=== PATIENT | male | born 1955 | race Caucasian/White ===

== ENCOUNTER 2016-08-17 19:21 | Inpatient (IN) | payer MEDICAID ==
[~2016-08-17] VITALS: Ht 180.3 cm; Wt 103.4 kg
[~2016-08-17 19:21] MED LIST: ALLO100T21 PO; ASPI81CT89 PO; ATOR20TA40 PO; DOCU-264 PO; FURO-570 PO; HYDR-4446 PO; IPRA14.7 INH; LAC PO; LANTUS SUBQ; LEVO250T3 PO; LISI10TA11 PO; LORA-476 PO; NITR0.4T2 SL; WARF6TAB PO
[2016-08-17 20:10] VITALS: BP 130/76
--- NOTE | 2016-08-17 20:40 | NUR ---
Patient to bed 03.
--- NOTE | 2016-08-17 20:41 | NUR ---
pt released from [facility], c/o being tired, weak, sob hx of afib, pacemaker, diabetic., gall bladder removed. blood sugar in triage 146.
--- NOTE | 2016-08-17 20:45 | NUR ---
Patient went to CT via [facility].
[2016-08-17] MEDS ORDERED: NACL 0.9% 1,000 ML IV ONE (21:20)
--- NOTE | 2016-08-17 21:25 | NUR ---
RT at bedside for ABG.
--- NOTE | 2016-08-17 21:25 | NUR ---
XRAY at bedside.
[2016-08-17 21:39] LABS: BLOOD GAS BASE EXCESS -1.9 mmol/L (-2.0-2.0); BLOOD GAS HCO3 20.8 mmol/L; BLOOD GAS O2 SAT% 93.1 % (92.0-98.5); BLOOD GAS PCO2 30.3 mmHg (20-50); BLOOD GAS PH 7.454 (7.35-7.45); BLOOD GAS PO2 64.7 mmHg
[2016-08-17 21:49] LABS: BASOPHILS # (AUTO) 0.1 K/uL (0.00-0.22); BASOPHILS % (AUTO) 0.8 % (0.0-2.0); EOSINOPHILS # (AUTO) 0.2 K/uL (0-0.4); EOSINOPHILS % (AUTO) 1.7 % (0.0-4.0); HEMATOCRIT 44.4 % (36-52); HEMOGLOBIN 14.5 g/dL (12.0-18.0); LYMPHOCYTES # (AUTO) 1.1 K/uL (2.0-11.5); LYMPHOCYTES % (AUTO) 10.9 % (20.5-51.1); MEAN CORPUSCULAR HEMOGLOBIN 29 pg (27-31); MEAN CORPUSCULAR HGB CONC 33 g/dL (33-37); MEAN CORPUSCULAR VOLUME 90 fL (80-94); MONOCYTES # (AUTO) 0.9 K/uL (0.8-1.0); NEUTROPHILS # (AUTO) 7.8 K/uL (1.8-7.7); NEUTROPHILS % (AUTO) 77.6 % (42.2-75.2); PLATELET COUNT (AUTO) 191 K/uL (140-450); RED BLOOD CELL COUNT(AUTO) 4.94 MIL/uL (4.20-6.10); RED CELL DISTRIBUTION WIDTH 16.4 % (11.6-13.7); WHITE BLOOD COUNT (AUTO) 10.1 K/uL (4.8-10.8)
[2016-08-17] MEDS ORDERED: MECLIZINE 25 MG TAB PO ONE (21:50)
[2016-08-17] MEDS ORDERED: KETOROLAC 30 MG/ML VIAL IVP ONE (21:50)
[2016-08-17 22:04] LABS: ANION GAP 15.3 (8-16); CALCIUM 8.5 mg/dL (8.5-10.1); CARBON DIOXIDE 25.6 mmol/L (21-32); CREATININE 1.5 mg/dL (0.6-1.3); POTASSIUM 4.9 mmol/L (3.5-5.1)
[2016-08-17 22:06] LABS: INR 1.4 (0.8-1.2); PARTIAL THROMBOPLASTIN TIME 40.5 secs (22-35.6); PROTHROMBIN TIME 13.8 secs (10.8-13.4)
[2016-08-17 22:11] LABS: ALBUMIN 2.8 g/dL (3.4-5.0); TOTAL BILIRUBIN 1.1 mg/dL (0.0-1.0); TOTAL PROTEIN, SERUM 7.4 g/dL (6.4-8.2)
[2016-08-17 22:12] LABS: LACTIC ACID 1.4 mmol/L (0.4-2.0)
[2016-08-17] MEDS ORDERED: ASPIRIN 81 MG TAB.CHEW PO ONE (22:30)
--- NOTE | 2016-08-17 22:35 | NUR ---
DR PICKERING MADE AWARE OF TROPONIN LEVEL AND ANTWON ROMAN MADE AWARE OF LEVEL OF TROPONIN 0.136.
--- NOTE | 2016-08-17 23:00 | NUR ---
Patient will be admitted to care of DR SIGALA. Admited to TELE 122B. Will go to [id number]. Belongings list completed. Report to MANOJ.
--- NOTE | 2016-08-17 23:05 | NUR ---
ADMITTED 61 YEAR OLD PT FROM ER. PT AAOX4. PT STABLE. PT'S VS ARE STABLE. PT HAS A PACE MAKER. PT HAS IV TO LEFT AC 20 G; ASYMPTOMATIC, PATENT AND INTACT INFUSING FLUIDS WELL. PT'S SKIN IS INTACT. PT HAS SOME DISCOLORATION TO BILATERAL LOWER EXTREMITIES. EXPLAINED PLAN OF CARE TO PT. ORIENTED PT TO ROOM AND SURROUNDINGS AND USE OF CALL LIGHT. SAFETY/FALL RISKS MEASURES IN PLACE. CALL LIGHT WITHIN REACH. WILL CONTINUE TO MONITOR PT.
[2016-08-17 23:14] LABS: APPEARANCE,URINE CLOUDY (CLEAR); BILIRUBIN,URINE NEGATIVE (NEGATIVE); BLOOD, URINE 2+ (NEGATIVE); COLOR,URINE YELLOW (YELLOW); LEUKOCYTE ESTERASE ,URINE TRACE (NEGATIVE); NITRITE, URINE NEGATIVE (NEGATIVE); PH,URINE 5.5 (5.0-9.0); PROTEIN,URINE 2+ (NEGATIVE); UGLUCOSE NEGATIVE (NEGATIVE); UROBILINOGEN,URINE 0.2 EU/dL (0.2 - 1)
[2016-08-17 23:55] LABS: BACTERIA,URINE 3+ /HPF (None Seen); MUCUS,URINE 4+ /LPF (None Seen); SQUAMOUS EPITHELIAL CELL,UR 0-3 /LPF (0-3 (FEW)); WBC,URINE 40-60 /HPF (0-5)
[2016-08-17 23:56] LABS: HYALINE CASTS, URINE 0-3 /LPF (None Seen); WHITE BLOOD CELL CASTS,URINE 0-3 /LPF (None Seen)
[2016-08-18] VITALS: BP 135/78
--- NOTE | 2016-08-18 00:10 | NUR ---
DR. NUNN STATED THAT SHE WILL PUT IN ORDERS FOR PT RIGHT NOW. WILL FOLLOW UP AND WILL CONTINUE TO MONITOR PT.
--- NOTE | 2016-08-18 00:30 | NUR ---
PT VERY DISRESPECTFUL TO STAFF; HE IS STATING HE IS HUNGRY. WILL CALL MD TO GET DIET ORDER.
[2016-08-18] MEDS ORDERED: NACL 0.9% 1,000 ML IV SCH ×2 (00:38→11:20)
[2016-08-18] MEDS ORDERED: ACETAMINOPHEN 325 MG TAB PO PRN (00:40)
[2016-08-18] MEDS ORDERED: MORPHINE SULFATE 2 MG/ML SYR IVP PRN (00:40)
[2016-08-18] MEDS ORDERED: ONDANSETRON 4 MG/2 ML VIAL IVP PRN (00:40)
[2016-08-18] MEDS ORDERED: hePARIN / DEXT 5% PREMIX 250 ML IV PRN (00:50)
[2016-08-18] MEDS ORDERED: HEPARIN PER PHARMACY MC PRN (00:50)
--- NOTE | 2016-08-18 01:00 | NUR ---
PT HAS BEEN RUDE AND DISRESPECTFUL TO STAFF, SECURITY AT BEDSIDE. CALL LIGHT WITHIN REACH.
--- NOTE | 2016-08-18 01:20 | NUR ---
PT EATING A SANDWICH, PT WANTS TO BE LEFT ALONE. WILL CONTINUE TO MONITOR PT.
--- NOTE | 2016-08-18 02:54 | NUR ---
HEPARIN BOLUS GIVEN AND HEPARIN DRIP STARTED PER PROTOCOL. PT STABLE, WILL CONTINUE TO MONITOR.
[2016-08-18] MEDS: hePARIN / DEXT 5% PREMIX 250 ML IV SCH (03:00)
--- NOTE | 2016-08-18 03:20 | NUR ---
PT NEEDS A SECOND IV LINE FOR FLUIDS; HOWEVER PT REFUSES. PT VERY UNCOOPERATIVE.
[2016-08-18 04:00] VITALS: BP 128/72
--- NOTE | 2016-08-18 05:44 | NUR ---
PT COMPLAINING OF SHORTNESS OF BREATH. PT REFUSES TO HAVE VS CHECKED. PT ALSO OFF TELE MONITOR BUT REFUSES TO BE RECONNECTED TO THE MONITOR. PT HAS BEEN VERY RUDE TO STAFF. CHARGE NURSE AND FERTILIZER MIXER WITNESSED.
--- NOTE | 2016-08-18 06:31 | NUR ---
PT COMPLAINING OF SHORTNESS OF BREATH. PT O2 SATURATION 95% ON ROOM AIR. PT REQUESTED TO HAVE 02 ON. PT PUT ON 02 2L NC.
--- NOTE | 2016-08-18 07:05 | NUR ---
ENDORSED PLAN OF CARE TO ABEL CHA. PT IN STABLE CONDITION.
--- NOTE | 2016-08-18 07:05 | NUR ---
RECEIVED PT REPORT AT BEDSIDE. PT IS LETHARGIC A/O X 4 WITH LABORED BREATHING. PT ON 2L O2 NASAL CANULA. PT IS ON HEPARIN DRIP AT 1000 UNITS/HR. IV SITE IS ON LEFT AC INTACT AND ASYMPTOMATIC. PT SKIN IS INTACT. PT ON TELE MONITOR. BED LOWERED AND CALL LIGHT WITHIN REACH. WILL CONTINUE TO MONITOR.
[2016-08-18] MEDS ORDERED: FUROSEMIDE 40 MG/4 ML VIAL IVP SCH ×2 (07:19→10:40)
[2016-08-18 07:30] LABS: CREATINE KINASE MB 3.1 ng/mL (0-3.6)
--- NOTE | 2016-08-18 07:40 | NUR ---
PATIENT SEEN BY DR RM AND DR RABAGO AT BEDSIDE DURING ROUNDS. PATIENT C/O OF SOB WHILE ON 4L O2. O2 SATURATION FLUCTUATING FROM [address] MARK ORDER BREATHING TX
--- NOTE | 2016-08-18 07:47 | NUR ---
PATIENT SEEN BY RT. O2 SAT 100% HR AT 70. PATIENT ON 3L O2 VIA NC. PATIENT STILL C/O OF SOB. PATIENT TO GET BREATHING TX
--- NOTE | 2016-08-18 07:51 | NUR ---
PATIENT HAS BEEN SCREENED AND CATEGORIZED MODERATE NUTRITION RISK. PATIENT WILL BE SEEN WITHIN 3-5 DAYS OF ADMISSION. 08/20/16-08/22/[address]
[2016-08-18] MEDS: ALBUTEROL SULFATE/IPRATROPIU 3 ML SOL IH PRN (07:55)
[2016-08-18 08:00] VITALS: BP 136/86
[2016-08-18] MEDS ORDERED: ASPIRIN 81 MG TAB.CHEW PO SCH (09:00)
[2016-08-18 09:30] LABS: INR 1.4 (0.8-1.2); PROTHROMBIN TIME 13.1 secs (10.8-13.4)
[2016-08-18 09:32] LABS: PARTIAL THROMBOPLASTIN TIME 57.1 secs (22-35.6)
[2016-08-18] MEDS ORDERED: DEXTROSE 50% 50 ML SYR IVP PRN (10:15)
--- NOTE | 2016-08-18 10:37 | NUR ---
ASSISTED PT TO THE BATHROOM. PT HAD BM. O2 SAT 96% ON 3L O2. NO S/S OF DISTRESS NOTED.
[2016-08-18] MEDS ORDERED: LISINOPRIL 10 MG TAB PO SCH (10:43)
[2016-08-18] MEDS ORDERED: DOCUSATE SODIUM 100 MG GELCAP PO PRN ×2 (10:45→11:27)
[2016-08-18] MEDS ORDERED: ALLOPURINOL 100 MG TAB PO SCH (10:50)
[2016-08-18] MEDS ORDERED: INSULIN DETEMIR 100 UNITS/ML 10 ML VIAL SUBQ SCH (10:59)
[2016-08-18] MEDS ORDERED: CARVEDILOL 3.125 MG TAB PO SCH (11:06)
[2016-08-18] MEDS ORDERED: LACTOBACILLUS RHAMNOSUS GG 1 EACH CAP PO SCH (11:12)
[2016-08-18] MEDS ORDERED: ALBUTEROL SULFATE/IPRATROPIU 3 ML SOL IH PRN (11:20)
[2016-08-18] MEDS: BLOOD GLUCOSE MONITORING 1 DEV DEV FS SCH ×3 (11:36→20:28)
[2016-08-18] MEDS ORDERED: ECOTRIN 81 MG TABEC PO SCH (11:49)
[2016-08-18 12:09] LABS: BLOOD GAS BASE EXCESS -2.8 mmol/L (-2.0-2.0); BLOOD GAS HCO3 20.8 mmol/L; BLOOD GAS PCO2 32.8 mmHg (20-50); BLOOD GAS PO2 81.8 mmHg
[2016-08-18] MEDS: INSULIN LISPRO SLIDING SCALE 100 UNITS/ML VIAL SUBQ PRN ×3 (12:19→20:57)
[2016-08-18 12:36] VITALS: BP 128/71
--- NOTE | 2016-08-18 12:45 | NUR ---
ATTEMPTED TO INSERT IV LINE FOR ABX TREATMENT BUT PATIENT REFUSED. PATIENT STATES HE WANTS TO BE LEFT ALONE. WILL ATTEMPT AGAIN LATER
--- NOTE | 2016-08-18 13:40 | NUR ---
PT NOTES PT eval order received, chart reviewed, noted (+) troponin. Will await cardiology consult and clearance to cont with PT eval, or at least 24 hr post peak troponin. Nursing aware. PVE (1)
[2016-08-18 14:36] LABS: CREATINE KINASE MB 3.8 ng/mL (0-3.6)
[2016-08-18 15:22] LABS: AMPHETAMINE, URINE NEG. ng/ml (NEG <=1000); BARBITURATE, URINE NEG. ng/ml (NEG <=200); BENZODIAZEPINE, URINE NEG. ng/mL (NEG <=200); CANNABINOID, URINE NEG. ng/mL (NEG <=50); COCAINE, URINE NEG. ng/mL (NEG <=300); OPIATE, URINE NEG. ng/mL (NEG <=2000); PHENCYCLIDINE SCREEN,URINE NEG. ng/mL (NEG <=25)
--- NOTE | 2016-08-18 15:33 | NUR ---
FAXED INITIAL REVIEW TO [facility] [phone] PHONE TINA [phone]
[2016-08-18 16:00] VITALS: BP 126/74
--- NOTE | 2016-08-18 17:35 | NUR ---
PATIENT SEEN BY DR TERESA
[2016-08-18] MEDS: CARVEDILOL 3.125 MG TAB PO SCH (17:52)
--- NOTE | 2016-08-18 19:24 | NUR ---
PT REPORT GIVEN AT BEDSIDE. PT RESTING PT ENDORSED IN STABLE CONDITION.
--- NOTE | 2016-08-18 19:24 | NUR ---
RECEIVED REPORT FROM DAY RN FOR CONTINUITY OF CARE. PATIENT IS A&OX4, DISCUSSED PLAN OF CARE, VERBALIZED UNDERSTANDING. SHIFT ASSESSMENT DONE, VS TAKEN, STABLE. NO S/S OF RESPIRATORY DISTRESS NOTED ON 2L O2 VIA NC. PATIENT DENIES PAIN AT THIS TIME. IV TO LT AC 20 GAUGE PATENT AND INFUSING HEPARIN DRIP, NO SIGNS OF BLEEDING. IV TO RT WRIST PATENT AND FLUSHED. SKIN INTACT. SAFETY/ FALL PRECAUTIONS ENFORCED. CALL LIGHT WITHIN REACH. WILL CONTINUE TO MONITOR.
[2016-08-18 20:00] VITALS: BP 121/73
[2016-08-18] MEDS: FUROSEMIDE 40 MG/4 ML VIAL IVP SCH (20:51)
[2016-08-18] MEDS: ATORVASTATIN 20 MG TAB PO SCH (20:51)
[2016-08-18] MEDS: HYDROcodone/APAP 5/325 MG 1 TAB TAB PO PRN (20:51)
--- NOTE | 2016-08-18 20:51 | NUR ---
DUE MEDICATIONS ADMINISTERED, TOLERATED WELL. PT C/O HEADACHE MEDICATED WITH NORCO. SPOKE TO PHARMACY REGARDING DUPLICATE ORDER FOR CHOLESTEROL MEDICATION, WILL FOLLOW UP WITH MD.
[2016-08-18] MEDS ORDERED: SIMVASTATIN 20 MG TAB PO SCH (21:00)
--- NOTE | 2016-08-18 21:17 | NUR ---
SPOKE WITH DR. NUNN REGARDING PATIENT REQUEST FOR ATIVAN AND DUPLICATE ORDER FOR CHOLESTEROL MEDICATION. WILL FOLLOW OUT ORDERS GIVEN.
[2016-08-18] MEDS: LORazepam 1 MG TAB PO PRN ×2 (22:13→23:44)
--- NOTE | 2016-08-18 23:44 | NUR ---
VS TAKEN, STABLE. ATIVAN ADMINISTERED PER MD ORDER. PT AMBULATED TO RESTROOM. WILL CONTINUE TO MONITOR.
[2016-08-19 01:05] VITALS: BP 112/70
--- NOTE | 2016-08-19 02:02 | NUR ---
PT IS AWAKE WATCHING TV, PROVIDED HIM WITH SNACK PER REQUEST. CALL LIGHT WITHIN REACH. WILL CONTINUE TO MONITOR.
[2016-08-19 04:00] VITALS: BP 124/77
--- NOTE | 2016-08-19 04:00 | NUR ---
VS TAKEN, STABLE. PT UP TO USE RESTROOM.
--- NOTE | 2016-08-19 04:50 | NUR ---
PT IS REFUSING HEPARIN DRIP STATES, "I DON'T NEED IT, I DON'T WANT TO BE CONNECTED, REMOVE IT AT MY ORDER. " EDUCATED PT ON DIAGNOSIS AND WHY HE IS GETTING HEPARIN DRIP. CONTINUED TO GET AGITATED AND YELL.
--- NOTE | 2016-08-19 04:57 | NUR ---
SPOKE WITH DR. NUNN INFORMED HER OF PT REFUSING HEPARIN DRIP.
[2016-08-19] MEDS: hePARIN / DEXT 5% PREMIX 250 ML IV SCH (05:48)
[2016-08-19] MEDS: BLOOD GLUCOSE MONITORING 1 DEV DEV FS SCH ×4 (06:18→21:15)
--- NOTE | 2016-08-19 06:19 | NUR ---
BLOOD SUGAR TAKEN, 135 NO COVERAGE NEEDED. PATIENT STILL REFUSING HEPARIN DRIP. CALL LIGHT WITHIN REACH.
[2016-08-19 06:49] LABS: HEMATOCRIT 40.6 % (36-52); HEMOGLOBIN 13.5 g/dL (12.0-18.0); MEAN CORPUSCULAR VOLUME 90 fL (80-94); RED BLOOD CELL COUNT(AUTO) 4.53 MIL/uL (4.20-6.10); WHITE BLOOD COUNT (AUTO) 6.9 K/uL (4.8-10.8)
[2016-08-19 06:50] LABS: BASOPHILS # (AUTO) 0.1 K/uL (0.00-0.22); BASOPHILS % (AUTO) 0.9 % (0.0-2.0); EOSINOPHILS # (AUTO) 0.4 K/uL (0-0.4); EOSINOPHILS % (AUTO) 5.7 % (0.0-4.0); LYMPHOCYTES # (AUTO) 1.6 K/uL (2.0-11.5); MEAN CORPUSCULAR HEMOGLOBIN 30 pg (27-31); MEAN CORPUSCULAR HGB CONC 33 g/dL (33-37); MONOCYTES # (AUTO) 0.9 K/uL (0.8-1.0); MONOCYTES % (AUTO) 13.2 % (1.7-9.3); NEUTROPHILS # (AUTO) 3.8 K/uL (1.8-7.7); NEUTROPHILS % (AUTO) 56.2 % (42.2-75.2); PLATELET COUNT (AUTO) 162 K/uL (140-450); RED CELL DISTRIBUTION WIDTH 16.6 % (11.6-13.7)
--- NOTE | 2016-08-19 07:09 | NUR ---
ASSUMED CONTINUITY OF CARE. NO SIGNS AND SYMPTOMS OF ACUTE DISTRESS NOTED. INITIAL ASSESSMENT DONE. NON-COMPLIANT AT TIMES. KEEP COMFORTABLE ON BED. EXPLAINED DIAGNOSIS, PLAN OF CARE, PAIN MANAGEMENT TEACHING, USE OF CALL LIGHT/BED/TV/BATHROOM. VERBALIZED UNDERSTANDING. FALL PRECAUTION APPLIED. CALL LIGHT WITHIN REACH.
[2016-08-19 07:13] LABS: ANION GAP 8.9 (8-16); CALCIUM 7.9 mg/dL (8.5-10.1); CARBON DIOXIDE 29.4 mmol/L (21-32); CREATININE 1.4 mg/dL (0.6-1.3); POTASSIUM 4.3 mmol/L (3.5-5.1)
--- NOTE | 2016-08-19 07:21 | NUR ---
ENDORSED PATIENT TO ROSA SPANN FOR CONTINUITY OF CARE. PATIENT IS IN STABLE CONDITION.
[2016-08-19 07:30] LABS: MAGNESIUM 2.1 mg/dL (1.8-2.4); PHOSPHORUS 5.2 mg/dL (2.5-4.9)
--- NOTE | 2016-08-19 07:53 | NUR ---
Patient's Plan of Care was discussed and reviewed with AIRCRAFT MAINTENANCE INSTRUCTOR: ROSA
[2016-08-19 08:00] VITALS: BP 111/74
[2016-08-19 08:34] LABS: INR 1.3 (0.8-1.2); PROTHROMBIN TIME 12.6 secs (10.8-13.4)
[2016-08-19] MEDS: CARVEDILOL 3.125 MG TAB PO SCH ×2 (08:38→17:13)
[2016-08-19] MEDS: ALLOPURINOL 100 MG TAB PO SCH (08:40)
[2016-08-19] MEDS: LISINOPRIL 10 MG TAB PO SCH (08:41)
[2016-08-19] MEDS: LACTOBACILLUS RHAMNOSUS GG 1 EACH CAP PO SCH (08:41)
[2016-08-19] MEDS: ECOTRIN 81 MG TABEC PO SCH (08:41)
--- NOTE | 2016-08-19 08:52 | NUR ---
WENT TO RADIOLOGY VIA WHEELCHAIR. IN STABLE CONDITION.
[2016-08-19] MEDS ORDERED: ASPIRIN 81 MG TAB.CHEW PO SCH (09:00)
[2016-08-19] MEDS: FUROSEMIDE 40 MG/4 ML VIAL IVP SCH ×2 (09:15→21:01)
[2016-08-19] MEDS: INSULIN DETEMIR 100 UNITS/ML 10 ML VIAL SUBQ SCH (09:18)
--- NOTE | 2016-08-19 09:30 | NUR ---
PT CAME FOR PATIENT PT. TREATMENT. TOLERATED WELL. NO C/O PAIN. NO SOB, NOTED.
[2016-08-19 12:00] VITALS: BP 126/68
--- NOTE | 2016-08-19 13:30 | NUR ---
CM NOTE CONCURRENT REVIEW FAXED TO [facility] / FAX# [phone]
--- NOTE | 2016-08-19 14:20 | NUR ---
WENT TO BATHROOM WITHOUT ASSISTANCE. TOLERATED WELL. NO SOB, NOTED. KEEP FREE FROM INJURY.
[2016-08-19] MEDS: ALBUTEROL SULFATE/IPRATROPIU 3 ML SOL IH PRN (15:08)
[2016-08-19 16:00] VITALS: BP 116/62
[2016-08-19] MEDS ORDERED: WARFARIN 5 MG, WARFARIN 1 MG PO SCH ×2 (17:00)
[2016-08-19] MEDS: INSULIN LISPRO SLIDING SCALE 100 UNITS/ML VIAL SUBQ PRN (17:03)
--- NOTE | 2016-08-19 19:07 | NUR ---
REPORT GIVEN TO CHESTER RODGERS. IN STABLE CONDITION.
--- NOTE | 2016-08-19 19:10 | NUR ---
RECEIVED REPORT FROM JYOTHI ATHLETICS DIRECTOR FOR CONTINUITY OF CARE. PATIENT IS A&OX4, DISCUSSED PLAN OF CARE WITH PT, VERBALIZED UNDERSTANDING. SHIFT ASSESSMENT DONE, VS TAKEN, STABLE. NO S/S OF RESPIRATORY DISTRESS NOTED ON ROOM AIR BUT PATIENT REQUESTS TO BE PLACED ON 2L O2 VIA NC, O2 SAT 94%. PATIENT DENIES PAIN AT THIS TIME. IV TO LT AC 20 GAUGE PATENT AND FLUSHED. IV TO RT WRIST 24 GAUGE PATENT AND FLUSHED. SKIN INTACT WITH MILD DISCOLORATION TO BLE. SAFETY/ FALL PRECAUTIONS ENFORCED. CALL LIGHT PLACED WITHIN REACH. WILL CONTINUE TO MONITOR.
[2016-08-19 20:00] VITALS: BP 117/71
[2016-08-19] MEDS: ATORVASTATIN 20 MG TAB PO SCH (21:01)
--- NOTE | 2016-08-19 21:05 | NUR ---
DUE MEDICATIONS ADMINISTERED, TOLERATED WELL. CALL LIGHT WITHIN REACH.
[2016-08-20] VITALS: BP 135/83
[2016-08-20] MEDS: LORazepam 1 MG TAB PO PRN ×2 (00:22→22:36)
--- NOTE | 2016-08-20 00:22 | NUR ---
VITAL SIGNS TAKEN, STABLE. PATIENT AGITATED, ADMINISTERED ATIVAN PER MD ORDER. WILL CONTINUE TO MONITOR.
--- NOTE | 2016-08-20 02:03 | NUR ---
ENDORSED PATIENT TO KELLY ROMAN FOR CONTINUITY OF CARE, PATIENT IS IN STABLE CONDITION.
--- NOTE | 2016-08-20 02:05 | NUR ---
RECEIVED REPORT FROM CHESTER ROMAN, PATIENT IN STABLE CONDITION, RESTING IN BED ON ROOM AIR, NO SOB OR SIGN OF DISTRESS AT THIS TIME, SKIN INTACT, CALL LIGHT WITHIN REACH. WILL CONTINUE TO MONITOR.
[2016-08-20 04:00] VITALS: BP 125/67
--- NOTE | 2016-08-20 04:29 | NUR ---
VITAL SIGNS STABLE, PATIENT AWAKE, RESTING IN BED CALL LIGHT WITHIN REACH. WILL CONTINUE TO MONITOR.
[2016-08-20 05:59] LABS: BASOPHILS # (AUTO) 0.1 K/uL (0.00-0.22); BASOPHILS % (AUTO) 1.2 % (0.0-2.0); EOSINOPHILS # (AUTO) 0.3 K/uL (0-0.4); EOSINOPHILS % (AUTO) 4.8 % (0.0-4.0); HEMATOCRIT 42.4 % (36-52); HEMOGLOBIN 13.6 g/dL (12.0-18.0); LYMPHOCYTES # (AUTO) 1.6 K/uL (2.0-11.5); LYMPHOCYTES % (AUTO) 23.1 % (20.5-51.1); MEAN CORPUSCULAR HEMOGLOBIN 29 pg (27-31); MEAN CORPUSCULAR HGB CONC 32 g/dL (33-37); MEAN CORPUSCULAR VOLUME 90 fL (80-94); MONOCYTES # (AUTO) 0.6 K/uL (0.8-1.0); MONOCYTES % (AUTO) 8.9 % (1.7-9.3); NEUTROPHILS # (AUTO) 4.5 K/uL (1.8-7.7); PLATELET COUNT (AUTO) 212 K/uL (140-450); RED BLOOD CELL COUNT(AUTO) 4.74 MIL/uL (4.20-6.10); RED CELL DISTRIBUTION WIDTH 16.4 % (11.6-13.7); WHITE BLOOD COUNT (AUTO) 7.1 K/uL (4.8-10.8)
--- NOTE | 2016-08-20 06:13 | NUR ---
BS CHECK 143, NO COVERAGE NEEDED, PATIENT SLEEPING, NO SOB OR SIGN OF DISTRESS AT THIS TIME, CALL LIGHT WITHIN REACH, WILL CONTINUE TO MONITOR.
[2016-08-20] MEDS: BLOOD GLUCOSE MONITORING 1 DEV DEV FS SCH ×4 (06:25→20:55)
[2016-08-20 06:26] LABS: ANION GAP 9.3 (8-16); CREATININE 1.4 mg/dL (0.6-1.3); POTASSIUM 4.3 mmol/L (3.5-5.1)
[2016-08-20 06:35] LABS: PHOSPHORUS 4.2 mg/dL (2.5-4.9)
[2016-08-20 06:38] LABS: INR 1.3 (0.8-1.2); PROTHROMBIN TIME 12.4 secs (10.8-13.4)
--- NOTE | 2016-08-20 07:18 | NUR ---
ENDORSED PATIENT FOR CONTINUITY OF CARE TO DAY RN AT BEDSIDE, PATIENT IN STABLE CONDITION
--- NOTE | 2016-08-20 07:19 | NUR ---
RECEIVED REPORT FROM ABEL MENDOZA. PT IS SLEEPING BUT EASILY AWAKEN, AAO X4, DISCOLORATION ON BLE NOTED OTHERWISE, SKIN INTACT, IV ON RIGHT WRIST FLUSHED PATENT AND INTACT ON SL. INITIAL ASSESSMENT DONE, NO S/S OF RESPIRATORY DISTRESS OR DISCOMFORT NOTED, DISCUSSED PLAN OF CARE. PT VERBALIZED UNDERSTANDING. SAFETY/FALL PRECAUTION ENFORCED, CALL LIGHT WITHIN REACH, WILL CONTINUE TO MONITOR.
[2016-08-20 07:56] VITALS: BP 137/81
[2016-08-20] MEDS ORDERED: CALCIUM ACETATE 667 MG TAB PO SCH (08:00)
[2016-08-20] MEDS: LACTOBACILLUS RHAMNOSUS GG 1 EACH CAP PO SCH (08:31)
[2016-08-20] MEDS: FUROSEMIDE 40 MG/4 ML VIAL IVP SCH ×2 (08:32→20:43)
[2016-08-20] MEDS: CARVEDILOL 3.125 MG TAB PO SCH ×2 (08:32→16:39)
[2016-08-20] MEDS: ECOTRIN 81 MG TABEC PO SCH (08:32)
[2016-08-20] MEDS: LISINOPRIL 10 MG TAB PO SCH (08:32)
[2016-08-20] MEDS: ALLOPURINOL 100 MG TAB PO SCH (08:32)
[2016-08-20] MEDS: INSULIN DETEMIR 100 UNITS/ML 10 ML VIAL SUBQ SCH (08:35)
--- NOTE | 2016-08-20 08:40 | NUR ---
DUE MEDS GIVEN, PT TOLERATED WELL, CALL LIGHT WITHIN REACH, WILL CONTINUE TO MONITOR.
--- NOTE | 2016-08-20 09:40 | NUR ---
ASSISTED PT TO THE SHOWER, PT TOLERATED WELL, PT IS NOW BACK FROM SHOWER, ALL NEEDS MET, CALL LIGHT WITHIN REACH, WILL CONTINUE TO MONITOR.
--- NOTE | 2016-08-20 09:54 | NUR ---
AWAKE AND ALERT PATIENT PRESENTING WITH INCREASED SOB RR 28 HR 72 SATURATION 85% ON ROOM AIR PLACED ON SUPPLEMENTAL OXYGEN AT 2 LPM VIA NC IN HFW POSITION NON DESTRUCTIVE EVALUATION MANAGER TO GIVE HHN PRN THERAPY ORDERED
[2016-08-20] MEDS: ALBUTEROL SULFATE/IPRATROPIU 3 ML SOL IH PRN ×2 (09:59→20:28)
--- NOTE | 2016-08-20 11:27 | NUR ---
CM NOTE CONCURRENT REVIEW FAXED TO [facility] / FAX# [phone], C: [phone], OPT 2
--- NOTE | 2016-08-20 11:40 | NUR ---
BLOOD SUGAR CHECKED, 170, WILL ADMINISTER INSULIN COVERAGE, ALL NEEDS MET AT THIS TIME, CALL LIGHT WITHIN REACH, WILL CONTINUE TO MONITOR.
[2016-08-20 12:00] VITALS: BP 120/75
[2016-08-20] MEDS: INSULIN LISPRO SLIDING SCALE 100 UNITS/ML VIAL SUBQ PRN ×3 (12:02→21:03)
--- NOTE | 2016-08-20 13:01 | NUR ---
LUNCH SERVED, PT HAS GOOD APPETITE, ALL NEEDS MET AT THIS TIME, NO S/S OF RESPIRATORY DISTRESS OR DISCOMFORT NOTED, CALL LIGHT WITHIN REACH, WILL CONTINUE TO MONITOR.
--- NOTE | 2016-08-20 15:30 | NUR ---
PT IS RESTING ON BED WATCHING TV, ALL NEEDS MET AT THIS TIME, CALL LIGHT WITHIN REACH, WILL CONTINUE TO MONITOR.
[2016-08-20 16:00] VITALS: BP 115/84
[2016-08-20] MEDS ORDERED: WARFARIN 5 MG, WARFARIN 1 MG PO SCH ×2 (17:00)
--- NOTE | 2016-08-20 17:42 | NUR ---
DINNER SERVED, PT HAS GOOD APPETITE, ALL NEEDS MET AT THIS TIME, CALL LIGHT WITHIN REACH, WILL CONTINUE TO MONITOR.
--- NOTE | 2016-08-20 19:00 | NUR ---
ENDORSED PT TO ABEL MENDOZA FOR CONTINUITY OF CARE. PT IS STABLE AT THIS TIME.
--- NOTE | 2016-08-20 19:30 | NUR ---
RECEIVED REPORT FROM DAY RN AT BEDSIDE, PATIENT IS RESTING IN BED, AAOX4, NO SOB OR SIGN OF DISTRESS, PATIENT IS ON ROOM AIR. ABDOMEN IS ROUND AND DISTENDED, NON TENDER, SKIN IS INTACT WITH DISCOLORATION TO BILATERAL LOWER EXTREMITIES. PATIENT DENIES PAIN AT THIS TIME. IV TO RIGHT WRIST 24G PATENT AND INTACT. DISCUSSED PLAN OF CARE WITH PATIENT, PATIENT VERBALIZED UNDERSTANDING. CALL LIGHT WITHIN REACH. WILL CONTINUE TO MONITOR.
[2016-08-20 20:00] VITALS: BP 132/71
[2016-08-20] MEDS: ATORVASTATIN 20 MG TAB PO SCH (20:42)
--- NOTE | 2016-08-20 20:55 | NUR ---
PM MEDS ADMINISTERED, PATIENT TOLERATED WELL, CALL LIGHT WITHIN REACH. WILL CONTINUE TO MONITOR.
[2016-08-20] MEDS: HYDROcodone/APAP 5/325 MG 1 TAB TAB PO PRN (23:40)
[2016-08-21] VITALS: BP 124/73
--- NOTE | 2016-08-21 00:30 | NUR ---
PATIENT C/O PAIN IN LEFT GREAT TOE, PATIENT ASKED FOR NORCO, PAIN IS 6/10. ADMINISTERED PER MD ORDER, VITAL SIGNS STABLE, NO SOB OR SIGN OF DISTRESS, CALL LIGHT WITHIN REACH. WILL CONTINUE TO MONITOR.
--- NOTE | 2016-08-21 02:30 | NUR ---
PATIENT SLEEPING, NO SOB OR SIGN OF DISTRESS AT THIS TIME, CALL LIGHT WITHIN REACH. WILL CONTINUE TO MONITOR
[2016-08-21 04:00] VITALS: BP 112/73
--- NOTE | 2016-08-21 04:29 | NUR ---
VITAL SIGNS STABLE, PATIENT SLEEPING, EASILY AWAKEN , NO SOB OR SIGN OF DISTRESS, CALL LIGHT WITHIN REACH. WILL CONTINUE TO MONITOR.
[2016-08-21] MEDS: BLOOD GLUCOSE MONITORING 1 DEV DEV FS SCH (06:19)
[2016-08-21 06:20] LABS: BASOPHILS # (AUTO) 0.1 K/uL (0.00-0.22); BASOPHILS % (AUTO) 1.8 % (0.0-2.0); EOSINOPHILS # (AUTO) 0.4 K/uL (0-0.4); EOSINOPHILS % (AUTO) 5.2 % (0.0-4.0); HEMATOCRIT 42.7 % (36-52); HEMOGLOBIN 14.1 g/dL (12.0-18.0); LYMPHOCYTES # (AUTO) 1.7 K/uL (2.0-11.5); LYMPHOCYTES % (AUTO) 24.5 % (20.5-51.1); MEAN CORPUSCULAR HEMOGLOBIN 29 pg (27-31); MEAN CORPUSCULAR HGB CONC 33 g/dL (33-37); MEAN CORPUSCULAR VOLUME 88 fL (80-94); MONOCYTES # (AUTO) 0.8 K/uL (0.8-1.0); MONOCYTES % (AUTO) 11.3 % (1.7-9.3); NEUTROPHILS # (AUTO) 4.1 K/uL (1.8-7.7); NEUTROPHILS % (AUTO) 57.2 % (42.2-75.2); PLATELET COUNT (AUTO) 212 K/uL (140-450); RED BLOOD CELL COUNT(AUTO) 4.85 MIL/uL (4.20-6.10); RED CELL DISTRIBUTION WIDTH 16.1 % (11.6-13.7); WHITE BLOOD COUNT (AUTO) 7.1 K/uL (4.8-10.8)
--- NOTE | 2016-08-21 06:23 | NUR ---
PATIENT AWAKE RESTING IN BED, NO SOB OR SIGN OF DISTRESS, CALL LIGHT WITHIN REACH. WILL CONTINUE TO MONITOR. BS CHECK 112 NO COVERAGE NEEDED.
[2016-08-21 06:42] LABS: ANION GAP 7.2 (8-16); CALCIUM 8.1 mg/dL (8.5-10.1); CARBON DIOXIDE 33.9 mmol/L (21-32); CREATININE 1.2 mg/dL (0.6-1.3); POTASSIUM 4.1 mmol/L (3.5-5.1)
[2016-08-21] MEDS: HYDROcodone/APAP 5/325 MG 1 TAB TAB PO PRN (07:01)
[2016-08-21 07:07] LABS: INR 1.4 (0.8-1.2); PROTHROMBIN TIME 13.2 secs (10.8-13.4)
--- NOTE | 2016-08-21 07:30 | NUR ---
ENDORSED REPORT TO DAY RN AT BEDSIDE, PATIENT IN STABLE CONDITION
--- NOTE | 2016-08-21 07:30 | NUR ---
RECEIVED PT IN BED, ALERT, ORIENTEDX4. BREATHING EVEN AND UNLABORED. NO SOB NOTED. DENIES ANY PAIN OR DISCOMFORT AT THIS TIME. POSITIVE BOWEL SOUNDS ON ALL FOUR QUADRANTS NOTED. NO COMPLAINTS OF VOIDING AND BM ELIMINATION DISCOMFORT. PT AMBULATORY, UNSTEADY. SAFETY PRECAUTION IN PLACE. CALL LIGHT WITHIN REACH.
[2016-08-21 07:41] LABS: PHOSPHORUS 4.4 mg/dL (2.5-4.9)
[2016-08-21 08:00] VITALS: BP 134/73
--- NOTE | 2016-08-21 08:30 | NUR ---
PT CONSUMED 100% OF BREAKFAST, FOOD TOLERATED WELL.
[2016-08-21] MEDS: LACTOBACILLUS RHAMNOSUS GG 1 EACH CAP PO SCH (08:44)
[2016-08-21] MEDS: ECOTRIN 81 MG TABEC PO SCH (08:44)
[2016-08-21] MEDS: FUROSEMIDE 40 MG/4 ML VIAL IVP SCH (08:45)
[2016-08-21] MEDS: LISINOPRIL 10 MG TAB PO SCH (08:49)
[2016-08-21] MEDS: ALLOPURINOL 100 MG TAB PO SCH (08:49)
[2016-08-21] MEDS: CARVEDILOL 3.125 MG TAB PO SCH (08:49)
--- NOTE | 2016-08-21 09:00 | NUR ---
PT ABLE TO AMBULATE TO THE BATHROOM INDEPENDENTLY, WITH STEADY SLOW GAIT. ACTIVITY TOLERATED WELL.
[2016-08-21] MEDS: INSULIN DETEMIR 100 UNITS/ML 10 ML VIAL SUBQ SCH (09:04)
--- NOTE | 2016-08-21 10:00 | NUR ---
PT HAS BEEN REMOVING TELEMETRY BOX, STATED THAT HE WILL BE DISCHARGED TODAY ACCORDING TO THE DOCTORS WHEN THEY MADE THEIR ROUNDS THIS MORNING. SPOKE WITH DR. RABAGO (RESIDENT)-STATED HE WON'T BE ABLE TO DISCHARGE PT RIGHT NOW AND THAT HE WILL MAKE SURE HE WILL CONTACT PT'S PCP FOR FOLLOW UP APPOINTMENT. PT IS NOT AGREEABLE TO THAT AND STATED HE WILL LEAVE SOON POSSIBLE. PT WAS YELLING AND WAS RUDE TO THE DR AND STAFF. RUSTY HEAD OF SECURITY MADE AWARE AND CAME TO PT'S BEDSIDE. PT STATED HE DOES NOT WANT TO SIGN AMA. DR. RABAGO EXPLAINED THE RISKS AND BENEFITS OF LEAVING AGAINST MEDICAL ADVICE, PT VERBALIZED UNDERSTANDING BUT STILL DO NOT WANT TO SIGN AMA, PT STATED, "DO NOT TELL ME WHAT TO DO, I KNOW MY RIGHTS". PT ASKED FOR MINIMUM OF 2 BUS PASSES SINCE HE SAID HE HAS NO MONEY FOR A RIDE. PRINCIPAL LAW CLERK NURSE AND RN DISTRIBUTION SYSTEMS SUPERINTENDENT NOTIFIED.
--- NOTE | 2016-08-21 11:00 | NUR ---
IV REMOVED, CANNULA TIP INTACT. PT REFUSED HIS HOSPITAL ARM BAND TO BE REMOVED. 2 BUS PASSES PROVIDED PER PT'S REQUEST. ALL BELONGINGS CHECKED, AND WAS GIVEN TO PT. PT ASKED TO BE WHEELED OUT TO THE FRONT OF THE HOSPITAL AND STATED HE WILL CALL A CAB IN ORDER FOR HIM TO GO HOME, STATED THE 2 BUS PASSES ARE NOT ENOUGH TO GET HIM TO HIS FRIEND'S HOUSE WHERE HE WILL BE STAYING. PT REFUSED TO SIGN AMA FORM AND HOMELESS PACKET, RISKS EXPLAINED TO PT, VERBALIZED UNDERSTANDING. PT ELOPED IN STABLE CONDITION. NO SOB NOTED. NO C/O PAIN AT THIS TIME. RN TELE NURSE, RN GEODETIC SURVEYOR TECHNOLOGIST AND HEAD OF SECURITY MADE AWARE.
--- NOTE | 2016-08-21 11:18 | NUR ---
FAXED CONCURRENT REVIEW TO [facility] [phone] [facility] [phone] FAXED CONCURRENT REVIEW TO [facility] [phone] PHONE TINA [phone]
[2016-08-21] MEDS ORDERED: WARFARIN 5 MG TAB PO SCH (12:12)
[2016-08-21] MEDS ORDERED: WARFARIN 5 MG, WARFARIN 1 MG PO SCH ×2 (17:00)
[2016-08-21] MEDS ORDERED: WARFARIN 5 MG, WARFARIN 2 MG PO SCH ×2 (17:00)
== END 2016-08-21 11:00 | disposition left against medical advice (07) | DRG 194 ==
LOC: MED 19:21 → MTU 22:45
PROVIDERS: ADMIT Family Medicine; ATTEND Family Medicine
DX: I11.0 Hypertensive heart disease with heart failure (principal); N17.0 Acute kidney failure with tubular necrosis; E43 Unspecified severe protein-calorie malnutrition; E11.51 Type 2 diabetes mellitus with diabetic peripheral angiopathy without gangrene; I27.2 Other secondary pulmonary hypertension; E83.39 Other disorders of phosphorus metabolism; E11.65 Type 2 diabetes mellitus with hyperglycemia; I48.91 Unspecified atrial fibrillation; I50.43 Acute on chronic combined systolic (congestive) and diastolic (congestive) heart failure; J45.909 Unspecified asthma, uncomplicated; K21.9 Gastro-esophageal reflux disease without esophagitis; N39.0 Urinary tract infection, site not specified; I25.10 Atherosclerotic heart disease of native coronary artery without angina pectoris; M10.9 Gout, unspecified; E66.9 Obesity, unspecified; E78.5 Hyperlipidemia, unspecified; E83.51 Hypocalcemia; J44.9 Chronic obstructive pulmonary disease, unspecified; Z95.0 Presence of cardiac pacemaker; Z79.01 Long term (current) use of anticoagulants; Z79.899 Other long term (current) drug therapy; Z79.4 Long term (current) use of insulin; Z79.82 Long term (current) use of aspirin; Z68.31 Body mass index [BMI] 31.0-31.9, adult; Z71.3 Dietary counseling and surveillance; Z88.8 Allergy status to other drugs, medicaments and biological substances; Z59.0 Homelessness; Z91.19 Patient's noncompliance with other medical treatment and regimen; Z87.891 Personal history of nicotine dependence; Z82.5 Family history of asthma and other chronic lower respiratory diseases; Z83.3 Family history of diabetes mellitus; Z82.49 Family history of ischemic heart disease and other diseases of the circulatory system; Z82.3 Family history of stroke; Z84.1 Family history of disorders of kidney and ureter
CPT/HCPCS: 36415; 36600; 70450; 71010; 71020; 80048; 80053; 80305; 81001; 82550; 82553; 82803; 82948; 83036; 83605; 83735; 83880; 84100; 84484; 85025; 85610; 85730; 87040; 87081; 87086; 93005; 93970; 94640; 96361; 96374; 97140; 99285; J0696; J1644; J1815; J1885; J1940; J7030; J7060; J7620; J8597; Q0092

== ENCOUNTER 2016-08-24 00:42 | Observation (INO) | payer MEDICAID ==
[~2016-08-24] VITALS: Ht 180.3 cm; Wt 99.8 kg
[2016-08-24 00:51] VITALS: BP 126/91
[2016-08-24 01:09] LABS: BASOPHILS # (AUTO) 0.2 K/uL (0.00-0.22); BASOPHILS % (AUTO) 2.8 % (0.0-2.0); EOSINOPHILS # (AUTO) 0.4 K/uL (0-0.4); EOSINOPHILS % (AUTO) 4.7 % (0.0-4.0); HEMATOCRIT 46.5 % (36-52); HEMOGLOBIN 14.5 g/dL (12.0-18.0); LYMPHOCYTES # (AUTO) 1.8 K/uL (2.0-11.5); MEAN CORPUSCULAR HEMOGLOBIN 28 pg (27-31); MEAN CORPUSCULAR HGB CONC 31 g/dL (33-37); MEAN CORPUSCULAR VOLUME 90 fL (80-94); MONOCYTES # (AUTO) 0.9 K/uL (0.8-1.0); MONOCYTES % (AUTO) 10.3 % (1.7-9.3); NEUTROPHILS # (AUTO) 5.1 K/uL (1.8-7.7); NEUTROPHILS % (AUTO) 60.2 % (42.2-75.2); PLATELET COUNT (AUTO) 317 K/uL (140-450); RED BLOOD CELL COUNT(AUTO) 5.15 MIL/uL (4.20-6.10); RED CELL DISTRIBUTION WIDTH 16.4 % (11.6-13.7); WHITE BLOOD COUNT (AUTO) 8.4 K/uL (4.8-10.8)
--- NOTE | 2016-08-24 01:13 | NUR ---
Gunjan quintero in [facility] - 08/24/16 at 0114 by MEDREESE CAME IN BY MOTORIZED WHEELCHAIR TO ER BED 3
--- NOTE | 2016-08-24 01:23 | NUR ---
CAME IN BY MOTORIZED WHEELCHAIR TO ER BED 3 FROM XRAY
[2016-08-24 01:26] LABS: ALBUMIN 3.1 g/dL (3.4-5.0); ANION GAP 8.7 (8-16); CALCIUM 8.4 mg/dL (8.5-10.1); CARBON DIOXIDE 33.9 mmol/L (21-32); CREATININE 2.6 mg/dL (0.6-1.3); POTASSIUM 4.6 mmol/L (3.5-5.1); TOTAL PROTEIN, SERUM 7.3 g/dL (6.4-8.2)
[2016-08-24 01:28] LABS: INR 1.6 (0.8-1.2); PARTIAL THROMBOPLASTIN TIME 35.7 secs (22-35.6); PROTHROMBIN TIME 15.5 secs (10.8-13.4)
--- NOTE | 2016-08-24 01:30 | NUR ---
61 Y/O HERE W/C/O CHEST TIGHTNESS HEADACHES AND PALPITATIONS X 1 DAY.DENIES ANY SOB, OR CHEST PAIN AT THE MOMENT. PT ON MONITOR NO S/S OF DISTRESS NOTED AT THE MOMENT. ER MD MADE AWARE. HX: DM, COPD, AFIB, PACEMAKER
--- NOTE | 2016-08-24 03:15 | NUR ---
PT RESTING IN BED ON RAILROAD BAGGAGE PORTER, NO S/S OF DISTRESS NOTED AT THIS MOMENT WILL CONT TO MONITOR.
--- NOTE | 2016-08-24 04:08 | NUR ---
PT AWAKE, RESTING IN BED, ON MONITOR, VSS. NO S/S OF DISTRESS NOTED AT THE MOMENT.
[2016-08-24] MEDS ORDERED: ONDANSETRON 4 MG/2 ML VIAL IVP PRN (04:25)
[2016-08-24] MEDS ORDERED: HYDROcodone/APAP 5/325 MG 1 TAB TAB PO PRN (04:25)
[2016-08-24] MEDS ORDERED: ACETAMINOPHEN 325 MG TAB PO PRN (04:25)
[2016-08-24] MEDS ORDERED: LORazepam 1 MG TAB PO PRN (04:30)
[2016-08-24] MEDS ORDERED: DEXTROSE 50% 50 ML SYR IVP PRN (04:30)
[2016-08-24] MEDS ORDERED: INSULIN LISPRO SLIDING SCALE 100 UNITS/ML VIAL SUBQ PRN (04:30)
[2016-08-24] MEDS ORDERED: NITROGLYCERIN 0.4 MG TAB SL PRN ×2 (04:30→07:37)
[2016-08-24 04:57] LABS: FREE T4 (FREE THYROXINE) 1.1 ng/dL (0.76-1.46); MAGNESIUM 2.3 mg/dL (1.8-2.4); PHOSPHORUS 4.2 mg/dL (2.5-4.9)
[2016-08-24 04:58] LABS: THYROID STIMULATING HORMONE 2.26 uIU/mL (0.34-3.76)
[2016-08-24] MEDS: NACL 0.9% 1,000 ML IV SCH ×2 (05:20→12:22)
--- NOTE | 2016-08-24 05:42 | NUR ---
Patient will be admitted to care of DR CARREON. Admited to TELEMETRY. Will go to [id number]. Belongings list completed. Report to ABEL DIAZ.
--- NOTE | 2016-08-24 06:04 | NUR ---
PT TRASFERRED TO TELEMETRY ROOM 122 A BY RN AND EMT. NO S/S OF DISTRESS NOTED DURING TRASFER.
[2016-08-24] MEDS ORDERED: INSULIN DETEMIR 100 UNITS/ML 10 ML VIAL SUBQ SCH ×2 (06:30→07:36)
--- NOTE | 2016-08-24 07:00 | NUR ---
PT IS SLEEPING, NO S/S OF ACUTE CARDIAC/RESPIRATORY DISTRESS OR DISCOMFORT. SAFETY MEASURES IN PLACE, CALL LIGHT WITHIN REACH. WILL INITIATE PLAN OF CARE AND CONTINUE TO MONITOR.
[2016-08-24] MEDS: BLOOD GLUCOSE MONITORING 1 DEV DEV FS SCH ×3 (07:30→16:21)
[2016-08-24 08:00] VITALS: BP 134/68
[2016-08-24] MEDS ORDERED: DOCUSATE SODIUM 100 MG GELCAP PO SCH (09:00)
[2016-08-24] MEDS ORDERED: LISINOPRIL 10 MG TAB PO SCH (09:00)
[2016-08-24] MEDS ORDERED: ATORVASTATIN 20 MG TAB PO SCH (09:00)
[2016-08-24] MEDS ORDERED: ALLOPURINOL 100 MG TAB PO SCH (09:00)
[2016-08-24] MEDS ORDERED: FUROSEMIDE 40 MG TAB PO SCH (09:00)
[2016-08-24] MEDS ORDERED: ASPIRIN 81 MG TAB.CHEW PO SCH (09:00)
--- NOTE | 2016-08-24 10:30 | NUR ---
PT TOLERATED AM MEDS WELL. NO S/S OF ACUTE DISTRESS OR DISCOMFORT. CALL LIGHT WITHIN REACH, WILL CONTINUE TO MONITOR.
[2016-08-24 12:00] VITALS: BP 145/62
--- NOTE | 2016-08-24 13:39 | NUR ---
PT IS RESTING IN BED, AMBULATED TO THE RESTROOM, ATTEMPTING TO SHOWER IN A BIT. NO S/S OF ACUTE DISTRESS OR DISCOMFORT. CALL LIGHT WITHIN REACH, WILL CONTINUE TO MONITOR.
--- NOTE | 2016-08-24 15:53 | NUR ---
PT IS AWAKE, RESTING IN BED. NO S/S OF ACUTE DISTRESS OR DISCOMFORT. CALL LIGHT WITHIN REACH, WILL CONTINUE TO MONITOR.
--- NOTE | 2016-08-24 15:58 | NUR ---
PER REQUEST OF HOME FROM [facility], FAXED FACE SHEET, ER NOTES AND ADMIT ORDER TO HER AT [phone] PHONE HOME [phone]
[2016-08-24 16:00] VITALS: BP 127/72
[2016-08-24 16:23] LABS: ANION GAP 9.1 (8-16); CARBON DIOXIDE 32.3 mmol/L (21-32); CREATININE 2.1 mg/dL (0.6-1.3); POTASSIUM 4.4 mmol/L (3.5-5.1)
[2016-08-24] MEDS ORDERED: WARFARIN 2 MG TAB PO SCH (17:00)
--- NOTE | 2016-08-24 17:10 | NUR ---
DISCHARGE INSTRUCTIONS PROVIDED, PT VERBALIZED UNDERSTANDING. DISCHARGE PAPERWORK SIGNED, PROVIDED A COPY. ARM BANDS REMOVED, IV REMOVED AND INTACT. NO S/S OF ACUTE DISTRESS OR DISCOMFORT. PT IN STABLE CONDITION. PT WHEELCHAIRED TO FRONT LOBBY TO BE PICKED UP BY FRIEND.
[2016-08-25 11:46] LABS: T4 (THYROXINE) 6.9 ug/dL (4.5-12.0)
[2016-08-25 12:56] LABS: HEMOGLOBIN A1C 8.8 % (4.8-5.6)
== END 2016-08-24 17:10 | disposition home or self-care (01) ==
LOC: MED 00:42 → MTU 02:36 → UNDOADMIN 02:36
PROVIDERS: ADMIT Family Medicine; ATTEND Family Medicine
DX: I48.91 Unspecified atrial fibrillation (principal); I25.10 Atherosclerotic heart disease of native coronary artery without angina pectoris; M10.9 Gout, unspecified; E66.9 Obesity, unspecified; E46 Unspecified protein-calorie malnutrition; J45.909 Unspecified asthma, uncomplicated; E11.9 Type 2 diabetes mellitus without complications; I11.9 Hypertensive heart disease without heart failure; N28.9 Disorder of kidney and ureter, unspecified; Z85.038 Personal history of other malignant neoplasm of large intestine
CPT/HCPCS: 36415; 71010; 80048; 80053; 82948; 83036; 83735; 83880; 84100; 84436; 84439; 84443; 84479; 84484; 85025; 85610; 85730; 93005; 96360; 96361; 96372; 99285; G0378; J1815; J7030; Q0092

== ENCOUNTER 2016-10-20 16:20 | Inpatient (IN) | payer MEDICAID ==
[~2016-10-20] VITALS: Ht 180.3 cm; Wt 94.8 kg
[2016-10-20 16:57] VITALS: BP 131/77
--- NOTE | 2016-10-20 17:12 | NUR ---
Patient taken to bed 03 via wheelchair per tech.
--- NOTE | 2016-10-20 17:17 | NUR ---
Dr. Merino evaluating patient at bedside.
--- NOTE | 2016-10-20 17:20 | NUR ---
placed leads on pt, spos2 and b/p---MD at bedside. pt a/o x4 large mug with pepsi which he started drinking after he noticed he self injected with humalog 25unit instead of lantus. will order meal for pt. and recheck sugar.
--- NOTE | 2016-10-20 17:29 | NUR ---
took humalog at 1700hrs Addendum: 10/20/16 at 1731 by MICKEY took humalog about 1630hrs
--- NOTE | 2016-10-20 17:49 | NUR ---
meal ordered and i went to cafeteria to assure order was received. staff is aware. pt eating marcos crakers with water--a/o x4 holding conversation with me
--- NOTE | 2016-10-20 17:50 | NUR ---
I spoke with manav Reyes with [facility] [phone] [place] suggested to monitor pt for 5hrs from time of self medication and provide for a well balanced meal. If symtomatic allow for sweets. notified
--- NOTE | 2016-10-20 17:54 | NUR ---
pt having meal now
[2016-10-20] MEDS ORDERED: DEXTROSE 50% 50 ML SYR IVP ONE (19:14)
[2016-10-20] MEDS ORDERED: DEXTROSE 50% 50 ML SYR IVP STA (19:16)
--- NOTE | 2016-10-20 19:19 | NUR ---
pt admitted feeling quizie, but remained having a conversation with me---
--- NOTE | 2016-10-20 21:28 | NUR ---
SPOKE TO ADA AT [facility], TO WATCH PT FOR 6 HOURS POST GIVING D50. ER MD DR ZUÑIGA MADE AWARE
[2016-10-20 22:05] LABS: BASOPHILS # (AUTO) 0.2 K/uL (0.00-0.22); EOSINOPHILS # (AUTO) 0.2 K/uL (0-0.4); EOSINOPHILS % (AUTO) 3.4 % (0.0-4.0); HEMATOCRIT 46.7 % (36-52); HEMOGLOBIN 14.8 g/dL (12.0-18.0); LYMPHOCYTES # (AUTO) 1.4 K/uL (2.0-11.5); MEAN CORPUSCULAR HEMOGLOBIN 29 pg (27-31); MEAN CORPUSCULAR HGB CONC 32 g/dL (33-37); MEAN CORPUSCULAR VOLUME 91 fL (80-94); MONOCYTES # (AUTO) 0.4 K/uL (0.8-1.0); MONOCYTES % (AUTO) 5.7 % (1.7-9.3); NEUTROPHILS # (AUTO) 4.5 K/uL (1.8-7.7); PLATELET COUNT (AUTO) 197 K/uL (140-450); RED BLOOD CELL COUNT(AUTO) 5.13 MIL/uL (4.20-6.10); RED CELL DISTRIBUTION WIDTH 16.8 % (11.6-13.7); WHITE BLOOD COUNT (AUTO) 6.7 K/uL (4.8-10.8)
[2016-10-20 22:18] LABS: ALBUMIN 2.8 g/dL (3.4-5.0); ANION GAP 11.2 (8-16); CALCIUM 8.7 mg/dL (8.5-10.1); CARBON DIOXIDE 30.1 mmol/L (21-32); CREATININE 1.5 mg/dL (0.6-1.3); POTASSIUM 4.3 mmol/L (3.5-5.1); TOTAL BILIRUBIN 1.6 mg/dL (0.0-1.0); TOTAL PROTEIN, SERUM 6.8 g/dL (6.4-8.2)
[2016-10-20] MEDS ORDERED: DEXT 5% /NACL 0.9% 1,000 ML IV SCH (22:54)
[2016-10-20] MEDS ORDERED: MORPHINE SULFATE 2 MG/ML SYR IVP PRN (22:55)
[2016-10-20] MEDS ORDERED: ONDANSETRON 4 MG/2 ML VIAL IVP PRN (22:55)
[2016-10-20] MEDS ORDERED: HYDROcodone/APAP 5/325 MG 1 TAB TAB PO PRN (22:55)
[2016-10-20] MEDS ORDERED: ACETAMINOPHEN 325 MG TAB PO PRN (22:55)
--- NOTE | 2016-10-20 23:05 | NUR ---
Patient will be admitted to care of DR SIGALA. Admited to TELE 115. Will go to room 115. Belongings list completed. Report to JC ROMAN.
--- NOTE | 2016-10-20 23:30 | NUR ---
RECEIVED FROM ER PER STEPHEN AWAKE AND ALERT. NO SOB. DENIES ANY PAIN. VERBALIZES WELL. PT. DX. OF HYPOGLYCEMIA AND OVERDOSE OF REGULAR INSULIN INSTEAD OF NPH. PT. CALL LIGHT EXPLAINED. ROM X 4. RAPID RESPONSE EXPLAINED. CARE PLANS FOR THE NIGHT EXPLAINED TO HIM. PT. AT THIS TIME TALKING OUT LOUDLY AND VERY HAPPY TO BE HERE. REQUESTED FOR A SNACK. PROVIDED WITH SNACKS REQUESTED.
[2016-10-21 00:19] VITALS: BP 110/80
--- NOTE | 2016-10-21 02:20 | NUR ---
PT. SLEEPING AT THIS TIME. NO SOB. CALL LIGHT WITH IN REACH. TELEMETRY MONITORING.
--- NOTE | 2016-10-21 03:13 | NUR ---
PT. REFUSED TO HAVE IVF. DISCONTINUED BY CHARGE NURSE . PROS AND CONS WITH NO IVF EXPLAINED. "NO" PT. ALERT AND ORIENTED. ROM X 4.
--- NOTE | 2016-10-21 03:44 | NUR ---
PT. AWAKE AT THIS TIME AND WANTING TO HAVE LASIX. P.O. INFORMED HIM THAT THERE IS NO LASIX ORDERED FOR HIM AND THAT WE WILL FOLLOW UP IN A.M. ABOUT IT. PT. STOOD UP AND WENT TO RESTROOM TO URINATE. INDEPENDENT. ENCOURGED TO GO BACK TO SLEEP. TELEMETRY MONITORING.
[2016-10-21 03:59] LABS: FREE T4 (FREE THYROXINE) 0.88 ng/dL (0.76-1.46); THYROID STIMULATING HORMONE 2.64 uIU/mL (0.34-3.76)
[2016-10-21 04:10] LABS: CHOL/HDL RATIO 2.2 (1-4.5)
--- NOTE | 2016-10-21 04:23 | NUR ---
PT. AWAKE AND WANTS LASIX TABLETS. STATED THAT HE HAS NOT TAKEN HIS MEDICATION YESTERDAY IN THE AFTERNOON. PAGED MD SIGALA BUSINESS OPERATIONS DIRECTOR. WAITING CALL BACK.
[2016-10-21] MEDS ORDERED: FUROSEMIDE 40 MG TAB PO SCH (04:40)
--- NOTE | 2016-10-21 04:48 | NUR ---
MD SIGALA WITH ORDER TO GIVE LASIX 40 MG. P.O X 1 NOW. MEDICATED REQUESTED BY PT. REMINDED PT. THAT HE SHOULD GO WATCH HOW MUCH HE DRINKS FLUID. NOTED PT. ALREADY DRANK SO MUCH WATER FROM HIS OWN 1000 ML WATER JUG.
[2016-10-21] MEDS ORDERED: FUROSEMIDE 40 MG TAB ONE (04:49)
[2016-10-21 04:57] VITALS: BP 114/79
[2016-10-21] MEDS: BLOOD GLUCOSE MONITORING 1 DEV DEV FS SCH ×4 (06:31→21:07)
--- NOTE | 2016-10-21 06:32 | NUR ---
LASIX 40 MG P.O. GIVEN REQUESTED. PT. AWAKE AT THIS TIME AND WATCHING TV. TELEMETRY MONITORING. NO SOB. VERBALIZES WELL.
--- NOTE | 2016-10-21 07:39 | NUR ---
ENDORSED TO THE NEXT RN F OR CONTINUITY OF CARE. PT. SLEEPING. WAKES UP EASILY WHEN CALLED BY NAME. LATEST BLOOD SUGAR 147 MG/DL. TELEMETRY MONITORING.
[2016-10-21] MEDS ORDERED: NITROGLYCERIN 0.4 MG TAB SL PRN (07:40)
--- NOTE | 2016-10-21 07:40 | NUR ---
REPORT RECEIVED FROM CONDENSER TESTER, PT SLEEPING QUIETLY IN NAD, RESP EVEN UNLABORED ON ROOM AIR, AROUSED EASILY BY VOICE, PLAN OF CARE REVIEWED, PT DENIES PAIN OR DISCOMFORT, REFUSES IV FLUID INFUSING, CALL RUIZ WITHIN REACH, BED LOCKED IN LOW POSITION, SIDE RAILS UP. WILL CONTINUE TO MONITOR.
[2016-10-21] MEDS ORDERED: LORazepam 2 MG/ML VIAL IVP PRN (07:45)
[2016-10-21 08:00] VITALS: BP 125/90
[2016-10-21] MEDS: FOLIC ACID 1 MG TAB PO SCH (08:51)
[2016-10-21] MEDS: ALLOPURINOL 100 MG TAB PO SCH (08:51)
[2016-10-21] MEDS: THIAMINE 200 MG/2 ML VIAL IM SCH (08:51)
[2016-10-21] MEDS: LISINOPRIL 10 MG TAB PO SCH (08:52)
[2016-10-21] MEDS: METOPROLOL 25 MG TAB PO SCH ×2 (08:52→21:07)
[2016-10-21] MEDS: ATORVASTATIN 20 MG TAB PO SCH (08:52)
[2016-10-21] MEDS: ASPIRIN 81 MG TAB.CHEW PO SCH (08:52)
--- NOTE | 2016-10-21 08:59 | NUR ---
CM NOTE INITIAL REVIEW SENT TO [facility] FAX# [phone] MICHELINE PH# [phone]
[2016-10-21] MEDS: LORazepam 1 MG TAB PO SCH ×3 (09:03→21:07)
[2016-10-21 09:10] LABS: ANION GAP 11.2 (8-16); CALCIUM 8.7 mg/dL (8.5-10.1); CARBON DIOXIDE 30.1 mmol/L (21-32); CREATININE 1.5 mg/dL (0.6-1.3); POTASSIUM 4.3 mmol/L (3.5-5.1)
[2016-10-21 09:15] LABS: INR 1.3 (0.8-1.2); PARTIAL THROMBOPLASTIN TIME 34.1 secs (22-35.6); PROTHROMBIN TIME 12.2 secs (10.8-13.4)
[2016-10-21 09:16] LABS: AMYLASE 33 U/L (25-115); LIPASE 79 U/L (73-393)
[2016-10-21 09:17] LABS: MAGNESIUM 2.1 mg/dL (1.8-2.4); PHOSPHORUS 4.3 mg/dL (2.5-4.9)
--- NOTE | 2016-10-21 10:22 | NUR ---
PATIENT HAS BEEN SCREENED AND CATEGORIZED MODERATE NUTRITION RISK. PATIENT WILL BE SEEN WITHIN 3-5 DAYS OF ADMISSION. 10/25/16-10/25/[address]
--- NOTE | 2016-10-21 11:20 | NUR ---
PT REQUESTS TO GO HOME, STATES "I WANT TO LEAVE NOW", PT EXPLAINED NEED FOR CARDIAC MONITORING AND OBSERVATION PER MD RECOMMENDATION, PT GIVEN OPTION TO GO AMA BUT PT DECIDED TO STAY FOR MONITORING, EXTRA BLANKETS PROVIDED FOR COMFORT, CALL RUIZ WITHIN REACH, SIDE RAILS UP X2, BED LOCKED IN LOW POSITION, WILL CONTINUE TO MONITOR.
[2016-10-21 12:00] VITALS: BP 133/91
[2016-10-21] MEDS: INSULIN LISPRO SLIDING SCALE 100 UNITS/ML VIAL SUBQ PRN (12:13)
[2016-10-21] MEDS ORDERED: FUROSEMIDE 40 MG/4 ML VIAL IVP SCH (13:20)
[2016-10-21] MEDS: PANTOPRAZOLE 40 MG INJ VIAL IVP SCH (13:54)
--- NOTE | 2016-10-21 15:05 | NUR ---
OK FOR PT TO SHOWER PER DR MCKEON, PT UP OUT OF BED WITHOUT PROBLEM, SHOWERED, NEIL WELL, BED LINEN CHANGED, PT PLACED BACK ON MONITOR, CALL RUIZ WITHIN REACH, PT DENIES SOB OR DIFF BREATHING, SIDE RAILS UP, BED LOCKED IN LOW POSITION, WILL CONTINUE TO MONITOR.
[2016-10-21 16:00] VITALS: BP 130/70
[2016-10-21] MEDS: FUROSEMIDE 40 MG/4 ML VIAL IVP SCH (16:51)
[2016-10-21] MEDS ORDERED: WARFARIN 2 MG TAB PO SCH (17:00)
--- NOTE | 2016-10-21 17:00 | NUR ---
LASIX GIVEN PER ORDER, PT RESTING COMFORTABLY IN NAD, CALL RUIZ WITHIN REACH, SIDE RAILS UP X2, PT REMAINS ON MARKETING CLERK, WILL CONTINUE TO MONITOR.
--- NOTE | 2016-10-21 19:25 | NUR ---
RECEIVED FROM AM RN IN BED WATCHING TV. AWAKE AND ALERT. NO COMPLAINTS AT THIS TIME. NO SOB. TELEMETRY MONITORING. CALL LIGHT WITH IN REACH. ISOLATION PRECAUTIONS OBSERVED RT HX. OF MRSA NARES.
[2016-10-21 19:49] VITALS: BP 128/86
--- NOTE | 2016-10-21 21:16 | NUR ---
PT. REQUESTED FOR PAIN RELIEVER FOR MUSCLE PAINS. MEDICATED ORDERED. NO SOB. MORE CALMER AFTER MEDICATIONS. PT. REMINDED TO JUST CALL FOR HELP IF HE NEEDS ANYTHING AND NOT SHOUT. "OK" PT. TENDENCY TO GET UPSET EASILY. AFEBRILE. BLOOD SUGAR AT THIS TIME IS 147. NO S/S OF HYPOGLYCEMIA OR HYPERGLYCEMIA NOTED. REMINDED NPO MIDNIGHT RT WITH ULTRA SOUND ABDOMEN TOMORROW IN A.M. "OK"
--- NOTE | 2016-10-21 23:42 | NUR ---
SLEEPING AT THIS TIME. NO RESTLESSNESS. NO SOB. CALL LIGHT WITH IN REACH. VERBALIZES WELL.
[2016-10-22] VITALS: BP 112/62
[2016-10-22 04:30] VITALS: BP 116/80
--- NOTE | 2016-10-22 04:32 | NUR ---
PT. AWAKE AT THIS TIME. PT. BEEN WALKING UP AND SLEEPING . RESTLESS DURING THE NIGHT. WANTS TO EAT BUT REMINDED THAT HE IS NPO MIDNIGHT RT WITH ABDOMINAL ULTRASOUND IN A.M. PROVIDED WITH A LITTLE OF ICE CHIPS AT THIS TIME RT PT. STARTED GETTING UPSET AND SHOUTING. CALMED DOWN WHEN PROVIDED WITH 1/2 A CUP OF ICE CHIPS. TELEMETRY MONITORING.
[2016-10-22] MEDS: LORazepam 1 MG TAB PO SCH ×2 (05:00→13:44)
--- NOTE | 2016-10-22 05:22 | NUR ---
PT. NOT MEDICATED RT STILL LOOKS WEAK POST MORPHINE IVP GIVEN LAST NIGHT.
[2016-10-22] MEDS: BLOOD GLUCOSE MONITORING 1 DEV DEV FS SCH ×2 (05:54→12:02)
--- NOTE | 2016-10-22 07:04 | NUR ---
PT. MEDICATED WITH ATIVAN IVP ORDERED RT PT. HAD AN EPISODE OF ANXIETY AND SHOUTING IN LOUD VOICE WANTING TO EAT. PT. ABLE TO VERBALIZE NEEDS WELL. KNOWS WHAT HE IS TALKING ABOUT. A/O X 4. ROM X 4 WITH WEAKNESS RT AFFLICTION. CALL LIGHT WITH IN REACH AND BEEN USING IT.
[2016-10-22 07:36] LABS: CALCIUM 8.7 mg/dL (8.5-10.1); CARBON DIOXIDE 26.9 mmol/L (21-32); CREATININE 1.5 mg/dL (0.6-1.3); POTASSIUM 4.9 mmol/L (3.5-5.1)
--- NOTE | 2016-10-22 07:38 | NUR ---
ENDORSED TO THE NEXT RN FOR CONTINUITY OF CARE. PT. OPENED HIS EYES TO ACKNOWLEDGE OUR PRESENCE. WENT BACK TO SLEEP. NPO SINCE MIDNIGHT AND PT. A/O X 4. TELEMETRY MONITORING. PACER.
--- NOTE | 2016-10-22 07:40 | NUR ---
REPORT RECEIVED FROM ADJUNCT INSTRUCTOR CHEMISTRY, PT RESTING QUIETLY OPENS EYES TO LIGHT TOUCH AND GOES BACK SLEEP IMMEDIATELY, RESP EVEN UNLABORED ON ROOM AIR, PT NPO SINCE [place] AWAITING US, NO IMMEDIATE NEEDS IDENTIFIED AT THIS TIME, CALL RUIZ WITHIN REACH, SIDE RAILS UP, BED LOCKED IN LOW POSITION, WILL CONTINUE TO MONITOR.
[2016-10-22 07:46] LABS: BASOPHILS # (AUTO) 0.1 K/uL (0.00-0.22); BASOPHILS % (AUTO) 1.5 % (0.0-2.0); EOSINOPHILS # (AUTO) 0.3 K/uL (0-0.4); EOSINOPHILS % (AUTO) 3.5 % (0.0-4.0); HEMOGLOBIN 15.3 g/dL (12.0-18.0); LYMPHOCYTES % (AUTO) 24.2 % (20.5-51.1); MEAN CORPUSCULAR HEMOGLOBIN 30 pg (27-31); MEAN CORPUSCULAR HGB CONC 33 g/dL (33-37); MEAN CORPUSCULAR VOLUME 92 fL (80-94); MONOCYTES # (AUTO) 0.7 K/uL (0.8-1.0); MONOCYTES % (AUTO) 8.7 % (1.7-9.3); NEUTROPHILS % (AUTO) 62.1 % (42.2-75.2); PLATELET COUNT (AUTO) 189 K/uL (140-450); RED BLOOD CELL COUNT(AUTO) 5.14 MIL/uL (4.20-6.10); RED CELL DISTRIBUTION WIDTH 16.5 % (11.6-13.7); WHITE BLOOD COUNT (AUTO) 8.1 K/uL (4.8-10.8)
[2016-10-22 07:48] LABS: INR 1.2 (0.8-1.2); PROTHROMBIN TIME 10.9 secs (10.8-13.4)
--- NOTE | 2016-10-22 07:52 | NUR ---
US COMPLETED AT BEDSIDE
[2016-10-22 08:00] VITALS: BP_SYST 118; BP_SYST 125; BP_DIAS 76; BP_DIAS 92
[2016-10-22 08:08] LABS: MAGNESIUM 2.2 mg/dL (1.8-2.4); PHOSPHORUS 4.3 mg/dL (2.5-4.9)
[2016-10-22] MEDS: PANTOPRAZOLE 40 MG INJ VIAL IVP SCH (09:51)
[2016-10-22] MEDS: ALLOPURINOL 100 MG TAB PO SCH (09:52)
[2016-10-22] MEDS: ASPIRIN 81 MG TAB.CHEW PO SCH (09:52)
[2016-10-22] MEDS: LISINOPRIL 10 MG TAB PO SCH (09:52)
[2016-10-22] MEDS: FUROSEMIDE 40 MG/4 ML VIAL IVP SCH (09:52)
[2016-10-22] MEDS: THIAMINE 200 MG/2 ML VIAL IM SCH (09:52)
[2016-10-22] MEDS: ATORVASTATIN 20 MG TAB PO SCH (09:53)
[2016-10-22] MEDS: FOLIC ACID 1 MG TAB PO SCH (09:53)
[2016-10-22] MEDS: METOPROLOL 25 MG TAB PO SCH (09:53)
--- NOTE | 2016-10-22 11:57 | NUR ---
CM NOTE CONCURRENT REVIEW SENT TO [facility] FAX# [phone] KORI PH# [phone]
[2016-10-22 12:00] VITALS: BP 125/92
--- NOTE | 2016-10-22 12:09 | NUR ---
PT REPEATED TO PUSHES CALL RUIZ AND C/O LOWE BACK PAIN REQUESTS PAIN MEDS, PT LOUDLY YELLS FOR NURSES WHEN AROUSED BUT PT DROWSY, FALLS ASLEEP WHILE TALKING, BED LINEN CHANGED, GOWN CHANGED, POSITIONED FOR COMFORT, VSS DOCUMENTED, CALL RUIZ WITHIN REACH, SIDE RAILS UP, BED LOCKED IN LOW POSITION, WILL CONTINUE TO MONITOR.
[2016-10-22] MEDS: INSULIN LISPRO SLIDING SCALE 100 UNITS/ML VIAL SUBQ PRN (12:25)
--- NOTE | 2016-10-22 13:05 | NUR ---
PT SLEEPING, AROUSES TO VOICE BUT FALL BACK ASLEEP IMMEDIATELY, ABLE TO HARDLY KEEP EYES OPEN DURING CONVERSATION, SCHEDULED ATIVAN HELD.
[2016-10-22 14:15] LABS: HEMOGLOBIN A1C 7.8 % (4.8-5.6); T4 (THYROXINE) 3.4 ug/dL (4.5 - 12.0)
--- NOTE | 2016-10-22 14:21 | NUR ---
LAYTON NOTE RECEIVED CALL FROM LAYTON THAPA OF [facility] REQUESTING FOR REVIEWS. SENT INITIAL AND CONCURRENT REVIEWS TO [facility] FAX# [phone] PH# [phone] [address] EXT [id number]
[2016-10-22] MEDS ORDERED: CYCL5TAB31 PO (14:33)
[2016-10-22 15:01] VITALS: BP 120/90
--- NOTE | 2016-10-22 15:30 | NUR ---
DISCHARGE INSTRUCTION GIVEN AND EXPLAINED TO PT, PT VERBALIZED FULL UNDERSTANDING, PT TO F/U WITH HIS PCP IN 3-5DAYS, PT UP OUT OF BED WITHOUT ASSIST, SPEAKING CLEARLY NOW, ALL PERSONAL BELONGINGS GATHERED, IV DC'D CATH TIP INTACT, BLEEDING CONTROLLED, TAXI VOUCHER BEING ARRANGED BY NURSING ELECTRONIC EQUIPMENT MAINT TECH.
--- NOTE | 2016-10-22 16:40 | NUR ---
[facility] HERE, VOUCHER PROVIDED TO SENIOR ORACLE DATABASE DEVELOPER , PT ESCORTED OUT IN WHEELCHAIR BY RN AND SECURITY.
== END 2016-10-22 16:40 | disposition home or self-care (01) | DRG 812 ==
LOC: MED 16:20 → MTU 22:57
PROVIDERS: ADMIT Family Medicine; ATTEND Family Medicine
DX: T38.3X1A Poisoning by insulin and oral hypoglycemic [antidiabetic] drugs, accidental (unintentional), initial encounter (principal); N17.0 Acute kidney failure with tubular necrosis; I21.4 Non-ST elevation (NSTEMI) myocardial infarction; E43 Unspecified severe protein-calorie malnutrition; G92 Toxic encephalopathy; I42.0 Dilated cardiomyopathy; J44.9 Chronic obstructive pulmonary disease, unspecified; K21.9 Gastro-esophageal reflux disease without esophagitis; E11.65 Type 2 diabetes mellitus with hyperglycemia; E80.6 Other disorders of bilirubin metabolism; E11.51 Type 2 diabetes mellitus with diabetic peripheral angiopathy without gangrene; I70.209 Unspecified atherosclerosis of native arteries of extremities, unspecified extremity; K76.0 Fatty (change of) liver, not elsewhere classified; M10.9 Gout, unspecified; I50.9 Heart failure, unspecified; I13.0 Hypertensive heart and chronic kidney disease with heart failure and stage 1 through stage 4 chronic kidney disease, or unspecified chronic kidney disease; E11.22 Type 2 diabetes mellitus with diabetic chronic kidney disease; E11.649 Type 2 diabetes mellitus with hypoglycemia without coma; N18.9 Chronic kidney disease, unspecified; R74.0 Nonspecific elevation of levels of transaminase and lactic acid dehydrogenase [LDH]; G89.29 Other chronic pain; I25.10 Atherosclerotic heart disease of native coronary artery without angina pectoris; M54.9 Dorsalgia, unspecified; Z95.0 Presence of cardiac pacemaker; Z90.49 Acquired absence of other specified parts of digestive tract; Z88.8 Allergy status to other drugs, medicaments and biological substances; Y92.89 Other specified places as the place of occurrence of the external cause; Z79.4 Long term (current) use of insulin; Z79.899 Other long term (current) drug therapy; Z68.29 Body mass index [BMI] 29.0-29.9, adult; Z71.3 Dietary counseling and surveillance; Z86.718 Personal history of other venous thrombosis and embolism; Z82.3 Family history of stroke; Z84.1 Family history of disorders of kidney and ureter; Z82.49 Family history of ischemic heart disease and other diseases of the circulatory system; Z82.5 Family history of asthma and other chronic lower respiratory diseases; Z83.3 Family history of diabetes mellitus
CPT/HCPCS: 36415; 71010; 76705; 80048; 80053; 82150; 82948; 83036; 83690; 83735; 83880; 84100; 84436; 84439; 84443; 84479; 84484; 85025; 85610; 85730; 87081; 93005; 96374; 99285; C9113; G0482; J1815; J1940; J2060; J2270; J3411; J7042; Q0092

== ENCOUNTER 2016-11-02 05:50 | Emergency (ER) | payer MEDICAID ==
[~2016-11-02] VITALS: Ht 180.3 cm; Wt 95.3 kg
[~2016-11-02 05:50] MED LIST changes: +ADVAIR; +ADVAIR DISKUS 21 DSK IH; +ADVAIR DISKUS1 DS1 IH; +ALDACTONE25 MG PO; -ALLO100T21 PO; +ALLOPURINOL100 M1 PO; +AMARYL2 MG PO; -ASPI81CT89 PO; +ASPIRIN ADULT L81 M1 PO; +ASPIRIN81 M1 PO; +ATIVAN1 MG PO; -ATOR20TA40 PO; +ATORVASTATIN CA20 MG PO; +COLACE100 MG PO; +COMBIVENT; +COMBIVENT MDI14.7 GM INH; +COMBIVENT1 ARO IH; +COREG12.5 MG PO; +COREG6.25 MG PO; +COUMADIN5 MG PO; +COUMADIN6 MG PO; +CYCLOBENZAPRINE5 M1 PO; -DOCU-264 PO; -FURO-570 PO; -HYDR-4446 PO; -IPRA14.7 INH; -LAC PO; +LACTINEX1 TAB.CHEW PO; +LANTUS INS100 UNITS/ SUBQ; -LANTUS SUBQ; +LASIX40 MG PO; +LEVAQUIN250 MG PO; -LEVO250T3 PO; -LISI10TA11 PO; -LORA-476 PO; -NITR0.4T2 SL; +NITROSTAT0.4 M1 SL; +NORCO 5/325 MG1 TAB PO; +SPIRONOLACTONE25 M1 PO; +VOLTAREN75 M1 PO; -WARF6TAB PO; +ZESTRIL10 MG PO; +ZYLOPRIM100 MG PO; +[UNRECOGNIZED DRUG - OTHER] PO
[2016-11-02 06:01] VITALS: BP 139/76
--- NOTE | 2016-11-02 06:06 | NUR ---
PT TAKEN TO BED 7
--- NOTE | 2016-11-02 06:17 | NUR ---
PATIENT PRESENTS TO ED WITH C/O LOWER BACK PAIN AND BILAT HAND PAIN . PT DENIES N/V/D; AAOX4 WITH EVEN AND STEADY GAIT; LUNGS CLEAR BL; HR EVEN AND REGULAR; PT DENIES ANY FEVER, CP, SOB, OR COUGH AT THIS TIME; PATIENT STATES PAIN OF 9/10 AT THIS TIME; VSS; PATIENT POSITIONED FOR COMFORT; HOB ELEVATED; BEDRAILS UP X2; BED DOWN. ER MD MADE AWARE OF PT STATUS.
--- NOTE | 2016-11-02 06:18 | NUR ---
Dr. Mcmanus evaluating patient at bedside.
[2016-11-02] MEDS ORDERED: oxyCODONE/APAP 5/325 MG 1 TAB TAB PO ONE (06:25)
[2016-11-02 07:16] VITALS: BP 139/76
--- NOTE | 2016-11-02 07:16 | NUR ---
Patient discharged with v/s stable. Written and verbal after care instructions given and explained. Patient alert, oriented and verbalized understanding of instructions. Ambulatory with steady gait. All questions addressed prior to discharge. ID band removed. Patient advised to follow up with PMD. Rx of NORCO AND IBUPROFEN given. Patient educated on indication of medication including possible reaction and side effects. Opportunity to ask questions provided and answered.
[2016-12-17] MEDS ORDERED: CARVEDILOL3.125 MG PO (14:30)
== END 2016-11-02 07:16 | disposition home or self-care (01) ==
LOC: MED 05:50
DX: M54.5 Low back pain (principal); M62.838 Other muscle spasm; F15.10 Other stimulant abuse, uncomplicated; Z88.8 Allergy status to other drugs, medicaments and biological substances; J44.9 Chronic obstructive pulmonary disease, unspecified; E11.9 Type 2 diabetes mellitus without complications; K21.9 Gastro-esophageal reflux disease without esophagitis; I10 Essential (primary) hypertension; Z95.0 Presence of cardiac pacemaker; Z90.49 Acquired absence of other specified parts of digestive tract

== ENCOUNTER 2016-12-03 23:10 | Inpatient (IN) | payer MEDICAID ==
[~2016-12-03] VITALS: Ht 180.3 cm; Wt 93.9 kg
[~2016-12-03 23:10] MED LIST changes: -ADVAIR; -ADVAIR DISKUS 21 DSK IH; -ADVAIR DISKUS1 DS1 IH; -ALDACTONE25 MG PO; +ALLO100T21 PO; -ALLOPURINOL100 M1 PO; -AMARYL2 MG PO; +ASPI81CT89 PO; -ASPIRIN ADULT L81 M1 PO; -ASPIRIN81 M1 PO; -ATIVAN1 MG PO; +ATOR20TA40 PO; -ATORVASTATIN CA20 MG PO; -COLACE100 MG PO; -COMBIVENT; -COMBIVENT MDI14.7 GM INH; -COMBIVENT1 ARO IH; -COREG12.5 MG PO; -COREG6.25 MG PO; -COUMADIN5 MG PO; -COUMADIN6 MG PO; +CYCL5TAB31 PO; -CYCLOBENZAPRINE5 M1 PO; +DOCU-264 PO; +FURO-570 PO; +HYDR-4446 PO; +IPRA14.7 INH; -LACTINEX1 TAB.CHEW PO; -LANTUS INS100 UNITS/ SUBQ; +LANTUS SUBQ; -LASIX40 MG PO; -LEVAQUIN250 MG PO; +LISI10TA11 PO; +LORA-476 PO; +NITR0.4T2 SL; -NITROSTAT0.4 M1 SL; -NORCO 5/325 MG1 TAB PO; -SPIRONOLACTONE25 M1 PO; -VOLTAREN75 M1 PO; +WARF6TAB PO; -ZESTRIL10 MG PO; -ZYLOPRIM100 MG PO; -[UNRECOGNIZED DRUG - OTHER] PO
[2016-12-03 23:14] VITALS: BP 149/90
[2016-12-04 00:38] LABS: BASOPHILS # (AUTO) 0.2 K/uL (0.00-0.22); EOSINOPHILS # (AUTO) 0.3 K/uL (0-0.4); EOSINOPHILS % (AUTO) 3.2 % (0.0-4.0); HEMATOCRIT 45.6 % (36-52); HEMOGLOBIN 14.7 g/dL (12.0-18.0); LYMPHOCYTES # (AUTO) 0.9 K/uL (2.0-11.5); LYMPHOCYTES % (AUTO) 11.4 % (20.5-51.1); MEAN CORPUSCULAR HEMOGLOBIN 29 pg (27-31); MEAN CORPUSCULAR HGB CONC 32 g/dL (33-37); MEAN CORPUSCULAR VOLUME 90 fL (80-94); MONOCYTES # (AUTO) 0.7 K/uL (0.8-1.0); MONOCYTES % (AUTO) 8.2 % (1.7-9.3); NEUTROPHILS # (AUTO) 5.8 K/uL (1.8-7.7); NEUTROPHILS % (AUTO) 74.2 % (42.2-75.2); PLATELET COUNT (AUTO) 186 K/uL (140-450); RED BLOOD CELL COUNT(AUTO) 5.05 MIL/uL (4.20-6.10); RED CELL DISTRIBUTION WIDTH 17.2 % (11.6-13.7); WHITE BLOOD COUNT (AUTO) 7.9 K/uL (4.8-10.8)
[2016-12-04 00:56] LABS: ALBUMIN 3.2 g/dL (3.4-5.0); ANION GAP 12.9 (8-16); CALCIUM 8.4 mg/dL (8.5-10.1); CARBON DIOXIDE 28.1 mmol/L (21-32); CREATININE 2.1 mg/dL (0.7-1.3); TOTAL BILIRUBIN 1.9 mg/dL (0.0-1.0); TOTAL PROTEIN, SERUM 7.2 g/dL (6.4-8.2)
[2016-12-04 01:09] LABS: INR 1.2 (0.8-1.2); PARTIAL THROMBOPLASTIN TIME 32.3 secs (22-35.6); PROTHROMBIN TIME 12.2 secs (10.8-13.4)
--- NOTE | 2016-12-04 01:45 | NUR ---
Gunjan quintero in [facility] - 12/04/16 at 0150 by MEDDM TO ER BED 4
--- NOTE | 2016-12-04 01:47 | NUR ---
BIB WHEELCHAIR TO ER BED 3
[2016-12-04 02:00] LABS: LACTIC ACID 1.5 mmol/L (0.4-2.0)
--- NOTE | 2016-12-04 02:00 | NUR ---
PER DR. MORAN CAN DO IN AND OUT PT UNABLE TO GIVE URINE , PT CONFUSED,
--- NOTE | 2016-12-04 02:05 | NUR ---
IN AND OUT DONE NO BLEEDING NOTED
--- NOTE | 2016-12-04 02:11 | NUR ---
RELAYED TO DR. MORAN RESULT OF URINE DIPSTICK
--- NOTE | 2016-12-04 02:22 | NUR ---
INFORMED DR. MORAN PT HAS CHEST PAIN
--- NOTE | 2016-12-04 02:22 | NUR ---
RECEIVED PT CONFUSED, UNABLE TO ANSWER QUESTION, PT KEEP YELLING, MOANING, PUT PT ON O2 AT 2L/MIN,
[2016-12-04] MEDS ORDERED: MORPHINE SULFATE 4 MG/ML SYR IVP ONE (02:25)
[2016-12-04 02:30] LABS: APPEARANCE,URINE CLOUDY (CLEAR); BLOOD, URINE TRACE (NEGATIVE); COLOR,URINE YELLOW (YELLOW); PH,URINE 5.5 (5.0-9.0); PROTEIN,URINE 4+ (NEGATIVE); UGLUCOSE NEGATIVE (NEGATIVE)
[2016-12-04 02:31] LABS: BACTERIA,URINE None Seen /HPF (None Seen); BILIRUBIN,URINE NEGATIVE (NEGATIVE); LEUKOCYTE ESTERASE ,URINE NEGATIVE (NEGATIVE); MUCUS,URINE 4+ /LPF (None Seen); NITRITE, URINE NEGATIVE (NEGATIVE); RBC,URINE 0-5 (RARE) /HPF (0-5); SQUAMOUS EPITHELIAL CELL,UR 0-3 (FEW) /LPF (0-3 (FEW)); UROBILINOGEN,URINE 0.2 EU/dL (0.2 - 1); WBC,URINE 0-5 (RARE) /HPF (0-5)
[2016-12-04 02:32] LABS: HYALINE CASTS, URINE 0-3 /LPF (None Seen); URINE AMORPHOUS URATE 4+ /HPF (None Seen)
--- NOTE | 2016-12-04 02:43 | NUR ---
DR. MORAN AT BEDSIDE, PT STILL NOT ANSWERING QUESTION
[2016-12-04] MEDS ORDERED: HYDROcodone/APAP 7.5/325 MG 1 TAB PO PRN (03:05)
[2016-12-04] MEDS ORDERED: DOCUSATE SODIUM 100 MG GELCAP PO PRN (03:05)
[2016-12-04] MEDS ORDERED: ACETAMINOPHEN 325 MG TAB PO PRN (03:05)
[2016-12-04] MEDS ORDERED: LORazepam 0.5 MG TAB PO PRN (03:05)
[2016-12-04] MEDS ORDERED: MORPHINE SULFATE 2 MG/ML SYR IVP PRN (03:05)
[2016-12-04] MEDS ORDERED: NACL 0.9% 1,000 ML IV SCH (03:05)
[2016-12-04] MEDS ORDERED: ONDANSETRON 4 MG/2 ML VIAL IM/IVP PRN (03:05)
--- NOTE | 2016-12-04 03:33 | NUR ---
PT SLEEPING VITAL SIGN STABLE,NOTED DISCOLORATION ON BOTH LOWER EXTREMITIES,NOTED ALSO DRY SCRATCHES ON BOTH LOWER EXTREMITIES,PACEMAKER ON LEFT CHEST, WITH PINKISH/PURPLISH BRUISE AND DRY ABRASION ON LEFT UNDER EYE, UNABLE TO SAY WHAT HAPPEN,
[2016-12-04] MEDS ORDERED: DEXTROSE 50% 50 ML SYR IVP PRN (03:35)
[2016-12-04] MEDS ORDERED: NITROGLYCERIN 0.4 MG TAB SL PRN ×2 (03:35→12:22)
[2016-12-04] MEDS ORDERED: LORazepam 1 MG TAB PO PRN (03:35)
[2016-12-04 03:51] LABS: CHOL/HDL RATIO 2.7 (1-4.5); FREE T4 (FREE THYROXINE) 1.08 ng/dL (0.76-1.46); MAGNESIUM 2.2 mg/dL (1.8-2.4); PHOSPHORUS 4.5 mg/dL (2.5-4.9); THYROID STIMULATING HORMONE 5.14 uIU/mL (0.34-3.74)
--- NOTE | 2016-12-04 04:02 | NUR ---
TRANSFER TO FLOOR AT THIS TIME, PT SLEEPING, VITAL SIGN STABLE, NO SOB, ASSISTED BY EMT/RN
--- NOTE | 2016-12-04 04:30 | NUR ---
ADMITTED A 61 Y/O MALE FROM ER WITH DX: CHEST PAIN AND GENERALIZED WEAKNESS. PT OBSERVED VERY LETHARGIC. RESPONDS TO NAME AND TACTILE STIMULI. PT OPENS HIS EYES AND RESPONDS "YES" WHEN NAME IS CALLED BUT WILL IMMEDIATELY CLOSED HIS EYES. ON O2 AT 2LPM VIA NC. NO S/S OF RESPIRATORY DISTRESS AT THIS TIME. SL TO WRIST WRIST INTACT AND PATENT. GAUGE 20, NO S/S OF INFILTRATION. SKIN ASSESSMENT COMPLETED. LEFT FACIAL ABRASION AND TO LT LOWER EXT. NO EDEMA NOTED, NO PRESSURE ULCER NOTED AT THIS TIME. ALL NEEDS ANTICIPATED. KEPT CLEAN AND DRY. KEPT COMFORTABLE. BELONGINGS CHECKED. KEPT AT THE BEDSIDE. CALL LIGHT KEPT WITHIN EASY REACH. WILL CONTINUE TO MONITOR. Admitted from , with chief complaint of CHEST PAIN AND GENERALIZED WEAKNESS , 61 y/o ,Male, Appropriate, oriented to call light, bed, phone,television, bathroom, smoking policy, visiting hours, procedures, ID bracelet on. Belongings list checked.
--- NOTE | 2016-12-04 04:30 | NUR ---
DR. VANN SAW THE PATIENT WITH NEW ORDER TO DO CT OF THE HEAD DUE TO SOMNOLENCE.
--- NOTE | 2016-12-04 04:36 | NUR ---
Patient will be admitted to care of TAMI. Admited to TELE. Will go to room 108B Belongings list completed. Report to ABDON BY FEI
[2016-12-04] MEDS ORDERED: ALBUTEROL SULFATE/IPRATROPIU 3 ML SOL IH PRN (05:10)
[2016-12-04 05:35] LABS: BLOOD GAS PH 7.349 (7.35-7.45)
[2016-12-04 05:36] LABS: BLOOD GAS BASE EXCESS -0.8 mmol/L (-2.0-2.0); BLOOD GAS HCO3 25.3 mmol/L; BLOOD GAS O2 SAT% 98.2 % (92.0-98.5); BLOOD GAS PCO2 46.9 mmHg (20-50); BLOOD GAS PO2 126.2 mmHg
[2016-12-04 06:09] LABS: AMPHETAMINE, URINE POS. ng/ml (NEG <=1000); BARBITURATE, URINE NEG. ng/ml (NEG <=200); BENZODIAZEPINE, URINE NEG. ng/mL (NEG <=200); CANNABINOID, URINE NEG. ng/mL (NEG <=50); COCAINE, URINE NEG. ng/mL (NEG <=300); OPIATE, URINE NEG. ng/mL (NEG <=2000); PHENCYCLIDINE SCREEN,URINE NEG. ng/mL (NEG <=25)
[2016-12-04] MEDS: BLOOD GLUCOSE MONITORING 1 DEV DEV FS SCH ×4 (06:15→20:46)
[2016-12-04] MEDS: INSULIN DETEMIR 100 UNITS/ML 10 ML VIAL SUBQ SCH (06:30)
--- NOTE | 2016-12-04 06:30 | NUR ---
UNABLE TO GIVE LEVEMIR DOSE, PT STILL OFF THE UNIT. WILL ENDORSE TO NEXT SHIFT.
--- NOTE | 2016-12-04 06:30 | NUR ---
PT OFF UNIT TO RADIOLOGY FOR CT OF THE HEAD AND ABDOMEN.
--- NOTE | 2016-12-04 07:00 | NUR ---
PT BACK FROM RADIOLOGY, IN STABLE CONDITION.
--- NOTE | 2016-12-04 07:25 | NUR ---
PT STILL SLEEPING AT THIS TIME. NO S/S OF RESPIRATORY DISTRESS AT THIS TIME. ENDORSED TO NEXT SHIFT FOR CONTINUITY OF CARE. PT IN STABLE CONDITION.
--- NOTE | 2016-12-04 07:26 | NUR ---
RECEIVED REPORT FROM THE RADIOGRAPHER TECHNOLOGIST NURSE AT BEDSIDE FOR CONTINUITY OF CARE. PT IS SLEEPING. DIFFICULT TO AROUSE. HE IS FALLING ASLEEP DURING CONVERSATION. TOO SLEEPY TO EAT BREAKFAST. INTRODUCED MYSELF AND UPDATED THE BOARD. PT HAS IV ON R HAND 20G SL, WRAPPED IN CLING. PT HAS AN ABRASION BELOW HIS L EYE. PT IS WEARING NC O2 2L. R/T IS HERE FOR BREATHING TX. WILL CONTINUE TO MONITOR PT.
[2016-12-04] MEDS: ALBUTEROL SULFATE/IPRATROPIU 3 ML SOL IH SCH ×3 (07:36→19:14)
[2016-12-04 08:00] VITALS: BP 131/82
[2016-12-04 08:00] LABS: BASOPHILS # (AUTO) 0.2 K/uL (0.00-0.22); BASOPHILS % (AUTO) 2.2 % (0.0-2.0); EOSINOPHILS # (AUTO) 0.4 K/uL (0-0.4); EOSINOPHILS % (AUTO) 5.1 % (0.0-4.0); HEMOGLOBIN 15.2 g/dL (12.0-18.0); LYMPHOCYTES # (AUTO) 1.3 K/uL (2.0-11.5); LYMPHOCYTES % (AUTO) 18.3 % (20.5-51.1); MEAN CORPUSCULAR HEMOGLOBIN 29 pg (27-31); MEAN CORPUSCULAR HGB CONC 32 g/dL (33-37); MEAN CORPUSCULAR VOLUME 91 fL (80-94); MONOCYTES # (AUTO) 0.4 K/uL (0.8-1.0); NEUTROPHILS % (AUTO) 69.4 % (42.2-75.2); PLATELET COUNT (AUTO) 189 K/uL (140-450); RED BLOOD CELL COUNT(AUTO) 5.28 MIL/uL (4.20-6.10); WHITE BLOOD COUNT (AUTO) 7.3 K/uL (4.8-10.8)
--- NOTE | 2016-12-04 08:45 | NUR ---
SPOKE TO DR. GUTHRIE, RESIDENT RE PT'S LETHARGIC BEHAVIOR AND ALSO THE CRITICAL LAB VALUE. TROPONIN 0.145. PT IS ON DOWN TREND. NO CHANGES IN ORDERS. NO NEW ORDERS
--- NOTE | 2016-12-04 08:47 | NUR ---
RADIOLOGY IS FOR VENOUS DOPPER IN BLE. PT SLEEPING THROUGH IT. WILL WAKE PT UP AND ADMINISTER MORNING MEDS.
[2016-12-04] MEDS: FUROSEMIDE 40 MG TAB PO SCH ×2 (08:49→20:42)
[2016-12-04] MEDS: ASPIRIN 81 MG TAB.CHEW PO SCH (08:49)
[2016-12-04] MEDS: ALLOPURINOL 100 MG TAB PO SCH (08:49)
[2016-12-04] MEDS: ATORVASTATIN 20 MG TAB PO SCH (08:49)
[2016-12-04] MEDS: LISINOPRIL 10 MG TAB PO SCH (08:49)
--- NOTE | 2016-12-04 08:52 | NUR ---
ADMINISTERED MORNING MEDS. PT TOLERATED THEM WELL. KEPT FALLING ASLEEP EVEN IN THE MIDDLE OF HIS SENTENCES.
[2016-12-04] MEDS ORDERED: LACTULOSE 20 GM/30 ML UDC PO SCH (08:55)
[2016-12-04] MEDS ORDERED: CYCLOBENZAPRINE 10 MG TAB PO PRN (09:00)
[2016-12-04] MEDS ORDERED: ASPIRIN 325 MG TABEC PO SCH (09:00)
[2016-12-04] MEDS ORDERED: WARFARIN 2 MG TAB PO SCH (09:00)
--- NOTE | 2016-12-04 09:06 | NUR ---
PATIENT HAS BEEN SCREENED AND CATEGORIZED HIGH NUTRITION RISK. PATIENT WILL BE SEEN WITHIN 1-2 DAYS OF ADMISSION. 12/05/16-12/06/[address] Addendum: 12/04/16 at [address] PATIENT HAS BEEN SCREENED AND CATEGORIZED HIGH NUTRITION RISK. PATIENT WILL BE SEEN WITHIN 1-2 DAYS OF ADMISSION. 12/04/16-12/05/[address]
--- NOTE | 2016-12-04 10:49 | NUR ---
PT SLEEPING SOUNDLY. NO SIGNS OF DISTRESS. WILL CONTINUE TO MONITOR PT.
[2016-12-04 12:00] VITALS: BP 101/60
--- NOTE | 2016-12-04 12:53 | NUR ---
FAXED INITIAL REVIEW TO [facility] [phone] PHONE KORI [phone] FAXED INITIAL REVIEW TO [facility] [phone] PHONE [phone]
--- NOTE | 2016-12-04 13:49 | NUR ---
PT SLEEPING SOUNDLY. NO SIGNS OF DISTRESS. WILL CONTINUE TO MONITOR PT.
--- NOTE | 2016-12-04 14:31 | NUR ---
PT FINALLY WOKE UP. INSISTED HE GO TO THE BATHROOM. ASSISTED PT TO THE RESTROOM. STEADY GAIT. PT AMBULATED BACK TO THE BED. SAT AT THE EDGE OF BED AND ATE SOME OF HIS LUNCH. HE IS WIDE AWAKE. VERY TALKATIVE. WILL CONTINUE TO MONITOR PT.
--- NOTE | 2016-12-04 14:38 | NUR ---
12/04/16 RD INITIAL ASSESSMENT COMPLETED PLEASE REFER TO NUTRITION ASSESSMENT UNDER CARE ACTIVITY FOR ESTIMATED NUTRITIONAL NEEDS. 1. CONTINUE CARDIAC, 60GM CONSISTENT CARBOHYDRATE DIET 2. RD TO FOLLOW-UP 2-3 DAYS; HIGH RISK LELO MCNALLY RD
[2016-12-04] MEDS ORDERED: ONDANSETRON 4 MG/2 ML VIAL IVP PRN (14:40)
--- NOTE | 2016-12-04 14:47 | NUR ---
PT FEELING NAUSEATED. VOMITED HIS LUNCH. SPOKE TO DR. RODAS AND REQUESTED ZOFRAN. ADMINISTERED ZOFRAN. PT TOLERATED WELL. Addendum: 12/04/16 at 1525 by Lilia Stroud RN PT ALSO C/O L RIB AREA. ACCORDING TO THE PT, PT HAD A FALL IN THE BATHROOM LAST NIGHT. UNABLE TO TAKE A DEEP BREATHE. WILL TALK TO ABOUT CXRY. Addendum: 12/04/16 at 1838 by Lilia Stroud RN PT UNCERTAIN WHERE AND WHEN. ENDORSED TO JUAN CARLOS, DIRECTOR. SHE WILL F/U.
--- NOTE | 2016-12-04 15:40 | NUR ---
SPOKE TO DR. RODAS REGARDING MY CONCERN RE PT'S L SIDED RIB PAIN. MD STATED HE WILL PUT IN SOME TYLENOL FOR PAIN. IF IT PERSISTS, HE WILL ORDER A XRAY-RIB SERIES.
[2016-12-04] MEDS ORDERED: ACETAMINOPHEN 650 MG/20.3 ML UDC PO PRN (15:50)
[2016-12-04 16:00] VITALS: BP 111/65
[2016-12-04] MEDS: INSULIN LISPRO SLIDING SCALE 100 UNITS/ML VIAL SUBQ PRN ×2 (16:40→20:45)
[2016-12-04] MEDS ORDERED: WARFARIN 1 MG, WARFARIN 5 MG PO SCH ×2 (17:00)
--- NOTE | 2016-12-04 17:22 | NUR ---
PT SLEEPING ONCE AGAIN. NO SIGNS OF DISTRESS. WILL CONTINUE TO MONITOR PT.
--- NOTE | 2016-12-04 19:28 | NUR ---
ENDORSED PT TO THE COLLEGE TEACHER NURSE AT BEDSIDE FOR CONTINUITY OF CARE. PT IS GETTING BREATHING TX. IN STABLE CONDITION.
--- NOTE | 2016-12-04 19:29 | NUR ---
RECEIVED REPORT, ASSUMED CARE. PT AAOX3. RESPIRATION EVEN AND UNLABORED, NO SOB, NO S/S OF RESPIRATORY DISTRESS AT THIS TIME. SL TO RT WRIST, GAUGE 20, INTACT AND PATENT. DISCUSSED PLAN OF CARE. PT VERBALIZED UNDERSTANDING BUT REQUIRES REINFORCEMENT. ALL NEEDS ANTICIPATED. CALL LIGHT WITHIN REACH. FALL PRECAUTION IN PLACE.
--- NOTE | 2016-12-04 19:45 | NUR ---
SPOKE WITH JUAN CARLOS(DIRECTOR), STATES THAT SHE INVESTIGATED PATIENT'S CLAIM ABOUT FALLING LAST NIGHT. PER JUAN CARLOS, PT DIDN'T FALL IN THE ER NOR IN THE UNIT.
[2016-12-04 20:00] VITALS: BP 125/81
--- NOTE | 2016-12-04 23:00 | NUR ---
PT AWAKE,LOOKS ANXIOUS, HYPERVERBAL, CONFUSED. KEEPS TALKING ABOUT BEING A HOMELESS, JUMPS FROM ONE TOPIC TO ANOTHER. PT STATES HE TAKES ATIVAN 1MG TO MAKE HIM SLEEP. WILL INFORM MD TO ORDER ATIVAN PER PATIENT'S REQUEST.
--- NOTE | 2016-12-04 23:20 | NUR ---
DR. DODD HAVE SEEN AND SPOKE WITH THE PATIENT WITH ORDER ATIVAN 1MG IVP Q8H PRN. NOTED AND CARRIED OUT.
[2016-12-05] VITALS: BP 126/79
--- NOTE | 2016-12-05 | NUR ---
ATIVAN 1MG IVP WAS ABOUT TO ADMINISTER, PT REFUSES AND STATES, "HOLD IT FOR NOW." PT CLOSES HIS EYES AND FALLS BACK TO SLEEP. VS 126/79 103 20 97.1 97% ROOM AIR. PT DENIES PAIN AT THIS TIME. WILL CONTINUE TO MONITOR.
[2016-12-05] MEDS: LORazepam 2 MG/ML VIAL IM/IVP PRN (00:22)
--- NOTE | 2016-12-05 00:22 | NUR ---
PT CALLED THIS NURSE ASSESSOR DEMANDING TO HAVE HIS ATIVAN AT THIS TIME. ADMINISTERED ATIVAN 1MG IVP ORDERED. WILL CONTINUE TO MONITOR.
--- NOTE | 2016-12-05 01:09 | NUR ---
ROUNDS MADE, PT SLEEPING SOUNDLY AT THIS TIME WITH UNLABORED BREATHING. NO S/S OF RESPIRATORY DISTRESS. WILL CONTINUE TO MONITOR.
[2016-12-05 04:00] VITALS: BP 127/74
[2016-12-05] MEDS: BLOOD GLUCOSE MONITORING 1 DEV DEV FS SCH ×4 (06:23→20:28)
[2016-12-05] MEDS: INSULIN DETEMIR 100 UNITS/ML 10 ML VIAL SUBQ SCH (06:30)
[2016-12-05] MEDS: ALBUTEROL SULFATE/IPRATROPIU 3 ML SOL IH SCH ×2 (07:03→12:57)
--- NOTE | 2016-12-05 07:15 | NUR ---
RECEIVED REPORT FROM THE BUSINESS EXCELLENCE LEADER NURSE AT BEDSIDE FOR CONTINUITY OF CARE. PT IS SLEEPING SOUNDLY. NO NC IN PLACE. IV ON R HAND 20G SL. NO SIGNS OF DISCOMFORT. UPDATED THE BOARD. NOTED THE L UNDER THE EYE ABRASION. WILL CONTINUE TO MONITOR PT.
--- NOTE | 2016-12-05 07:19 | NUR ---
PT SLEEPING BUT AROUSABLE. RESPIRATION EVEN AND UNLABORED, NO S/S OF RESPIRATORY DISTRESS. BS 113 WITH NO INSULIN COVERAGE PER SLIDING SCALE. PT REUSED LEVEMIR DOSE DESPITE EXPLANATIONS OF RISKS/BENEFITS. ENDORSED TO NEXT SHIFT FOR CONTINUITY OF CARE. PT IN STABLE CONDITION.
[2016-12-05 07:27] LABS: INR 1.1 (0.8-1.2); PROTHROMBIN TIME 11.5 secs (10.8-13.4)
--- NOTE | 2016-12-05 07:59 | NUR ---
WOKE UP PT. INTRODUCED OURSELVES. V/S WITHIN NORMAL RANGE. PT FELL SLEEP DURING V/S. BREAKFAST TRAY AT BEDSIDE TABLE. UNTOUCHED. WILL CONTINUE TO MONITOR PT.
[2016-12-05 08:00] VITALS: BP 131/74
[2016-12-05] MEDS: ASPIRIN 81 MG TAB.CHEW PO SCH (09:13)
[2016-12-05] MEDS: LISINOPRIL 10 MG TAB PO SCH (09:13)
[2016-12-05] MEDS: ALLOPURINOL 100 MG TAB PO SCH (09:14)
[2016-12-05] MEDS: ATORVASTATIN 20 MG TAB PO SCH (09:14)
[2016-12-05] MEDS: TAMSULOSIN 0.4 MG CAP PO SCH (09:14)
[2016-12-05] MEDS: FUROSEMIDE 40 MG TAB PO SCH ×2 (09:14→20:34)
--- NOTE | 2016-12-05 09:15 | NUR ---
ADMINISTERED MORNING MEDS. PT IS WITH ADMIN. TOLERATED WELL. NO COMPLAINTS OF PAIN. ATE 100% OF BREAKFAST. NO COMPLAINTS OF NAUSEA. WILL CONTINUE TO MONITOR PT.
[2016-12-05 09:49] LABS: T4 (THYROXINE) 4.9 ug/dL (4.5 - 12.0)
--- NOTE | 2016-12-05 10:43 | NUR ---
PT SLEEPING SOUNDLY. NO SIGNS OF DISTRESS. WILL CONTINUE TO MONITOR PT.
[2016-12-05 12:00] VITALS: BP 138/84
[2016-12-05] MEDS: INSULIN LISPRO SLIDING SCALE 100 UNITS/ML VIAL SUBQ PRN ×3 (12:18→20:40)
--- NOTE | 2016-12-05 12:30 | NUR ---
NEEDED ASSISTANCE WITH GETTING TRAY IN PLACE FOR LUNCH AND SITTING UP. EATING LUNCH. WANTS A DIET SODA. CALLED [facility] TO BRING SOME UP. WILL CONTINUE TO MONITOR PT.
[2016-12-05] MEDS ORDERED: LACTULOSE 20 GM/30 ML UDC PO SCH (13:15)
--- NOTE | 2016-12-05 15:45 | NUR ---
PT WOULD LIKE A SHAVE. GAVE HIM AN ELECTRIC RAZOR. WANTED A SHOWER BUT EDUCATED PT THAT HE IS A FALL RISK AND IS VERY UNSTEADY ON HIS FEET. BEDBATH IS AVAILABLE BUT NO SHOWER OF NOW. PT AGREED. ASKED DR. LEACH FOR A RIB SERIES. PT STILL COMPLAINING OF SHARP RIB PAIN. MD WILL PUT IN ORDERS.
[2016-12-05 16:00] VITALS: BP 118/70
--- NOTE | 2016-12-05 16:35 | NUR ---
LAB CALLED PT IS GRAM POSITIVE COCCI IN CLUSTERS IN BLOOD. NOTIFIED DR CARLTON.
[2016-12-05] MEDS ORDERED: WARFARIN 2.5 MG TAB PO SCH (17:00)
--- NOTE | 2016-12-05 17:10 | NUR ---
ADMINISTERED WARFARIN. PT TOLERATED WELL. EXECUTIVE ASSOCIATE AT BEDSIDE. NO SIGNS OF DISTRESS. WILL CONTINUE TO MONITOR PT.
--- NOTE | 2016-12-05 17:56 | NUR ---
RADIOLOGY CAME TO GET PT FOR XRAY. PT TOLD HIM TO COME BACK LATER. HE WANTED TO EAT HIS DINNER. TECH WILL BE BACK LATER, ABOUT AN HOUR.
--- NOTE | 2016-12-05 18:26 | NUR ---
RADIOLOGY IS BACK TO TAKE PT TO XRAY FOR RIB SERIES. WILL TAKE HIM IN WHEELCHAIR.
--- NOTE | 2016-12-05 18:44 | NUR ---
PT RETURNED TO THE FLOOR. PT TOLERATED WELL PER TECH.
--- NOTE | 2016-12-05 19:24 | NUR ---
ALERT PT, C/O RIB PAIN, WILL NOTIFY RN. NO DISTRESS/SOB/WHEEZING NOTED AT THIS TIME. NO INDICATION FOR HHN PRN TX.
--- NOTE | 2016-12-05 19:30 | NUR ---
ENDORSED PT TO THE BEAVER TRAPPER AT BEDSIDE FOR CONTINUITY OF CARE. PT IS IN STABLE CONDITION.
--- NOTE | 2016-12-05 19:35 | NUR ---
RECEIVED REPORTS FROM DAY RN. PATIENT RESTING IN BED AND WATCHING TV. PATIENT AWAKE ALERT, ORIENTED X3. NO S/S OF ACUTE DISTRESS NOTED. IV PATENT AND INTACT, FLUSHED WITH NORMAL SALINE. CALL LIGHT WITHIN REACH, SAFETY MEASURE ENSURED, WILL CONTINUE TO MONITOR.
--- NOTE | 2016-12-05 20:44 | NUR ---
PM MEDICATION GIVEN, PATIENT TOLERATED WELL. CALL LIGHT WITHIN REACH, SAFETY MEASURE ENSURED, WILL CONTINUE TO MONITOR.
--- NOTE | 2016-12-05 22:40 | NUR ---
MADE DR. RAMOS AWARE THAT PATIENT RIB X-RAY INDICATED 10TH AND 11TH RIB FRACTURES. NO ORDER RECEIVED AT THIS TIME.
[2016-12-06] VITALS: BP 117/74
[2016-12-06] MEDS: LORazepam 2 MG/ML VIAL IM/IVP PRN (01:34)
--- NOTE | 2016-12-06 01:36 | NUR ---
AROUND 0015, PATIENT WALKED OUT HIS ROOM AND COMPLAINED ABOUT THE BEEPING SOUNDS FROM THE CREDIT COLLECTOR AT THE NURSE STATION. ASSISTED PATIENT BACK TO HIS ROOM, PATIENT STARTED TO RAISE HIS VOICE AND BECAME VERY AGITATED. HE STARTED TO THROW PILLOW ON THE FLOOR, AND YELLING,"SHUT THE FUCK OFF THE MONITOR, IT IS ANNOYING." SECURITY AND NURSE MAINTENANCE MECHANIC TECHNICIAN CALLED TO THE UNIT. HEARD PATIENT WAS YELLING AND COMPLAINING ABOUT THE BEEPING SOUNDS TO THEM IN THE CHARTING ROOM. AROUND 0130, NURSE MAINTENANCE MECHANIC TECHNICIAN CAME TO ME ASK ME FOR THE PRN ATIVAN. PATIENT RECEIVED ATIVAN FROM NURSE MAINTENANCE MECHANIC TECHNICIAN, AND WAS TRANSFERRED TO THE ROOM 114.
--- NOTE | 2016-12-06 02:01 | NUR ---
PATIENT ASLEEP IN BED, NO S/S OF ACUTE DISTRESS NOTED, RESPIRATION EVEN AND UNLABORED, WILL CONTINUE TO MONITOR.
--- NOTE | 2016-12-06 04:19 | NUR ---
PATIENT IS SLEEPING IN BED, NO S/S OF ACUTE DISTRESS NOTED, RESPIRATION EVEN AND UNLABORED, CALL LIGHT WITHIN REACH, WILL CONTINUE TO MONITOR.
[2016-12-06 05:53] LABS: BASOPHILS # (AUTO) 0.2 K/uL (0.00-0.22); EOSINOPHILS # (AUTO) 0.3 K/uL (0-0.4); EOSINOPHILS % (AUTO) 4.3 % (0.0-4.0); HEMATOCRIT 42.5 % (36-52); LYMPHOCYTES # (AUTO) 1.5 K/uL (2.0-11.5); LYMPHOCYTES % (AUTO) 23.5 % (20.5-51.1); MEAN CORPUSCULAR HEMOGLOBIN 30 pg (27-31); MEAN CORPUSCULAR HGB CONC 33 g/dL (33-37); MEAN CORPUSCULAR VOLUME 91 fL (80-94); MONOCYTES # (AUTO) 0.6 K/uL (0.8-1.0); MONOCYTES % (AUTO) 9.2 % (1.7-9.3); NEUTROPHILS # (AUTO) 3.7 K/uL (1.8-7.7); PLATELET COUNT (AUTO) 186 K/uL (140-450); RED CELL DISTRIBUTION WIDTH 17.1 % (11.6-13.7); WHITE BLOOD COUNT (AUTO) 6.3 K/uL (4.8-10.8)
[2016-12-06 06:11] LABS: INR 1.3 (0.8-1.2); PROTHROMBIN TIME 13.6 secs (10.8-13.4)
[2016-12-06 06:32] LABS: ANION GAP 12.2 (8-16); CALCIUM 8.2 mg/dL (8.5-10.1); CARBON DIOXIDE 29.8 mmol/L (21-32); CREATININE 1.8 mg/dL (0.7-1.3)
[2016-12-06] MEDS: BLOOD GLUCOSE MONITORING 1 DEV DEV FS SCH ×2 (06:35→11:53)
--- NOTE | 2016-12-06 06:37 | NUR ---
BLOOD SUGAR 120. PATIENT RESTING IN BED, NO S/S OF ACUTE DISTRESS NOTED. SAFETY MEASURE ENSURED, WILL CONTINUE TO MONITOR
[2016-12-06] MEDS: INSULIN DETEMIR 100 UNITS/ML 10 ML VIAL SUBQ SCH (06:49)
--- NOTE | 2016-12-06 07:15 | NUR ---
ENDORSED PLAN OF CARE TO DAY RN, PATIENT IS IN STABLE CONDITION.
--- NOTE | 2016-12-06 07:15 | NUR ---
ASSUMED CONTINUITY OF CARE. NO SIGNS AND SYMPTOMS OF ACUTE DISTRESS NOTED. INITIAL ASSESSMENT DONE. NON-COMPLIANT. KEEP COMFORTABLE ON BED. FALL PRECAUTION APPLIED. CALL LIGHT WITHIN REACH.
--- NOTE | 2016-12-06 07:16 | NUR ---
Patient's Plan of Care was discussed and reviewed with DIETARY SERVICES MANAGER: ROSA MORGAN. RECEIVED PT IN BED AWAKE. ALERT ORIENTEDX3 WITH PERIODS OF CONFUSION. NO SOB NOTED. DENIES ANY PAIN OR DISCOMFORT AT THIS TIME.PT BEDREST WITH BRP. POSITIVE BOWEL SOUNDS NOTED ON FOUR QUADRANTS. SAFETY PRECAUTION IN PLACE CALL LIGHT WITHIN REACH.
--- NOTE | 2016-12-06 07:53 | NUR ---
SATURATION 91% ON ROOM AIR PLACED ON SUPPLEMENTAL OXYGEN AT 2 LPM VIA NC
[2016-12-06 08:00] VITALS: BP 111/70
[2016-12-06] MEDS: ASPIRIN 81 MG TAB.CHEW PO SCH (09:01)
[2016-12-06] MEDS: TAMSULOSIN 0.4 MG CAP PO SCH (09:01)
[2016-12-06] MEDS: LISINOPRIL 10 MG TAB PO SCH (09:02)
[2016-12-06] MEDS: ALLOPURINOL 100 MG TAB PO SCH (09:02)
[2016-12-06] MEDS: ATORVASTATIN 20 MG TAB PO SCH (09:02)
[2016-12-06] MEDS: FUROSEMIDE 40 MG TAB PO SCH (09:02)
[2016-12-06] MEDS: INSULIN LISPRO SLIDING SCALE 100 UNITS/ML VIAL SUBQ PRN (11:55)
[2016-12-06 12:00] VITALS: BP 126/81
--- NOTE | 2016-12-06 13:40 | NUR ---
EXPLAINED PT. ABOUT MD D/C ORDER, D/C DISPOSITION, D/C INSTRUCTIONS AND TEACHING, MD FOLLOW-UP, DIAGNOSIS, PAIN MANAGEMENT TEACHING. PT. NON-COMPLIANT. NOT INTERESTED TO ANY EXPLANATION AND VERBALLY ABUSIVE. PT. REQUESTED TO TALK TO METAL WORK DUCT INSTALLER. METAL WORK DUCT INSTALLER AND FOAM TANK LAMINATOR -HUNTER CAME AND SPOKE TO PT. REGARDING MD D/C ORDER, D/C DISPOSITION, DISEASE MANAGEMENT, MD FOLLOW UP, PAIN MANAGEMENT. PT. STILL VERBALLY ABUSIVE. REFUSED HOMELESS JAIL PLACEMENT AND ASKED TO HAVE TAXI VOUCHER. INFORMED CHARGE NURSE.
--- NOTE | 2016-12-06 14:05 | NUR ---
DR. LEACH AND HEAD ROSE GROWER CAME AND SPOKE TO PT. AGAIN AND EXPLAINED ABOUT MD D/C ORDER, D/C DISPOSITION, DISEASE MANAGEMENT, FPC PLACEMENT. AGAIN, PT. IN AGGRESSIVE TONE OF VOICE DID NOT WANT TO HEAR ANY EXPLANATION. REFUSED ANY FPC PLACEMENT AND INSISTED TO HAVE A TAXI VOUCHER TO GO BACK TO HIS PLACE SOMEWHERE IN [facility]. INFORMED CHARGE NURSE.
--- NOTE | 2016-12-06 15:40 | NUR ---
D/C VIA WHEELCHAIR WITH ASSISTANCE FROM CREW DISPATCHER AND SUPERVISOR PARTIAL DENTURE DEPARTMENT DUE TO PT. VERBALLY ABUSIVE BEHAVIOR. AWAKE, ALERT, AND ORIENTED X4. SPEECH CLEAR. NO C/O PAIN. NO SOB, NOTED. IN STABLE CONDITION. INFORMED CHARGE NURSE. ITZEL RODGERS.
--- NOTE | 2016-12-06 15:42 | NUR ---
DISCHARGED FROM FACILITY
[2016-12-06] MEDS ORDERED: WARFARIN 2.5 MG TAB PO SCH (17:00)
[2016-12-07 09:05] LABS: HEMOGLOBIN A1C 8.1 % (4.8-5.6)
== END 2016-12-06 15:40 | disposition home or self-care (01) | DRG 812 ==
LOC: MED 23:10 → MTU 12-04 03:18
PROVIDERS: ADMIT Student in an Organized Health Care Education/Training Program; ATTEND Student in an Organized Health Care Education/Training Program
DX: T43.621A Poisoning by amphetamines, accidental (unintentional), initial encounter (principal); N17.0 Acute kidney failure with tubular necrosis; G92 Toxic encephalopathy; I50.43 Acute on chronic combined systolic (congestive) and diastolic (congestive) heart failure; E44.0 Moderate protein-calorie malnutrition; I42.0 Dilated cardiomyopathy; D68.59 Other primary thrombophilia; S22.42XA Multiple fractures of ribs, left side, initial encounter for closed fracture; E11.65 Type 2 diabetes mellitus with hyperglycemia; I27.2 Other secondary pulmonary hypertension; K21.9 Gastro-esophageal reflux disease without esophagitis; Z60.2 Problems related to living alone; I08.1 Rheumatic disorders of both mitral and tricuspid valves; F15.10 Other stimulant abuse, uncomplicated; K76.0 Fatty (change of) liver, not elsewhere classified; E80.6 Other disorders of bilirubin metabolism; N20.0 Calculus of kidney; E02 Subclinical iodine-deficiency hypothyroidism; X58.XXXA Exposure to other specified factors, initial encounter; Z53.29 Procedure and treatment not carried out because of patient's decision for other reasons; I25.10 Atherosclerotic heart disease of native coronary artery without angina pectoris; F33.1 Major depressive disorder, recurrent, moderate; J44.9 Chronic obstructive pulmonary disease, unspecified; Z88.8 Allergy status to other drugs, medicaments and biological substances; Z79.899 Other long term (current) drug therapy; Z79.82 Long term (current) use of aspirin; Z79.4 Long term (current) use of insulin; Z95.0 Presence of cardiac pacemaker; Z90.49 Acquired absence of other specified parts of digestive tract; Z79.01 Long term (current) use of anticoagulants; Y92.89 Other specified places as the place of occurrence of the external cause; Z91.14 Patient's other noncompliance with medication regimen; Z59.0 Homelessness; Y93.89 Activity, other specified; Y99.8 Other external cause status; Z72.89 Other problems related to lifestyle; Z68.28 Body mass index [BMI] 28.0-28.9, adult
CPT/HCPCS: 36415; 36600; 70450; 71010; 71100; 76705; 76770; 80048; 80053; 80162; 80305; 81001; 82140; 82150; 82550; 82553; 82803; 82948; 83036; 83605; 83690; 83735; 83874; 83880; 84100; 84436; 84439; 84443; 84479; 84484; 85025; 85610; 85730; 87040; 87081; 87086; 93005; 93925; 93970; 94640; 96374; 99285; C1758; G0482; J1815; J2060; J2270; J2405; J7620; Q0092

== ENCOUNTER 2016-12-13 21:06 | Inpatient (IN) | payer MEDICAID ==
[~2016-12-13] VITALS: Ht 180.3 cm; Wt 93.9 kg
[2016-12-13 21:12] VITALS: BP 154/90
--- NOTE | 2016-12-13 21:55 | NUR ---
BIB WHEELCHAIR TO ER BED 7
--- NOTE | 2016-12-13 22:12 | NUR ---
61Y/M PT. PRESENT TO ED WITH C/O SOB X 1DAY. PT. STATES HAVING DIFFICULTY BREATHING START TODAY, ALSO STATES LT. CHEST HURT. HX. CHF, HTN. AAO X4, AMBULATORY WITH W/C ASSISTED. RESPIRATIONS ROOM AIR, EVEN AND UNLABORED. SKIN WARM AND DRY. C/O LT. CHETS PAIN 03/02. VSS, ER MDMADE AWARE OF PT. STATUS.
--- NOTE | 2016-12-13 22:24 | NUR ---
Patient being evaluated by physician at bedside.
[2016-12-13] MEDS ORDERED: ALBUTEROL 0.083% 2.5 MG/3 ML NEBU INH ONE (22:45)
[2016-12-13 23:11] LABS: BASOPHILS # (AUTO) 0.3 K/uL (0.00-0.22); BASOPHILS % (AUTO) 4.3 % (0.0-2.0); EOSINOPHILS # (AUTO) 0.2 K/uL (0-0.4); EOSINOPHILS % (AUTO) 3.2 % (0.0-4.0); HEMOGLOBIN 14.6 g/dL (12.0-18.0); LYMPHOCYTES # (AUTO) 1.2 K/uL (2.0-11.5); LYMPHOCYTES % (AUTO) 16.1 % (20.5-51.1); MEAN CORPUSCULAR HEMOGLOBIN 29 pg (27-31); MEAN CORPUSCULAR HGB CONC 32 g/dL (33-37); MEAN CORPUSCULAR VOLUME 91 fL (80-94); MONOCYTES # (AUTO) 0.9 K/uL (0.8-1.0); MONOCYTES % (AUTO) 12.5 % (1.7-9.3); NEUTROPHILS # (AUTO) 4.8 K/uL (1.8-7.7); NEUTROPHILS % (AUTO) 63.9 % (42.2-75.2); PLATELET COUNT (AUTO) 226 K/uL (140-450); RED BLOOD CELL COUNT(AUTO) 5.08 MIL/uL (4.20-6.10); RED CELL DISTRIBUTION WIDTH 17.1 % (11.6-13.7); WHITE BLOOD COUNT (AUTO) 7.4 K/uL (4.8-10.8)
[2016-12-13 23:26] LABS: ALBUMIN 2.9 g/dL (3.4-5.0); ANION GAP 9.3 (8-16); CALCIUM 8.2 mg/dL (8.5-10.1); CARBON DIOXIDE 27.6 mmol/L (21-32); CREATININE 2.4 mg/dL (0.7-1.3); POTASSIUM 3.9 mmol/L (3.5-5.1); TOTAL PROTEIN, SERUM 6.5 g/dL (6.4-8.2)
[2016-12-13 23:30] LABS: INR 1.6 (0.8-1.2); PARTIAL THROMBOPLASTIN TIME 33.7 secs (22-35.6); PROTHROMBIN TIME 15.7 secs (10.8-13.4)
[2016-12-14] MEDS ORDERED: ACETAMINOPHEN 325 MG TAB PO PRN (00:15)
[2016-12-14] MEDS ORDERED: DOCUSATE SODIUM 100 MG GELCAP PO PRN (00:15)
[2016-12-14] MEDS ORDERED: MORPHINE SULFATE 2 MG/ML SYR IVP PRN (00:15)
[2016-12-14] MEDS ORDERED: ONDANSETRON 4 MG/2 ML VIAL IVP PRN (00:15)
[2016-12-14] MEDS ORDERED: HYDROcodone/APAP 5/325 MG 1 TAB TAB PO PRN (00:30)
[2016-12-14] MEDS ORDERED: LORazepam 1 MG TAB PO PRN (00:30)
[2016-12-14] MEDS ORDERED: NITROGLYCERIN 0.4 MG TAB SL PRN ×2 (00:30→07:29)
[2016-12-14] MEDS ORDERED: ASPIRIN 81 MG TAB.CHEW PO SCH (00:30)
[2016-12-14] MEDS ORDERED: HEPARIN PER PHARMACY MC PRN (00:35)
[2016-12-14] MEDS ORDERED: hePARIN / DEXT 5% PREMIX 250 ML IV SCH (00:35)
--- NOTE | 2016-12-14 01:05 | NUR ---
Patient will be admitted to care of . Admited to TELEMERY. Will go to room 117. Belongings list completed. Report to ABEL YUEN.
[2016-12-14 01:30] VITALS: BP 145/88
--- NOTE | 2016-12-14 01:30 | NUR ---
ADMITTED A 61 Y/O MALE FROM ED VIA GURMERE, ACCOMPANIED BY 2 STAFF. PT AAOX3, MUMBLES TO SELF. IRRITABLE, LABILE MOOD AND QUICK TO ANGER. UNCOOPERATIVE WITH SOME PART OF ADMISSION PROCESS. PT ADMITTED DUE TO SOB. NO EPISODE AT THIS TIME. SKIN INTACT, NO PRESSURE ULCER.O2 SAT 97% ROOM AIR. DENIES PAIN AT THIS TIME, NO S/S RESPIRATORY DISTRESS. ORIENTED PT TO REALITY APPROPRIATE, CALL LIGHT, BED, PHONE, TV, VISITING HOURS. ID BRACELET ON. BELONGINGS CHECKED. PT REQUESTS TO KEEP VALUABLES IN POSSESSION. ALL NEEDS ANTICIPATED. FALL PRECAUTION IN PLACE DUE TO GENERALIZED WEAKNESS. WILL CONTINUE TO MONITOR.
[2016-12-14 01:31] LABS: CHOL/HDL RATIO 2.4 (1-4.5); FREE T4 (FREE THYROXINE) 1.06 ng/dL (0.76-1.46); MAGNESIUM 2.5 mg/dL (1.8-2.4); PHOSPHORUS 4.8 mg/dL (2.5-4.9); THYROID STIMULATING HORMONE 3.8 uIU/mL (0.34-3.74)
--- NOTE | 2016-12-14 02:20 | NUR ---
SPOKE WITH DR. HURTADO (THERMOSTAT MAKER) REGARDING THE ADMITTING ORDERS. SHE STATES, "I'LL PUT THE ORDERS IN." WILL CARRY OUT ORDERS.
--- NOTE | 2016-12-14 02:44 | NUR ---
RECEIVED A CALL FROM JORGE LUIS (RADIOLOGY DEPT), STATES SHE CAN'T DO THE CT ANGIOGRAM DUE TO ELEVATED BUN AND CREA. SHE REQUESTS TO GET A HOLD OF DR. RABAGO, WHO ORDERED THE TEST TO DC THE CT SHE WAS UNSUCCESSFUL TRYING TO REACH HIM. WILL CALL
[2016-12-14] MEDS ORDERED: LISINOPRIL 10 MG TAB PO SCH (03:00)
--- NOTE | 2016-12-14 03:00 | NUR ---
SPOKE WITH DR. HURTADO REGARDING RADIOLOGIST'S REQUEST TO CANCEL CT ANGIOGRAM DUE TO PT'S ELEVATED BUN & CREA. STATES SHE'LL DC THE ORDER.
[2016-12-14] MEDS: FUROSEMIDE 40 MG/4 ML VIAL IVP SCH ×3 (03:30→17:35)
[2016-12-14 04:00] VITALS: BP 145/90
--- NOTE | 2016-12-14 04:00 | NUR ---
PT REFUSED ZESTRIL AND ASPIRIN DESPITE EXPLANATIONS OF RISKS/BENEFITS. PT AWAKE BUT REFUSES TO OPEN HIS EYES, INTERMITTENTLY MUMBLES TO SELF. HEPARIN DRIP INFUSING WELL AT 17ML/HR PER PROTOCOL. NO ADVERSE REACTION NOTED AT THIS TIME. WILL CONTINUE TO MONITOR. FALL PRECAUTION IN PLACE.
--- NOTE | 2016-12-14 04:30 | NUR ---
PT HAS EPISODES OF GETTING OUT OF BED UNASSISTED AND NOT CALLING FOR HELP FROM STAFF. CONTINUE TO EDUCATE PT ON FALL PREVENTION. HOWEVER, PT IN UNCOOPERATIVE AND ARGUES WITH STAFF. PT ALSO KNOWS HOW TO TURN THE BED ALARM OFF DESPITE EXPLANATIONS OF IT'S USE. WILL CONTINUE TO CLOSELY MONITOR.
[2016-12-14] MEDS ORDERED: DEXTROSE 50% 50 ML SYR IVP PRN (05:00)
--- NOTE | 2016-12-14 05:47 | NUR ---
ROUNDS MADE, PT SLEEPING AT THIS TIME WITH NO S/S OF RESPIRATORY DISTRESS. WILL CONTINUE TO MONITOR.
[2016-12-14] MEDS ORDERED: INSULIN GLARGINE SUBQ SCH (06:30)
[2016-12-14] MEDS ORDERED: INSULIN DETEMIR 100 UNITS/ML 10 ML VIAL SUBQ SCH (06:30)
--- NOTE | 2016-12-14 06:30 | NUR ---
PT'S BS 48MG/DL, ASYMPTOMATIC. PT VERBALLY RESPONSIVE BUT DROWSY. PT DENIES PAIN OR DIZZINESS AT THIS TIME. D50% ADMINISTERED ORDERED. WILL CONTINUE TO MONITOR AND WILL RECHECK BS.
[2016-12-14] MEDS: BLOOD GLUCOSE MONITORING 1 DEV DEV FS SCH ×4 (06:45→20:30)
[2016-12-14] MEDS ORDERED: PANTOPRAZOLE 40 MG TABEC PO SCH ×2 (07:28→09:00)
--- NOTE | 2016-12-14 07:29 | NUR ---
PT'S BS AT 98 MG/DL, PT REMAINS ASYMPTOMATIC. PT IN STABLE CONDITION. ENDORSED TO NEXT SHIFT FOR CONTINUITY OF CARE.
--- NOTE | 2016-12-14 07:30 | NUR ---
RECEIVED PT IN BED. ASLEEP. AROUSABLE TO VOICE/TOUCH. NO SOB NOTED. DENIES ANY PAIN OR DISCOMFORT AT THIS TIME. PT ALERT ORIENTED X3. SAFETY PRECAUTION IN PLACE. CALL LIGHT WITHIN REACH. DENIES ANY DISCOMFORT WITH BOWEL OR BLADDER ELIMINATION AT THIS TIME.
[2016-12-14 08:00] VITALS: BP 147/99
[2016-12-14] MEDS ORDERED: CYCLOBENZAPRINE 10 MG TAB PO PRN (09:00)
--- NOTE | 2016-12-14 09:00 | NUR ---
CALLED PHARMACIST MISAEL VERIFIED THAT LASIX IVP CAN BE GIVEN IN THE Y PORT OF THE HEPARIN DRIP. ACCORDING TO PHARMACIST. LASIX IS COMPATIBLE WITH HEPARIN SO ITS OK. LASIX GIVEN ORDERED.
[2016-12-14 09:09] LABS: ANION GAP 14.8 (8-16); CALCIUM 8.3 mg/dL (8.5-10.1); CARBON DIOXIDE 24.8 mmol/L (21-32); CREATININE 2.3 mg/dL (0.7-1.3); POTASSIUM 3.6 mmol/L (3.5-5.1)
[2016-12-14] MEDS: ATORVASTATIN 20 MG TAB PO SCH (09:13)
[2016-12-14] MEDS: ALLOPURINOL 100 MG TAB PO SCH (09:14)
[2016-12-14] MEDS: ASPIRIN 81 MG TAB.CHEW PO SCH (09:14)
[2016-12-14] MEDS: LISINOPRIL 10 MG TAB PO SCH (09:14)
--- NOTE | 2016-12-14 09:19 | NUR ---
PATIENT HAS BEEN SCREENED AND CATEGORIZED HIGH NUTRITION RISK. PATIENT WILL BE SEEN WITHIN 1-2 DAYS OF ADMISSION. 12/14/16-12/15/[address]
--- NOTE | 2016-12-14 09:53 | NUR ---
RECEIVED PT IN BED. ASLEEP. AROUSABLE TO VOICE/TOUCH. NO SOB NOTED. DENIES ANY PAIN OR DISCOMFORT AT THIS TIME. PT ALERT ORIENTED X3. SAFETY PRECAUTION IN PLACE. CALL LIGHT WITHIN REACH. DENIES ANY DISCOMFORT WITH BOWEL OR BLADDER ELIMINATION AT THIS TIME. Addendum: 12/14/16 at 0956 by Maryse Almeida RN DISREGARD ABOVE DOCUMENTATION WRONG TIME.
[2016-12-14 10:18] LABS: INR 1.5 (0.8-1.2); PROTHROMBIN TIME 15.1 secs (10.8-13.4)
--- NOTE | 2016-12-14 10:35 | NUR ---
CM NOTE INITIAL REVIEW FAXED TO [facility] [phone] PH [phone] AND TO [facility] [phone] PH KORI [phone]
[2016-12-14] MEDS ORDERED: KETOROLAC 15 MG/ML VIAL IVP SCH (10:42)
[2016-12-14 11:05] LABS: PARTIAL THROMBOPLASTIN TIME > 150.0 secs (22-35.6)
--- NOTE | 2016-12-14 11:12 | NUR ---
[facility] CALLED REGARDING PTT GREATER THAN 150. PER PROTOCOL HEPARIN DRIP HELD FOR 1 HR. AND WILL FOLLOW PHRAMACY PROTOCOL.
[2016-12-14 12:00] VITALS: BP 142/93
--- NOTE | 2016-12-14 12:00 | NUR ---
PT JUST AGREED TO TAKE PREVIOUSLY ORDERED TORADOL FOR GEN PAIN.
--- NOTE | 2016-12-14 12:00 | NUR ---
PT ON HEPARIN 10ML/HR 1000 UNITS/HR. VERIFIED ORDER WITH PHARMACIST. AND ACCORDING TO HER DOSE IS GOOD FOR 6 HRS. AND SHOULD REPEAT PTT AFTER 6 HRS.
[2016-12-14] MEDS: INSULIN LISPRO SLIDING SCALE 100 UNITS/ML VIAL SUBQ PRN ×2 (12:05→17:36)
--- NOTE | 2016-12-14 12:08 | NUR ---
12/14/16 RD INITIAL ASSESSMENT COMPLETED PLEASE REFER TO NUTRITION ASSESSMENT UNDER CARE ACTIVITY FOR ESTIMATED NUTRITIONAL NEEDS. 1. CONTINUE CARDIAC DIET 2. RD TO FOLLOW-UP 2-3 DAYS; HIGH RISK LELO MCNALLY RD
[2016-12-14] MEDS: hePARIN / DEXT 5% PREMIX 250 ML IV SCH (12:09)
--- NOTE | 2016-12-14 14:15 | NUR ---
DAVID FROM [facility] CALLED THAT SHE WILL COME AND FILENET DEVELOPER PT FOR THE VQ SCAN.
--- NOTE | 2016-12-14 14:28 | NUR ---
CALLED PHARMACY MADE AWARE THAT PT WILL GO TO RADIOLOGY DEPT FOR VQ SCAN AND THE IV LINE OF HEPARIN IS TOO SHORT, SPOKE WITH LALA, SHE SAID ITS OK TO HOLD IT FOR 15 TO 30 MINS UNTIL THE PT COME BACK FROM PROCEDURE. DAVDI FROM [facility] CAME FIBER DESIGN ENGINEER PT. PT ON STABLE CONDITION.
--- NOTE | 2016-12-14 15:20 | NUR ---
PT BACK FROM RADIOLOGY DEPT, PER DAVID, FOR VQ SCAN. HOOKED BACK TO HEPARIN DRIP IVF. NO SOB NOTED. DENIES ANY PAIN OR DISCOMFORT AT THIS TIME.
[2016-12-14 16:00] VITALS: BP 136/83
[2016-12-14 16:45] LABS: INR 1.3 (0.8-1.2); PROTHROMBIN TIME 13.5 secs (10.8-13.4)
--- NOTE | 2016-12-14 16:55 | NUR ---
BLOOD SUGAR CHECKED AT 1600 IS 59. PT ALERT AWAKE. ABLE TO MAKE NEEDS KNOWN PT WAS DRINKING ORANGE JUICE. WHEN RECHECKED BLOOD SUGAR NOW READING WAS 261. WILL MEDICATE ORDERED PER SLIDING SCALE.
[2016-12-14] MEDS ORDERED: WARFARIN 2 MG TAB PO SCH (17:00)
[2016-12-14 17:13] LABS: PARTIAL THROMBOPLASTIN TIME 65.4 secs (22-35.6)
--- NOTE | 2016-12-14 17:28 | NUR ---
PHARMACY MADE AWARE OF LATEST PTT RESULT OF 65.4 WITH NO CHANGE WITH CURRENT HEPARIN DRIP ORDER. AND INR 1.32 AND CAN GIVE DUE COUMADIN 6MG PO.
[2016-12-14] MEDS: ALBUTEROL SULFATE/IPRATROPIU 3 ML SOL IH PRN (18:56)
[2016-12-14] MEDS: BUDESONIDE 0.25 MG/2 ML NEBU INH SCH (18:56)
--- NOTE | 2016-12-14 19:32 | NUR ---
PT KEPT CLEAN DRY AND COMFORTABLE. NEEDS ATTENDED. ENDORSED TO NEXT SHIFT ON STABLE CONDITION FOR CONTINUITY OF CARE.
--- NOTE | 2016-12-14 19:33 | NUR ---
RECEIVED REPORT FROM AM NURSE. PT IS AOX3, NO S/S OF DISTRESS. NO COMPLAINTS OF PAIN AT THIS TIME. WITH A HEPARIN DRIP RUNNING AT THE LEFT FA, PATENT AND INTACT. DISCUSSED PLAN OF CARE WITH PATIENT, CALL LIGHT WITHIN REACH. WILL CONTINUE TO MONITOR. SAFETY CHECKS IN PLACE.
[2016-12-14 20:00] VITALS: BP 130/77
--- NOTE | 2016-12-14 21:30 | NUR ---
PT WANTED TO REMOVE HEPARIN IV LINE. EDUCATED PT ON THE BENEFITS OF HAVING HEPARIN, STILL REFUSED. NOTIFIED CHARGE NURSE, BUT STILL WANTED TO REFUSED. CALLED MD FOR CALL BACK.
--- NOTE | 2016-12-14 21:40 | NUR ---
TALKED TO DR. FARRELL IN REGARDS TO PT REFUSING THE HEPARIN. SAID WILL TALK TO PATIENT ABOUT IT.
--- NOTE | 2016-12-14 22:56 | NUR ---
DR. FARRELL TALKED TO PT, SAID THAT THE PATIENT IS GOING TO CONTINUE WITH THE HEPARIN.
--- NOTE | 2016-12-14 23:45 | NUR ---
RECEIVED A CRITICAL LAB OF THE APTT OF 96.2. HELD HEPARIN DRIP. NOTIFIED DR. FARRELL OF RESULT.
[2016-12-15] VITALS (7 sets, daily range): BP systolic 113–127; BP diastolic 64–81
[2016-12-15] MEDS: HYDROcodone/APAP 5/325 MG 1 TAB TAB PO PRN ×2 (00:28→06:11)
[2016-12-15] MEDS: hePARIN / DEXT 5% PREMIX 250 ML IV SCH (00:59)
--- NOTE | 2016-12-15 00:59 | NUR ---
STARTED HEPARIN AT THIS TIME, NO S/S OF BLEEDING NOTED. WILL CONTINUE TO MONITOR. NO S/S OF DISTRESS. NO COMPLAINTS OF PAIN AT THIS TIME.
--- NOTE | 2016-12-15 04:00 | NUR ---
VS TAKEN, STABLE. WILL CONTINUE TO MONITOR. NO S/S OF DISTRESS. WILL CONTINUE TO MONITOR FOR ANY CHANGES.
[2016-12-15] MEDS: PANTOPRAZOLE 40 MG TABEC PO SCH (06:11)
[2016-12-15] MEDS: INSULIN LISPRO SLIDING SCALE 100 UNITS/ML VIAL SUBQ PRN ×3 (06:16→21:00)
[2016-12-15] MEDS: BLOOD GLUCOSE MONITORING 1 DEV DEV FS SCH ×4 (06:41→20:55)
[2016-12-15] MEDS: BUDESONIDE 0.25 MG/2 ML NEBU INH SCH ×2 (07:11→19:30)
[2016-12-15 07:15] LABS: BASOPHILS # (AUTO) 0.2 K/uL (0.00-0.22); BASOPHILS % (AUTO) 3.2 % (0.0-2.0); EOSINOPHILS # (AUTO) 0.4 K/uL (0-0.4); EOSINOPHILS % (AUTO) 6.7 % (0.0-4.0); HEMATOCRIT 42.9 % (36-52); LYMPHOCYTES # (AUTO) 1.1 K/uL (2.0-11.5); LYMPHOCYTES % (AUTO) 18.9 % (20.5-51.1); MEAN CORPUSCULAR HEMOGLOBIN 29 pg (27-31); MEAN CORPUSCULAR HGB CONC 33 g/dL (33-37); MEAN CORPUSCULAR VOLUME 90 fL (80-94); MONOCYTES # (AUTO) 0.6 K/uL (0.8-1.0); MONOCYTES % (AUTO) 9.9 % (1.7-9.3); NEUTROPHILS # (AUTO) 3.5 K/uL (1.8-7.7); NEUTROPHILS % (AUTO) 61.3 % (42.2-75.2); PLATELET COUNT (AUTO) 192 K/uL (140-450); RED CELL DISTRIBUTION WIDTH 17.3 % (11.6-13.7); WHITE BLOOD COUNT (AUTO) 5.8 K/uL (4.8-10.8)
[2016-12-15] MEDS: ALBUTEROL SULFATE/IPRATROPIU 3 ML SOL IH PRN ×2 (07:21→19:30)
--- NOTE | 2016-12-15 07:23 | NUR ---
ENDORSED TO AM NURSE FOR CONTINUITY OF CARE, IN STABLE CONDITION.
--- NOTE | 2016-12-15 07:25 | NUR ---
RECEIVED PATIENT REPORT AT BEDSIDE FROM NIGHT NURSE. PATIENT IS AAOX3 AND SHOWS NO S/S OF DISTRESS ON ROOM AIR. IV NOTED ON THE L FA WITH HEPARIN MEDICATION @ 7.5 ML/HR INFUSING WELL. SKIN IS INTACT. TELE MONITOR IN USE. PATIENT WAS EDUCATED ON USING THE CALL LIGHT FOR ASSISTANCE, RAPID RESPONSE, AND POC FOR TODAY. PATIENT VERBALIZED UNDERSTANDING. THE BED IS LOWERED WITH CALL LIGHT WITHIN REACH. WILL CONTINUE TO MONITOR.
--- NOTE | 2016-12-15 07:55 | NUR ---
PATIENT IS BEING SEEN BY DR LY AND RESIDENTS. PATIENT VERBALIZED UNDERSTANDING FOR PLAN OF CARE FOR THE DAY.
[2016-12-15 08:03] LABS: INR 1.3 (0.8-1.2); PROTHROMBIN TIME 12.7 secs (10.8-13.4)
--- NOTE | 2016-12-15 08:05 | NUR ---
RECEIVED CALL FROM LAB OF PTT 53.7. NOTIFIED DR. WHATLEY. WILL AWAIT ORDERS
[2016-12-15 08:07] LABS: PARTIAL THROMBOPLASTIN TIME 53.7 secs (22-35.6)
[2016-12-15 08:08] LABS: ALBUMIN 2.4 g/dL (3.4-5.0); ANION GAP 8.2 (8-16); CALCIUM 7.9 mg/dL (8.5-10.1); CARBON DIOXIDE 31.4 mmol/L (21-32); CREATININE 2.1 mg/dL (0.7-1.3); PHOSPHORUS 4.6 mg/dL (2.5-4.9); POTASSIUM 3.6 mmol/L (3.5-5.1); TOTAL BILIRUBIN 1.5 mg/dL (0.0-1.0); TOTAL PROTEIN, SERUM 5.7 g/dL (6.4-8.2)
--- NOTE | 2016-12-15 09:00 | NUR ---
PATIENT IS AAOX3 AND SHOWS NO S/S OF DISTRESS ON ROOM AIR. PATIENT LEFT UNIT TO XR IN STABLE CONDITION.
--- NOTE | 2016-12-15 09:37 | NUR ---
PATIENT IS BACK ON UNIT. PATIENT SHOWS NO S/S OF DISTRESS ON ROOM AIR. WILL CONTINUE TO MONITOR.
[2016-12-15] MEDS: FUROSEMIDE 40 MG/4 ML VIAL IVP SCH ×2 (10:02→16:24)
[2016-12-15] MEDS: ASPIRIN 81 MG TAB.CHEW PO SCH (10:02)
--- NOTE | 2016-12-15 10:02 | NUR ---
ADMINISTERED SCHEDULED MEDICATIONS. PATIENT TOLERATED ACTIVITY WELL. PATIENT EDUCATED ON USING THE URINAL FOR URINE SPECIMEN. PATIENT VERBALIZED UNDERSTANDING.
[2016-12-15] MEDS: LISINOPRIL 10 MG TAB PO SCH (10:03)
[2016-12-15] MEDS: ALLOPURINOL 100 MG TAB PO SCH (10:03)
[2016-12-15] MEDS: ATORVASTATIN 20 MG TAB PO SCH (10:03)
[2016-12-15] MEDS: THIAMINE 100 MG TAB PO SCH (10:03)
[2016-12-15] MEDS: FOLIC ACID 1 MG TAB PO SCH (10:03)
[2016-12-15] MEDS: CARVEDILOL 3.125 MG TAB PO SCH ×2 (10:04→20:56)
[2016-12-15] MEDS: MULTIVITAMIN 1 TAB PO SCH (10:05)
--- NOTE | 2016-12-15 10:15 | NUR ---
DR GRIJALVA PRESENT AT BEDSIDE WITH PATIENT.
--- NOTE | 2016-12-15 10:30 | NUR ---
PATIENT HAD STANDBY ASSISTANCE TO THE RR. PATIENT AMB WITH UNSTEADY GAIT. PATIENT DENIES DIZZINESS AND SOB. PATIENT INSTRUCTED TO VOID IN SPECIMEN CUP.
[2016-12-15] MEDS: INSULIN DETEMIR 100 UNITS/ML 10 ML VIAL SUBQ SCH (10:33)
--- NOTE | 2016-12-15 10:45 | NUR ---
PATIENT SEE AT THE SINK AND WAS ASKED IF HE WAS ABLE TO VOID IN THE SPECIMEN CUP. PATIENT STATES HE WAS NOT. SPECIMEN CUP IS FILLED WITH CLEAR "WATER LIKE" LIQUID. DISCARDED THE SPECIMEN CUP. INSTRUCTED PATIENT TO USE URINAL INSTEAD FOR NEXT SPECIMEN.
--- NOTE | 2016-12-15 11:55 | NUR ---
PATIENT ASKED TO SEE DR GRIJALVA. WAS NOTIFIED.
--- NOTE | 2016-12-15 12:48 | NUR ---
PATIENT IS SITTING UP AOX3 AND SHOWS NO S/S OF DISTRESS AND DENIES PAIN AND SOB. PATIENT ATE ALL OF FOOD FOR LUNCH. WILL CONTINUE TO MONITOR.
--- NOTE | 2016-12-15 13:29 | NUR ---
CM NOTE CONCURRENT REVIEW FAXED TO [facility] [phone] PH [phone] [phone] AND TO [facility] [phone] KORI [phone]
--- NOTE | 2016-12-15 14:48 | NUR ---
PATIENT IS SLEEPING AND SHOWS NO S/S OF DISTRESS ON ROOM AIR. THE BED IS LOWERED WITH CALL LIGHT WITHIN REACH.
--- NOTE | 2016-12-15 16:25 | NUR ---
ADMINISTERED SCHEDULED MEDICATIONS. PATIENT TOLERATED ACTIVITY WELL. ABD BINDER WAS APPLIED. PATIENT SHOWS NO S/S OF DISTRESS ON ROOM AIR. BED IS LOWERED WITH CALL LIGHT WITHIN REACH.
[2016-12-15] MEDS ORDERED: WARFARIN 2 MG TAB PO SCH (17:00)
--- NOTE | 2016-12-15 17:20 | NUR ---
PATIENT USED URINAL AND SPECIMEN WAS COLLECTED AND SENT TO LAB. PATIENT IS NOW IN BED AND SHOWS NO S/S OF DISTRESS ON ROOM AIR.
[2016-12-15 19:13] LABS: APPEARANCE,URINE CLEAR (CLEAR); BILIRUBIN,URINE NEGATIVE (NEGATIVE); BLOOD, URINE NEGATIVE (NEGATIVE); COLOR,URINE YELLOW (YELLOW); LEUKOCYTE ESTERASE ,URINE NEGATIVE (NEGATIVE); NITRITE, URINE NEGATIVE (NEGATIVE); PROTEIN,URINE NEGATIVE (NEGATIVE); UGLUCOSE NEGATIVE (NEGATIVE); UROBILINOGEN,URINE 0.2 EU/dL (0.2 - 1)
[2016-12-15 19:19] LABS: AMPHETAMINE, URINE NEG. ng/ml (NEG <=1000); BARBITURATE, URINE NEG. ng/ml (NEG <=200); BENZODIAZEPINE, URINE NEG. ng/mL (NEG <=200); CANNABINOID, URINE NEG. ng/mL (NEG <=50); COCAINE, URINE NEG. ng/mL (NEG <=300); OPIATE, URINE NEG. ng/mL (NEG <=2000); PHENCYCLIDINE SCREEN,URINE NEG. ng/mL (NEG <=25)
--- NOTE | 2016-12-15 19:23 | NUR ---
GAVE PATIENT REPORT TO NIGHT NURSE AT BEDSIDE. PATIENT IS AAOX3 AND SHOWS NO S/S OF DISTRESS ON ROOM AIR. PATIENT DENIES PAIN. PATIENT AMB TO RR WITH STEADY GAIT. PATIENT ENDORSED IN STABLE CONDITION.
--- NOTE | 2016-12-15 19:30 | NUR ---
RECEIVED PT IN STABLE CONDITION FROM AM NURSE. AWAKE,ALERT AND ORIENTED X3-4. ON TELE MONITOR-PACED. WITH NO ACUTE DISTRESS NOTED. WITH MILD WEAKNESS. AMBULATES TO BATHROOM. NO C/O ANY PAIN AT THIS TIME. HL ON THE LT FA#[phone]. CLEAR AND PATENT. PLAN OF CARE DISCUSSED AND NEED REINFORCEMENT AT TIMES. CALL LIGHT PLACED WITHIN EASY REACH. BED ON LOW POSITION. WILL CONTINUE TO MONITOR.
--- NOTE | 2016-12-15 21:00 | NUR ---
BLOOD SUGAR WAS CHECKED RESULT 157. INSULIN COVERAGE GIVEN. HAD SOME HS SNACK. WILL CONTINUE TO MONITOR.
--- NOTE | 2016-12-15 23:00 | NUR ---
PT KEPT ON ASKING FOR FOOD. EDUCATE PT ABOUT DIABETIC DIET . WILL CONTINUE TO MONITOR.
[2016-12-16] MEDS: HYDROcodone/APAP 5/325 MG 1 TAB TAB PO PRN ×2 (00:51→08:55)
--- NOTE | 2016-12-16 01:55 | NUR ---
SLEEPING AT THIS TIME. NO S/S OF ANY DISTRESS NOTED.
--- NOTE | 2016-12-16 04:30 | NUR ---
SLEEPING WELL. NO S/S OF DISTRESS NOTED. WILL CONTINUE TO MONITOR.
[2016-12-16 05:08] VITALS: BP 130/85
[2016-12-16] MEDS: BLOOD GLUCOSE MONITORING 1 DEV DEV FS SCH ×4 (05:57→20:18)
[2016-12-16] MEDS: INSULIN LISPRO SLIDING SCALE 100 UNITS/ML VIAL SUBQ PRN (05:58)
--- NOTE | 2016-12-16 05:58 | NUR ---
PT WANTS TO EAT PUDDING. SO BLOOD SUGAR WAS CHECKED AT THIS TIME RESULT 174. INSULIN COVERAGE HUMALOG 2 UNITS GIVEN SUBQ .
[2016-12-16] MEDS: PANTOPRAZOLE 40 MG TABEC PO SCH (06:00)
[2016-12-16 06:35] LABS: BASOPHILS # (AUTO) 0.1 K/uL (0.00-0.22); BASOPHILS % (AUTO) 2.9 % (0.0-2.0); EOSINOPHILS # (AUTO) 0.3 K/uL (0-0.4); EOSINOPHILS % (AUTO) 6.2 % (0.0-4.0); HEMATOCRIT 45.6 % (36-52); HEMOGLOBIN 14.7 g/dL (12.0-18.0); LYMPHOCYTES # (AUTO) 0.8 K/uL (2.0-11.5); LYMPHOCYTES % (AUTO) 16.1 % (20.5-51.1); MEAN CORPUSCULAR HEMOGLOBIN 29 pg (27-31); MEAN CORPUSCULAR HGB CONC 32 g/dL (33-37); MEAN CORPUSCULAR VOLUME 91 fL (80-94); MONOCYTES # (AUTO) 0.3 K/uL (0.8-1.0); MONOCYTES % (AUTO) 6.2 % (1.7-9.3); NEUTROPHILS # (AUTO) 3.6 K/uL (1.8-7.7); NEUTROPHILS % (AUTO) 68.6 % (42.2-75.2); PLATELET COUNT (AUTO) 219 K/uL (140-450); RED BLOOD CELL COUNT(AUTO) 5.03 MIL/uL (4.20-6.10); RED CELL DISTRIBUTION WIDTH 17.5 % (11.6-13.7); WHITE BLOOD COUNT (AUTO) 5.1 K/uL (4.8-10.8)
[2016-12-16 07:18] LABS: INR 1.3 (0.8-1.2); PARTIAL THROMBOPLASTIN TIME 33.8 secs (22-35.6); PROTHROMBIN TIME 13.5 secs (10.8-13.4)
--- NOTE | 2016-12-16 07:25 | NUR ---
ENDORSED PT IN STABLE CONDITION TO AM NURSE FOR CONTINUITY OF CARE.
--- NOTE | 2016-12-16 07:27 | NUR ---
RECEIVED PATIENT REPORT AT BEDSIDE FROM NIGHT NURSE. PATIENT IS AAOX3 AND SHOWS NO S/S OF DISTRESS ON ROOM AIR. IV NOTED ON THE L FA SL. SKIN IS INTACT. TELE MONITOR IN USE. PATIENT C/O 10/10 SCIATICA AND RIB PAIN. PATIENT WAS EDUCATED ON USING THE CALL LIGHT FOR ASSISTANCE, RAPID RESPONSE, AND POC FOR TODAY. PATIENT WAS SEEN BY DR LY AND TOLD HE MAY BE DC TODAY HOWEVER PATIENT DISAGREES. PATIENT VERBALIZED UNDERSTANDING BUT NEEDS REINFORCEMENT. THE BED IS LOWERED WITH CALL LIGHT WITHIN REACH. WILL CONTINUE TO MONITOR.
[2016-12-16 07:57] VITALS: BP 134/82
--- NOTE | 2016-12-16 08:10 | NUR ---
PATIENT REQUESTED TO SEE DR GRIJALVA FOR POSSIBLE TRANSFER TO REHAB FACILITY OR SNF. DR SAENZIED.
--- NOTE | 2016-12-16 08:15 | NUR ---
PATIENT REFUSED [facility] THERAPY AT THIS TIME WILL ACCEPT AT A LATER TIME OF 30 MINS PATIENT NO SOB NOTED REQUEST SEMAJ/ABEL CALLED AND AWARE
[2016-12-16] MEDS: MULTIVITAMIN 1 TAB PO SCH (08:55)
[2016-12-16] MEDS: THIAMINE 100 MG TAB PO SCH (08:55)
[2016-12-16] MEDS: FOLIC ACID 1 MG TAB PO SCH (08:55)
--- NOTE | 2016-12-16 08:55 | NUR ---
ADMINISTERED SCHEDULED PO MEDICATIONS. PATIENT TOLERATED ACTIVITY WELL. ATTEMPTED TO FLUSH IV ON THE L FA HOWEVER FELT PRESSURE AND NEEDED TO BE DISCONTINUED. NEW IV WAS PLACED ON THE R FA 22 G SL. PATIENT TOLERATED ACTIVITY WELL. PATIENT BED IS LOWERED WITH CALL LIGHT WITHIN REACH.
[2016-12-16] MEDS: FUROSEMIDE 40 MG/4 ML VIAL IVP SCH ×2 (08:56→17:16)
[2016-12-16] MEDS: LISINOPRIL 10 MG TAB PO SCH (08:56)
[2016-12-16] MEDS: ASPIRIN 81 MG TAB.CHEW PO SCH (08:56)
[2016-12-16] MEDS: ALLOPURINOL 100 MG TAB PO SCH (08:56)
[2016-12-16] MEDS: ATORVASTATIN 20 MG TAB PO SCH (08:56)
[2016-12-16] MEDS: CARVEDILOL 3.125 MG TAB PO SCH ×2 (08:57→20:19)
[2016-12-16] MEDS: BUDESONIDE 0.25 MG/2 ML NEBU INH SCH ×2 (08:58→19:27)
[2016-12-16] MEDS: ALBUTEROL SULFATE/IPRATROPIU 3 ML SOL IH PRN ×2 (08:58→19:27)
[2016-12-16] MEDS: INSULIN DETEMIR 100 UNITS/ML 10 ML VIAL SUBQ SCH (09:00)
--- NOTE | 2016-12-16 09:00 | NUR ---
IV ON THE L FA WAS DISCONTINUED WITH CANNULA STILL INTACT.
--- NOTE | 2016-12-16 10:15 | NUR ---
PATIENT IS SLEEPING AND SHOWS NO S/S OF DISTRESS ON ROOM AIR. WILL CONTINUE TO MONITOR.
--- NOTE | 2016-12-16 10:29 | NUR ---
CM NOTE CONCURRENT REVIEW FAXED TO [facility] [phone] PH [phone] AND TO [facility] [phone] KORI [phone]
[2016-12-16 12:00] VITALS: BP 129/72
--- NOTE | 2016-12-16 12:30 | NUR ---
PATIENT SHOWS NO S/S OF DISTRESS ON ROOM AIR. PATIENT IS SITTING UP EATING LUNCH.
--- NOTE | 2016-12-16 14:19 | NUR ---
PATIENT IN BED SLEEPING. SHOWS NO S/S OF DISTRESS ON ROOM AIR.
--- NOTE | 2016-12-16 14:55 | NUR ---
SS NOTE: SENT SHORT TERM SNF PLACEMENT [facility] - [facility] - [facility] - [facility] - [facility] - [facility] - [facility]
--- NOTE | 2016-12-16 14:57 | NUR ---
CM NOTE SPOKE W/ LAYTON SHEIKH FOR [facility]; MADE AWARE OF ORDERS TO DISCHARGE TO SNF FOR PHYSICAL THERAPY; PT EVAL NOTES FAXED TO [facility] (FAX# [phone]).
[2016-12-16 16:00] VITALS: BP 123/79
--- NOTE | 2016-12-16 16:20 | NUR ---
PATIENT BLOOD SUGAR WAS 150. NO COVERAGE NEEDED. PATIENT SHOWS NO S/S OF DISTRESS ON ROOM AIR. THE BED IS LOWERED WITH CALL LIGHT WITHIN REACH. WILL CONTINUE TO MONITOR.
--- NOTE | 2016-12-16 16:33 | NUR ---
SS NOTE: [facility] [phone], NO ANSWER, HER VOICEMAIL STATED TO CALL MICHELINE AT ([phone] OR [phone]), BOTH NUMBERS CALLED, NO ANSWER
[2016-12-16] MEDS ORDERED: WARFARIN 5 MG TAB PO SCH (17:00)
--- NOTE | 2016-12-16 17:34 | NUR ---
ADMINISTERED SCHEDULED MEDICATIONS WELL NORCO 5/325 MG PO FOR 6/10 RIB PAIN. WILL ASSESS IN ONE HOUR
--- NOTE | 2016-12-16 18:00 | NUR ---
PATIENT IS TAKING A SHOWER. PATIENT SHOWS NO S/S OF DISTRESS ON ROOM AIR. PATIENT TOLERATING ACTIVITY WELL
--- NOTE | 2016-12-16 18:34 | NUR ---
AFTER GIVING NORCO 5/325 MG PO ONE HOUR AGO PATIENT DENIES PAIN
--- NOTE | 2016-12-16 19:15 | NUR ---
PATIENT IS IN BED AND DENIES PAIN AND SOB. PATIENT IS AAOX3 AND SHOWS NO S/S OF DISTRESS ON ROOM AIR. PATIENT REPORT WAS GIVEN AT BEDSIDE. PATIENT ENDORSED IN STABLE CONDITION.
--- NOTE | 2016-12-16 19:30 | NUR ---
RECEIVED REPORT FROM AM NURSE. PT RESTING IN BED, HIGH FOWLERS, AOX4, ABLE TO VERBALIZE NEEDS. PT C/O RIB PAIN. PT STATED HE WAS ALREADY MEDICATED, PAIN TOLERABLE AT THIS TIME. WILL CONTINUE TO MONITOR AND REASSESS. PT C/O SOB, PT JUST RECEIVED BREATHING TX, SPO2 96% AT ROOM AIR, RR 20. PT REFUSED O2 NC DESPITE EDUCATION. PT DENIES CP OR S/S OF ACUTE DISTRESS. IV ACCESS ASYMPTOMATIC, PATENT AND INTACT. SALINE LOCKED. DISCUSSED AND REVIEWED PLAN OF CARE WITH PT. PT VERBALIZED UNDERSTANDING. SAFETY MEASURES ENSURED. CALL LIGHT WITHIN REACH. WILL CONTINUE TO MONITOR.
[2016-12-16 20:00] VITALS: BP 126/82
--- NOTE | 2016-12-16 20:24 | NUR ---
ASKED PT WHETHER HE IS ALLERGIC TO CARVEDILOL, PT STATED NO. PT STATED "IT'S OK, THEY JUST STARTED ME ON HALF A PILL. I TAKE IT, DON'T WORRY ABOUT IT, I KNOW MY MEDICATIONS." BLOOD SUGAR 128, NO INSULIN COVERAGE NEEDED. ADMINISTERED DUE MEDICATION WITH EDUCATION. PT VERBALIZED UNDERSTANDING, TOLERATED WELL. SAFETY MEASURES ENSURED. CALL LIGHT WITHIN REACH. WILL CONTINUE TO MONITOR.
[2016-12-17] VITALS: BP 127/79
[2016-12-17] MEDS: HYDROcodone/APAP 5/325 MG 1 TAB TAB PO PRN (00:11)
--- NOTE | 2016-12-17 00:53 | NUR ---
PT C/O PAIN. SEE PAIN ASSESSMENT. ADMINISTERED NORCO PRN WITH EDUCATION. PT C/O ANXIETY, ADMINISTERED ATIVAN PRN WITH EDUCATION. PT VERBALIZED UNDERSTANDING, TOLERATED MEDS WELL. ALL NEEDS MET. SAFETY MEASURES ENSURED. CALL LIGHT WITHIN REACH. WILL CONTINUE TO MONITOR.
--- NOTE | 2016-12-17 04:00 | NUR ---
PT SLEEPING. CONDITION STABLE. ALL NEEDS MET. SAFETY MEASURES ENSURED. CALL LIGHT WITHIN REACH. WILL CONTINUE TO MONITOR.
[2016-12-17 06:09] LABS: BASOPHILS # (AUTO) 0.1 K/uL (0.00-0.22); BASOPHILS % (AUTO) 1.1 % (0.0-2.0); EOSINOPHILS # (AUTO) 0.4 K/uL (0-0.4); EOSINOPHILS % (AUTO) 3.8 % (0.0-4.0); HEMATOCRIT 43.3 % (36-52); LYMPHOCYTES # (AUTO) 0.7 K/uL (2.0-11.5); LYMPHOCYTES % (AUTO) 7.7 % (20.5-51.1); MEAN CORPUSCULAR HEMOGLOBIN 29 pg (27-31); MEAN CORPUSCULAR HGB CONC 32 g/dL (33-37); MEAN CORPUSCULAR VOLUME 91 fL (80-94); MONOCYTES # (AUTO) 0.7 K/uL (0.8-1.0); MONOCYTES % (AUTO) 7.1 % (1.7-9.3); NEUTROPHILS # (AUTO) 7.7 K/uL (1.8-7.7); NEUTROPHILS % (AUTO) 80.3 % (42.2-75.2); PLATELET COUNT (AUTO) 198 K/uL (140-450); RED BLOOD CELL COUNT(AUTO) 4.77 MIL/uL (4.20-6.10); RED CELL DISTRIBUTION WIDTH 17.3 % (11.6-13.7)
[2016-12-17 06:33] LABS: ANION GAP 8.8 (8-16); CALCIUM 8.1 mg/dL (8.5-10.1); CARBON DIOXIDE 33.8 mmol/L (21-32); CREATININE 1.7 mg/dL (0.7-1.3); POTASSIUM 4.6 mmol/L (3.5-5.1)
[2016-12-17 06:39] LABS: PHOSPHORUS 4.1 mg/dL (2.5-4.9)
[2016-12-17 06:45] LABS: WHITE BLOOD COUNT (AUTO) 9.6 K/uL (4.8-10.8)
[2016-12-17] MEDS: PANTOPRAZOLE 40 MG TABEC PO SCH (06:54)
[2016-12-17] MEDS: BLOOD GLUCOSE MONITORING 1 DEV DEV FS SCH ×3 (06:55→16:30)
--- NOTE | 2016-12-17 06:55 | NUR ---
PT SLEEPING BUT AROUSABLE. ADMINISTERED DUE MEDICATION WITH EDUCATION. PT VERBALIZED UNDERSTANDING, TOLERATED WELL. BLOOD SUGAR 133, NO INSULIN COVERAGE NEEDED. ALL NEEDS MET. SAFETY MEASURES ENSURED. CALL LIGHT WITHIN REACH.
--- NOTE | 2016-12-17 07:20 | NUR ---
RECEIVED PT FROM RACHEL ROMAN AT BEDSIDE. PT IS A&OX3. PT APPEARS TO BE IRRITATED AT THIS TIME. EXPLAINED TO PT PLAN OF CARE. PT HAS IV ON L F/A 18G SL AT THIS TIME. VS WNL. CALL LIGHT WITHIN REACH. WILL CONTINUE TO MONITOR.
[2016-12-17 08:00] VITALS: BP 128/85
--- NOTE | 2016-12-17 08:36 | NUR ---
CM NOTE CONCURRENT REVIEW FAXED TO [facility] [phone] [phone] AND TO [facility] [phone] LISSY SHEIKH [phone]. SPOKE TO LAYTON SHEIKH OF [facility] [phone] WHO SAID THAT THEIR RABBIT DRESSER STILL HAS TO REVIEW THE ORDER FOR SNF FOR PT.
[2016-12-17] MEDS: BUDESONIDE 0.25 MG/2 ML NEBU INH SCH (08:42)
[2016-12-17] MEDS: ALBUTEROL SULFATE/IPRATROPIU 3 ML SOL IH PRN (08:42)
--- NOTE | 2016-12-17 09:02 | NUR ---
SS NOTE: PER JASWINDER FROM [facility], THEY ARE UNABLE TO ACCEPT PT PER PRINCE FROM [facility], THEY ARE UNABLE TO ACCEPT PT PER SHAHZAD FROM [facility], HE WILL HAVE THEIR DIRECTOR OF NURSES REVIEW PT'S INFORMATION PER [facility], SHE WILL HAVE THEIR DIRECTOR OF NURSES REVIEW PT'S INFORMATION PER JASWINDER FROM [facility], SHE WILL VERIFY IF THEY CAN ACCEPT PT WITH HER ENGINEER TECHNICIAN Addendum: 12/17/16 at 1030 by Anabella Sharma SS I RECEIVED A CALL FROM JASWINDER AT [facility], THEY ARE UNABLE TO ACCEPT PT
[2016-12-17 09:05] LABS: INR 1.7 (0.8-1.2); PROTHROMBIN TIME 16.7 secs (10.8-13.4)
--- NOTE | 2016-12-17 09:30 | NUR ---
PT IS RESTING IN BED. NO COMPLAINTS AT THIS TIME. NO DISTRESS NOTED. CALL LIGHT WITHIN REACH. WILL CONTINUE TO MONITOR.
[2016-12-17] MEDS: INSULIN DETEMIR 100 UNITS/ML 10 ML VIAL SUBQ SCH (09:49)
[2016-12-17] MEDS: ALLOPURINOL 100 MG TAB PO SCH (09:54)
[2016-12-17] MEDS: FUROSEMIDE 40 MG/4 ML VIAL IVP SCH ×2 (09:54→17:00)
[2016-12-17] MEDS: MULTIVITAMIN 1 TAB PO SCH (09:54)
[2016-12-17] MEDS: CARVEDILOL 3.125 MG TAB PO SCH (09:54)
[2016-12-17] MEDS: FOLIC ACID 1 MG TAB PO SCH (09:54)
[2016-12-17] MEDS: LISINOPRIL 10 MG TAB PO SCH (09:54)
[2016-12-17] MEDS: ATORVASTATIN 20 MG TAB PO SCH (09:54)
[2016-12-17] MEDS: THIAMINE 100 MG TAB PO SCH (09:55)
[2016-12-17] MEDS: ASPIRIN 81 MG TAB.CHEW PO SCH (09:55)
--- NOTE | 2016-12-17 11:30 | NUR ---
PT IS RESTING IN BED. NO DISTRESS NOTED. CALL LIGHT WITHIN REACH. WILL CONTINUE TO MONITOR.
--- NOTE | 2016-12-17 11:53 | NUR ---
LAYTON WILL SPOKE WITH LAYTON SHEIKH OF [facility] PH [phone] AND SHE SAID THEIR [employer] TILE MAKER HAS DENIED APPROVAL OF AUTHORIZATION FOR SNF FOR PHYSICAL THERAPY BECAUSE PATIENT DOESN'T MEET [facility]ITERIA AND THAT PATIENT IS ALREADY BEING FOLLOWED UP BY THEIR [facility]IGH INTENSITY CASE MANAGEMENT. SULAIMAN TRAVIS.
--- NOTE | 2016-12-17 12:35 | NUR ---
12/17/16 RD FOLLOW-UP ASSESSMENT COMPLETED PLEASE REFER TO NUTRITION ASSESSMENT UNDER CARE ACTIVITY FOR ESTIMATED NUTRITIONAL NEEDS. 1. CONTINUE 60G CONSISTENT CARBOHYDRATE DIET LELO MCNALLY, RIAN
--- NOTE | 2016-12-17 13:35 | NUR ---
PT REQUESTED PAIN MED. MEDICATED WITH PAIN MED. TOLERATED WELL. CALL LIGHT WITHIN REACH. WILL CONTINUE TO MONITOR.
[2016-12-17] MEDS ORDERED: CARV3.122 PO (14:30)
--- NOTE | 2016-12-17 14:48 | NUR ---
PHYSICAL THERAPY CO-SIGN The Physical Therapy Progress Notes documented by Web Art Director have been reviewed. Reviewed/Co-Signed by: Dang Downing PT Documentation Done by:ADA CHOI PIPE BUFFER POC REVIEWED W/ PIPE BUFFER; PROGRESS NEIL. Addendum: 12/17/16 at 1449 by Dang Downing PT Amended: Links added.
[2016-12-17 14:58] VITALS: BP 128/85
--- NOTE | 2016-12-17 15:00 | NUR ---
PT IS RESTING IN BED. NO DISTRESS NOTED. CALL LIGHT WITHIN REACH. WILL CONTINUE TO MONITOR.
[2016-12-17] MEDS ORDERED: WARFARIN 5 MG, WARFARIN 2.5 MG PO SCH ×2 (17:00)
--- NOTE | 2016-12-17 17:15 | NUR ---
PT SIGNED PAPERWORK AND VERBALIZED UNDERSTANDING. IV REMOVED. CANNULA INTACT. ALL ID BANDS REMOVED.
--- NOTE | 2016-12-17 17:25 | NUR ---
WHEELED PT OUT OF UNIT, ACCOMPANIED BY DIE HARDENER AND SECURITY, TO TAXI. PT TOOK ALL BELONGINGS WITH HIM. PT IN STABLE CONDITION.
== END 2016-12-17 17:25 | disposition home or self-care (01) | DRG 812 ==
LOC: MED 21:06 → MTU 12-14 00:27 → OBSVTOIN 12-14 09:12
PROVIDERS: ADMIT Student in an Organized Health Care Education/Training Program; ATTEND Student in an Organized Health Care Education/Training Program
DX: T43.621A Poisoning by amphetamines, accidental (unintentional), initial encounter (principal); N17.0 Acute kidney failure with tubular necrosis; I50.43 Acute on chronic combined systolic (congestive) and diastolic (congestive) heart failure; G92 Toxic encephalopathy; E43 Unspecified severe protein-calorie malnutrition; N18.6 End stage renal disease; S27.329A Contusion of lung, unspecified, initial encounter; D68.59 Other primary thrombophilia; I42.0 Dilated cardiomyopathy; E11.22 Type 2 diabetes mellitus with diabetic chronic kidney disease; E11.65 Type 2 diabetes mellitus with hyperglycemia; S22.32XA Fracture of one rib, left side, initial encounter for closed fracture; J44.1 Chronic obstructive pulmonary disease with (acute) exacerbation; K21.9 Gastro-esophageal reflux disease without esophagitis; E02 Subclinical iodine-deficiency hypothyroidism; Z53.29 Procedure and treatment not carried out because of patient's decision for other reasons; I27.2 Other secondary pulmonary hypertension; K70.30 Alcoholic cirrhosis of liver without ascites; W18.39XA Other fall on same level, initial encounter; Z60.2 Problems related to living alone; F15.10 Other stimulant abuse, uncomplicated; F10.10 Alcohol abuse, uncomplicated; M10.9 Gout, unspecified; I48.91 Unspecified atrial fibrillation; I13.2 Hypertensive heart and chronic kidney disease with heart failure and with stage 5 chronic kidney disease, or end stage renal disease; Y90.9 Presence of alcohol in blood, level not specified; Z59.0 Homelessness; Z86.718 Personal history of other venous thrombosis and embolism; Z79.01 Long term (current) use of anticoagulants; Z88.8 Allergy status to other drugs, medicaments and biological substances; Z95.0 Presence of cardiac pacemaker; Z79.899 Other long term (current) drug therapy; Z79.82 Long term (current) use of aspirin; Z79.4 Long term (current) use of insulin; Z82.5 Family history of asthma and other chronic lower respiratory diseases; Z80.0 Family history of malignant neoplasm of digestive organs; Z82.3 Family history of stroke; Z84.1 Family history of disorders of kidney and ureter; Z83.3 Family history of diabetes mellitus; Z82.49 Family history of ischemic heart disease and other diseases of the circulatory system; Y93.89 Activity, other specified; Y92.091 Bathroom in other non-institutional residence as the place of occurrence of the external cause; Y99.8 Other external cause status; Z71.41 Alcohol abuse counseling and surveillance of alcoholic; Z71.51 Drug abuse counseling and surveillance of drug abuser; Z68.28 Body mass index [BMI] 28.0-28.9, adult
CPT/HCPCS: 99285; G0378; 36415; 71010; 71111; 78582; 80048; 80053; 80305; 81003; 82140; 82150; 82948; 83036; 83605; 83690; 83735; 83880; 84100; 84439; 84443; 84484; 85025; 85379; 85610; 85730; 87081; 93005; 94640; 97110; 97116; 97530; A9540; J1644; J1815; J1885; J1940; J2270; J7613; J7620; J7626; Q0092

== ENCOUNTER 2017-01-17 01:18 | Emergency (ER) | payer MEDICAID ==
[~2017-01-17] VITALS: Ht 180.3 cm; Wt 94.3 kg
[~2017-01-17 01:18] MED LIST changes: +CARV3.122 PO
[2017-01-17 01:26] VITALS: BP 131/68
--- NOTE | 2017-01-17 03:17 | NUR ---
PT TAKEN TO BED 6
--- NOTE | 2017-01-17 03:44 | NUR ---
Dr. Schmitt evaluating patient at bedside.
[2017-01-17 04:30] VITALS: BP 131/68
--- NOTE | 2017-01-17 04:30 | NUR ---
Patient discharged with v/s stable. Written and verbal after care instructions given and explained. Patient verbalized understanding. Ambulatory with steady gait. All questions addressed prior to discharge. Advised to follow up with PMD.PATIENT REFUSED TO SIGN D/C PAPERS N
== END 2017-01-17 04:30 | disposition home or self-care (01) ==
LOC: MED 01:18
DX: G47.00 Insomnia, unspecified (principal); Z88.6 Allergy status to analgesic agent; J45.909 Unspecified asthma, uncomplicated; J44.9 Chronic obstructive pulmonary disease, unspecified; E11.9 Type 2 diabetes mellitus without complications; K21.9 Gastro-esophageal reflux disease without esophagitis
CPT/HCPCS: 99283

== ENCOUNTER 2017-03-07 11:51 | Inpatient (IN) | payer MEDICAID ==
[~2017-03-07] VITALS: Ht 180.3 cm; Wt 100.7 kg
[~2017-03-07 11:51] MED LIST changes: +ACET-8386 PO; +CYCL5TAB PO; -CYCL5TAB31 PO; -DOCU-264 PO; +DOCU-300 PO; -HYDR-4446 PO
[2017-03-07 11:59] VITALS: BP 141/71
--- NOTE | 2017-03-07 12:05 | NUR ---
Patient transferred to bed 9 via wheelchair by tech. RN evaluating patient at bedside.
--- NOTE | 2017-03-07 12:19 | NUR ---
PT PRESENTS TO ER W/C/O RIGHT LEG PAIN X1 WEEK. HX OF DM, A-FIB,HTN,PACEMAKER.PT STATES HE FEELS DIZZY TOO;DENIES N/V/D; SKIN IS PINK/WARM/DRY; AAOX4 WITH EVEN AND STEADY GAIT; LUNGS CLEAR BL; HR EVEN AND REGULAR; PT DENIES ANY FEVER, CP, SOB, OR COUGH AT THIS TIME; PATIENT STATES PAIN OF 9/10 AT THIS TIME;PATIENT POSITIONED FOR COMFORT; HOB ELEVATED; BEDRAILS UP X2; BED DOWN.ALL MONITORS IN PLACED; ER MD MADE AWARE OF PT STATUS.
--- NOTE | 2017-03-07 12:34 | NUR ---
Dr. Marroquin evaluating patient at bedside.
[2017-03-07] MEDS ORDERED: NACL 0.9% 1,000 ML IV SCH (12:41)
[2017-03-07] MEDS ORDERED: cefTRIAXone 1,000 MG in DEXT 5% MINI-BAG PLUS 50 ML IV ONE (12:45)
[2017-03-07] MEDS ORDERED: cefTRIAXone 1,000 MG VIAL ONE (13:02)
[2017-03-07 13:09] LABS: HEMATOCRIT 41.7 % (36-52); HEMOGLOBIN 13.3 g/dL (12.0-18.0); MEAN CORPUSCULAR HEMOGLOBIN 28 pg (27-31); MEAN CORPUSCULAR HGB CONC 32 g/dL (33-37); MEAN CORPUSCULAR VOLUME 87 fL (80-94); PLATELET COUNT (AUTO) 142 K/uL (140-450); RED BLOOD CELL COUNT(AUTO) 4.82 MIL/uL (4.20-6.10); RED CELL DISTRIBUTION WIDTH 18.7 % (11.6-13.7); WHITE BLOOD COUNT (AUTO) 7.6 K/uL (4.8-10.8)
[2017-03-07 13:25] LABS: PROTHROMBIN TIME 11.6 secs (10.8-13.4)
[2017-03-07 13:29] LABS: ALBUMIN 2.6 g/dL (3.4-5.0); ANION GAP 8.9 (8-16); BASOPHILS % (MANUAL) 0 % (0-2); CARBON DIOXIDE 27.2 mmol/L (21-32); CREATININE 1.6 mg/dL (0.7-1.3); EOSINOPHILS % (MANUAL) 0 % (0-4); LYMPHOCYTES % (MANUAL) 9 % (20-46); MONOCYTES % (MANUAL) 3 % (5-12); POTASSIUM 4.1 mmol/L (3.5-5.1); TOTAL BILIRUBIN 1.4 mg/dL (0.0-1.0)
[2017-03-07] MEDS ORDERED: ONDANSETRON 4 MG/2 ML VIAL IM/IVP PRN (14:00)
[2017-03-07] MEDS ORDERED: ACETAMINOPHEN 325 MG TAB PO PRN (14:00)
[2017-03-07] MEDS ORDERED: HYDROcodone/APAP 7.5/325 MG 1 TAB PO PRN (14:00)
[2017-03-07] MEDS ORDERED: DOCUSATE SODIUM 100 MG GELCAP PO PRN (14:00)
[2017-03-07 14:02] LABS: APPEARANCE,URINE CLEAR (CLEAR); BILIRUBIN,URINE 1+ (NEGATIVE); BLOOD, URINE NEGATIVE (NEGATIVE); LEUKOCYTE ESTERASE ,URINE NEGATIVE (NEGATIVE); NITRITE, URINE NEGATIVE (NEGATIVE); UGLUCOSE TRACE (NEGATIVE)
[2017-03-07 14:15] LABS: COLOR,URINE ORANGE (YELLOW)
[2017-03-07] MEDS ORDERED: DEXTROSE 50% 50 ML SYR IVP PRN (14:15)
--- NOTE | 2017-03-07 14:21 | NUR ---
US tech at bedside for exam.
[2017-03-07 14:28] LABS: BARBITURATE, URINE NEG. ng/ml (NEG <=200); BENZODIAZEPINE, URINE NEG. ng/mL (NEG <=200); CANNABINOID, URINE NEG. ng/mL (NEG <=50); COCAINE, URINE NEG. ng/mL (NEG <=300); OPIATE, URINE NEG. ng/mL (NEG <=2000); PHENCYCLIDINE SCREEN,URINE NEG. ng/mL (NEG <=25)
[2017-03-07 14:35] LABS: CHOL/HDL RATIO 2.2 (1-4.5); FREE T4 (FREE THYROXINE) 0.92 ng/dL (0.76-1.46); PHOSPHORUS 3.1 mg/dL (2.5-4.9); THYROID STIMULATING HORMONE 3.56 uIU/mL (0.34-3.74)
[2017-03-07 14:59] LABS: RBC,URINE 0-5 (RARE) /HPF (0-5)
--- NOTE | 2017-03-07 15:01 | NUR ---
Patient will be admitted to care of DR FARRIS. Admited to TELE. Will go to [id number]. Belongings list completed. Report to ALEJANDRO ROMAN.
[2017-03-07] MEDS: NACL 0.9% 1,000 ML IV SCH (15:30)
--- NOTE | 2017-03-07 15:30 | NUR ---
RECEIVED PT FROM ER. PT AMB WITH 1 PERSON ASSIST. PT IS AWAKE. ALERT AND ORIENTED X4. PT SHOWED NO S/S OF ACUTE DISTRESS. MRSA CULTURE COLLECTED. OPEN WOUND NOTED ON THE LEFT MID FINGER, OPEN TO AIR, NO DRAINAGE NOTED. RIGHT LOWER LEG CELLULITIS NOTED, THE WOUND IS DRAINING CLEAR LIQUID, SKIN ON THE RIGHT LEG IS TIGHT AND ERYTHEMATOUS. PT VITALS WERE STABLE. T 97.7, BP 136/78, O2 SAT 97%, HR 70.
[2017-03-07] MEDS ORDERED: ALBUTEROL SULFATE INH PRN (15:45)
[2017-03-07] MEDS ORDERED: IPRATROPIUM INH PRN (15:45)
[2017-03-07 15:57] VITALS: BP 136/78
[2017-03-07] MEDS ORDERED: WARFARIN 5 MG, WARFARIN 1 MG PO SCH ×2 (17:00)
--- NOTE | 2017-03-07 17:00 | NUR ---
NOTIFIED DR. ROBERTO ABOUT PT'S TROPONIN LEVEL. NO CHANGE IN ORDER.
[2017-03-07] MEDS: BLOOD GLUCOSE MONITORING 1 DEV DEV FS SCH ×2 (17:04→20:38)
[2017-03-07] MEDS: INSULIN LISPRO SLIDING SCALE 100 UNITS/ML VIAL SUBQ PRN (17:19)
--- NOTE | 2017-03-07 19:29 | NUR ---
ENDORSED PT TO THEATRICAL DRESSER. PT REPORT GIVEN AT BEDSIDE. PT IS IN STABLE CONDITION. PT SHOWS NO S/S ACUTE DISTRESS.
--- NOTE | 2017-03-07 19:30 | NUR ---
RECEIVED REPORT FROM AM NURSE. PT IS SLEEPING, EASY TO AROUSE. NO SIGNS OF ACUTE DISTRESS NOTED. ON ROOM AIR. IV ACCESS PATENT AND ASYMPTOMATIC. RIGHT LEG CELLULITIS, OPEN TO AIR. SKIN TEAR ON LEFT MIDDLE FINGER, WITH BANDAGE IN PLACE, DRY AND INTACT. BED ON LOW POSITION, BILATERAL HALF SIDE RAILS UP, CALL LIGHT WITHIN REACH, WILL CONTINUE TO MONITOR.
[2017-03-07 20:00] VITALS: BP 118/77
[2017-03-07] MEDS: CLINDAMYCIN 600 MG in DEXTROSE 5% 50 ML IV SCH (20:29)
[2017-03-07] MEDS: CARVEDILOL 3.125 MG TAB PO SCH (20:30)
[2017-03-07] MEDS: FUROSEMIDE 40 MG TAB PO SCH (20:30)
[2017-03-07] MEDS ORDERED: LORazepam 1 MG TAB PO ONE (23:50)
[2017-03-08] VITALS: BP 125/79
[2017-03-08] MEDS: MORPHINE SULFATE 2 MG/ML SYR IVP PRN (01:14)
--- NOTE | 2017-03-08 01:20 | NUR ---
ASSISTED PT TO THE BATHROOM. PT BACK IN BED, TOLERATED WELL. BED ON LOW POSITION, BILATERAL HALF SIDE RAILS UP, CALL LIGHT WITHIN REACH, WILL CONTINUE TO MONITOR, WILL CONTINUE TO MONITOR.
--- NOTE | 2017-03-08 02:52 | NUR ---
PT SLEEPING, EASY TO AROUSE. NO SIGNS OF ACUTE DISTRESS. BED ON LOW POSITION, BILATERAL HALF SIDE RAILS UP, CALL LIGHT WITHIN REACH, WILL CONTINUE TO MONITOR.
[2017-03-08 04:00] VITALS: BP 109/72
[2017-03-08] MEDS: CLINDAMYCIN 600 MG in DEXTROSE 5% 50 ML IV SCH ×3 (05:20→20:29)
--- NOTE | 2017-03-08 05:22 | NUR ---
PT IS SLEEPING, EASY TO AROUSE. NO SIGNS OF ACUTE DISTRESS. BED IN LOW POSITION, BILATERAL HALF SIDE RAILS UP, CALL LIGHT WITHIN REACH, WILL CONTINUE TO MONITOR.
[2017-03-08 06:34] LABS: ANION GAP 9.2 (8-16); CARBON DIOXIDE 27.2 mmol/L (21-32); CREATININE 1.3 mg/dL (0.7-1.3); POTASSIUM 4.4 mmol/L (3.5-5.1)
[2017-03-08 06:36] LABS: HEMATOCRIT 42.4 % (36-52); HEMOGLOBIN 13.9 g/dL (12.0-18.0); MEAN CORPUSCULAR HEMOGLOBIN 29 pg (27-31); MEAN CORPUSCULAR HGB CONC 33 g/dL (33-37); MEAN CORPUSCULAR VOLUME 87 fL (80-94); PLATELET COUNT (AUTO) 134 K/uL (140-450); RED BLOOD CELL COUNT(AUTO) 4.87 MIL/uL (4.20-6.10); WHITE BLOOD COUNT (AUTO) 6.1 K/uL (4.8-10.8)
[2017-03-08] MEDS: BLOOD GLUCOSE MONITORING 1 DEV DEV FS SCH ×4 (06:48→20:36)
[2017-03-08] MEDS: INSULIN LISPRO SLIDING SCALE 100 UNITS/ML VIAL SUBQ PRN ×2 (06:50→13:04)
[2017-03-08 06:54] LABS: PROTHROMBIN TIME 12.2 secs (10.8-13.4)
--- NOTE | 2017-03-08 07:30 | NUR ---
ENDORSED PT TO AM NURSE. PT IN STABLE CONDITION.
--- NOTE | 2017-03-08 07:31 | NUR ---
RECEIVED REPORT FROM THE SORTER LUMBER STRAIGHTENER NURSE AT BEDSIDE FOR CONTINUITY OF CARE. PT IS AWAKE AND ALERT AND ORIENTED. INTRODUCED OURSELVES AND UPDATED THE BOARD. PT IS EATING BREAKFAST. C/O NOT LIKE CREAM OF WHEAT. WANTED OATMEAL. ORDERED OATMEAL FOR PT. WANTED THIS BREAKFAST TO BE HEATED UP. TOO COLD. NOTED BAND AIDS ON LEFT MIDDLE AND RING FINGER. SKIN TEAR PER SORTER LUMBER STRAIGHTENER NURSE. R LE CELLULITIS. REDNESS, WARM TO TOUCH, AND SWOLLEN. IV ON L FA 20G NS AT 10ML. PT HAS NOT SIGNED THE MEDICAL RELEASE FOR [facility] RECORDS. WILL GET RELEASE AND REQUEST MOST RECENT RECORDS. WILL CONTINUE TO MONITOR PT.
[2017-03-08 07:42] LABS: LYMPHOCYTES % (MANUAL) 12 % (20-46); MONOCYTES % (MANUAL) 3 % (5-12)
[2017-03-08 08:00] VITALS: BP 134/79
[2017-03-08] MEDS ORDERED: WARFARIN 2 MG TAB PO SCH (09:00)
[2017-03-08] MEDS: ALLOPURINOL 100 MG TAB PO SCH (09:49)
[2017-03-08] MEDS: LISINOPRIL 10 MG TAB PO SCH (09:49)
[2017-03-08] MEDS: CARVEDILOL 3.125 MG TAB PO SCH ×2 (09:49→20:30)
[2017-03-08] MEDS: FUROSEMIDE 40 MG TAB PO SCH ×2 (09:49→20:30)
--- NOTE | 2017-03-08 09:51 | NUR ---
PATIENT HAS BEEN SCREENED AND CATEGORIZED HIGH NUTRITION RISK. PATIENT WILL BE SEEN WITHIN 1-2 DAYS OF ADMISSION. 03/08/17-03/09/[address]
--- NOTE | 2017-03-08 09:53 | NUR ---
ADMINISTERED MORNING MEDS. PT TOLERATED WELL. WILL WILL BE NPO FOR PROCEDURE ON LEG.
[2017-03-08 12:00] VITALS: BP 127/78
--- NOTE | 2017-03-08 12:00 | NUR ---
PT RESTING. NO SIGNS OF DISTRESS. WILL CONTINUE TO MONITOR PT.
--- NOTE | 2017-03-08 13:55 | NUR ---
03/08/17 RD INITIAL ASSESSMENT COMPLETED 1. CONSUME/TOLERATE > 75% OF MEALS WITHIN 2-3 DAYS 2. MAINTAIN GOOD GLYECEMIC CONTROL < 180 MG/DL, WITHIN 2-3 DAYS DISCHARGE PLAN: CONSISTENT CARBOHYDRATE DIET REFLECTS PAST MEDICAL HISTORY AND IS APPROPIATE FOR DISCHARGE. LELO MCNLALY, RIAN
[2017-03-08] MEDS: NACL 0.9% 1,000 ML IV SCH (14:00)
--- NOTE | 2017-03-08 14:23 | NUR ---
PT IV PUMP BEEPING. RESTARTED. INFUSING FINE NOW. PT HAS NO COMPLAINTS. WILL CONTINUE TO MONITOR PT.
--- NOTE | 2017-03-08 14:46 | NUR ---
CM NOTE INITIAL REVIEW FAXED TO [facility] / FAX# [phone], ATTN: KORI #[phone]
[2017-03-08 16:00] VITALS: BP 126/70
--- NOTE | 2017-03-08 16:30 | NUR ---
PT SIGNED THE MR RELEASE. FAXED IT OVER TO [facility]. CONFIRMATION AND ORIGINAL REQUEST FILED IN CHART. AWAITING ON FAX.
--- NOTE | 2017-03-08 17:09 | NUR ---
PT RESTING IN ROOM. CLAIMS HE IS HUNGRY. HE IS ON A CCHO 60G DIET AND IS DIABETIC. EDUCATED PT ABOUT HEALTHY EATING AND PORTION CONTROL. DINNER WILL BE COMING SOON. BROUGHT HIM SOME CRACKERS AND JUICE TO TIE HIM OVER.
[2017-03-08] MEDS: WARFARIN 1 MG, WARFARIN 5 MG PO SCH ×2 (17:25)
--- NOTE | 2017-03-08 19:10 | NUR ---
ENDORSED PT TO THE NIGHTSHIFT RN AT BEDSIDE FOR CONTINUITY OF CARE. PT IS AWAKE AND ALERT. IN STABLE CONDITION.
--- NOTE | 2017-03-08 19:12 | NUR ---
RECEIVED REPORT FROM AM NURSE. PT IS AAOX4, NO SIGNS OF ACUTE DISTRESS NOTED. ON ROOM AIR. IV ACCESS PATENT AND ASYMPTOMATIC. RIGHT LEG WRAPPED WITH DOMINICK BANDAGE. SKIN TEAR ON LEFT MIDDLE FINGER, WITH BANDAGE IN PLACE, DRY AND INTACT. BED ON LOW POSITION, BILATERAL HALF SIDE RAILS UP, CALL LIGHT WITHIN REACH, WILL CONTINUE TO MONITOR
[2017-03-08 20:00] VITALS: BP 119/72
--- NOTE | 2017-03-08 21:00 | NUR ---
PT IS COMPLAINING OF PAIN, STATES IT IS DUE TO THE DOMINICK BANDAGE WRAP ON RIGHT LEG BEING TOO TIGHT. REFUSED PAIN MEDICATION AND ASKED TO SPEAK TO THE DOCTOR.
--- NOTE | 2017-03-08 21:05 | NUR ---
DR LEBRON NOTIFIED ABOUT PT REQUEST TO TALK TO HIM ABOUT THE DOMINICK BANDAGE WRAP ON HIS LEG BEING TOO TIGHT, PT WOULD LIKE TO EITHER HAVE IT LOOSEN OT TAKEN OFF. DR LEBRON STATED HE WILL PERSONALLY GO TALK TO THE PT.
--- NOTE | 2017-03-08 23:25 | NUR ---
PT IS SITTING UP IN BED, WATCHING TV. NO SIGNS OF ACUTE DISTRESS, BED ON LOW POSITION, BILATERAL HALF SIDE RAILS UP, CALL LIGHT WITHIN REACH, WILL CONTINUE TO MONITOR.
[2017-03-09] VITALS: BP 122/80
[2017-03-09] MEDS: MORPHINE SULFATE 2 MG/ML SYR IVP PRN ×2 (01:11→22:04)
[2017-03-09] MEDS ORDERED: LORazepam 1 MG TAB PO SCH (02:00)
[2017-03-09 04:00] VITALS: BP 113/66
[2017-03-09] MEDS: CLINDAMYCIN 600 MG in DEXTROSE 5% 50 ML IV SCH ×3 (05:05→21:19)
[2017-03-09 06:09] LABS: PROTHROMBIN TIME 17.8 secs (10.8-13.4)
[2017-03-09 06:15] LABS: ANION GAP 8.5 (8-16); CARBON DIOXIDE 27.3 mmol/L (21-32); CREATININE 1.3 mg/dL (0.7-1.3); POTASSIUM 4.8 mmol/L (3.5-5.1)
[2017-03-09 06:38] LABS: BASOPHILS # (AUTO) 0.2 K/uL (0.00-0.22); BASOPHILS % (AUTO) 3.3 % (0.0-2.0); EOSINOPHILS # (AUTO) 0.2 K/uL (0-0.4); EOSINOPHILS % (AUTO) 2.7 % (0.0-4.0); HEMATOCRIT 41.4 % (36-52); HEMOGLOBIN 13.5 g/dL (12.0-18.0); LYMPHOCYTES # (AUTO) 0.9 K/uL (2.0-11.5); LYMPHOCYTES % (AUTO) 14.6 % (20.5-51.1); MEAN CORPUSCULAR HEMOGLOBIN 28 pg (27-31); MEAN CORPUSCULAR HGB CONC 33 g/dL (33-37); MEAN CORPUSCULAR VOLUME 86 fL (80-94); MONOCYTES # (AUTO) 0.5 K/uL (0.8-1.0); MONOCYTES % (AUTO) 8.2 % (1.7-9.3); NEUTROPHILS % (AUTO) 71.2 % (42.2-75.2); PLATELET COUNT (AUTO) 138 K/uL (140-450); RED BLOOD CELL COUNT(AUTO) 4.79 MIL/uL (4.20-6.10); RED CELL DISTRIBUTION WIDTH 18.6 % (11.6-13.7); WHITE BLOOD COUNT (AUTO) 5.8 K/uL (4.8-10.8)
[2017-03-09 06:40] LABS: T4 (THYROXINE) 4.6 ug/dL (4.5-12.0)
[2017-03-09] MEDS: BLOOD GLUCOSE MONITORING 1 DEV DEV FS SCH ×4 (06:58→21:26)
--- NOTE | 2017-03-09 07:15 | NUR ---
RECEIVED PT REPORT FROM STREET L[employer] REPAIRER HELPER. PT IS ASLEEP. NO S/S OF ACUTE DISTRESS NOTED. DRESSING NOTED ON THE RIGHT LEG. DRESSING IS INTACT AND DRY. IV NOTED ON THE LEFT FA. CALL LIGHT IS WITHIN REACH. BED IN LOW POSITION. HOB ELEVATED.
--- NOTE | 2017-03-09 07:20 | NUR ---
ENDORSED PT TO AM NURSE. PT IS IN STABLE CONDITION.
[2017-03-09] MEDS: LISINOPRIL 10 MG TAB PO SCH (08:46)
[2017-03-09] MEDS: CARVEDILOL 3.125 MG TAB PO SCH ×2 (08:47→21:18)
[2017-03-09] MEDS: FUROSEMIDE 40 MG TAB PO SCH ×2 (08:47→21:18)
[2017-03-09] MEDS: ALLOPURINOL 100 MG TAB PO SCH (08:48)
--- NOTE | 2017-03-09 09:00 | NUR ---
PT TOOK OFF HIS RIGHT LEG WOUND DRESSING HIMSELF. PT STATED IT'S TOO TIGHT. DR. HARDY NOTIFIED.
--- NOTE | 2017-03-09 09:51 | NUR ---
WOUND CARE EVALUATE VISIT AND EXPLAIN TO PT. PER DOCTOR'S ORDER, PT REFUSES IT. ATTEMPT AGAIN EXPLAIN IMPORTANT OF WOUND CARE, PT REFUSES AGAIN.
[2017-03-09 10:22] VITALS: BP 120/74
--- NOTE | 2017-03-09 11:30 | NUR ---
PT TOOK A SHOWER PER DR. HARDY'S ORDER. NO S/S OF ACUTE DISTRESS NOTED.
[2017-03-09] MEDS ORDERED: ASCORBIC ACID 500 MG TAB PO SCH (12:00)
[2017-03-09] MEDS: INSULIN LISPRO SLIDING SCALE 100 UNITS/ML VIAL SUBQ PRN ×2 (12:18→16:58)
--- NOTE | 2017-03-09 12:40 | NUR ---
FAXED CONCURRENT REVIEW TO [facility] [phone] PHONE KORI [phone]
--- NOTE | 2017-03-09 12:40 | NUR ---
WOUND DRESSING APPLIED TO THE RIGHT LEG BY DR. BURGER.
[2017-03-09] MEDS: HYDROcodone/APAP 5/325 MG 1 TAB TAB PO PRN (13:57)
[2017-03-09] MEDS: NACL 0.9% 1,000 ML IV SCH (14:00)
[2017-03-09 16:20] VITALS: BP 123/72
[2017-03-09] MEDS: WARFARIN 1 MG, WARFARIN 5 MG PO SCH ×2 (16:52)
--- NOTE | 2017-03-09 19:31 | NUR ---
REPORT GIVEN TO THE NIGHT NURSE AT PT BEDSIDE FOR CONTINUITY OF CARE. PT IS IN STABLE CONDITION. NO S/S OF ACUTE DISTRESS.
--- NOTE | 2017-03-09 19:32 | NUR ---
RECEIVED REPORT FROM DAY NURSE, PT IN STABLE CONDITION. NO S/S OF DISTRESS NOTED. PT AAOX4, PT IS ON RA IV TO L FA 20G PATENT AND INTACT. RESPIRATIONS ARE EVEN AND UNLABORED, BOWEL SOUNDS PRESENT. PT HAS DRESSING TO R FOOT DRY AND INTACT. INITIAL ASSESSMENT COMPLETED, PLAN OF CARE DISCUSSED WITH PT, PT VERBALIZED UNDERSTANDING. ALL SAFETY PRECAUTIONS MET, CALL LIGHT WITHIN REACH, WILL CONTINUE TO MONITOR.
[2017-03-09] MEDS ORDERED: CLINDAMYCIN 600 MG/4 ML VIAL ONE (21:16)
--- NOTE | 2017-03-09 22:30 | NUR ---
DR. LEBRON IN TO SEE PT BECAUSE PT WANTS DRESSING READJUSTED. PT STATED, "IT FEELS TOO TIGHT." DR. LEBRON READJUSTED DRESSING
--- NOTE | 2017-03-10 | NUR ---
PTS VS STABLE, NO S/S OF DISTRESS NOTED. WILL CONTINUE TO MONITOR
[2017-03-10 00:23] VITALS: BP 125/75
[2017-03-10] MEDS: MORPHINE SULFATE 2 MG/ML SYR IVP PRN (01:06)
[2017-03-10] MEDS: CLINDAMYCIN 600 MG in DEXTROSE 5% 50 ML IV SCH ×2 (05:41→12:19)
[2017-03-10 06:03] LABS: HEMOGLOBIN 13.5 g/dL (12.0-18.0); MEAN CORPUSCULAR HEMOGLOBIN 28 pg (27-31); MEAN CORPUSCULAR HGB CONC 32 g/dL (33-37); MEAN CORPUSCULAR VOLUME 87 fL (80-94); PLATELET COUNT (AUTO) 154 K/uL (140-450); RED BLOOD CELL COUNT(AUTO) 4.85 MIL/uL (4.20-6.10); RED CELL DISTRIBUTION WIDTH 19.1 % (11.6-13.7)
[2017-03-10 06:10] LABS: PROTHROMBIN TIME 21.9 secs (10.8-13.4)
[2017-03-10 06:18] LABS: ANION GAP 8.9 (8-16); CARBON DIOXIDE 30.7 mmol/L (21-32); CREATININE 1.2 mg/dL (0.7-1.3); POTASSIUM 4.6 mmol/L (3.5-5.1)
[2017-03-10] MEDS: BLOOD GLUCOSE MONITORING 1 DEV DEV FS SCH ×4 (06:35→20:30)
[2017-03-10 06:36] LABS: EOSINOPHILS % (MANUAL) 4 % (0-4); LYMPHOCYTES % (MANUAL) 22 % (20-46); MONOCYTES % (MANUAL) 9 % (5-12)
--- NOTE | 2017-03-10 07:15 | NUR ---
RECEIVED PT REPORT AT BEDSIDE FROM SPIRAL TUBE WINDER HELPER. PT IS ASLEEP. NO S/S OF ACUTE DISTRESS NOTED. DRESSING NOTED ON THE RIGHT LEG. DRESSING IS INTACT AND DRY. IV NOTED ON THE LEFT FA. CALL LIGHT IS WITHIN REACH. BED IN LOW POSITION. HOB ELEVATED.
--- NOTE | 2017-03-10 07:20 | NUR ---
GAVE REPORT TO DAY NURSE AT BEDSIDE FOR CONTINUITY PT IN STABLE CONDITION, NO S/S OF DISTRESS NOTED.
[2017-03-10 09:07] VITALS: BP 130/78
[2017-03-10] MEDS: FUROSEMIDE 40 MG TAB PO SCH ×2 (09:21→20:31)
[2017-03-10] MEDS: ALLOPURINOL 100 MG TAB PO SCH (09:21)
[2017-03-10] MEDS: CARVEDILOL 3.125 MG TAB PO SCH ×2 (09:22→20:31)
[2017-03-10] MEDS: ASCORBIC ACID 500 MG TAB PO SCH (09:22)
[2017-03-10] MEDS: LISINOPRIL 10 MG TAB PO SCH (09:22)
[2017-03-10] MEDS: FLUOCINONIDE 0.05% CRM 60 GM TUBE TP SCH (09:48)
--- NOTE | 2017-03-10 09:55 | NUR ---
APPLIED LIDEX TO RIGHT LOWER EXTREMITY. DRESSING ON THE RIGHT LEG WAS CHANGED BY DR. BURGER.
--- NOTE | 2017-03-10 11:05 | NUR ---
PT REQUESTED TO TALK TO MARKETING EFFECTIVENESS MANAGER. DERRICK BARGE OPERATOR NOTIFIED.
[2017-03-10] MEDS: INSULIN LISPRO SLIDING SCALE 100 UNITS/ML VIAL SUBQ PRN (12:19)
[2017-03-10] MEDS: NACL 0.9% 1,000 ML IV SCH (14:00)
--- NOTE | 2017-03-10 14:36 | NUR ---
FAXED CONCURRENT REVIEW TO [facility] [phone] PHONE KORI [phone] I SPOKE WITH KORI AT [facility]. TOLD HER PATIENT MIGHT NEED SNF. SHE FAXED ME LIST OF CONTRACTED SNF'S.
--- NOTE | 2017-03-10 15:24 | NUR ---
FAXED INQUIRY TO [facility] [phone] PHONE [phone]
[2017-03-10 16:00] VITALS: BP 124/71
--- NOTE | 2017-03-10 16:50 | NUR ---
PT IS UP AND WALKING W/ WALKER, RONALD CASSIDY IS ASSISTING. WILL CONTINUE TO MONITOR.
[2017-03-10] MEDS: WARFARIN 1 MG, WARFARIN 5 MG PO SCH ×2 (17:30)
[2017-03-10] MEDS: AMPICILLIN/SULBACTAM 3 GM in NACL 0.9% 100 ML IV SCH ×2 (17:30→23:53)
--- NOTE | 2017-03-10 19:17 | NUR ---
ENDORSED PT TO PREFITTER, PT REPORT GIVEN AT BEDSIDE. PT IS IN STABLE CONDITION. NO S/S OF ACUTE DISTRESS NOTED.
--- NOTE | 2017-03-10 19:18 | NUR ---
RECD. RESTING IN BED, AWAKE, A/OX4. RESPIRATION EVEN AND UNLABORED. IV OF NS AT TKO INFUSING, RIGHT FOREARM G20. RIGHT LEG COVERED WITH DOMINICK WRAPPED BANDAGE, TOES WITH (+) MOVEMENTS, WARMTH TO TOUCH, CAPILLARY REFILL LESS 3 SECONDS. PLAN OF CARE FOR THE SHIFT DISCUSSED. VERBALIZED UNDERSTANDING. DENIES PAIN 0/10.
--- NOTE | 2017-03-10 19:45 | NUR ---
REQUESTED TO GO IN THE HALLWAY IN A WHEELCHAIR, SEWING INSPECTOR WHEELED PATIENT REQUESTED. BACK TO BED AFTER 10 MINUTES.
--- NOTE | 2017-03-10 20:00 | NUR ---
Patient's Plan of Care was discussed and reviewed with APPLICATION OPERATIONS ENGINEER: SADIQ VERAS
--- NOTE | 2017-03-10 20:31 | NUR ---
SITTING ON BED, CONVERSING WITH SOMEBODY IN THE PHONE. DUE PO MEDICATIONS GIVEN.
[2017-03-10] MEDS ORDERED: LORazepam 1 MG TAB PO SCH (21:10)
[2017-03-10] MEDS: HYDROcodone/APAP 5/325 MG 1 TAB TAB PO PRN (23:59)
[2017-03-11] VITALS: BP 126/81
--- NOTE | 2017-03-11 01:30 | NUR ---
SLEEPING COMFORTABLY IN BED.
[2017-03-11] MEDS: AMPICILLIN/SULBACTAM 3 GM in NACL 0.9% 100 ML IV SCH ×4 (05:49→23:47)
--- NOTE | 2017-03-11 06:00 | NUR ---
AWAKE, SITTING ON BED. NO COMPLAINT OF PAIN 0/10.
[2017-03-11 06:50] LABS: HEMATOCRIT 42.8 % (36-52); HEMOGLOBIN 13.7 g/dL (12.0-18.0); MEAN CORPUSCULAR HEMOGLOBIN 28 pg (27-31); MEAN CORPUSCULAR HGB CONC 32 g/dL (33-37); MEAN CORPUSCULAR VOLUME 87 fL (80-94); PLATELET COUNT (AUTO) 174 K/uL (140-450); RED BLOOD CELL COUNT(AUTO) 4.96 MIL/uL (4.20-6.10); RED CELL DISTRIBUTION WIDTH 18.6 % (11.6-13.7); WHITE BLOOD COUNT (AUTO) 6.7 K/uL (4.8-10.8)
[2017-03-11 07:08] LABS: ANION GAP 7.4 (8-16); CARBON DIOXIDE 34.6 mmol/L (21-32); CREATININE 1.3 mg/dL (0.7-1.3)
[2017-03-11 07:13] LABS: PROTHROMBIN TIME 24.6 secs (10.8-13.4)
[2017-03-11 07:16] LABS: LYMPHOCYTES % (MANUAL) 14 % (20-46); MONOCYTES % (MANUAL) 10 % (5-12)
[2017-03-11] MEDS: BLOOD GLUCOSE MONITORING 1 DEV DEV FS SCH ×4 (07:36→20:42)
--- NOTE | 2017-03-11 07:37 | NUR ---
CONDITION REMAIN STABLE. ENDORSED TO ABEL VARGAS FOR CONTINUITY OF CARE. Addendum: 03/11/17 at 0739 by Estefany Ye LVN CORRECTION: TIME OF ENDORSEMENT TO ABEL VARGAS [id number] NOT [id number].
--- NOTE | 2017-03-11 07:38 | NUR ---
RECEIVED REPORT FROM THE MUSIC LIBRARY ASSISTANT NURSE AT BEDSIDE FOR CONTINUITY OF CARE. PT AWAKE AN ORIENTED. INTRODUCED MYSELF AND UPDATED THE BOARD. PT HAS R LEG WRAPPED IN DOMINICK BANDAGE. DR TALBERT'S TEAM ON BOARD. NOTED THE IV ON L FA 20G NS AT 10ML/HR. DENIES PAIN. NO COMPLAINTS AT THIS TIME. WILL BE BACK WITH MORNING MEDS.
[2017-03-11 08:00] VITALS: BP 124/79
[2017-03-11] MEDS ORDERED: AMPI1PDS19 IJ (08:28)
--- NOTE | 2017-03-11 08:30 | NUR ---
R/T HERE FOR BREATHING TX.
[2017-03-11] MEDS ORDERED: DOCU-299 PO (08:35)
[2017-03-11] MEDS ORDERED: LACT10CA1 PO (08:38)
[2017-03-11] MEDS: ALBUTEROL SULFATE/IPRATROPIU 3 ML SOL IH PRN (08:46)
[2017-03-11] MEDS: CARVEDILOL 3.125 MG TAB PO SCH ×2 (08:49→20:35)
[2017-03-11] MEDS: FUROSEMIDE 40 MG TAB PO SCH ×2 (08:49→20:35)
[2017-03-11] MEDS: LISINOPRIL 10 MG TAB PO SCH (08:49)
[2017-03-11] MEDS: ALLOPURINOL 100 MG TAB PO SCH (08:50)
[2017-03-11] MEDS: ASCORBIC ACID 500 MG TAB PO SCH (08:50)
[2017-03-11] MEDS: LACTOBACILLUS RHAMNOSUS GG 1 EACH CAP PO SCH (08:53)
--- NOTE | 2017-03-11 08:55 | NUR ---
ADMINISTERED MORNING MEDS. PT TOLERATED WELL. WILL CONTINUE TO MONITOR PT.
--- NOTE | 2017-03-11 10:14 | NUR ---
PT RESTING COMFORTABLY IN HIGH FOWLERS. NO SIGNS OF DISTRESS. WILL CONTINUE TO MONITOR PT.
--- NOTE | 2017-03-11 10:40 | NUR ---
P/T HERE TO WORK WITH PT.
--- NOTE | 2017-03-11 11:15 | NUR ---
CM NOTE [facility], UNABLE TO ACC[facility]PT PATIENT.
--- NOTE | 2017-03-11 11:46 | NUR ---
LAYTON NOTE FAXED PATIENT INFORMATION TO [facility] Addendum: 03/11/17 at 1206 by Rafi Spear RN FAXED PATIENT INFORMATION TO [facility].
--- NOTE | 2017-03-11 12:47 | NUR ---
IV LEAKING. INFILTRATED. STARTED A NEW IV ON R HAND 22G. D/C'D THE 20G IN L FA. ONLY 1 TRY. PT TOLERATED WELL. WILL CONTINUE TO MONITOR PT.
--- NOTE | 2017-03-11 13:03 | NUR ---
03/11/17 RD FOLLOW UP COMPLETED PLEASE REFER TO NUTRITION PROGRESS NOTE UNDER CARE ACTIVITY FOR ESTIMATED NUTRITION NEEDS. RD RECOMMENDATIONS: 1.CONTINUE CCHO 60 GM DIET TOLERATED. --NOTE PT IS EATING WELL AND MEETING ~75% OF ESTIMATED KCAL NEEDS AND ~83% OF ESTIMATED PROTEIN NEEDS (ADEQUATE). 2. RD WILL F/U 7 DAYS; LOW RISK. JAMES PACHECO, RD
--- NOTE | 2017-03-11 14:00 | NUR ---
PT WANTED TO ME TO CALL DR. TALBERT AND FIND OUT IF AND WHEN HE IS COMING. PAGED MD. CALLED AND STATED HE WILL BE HERE THIS AFTERNOON. NOTIFIED PT TO WAIT.
--- NOTE | 2017-03-11 14:18 | NUR ---
CM NOTE PER RUFUS OF [facility], UNABLE TO ACCEPT PATIENT.
--- NOTE | 2017-03-11 14:59 | NUR ---
LAYTON WILL SPOKE WITH [facility] LAYTON SHEIKH # [phone] AND INFORMED HER THAT THERE IS NO ACCEPTING SNF FOR THE PATIENT FROM [facility]S LIST OF CONTRACTED SNF AND THAT PATIENT WILL BE IN THE HOSPITAL UNTIL WE FIND AN ACCEPTING SNF. PER LAYTON SHEIKH, WE CAN SEND PATIENT TO OTHER SNF EVEN THOSE NOT ON [facility]'S LIST OF CONTRACTED SNF, LONG THEY'RE WILLING TO ACCEPT MEDICARE RATES.
--- NOTE | 2017-03-11 15:10 | NUR ---
WANTED A SANDWICH. CALLED [employer]ITCH[employer].
--- NOTE | 2017-03-11 15:12 | NUR ---
CM NOTE FAXED INQUIRY TO [facility] [phone] ATTN: MAYI # [phone]
--- NOTE | 2017-03-11 15:15 | NUR ---
[facility] UNABLE TO TAKE PT PER THEIR DON PT IS HOMELESS. PER SHAHZAD AT [facility] THEY WOULD HAVE BEEN ABLE TO ACCEPT PT AT [facility] IF PT HAD A CURRENT [place] ID BUT PT HAS LOST HIS ID. PER MAXI AT [facility] PT IS KNOWN FROM [facility] AND PT HAD BEHAVIORAL ISSUES AT [place]. SPOKE WITH PT REGARDING DIFFICULTY FINDING A PLACE. ADVISED PT TO PURSUE OBTAINING A NEW IDENTIFICATION.
[2017-03-11 16:00] VITALS: BP 134/77
--- NOTE | 2017-03-11 16:03 | NUR ---
PT WATCHING TV. NO SIGNS OF DISTRESS. WILL CONTINUE TO MONITOR PT.
[2017-03-11] MEDS ORDERED: WARFARIN 1 MG TAB ONE (17:04)
[2017-03-11] MEDS: NACL 0.9% 1,000 ML IV SCH (17:17)
[2017-03-11] MEDS: WARFARIN 1 MG, WARFARIN 5 MG PO SCH ×2 (17:19)
[2017-03-11] MEDS: HYDROcodone/APAP 5/325 MG 1 TAB TAB PO PRN ×2 (17:21→23:44)
--- NOTE | 2017-03-11 18:20 | NUR ---
IV BEEPING. FLUSHED. IV WORKING FINE. STILL INFUSING ABX. WILL CONTINUE TO MONITOR PT.
--- NOTE | 2017-03-11 19:29 | NUR ---
ENDORSED PT TO THE STEEL FINISHER NURSE AT BEDSIDE FOR CONTINUITY OF CARE. PT IS IN STABLE CONDITION.
--- NOTE | 2017-03-11 19:30 | NUR ---
RECEIVED REPORT FROM AM NURSE. PT IS AAOX4, RESTING COMFORTABLY IN BED. NO SIGNS OF ACUTE DISTRESS NOTED. IV ACCESS PATENT, INTACT AND ASYMPTOMATIC. ON ROOM AIR. BOWEL SIGNS PRESENT ON ALL FOUR QUADRANTS. UNIBOOT IN PLACE ON THE RIGHT LOWER EXTREMITY. PLAN OF CARE DISCUSSED, PT VERBALIZED UNDERSTANDING. BED ON LOW POSITION, BILATERAL HALF SIDE RAILS UP, CALL LIGHT WITHIN REACH, WILL CONTINUE TO MONITOR.
--- NOTE | 2017-03-11 23:02 | NUR ---
PT IS AWAKE, SITTING UP IN BED WATCHING TV. GIVEN A CHICKEN SALAD SANDWICH PER HIS REQUEST.NO SIGNS OF ACUTE DISTRESS. BED ON LOW POSITION, BILATERAL HALF SIDE RAILS UP, CALL LIGHT WITHIN REACH, WILL CONTINUE TO MONITOR.
[2017-03-12] VITALS: BP 141/84
--- NOTE | 2017-03-12 01:20 | NUR ---
PT IS SITTING UP IN BED. PT REQUESTING SCD'S. EDUCATED THE PT ON THE USE OF SCD'S AND NOT BEING NECESSARY FOR HIM DUE TO PT BEING ON WARFARIN. PT VERBALIZED UNDERSTANDING, AND IS STILL REQUESTING SCD'S TO BE PUT ON BLE.
[2017-03-12] MEDS: LORazepam 1 MG TAB PO PRN (01:52)
[2017-03-12] MEDS ORDERED: IBUPROFEN 400 MG TAB PO SCH (02:05)
--- NOTE | 2017-03-12 03:13 | NUR ---
PT IS SLEEPING, EASY TO AROUSE. NO SIGNS OF ACUTE DISTRESS. BED ON LOW POSITION, BILATERAL HALF SIDE RAILS UP, CALL LIGHT WITHIN REACH, WILL CONTINUE TO MONITOR.
[2017-03-12 05:33] LABS: BASOPHILS # (AUTO) 0.2 K/uL (0.00-0.22); EOSINOPHILS # (AUTO) 0.2 K/uL (0-0.4); EOSINOPHILS % (AUTO) 3.2 % (0.0-4.0); HEMOGLOBIN 13.7 g/dL (12.0-18.0); LYMPHOCYTES # (AUTO) 1.2 K/uL (2.0-11.5); MEAN CORPUSCULAR HEMOGLOBIN 28 pg (27-31); MEAN CORPUSCULAR HGB CONC 32 g/dL (33-37); MEAN CORPUSCULAR VOLUME 86 fL (80-94); MONOCYTES # (AUTO) 0.7 K/uL (0.8-1.0); MONOCYTES % (AUTO) 10.2 % (1.7-9.3); NEUTROPHILS # (AUTO) 4.8 K/uL (1.8-7.7); NEUTROPHILS % (AUTO) 66.6 % (42.2-75.2); PLATELET COUNT (AUTO) 201 K/uL (140-450); RED CELL DISTRIBUTION WIDTH 18.5 % (11.6-13.7); WHITE BLOOD COUNT (AUTO) 7.1 K/uL (4.8-10.8)
[2017-03-12] MEDS: AMPICILLIN/SULBACTAM 3 GM in NACL 0.9% 100 ML IV SCH ×3 (05:50→18:40)
--- NOTE | 2017-03-12 05:51 | NUR ---
PT REQUESTED IBUPROFEN FOR INFLAMMATION ON RIGHT LOWER EXTREMITY. PER DR LEBRON. ONE TIME ORDER OF IBUPROFEN FOR INFLAMMATION WAS GIVEN TO PT. TOLERATED WELL. WILL CONTINUE TO MONITOR.
[2017-03-12] MEDS: BLOOD GLUCOSE MONITORING 1 DEV DEV FS SCH ×4 (05:54→21:23)
[2017-03-12 06:22] LABS: ANION GAP 5.7 (8-16); CARBON DIOXIDE 33.9 mmol/L (21-32); CREATININE 1.4 mg/dL (0.7-1.3); POTASSIUM 4.6 mmol/L (3.5-5.1)
[2017-03-12 06:41] LABS: PROTHROMBIN TIME 25.5 secs (10.8-13.4)
--- NOTE | 2017-03-12 07:23 | NUR ---
ENDORSED PT TO AM NURSE FOR CONTINUITY OF CARE. PT IS IN STABLE CONDITION.
--- NOTE | 2017-03-12 07:24 | NUR ---
RECEIVED REPORT FROM NIGHT NIGHT NURSE AT BEDSIDE FOR CONTINUITY OF CARE. PT IS AWAKE AND ORIENTED. INTRODUCED SELF AND UPDATED BOARD. PT GOT UP FROM BED AND AMBULATED WITH ASSISTANCE TO BATHROOM. ASSISTED BACK TO BED. SITTING UP EATING BREAKFAST. PT ASKED FOR MORE OATMEAL. CALLED FNS FOR REQUEST. NO SIGNS OF DISTRESS. BED IN LOW POSITION. CALL LIGHT WITHIN REACH. WILL CONTINUE TO MONITOR.
[2017-03-12 08:00] VITALS: BP 141/76
--- NOTE | 2017-03-12 08:00 | NUR ---
PATIENT SITTING IN BED. NO DISTRESS NOTED. RESPIRATIONS EVEN, UNLABORED, ON ROOM AIR. IV PATENT, INTACT, AND INFUSING. COMPLAINTS OF RLE FOOT PAIN THAT IS WITHIN TOLERABLE LIMITS AT THIS TIME. RIGHT LE CELLULITIS WRAPPED IN DOMINICK BANDAGE. SKIN TEMPERATURE IS WARM TO TOUCH, COLOR IS APPROPRIATE TO ETHNICITY. AAOX4, CALM, COOPERATIVE. PLAN OF CARE REVIEWED WITH PATIENT. PATIENT VERBALIZED UNDERSTANDING. SAFETY MEASURES IN PLACE, CALL LIGHT WITHIN REACH, FALL PRECAUTIONS IN PLACE, BED ALARM ON. WILL CONTINUE TO MONITOR.
--- NOTE | 2017-03-12 08:45 | NUR ---
P/T CAME TO SEE PT. PT WAS YELLING AT P/T FOR REPORTING THAT HE DID NOT WANT TO DO PHYSICAL THERAPY DUE TO PAIN IN RIGHT LEG. PT YELLED AND STATED THAT IF HE DID NOT DO P/T THEN IT WILL COME BACK TO HAUNT HIM. EXPLAINED TO PT THAT HE DID NOT HAVE TO DO P/T IF HE DID NOT WANT TO. AFTER P/T LEFT UNIT. PT YELLED TO CALL P/T BACK TO DO PHYSICAL THERAPY. PT WAS SEEN BY P/T AND TOLERATED BED EXERCISES.
[2017-03-12] MEDS: LISINOPRIL 10 MG TAB PO SCH (10:05)
[2017-03-12] MEDS: LACTOBACILLUS RHAMNOSUS GG 1 EACH CAP PO SCH (10:05)
[2017-03-12] MEDS: ASCORBIC ACID 500 MG TAB PO SCH (10:05)
[2017-03-12] MEDS: ALLOPURINOL 100 MG TAB PO SCH (10:06)
[2017-03-12] MEDS: CARVEDILOL 3.125 MG TAB PO SCH ×2 (10:06→21:25)
[2017-03-12] MEDS: FUROSEMIDE 40 MG TAB PO SCH ×2 (10:06→21:24)
[2017-03-12] MEDS: FLUOCINONIDE 0.05% CRM 60 GM TUBE TP SCH (10:06)
--- NOTE | 2017-03-12 11:30 | NUR ---
RECEIVED A CALL FROM MAYI AT [facility]. THEY CANNOT TAKE THE PATIENT BECAUSE HE IS [place]. CALLED PHI FROM [facility]. FAXED INQUIRY.
--- NOTE | 2017-03-12 12:52 | NUR ---
FAXED CONCURRENT REVIEW TO [facility] [phone] PHONE KORI [phone]
--- NOTE | 2017-03-12 13:40 | NUR ---
FAXED INQUIRY TO [facility].
[2017-03-12] MEDS: NACL 0.9% 1,000 ML IV SCH (14:00)
--- NOTE | 2017-03-12 14:35 | NUR ---
RECEIVED A CALL FROM PHI FROM [facility]. THEY CANNOT ACCEPT THE PATIENT. I CALLED AIDE FROM [facility], SHE IS WAITING TO HEAR FROM [facility]. I TOLD HER TO CALL THE FLOOR IF THEY ACCEPT THE PATIENT. ITZEL ROMAN AWARE.
[2017-03-12 16:00] VITALS: BP 141/76
[2017-03-12] MEDS: WARFARIN 1 MG, WARFARIN 5 MG PO SCH ×2 (17:04)
[2017-03-12] MEDS: INSULIN LISPRO SLIDING SCALE 100 UNITS/ML VIAL SUBQ PRN (17:05)
--- NOTE | 2017-03-12 17:50 | NUR ---
PT YELLED AT NURSE. STATED SALAD WAS MADE WRONG AND DID NOT WANT TO EAT IT. YELLED AND REQUESTED TO HAVE A TUNA SANDWICH AND WANTED TO GET IN A WHEELCHAIR AND STATED HE WANTS TO GET OUT OF HERE. CALLED [facility] FOR TUNA SANDWICH REQUEST. PT IS SITTING UP IN BED EATING SANDWICH NOW. WHEN INFORMED PT THAT ABX IVPB WAS DUE PT REFUSED TO HAVE MED ADMINISTERED AT THIS TIME. INFORMED PT OF PURPOSE FOR MEDICATION AND CONSEQUENCES FOR NON-ADMIN. PT STATED HE ALREADY KNOWS THAT AND DOESN'T WANT TO WAIT FOR IV MED. TOLD PT WILL TRY TO GIVE MED AT A LATER TIME AFTER HE IS DONE EATING SANDWICH. WILL CONTINUE TO MONITOR.
--- NOTE | 2017-03-12 18:44 | NUR ---
ADMINISTERED UNASYN IVPB. PT STATED OK TO HAVE MED ADMINISTERED. TOLERATED MED WELL. PT IS SITTING UP IN BED EATING JELL-O. FRIEND IS AT BEDSIDE. WILL CONTINUE TO MONITOR.
--- NOTE | 2017-03-12 19:20 | NUR ---
GAVE REPORT TO PROVIDER RELATIONS MANAGER NURSE. PATIENT IN STABLE CONDITION.
--- NOTE | 2017-03-12 19:25 | NUR ---
RECEIVED REPORT FROM AM NURSE. PT AAOX4, ON THE PHONE. NO SIGNS OF ACUTE DISTRESS NOTED. ON ROOM AIR. IV ACCESS ASYMPTOMATIC, INTACT AND PATENT. UNIBOOT ON RIGHT LOWER EXTREMITY. PLAN OF CARE DISCUSSED, PT VERBALIZED UNDERSTANDING. BED ON LOW POSITION, BILATERAL HALF SIDE RAILS UP, CALL LIGHT WITHIN REACH, WILL CONTINUE TO MONITOR.
[2017-03-12 20:00] VITALS: BP 133/79
[2017-03-13] VITALS: BP 141/76
[2017-03-13] MEDS: KETOROLAC 30 MG/ML VIAL IM SCH ×2 (00:19→05:59)
[2017-03-13] MEDS: LORazepam 1 MG TAB PO PRN ×2 (00:19→23:38)
[2017-03-13] MEDS: AMPICILLIN/SULBACTAM 3 GM in NACL 0.9% 100 ML IV SCH ×5 (00:19→23:28)
--- NOTE | 2017-03-13 02:36 | NUR ---
PT IS SLEEPING, EASY TO AROUSE. NO SIGS OF ACUTE DISTRESS NOTED. BED ON LOW POSITION, BILATERAL HALF SIDE RAILS UP, CALL LIGHT WITHIN REACH, WILL CONTINUE TO MONITOR.
--- NOTE | 2017-03-13 04:05 | NUR ---
PT IS AWAKE, LYING IN BED. NO DISTRESS NOTED. RESPIRATIONS EVEN, UNLABORED, ON ROOM AIR. IV PATENT, INTACT AND INFUSING. SAFETY MEASURES IN PLACE, CALL LIGHT WITHIN REACH. BED ON LOW POSITION, BILATERAL HALF SIDE RAILS UIP, WILL CONTINUE TO MONITOR.
--- NOTE | 2017-03-13 05:26 | NUR ---
PT SLEEPING, EASY TO AROUSE. NO DISTRESS NOTED. RESPIRATIONS EVEN, UNLABORED, ON ROOM AIR. SAFETY MEASURES IN PLACE, CALL LIGHT WITHIN REACH. BED ON LOW POSITION, BILATERAL HALF SIDE RAILS UIP, WILL CONTINUE TO MONITOR.
[2017-03-13 05:56] LABS: BASOPHILS # (AUTO) 0.1 K/uL (0.00-0.22); BASOPHILS % (AUTO) 2.1 % (0.0-2.0); EOSINOPHILS # (AUTO) 0.3 K/uL (0-0.4); EOSINOPHILS % (AUTO) 3.9 % (0.0-4.0); HEMATOCRIT 41.6 % (36-52); HEMOGLOBIN 13.5 g/dL (12.0-18.0); LYMPHOCYTES # (AUTO) 1.2 K/uL (2.0-11.5); MEAN CORPUSCULAR HEMOGLOBIN 28 pg (27-31); MEAN CORPUSCULAR HGB CONC 32 g/dL (33-37); MEAN CORPUSCULAR VOLUME 86 fL (80-94); MONOCYTES # (AUTO) 0.5 K/uL (0.8-1.0); MONOCYTES % (AUTO) 8.3 % (1.7-9.3); NEUTROPHILS # (AUTO) 4.4 K/uL (1.8-7.7); NEUTROPHILS % (AUTO) 66.7 % (42.2-75.2); PLATELET COUNT (AUTO) 207 K/uL (140-450); RED BLOOD CELL COUNT(AUTO) 4.85 MIL/uL (4.20-6.10); WHITE BLOOD COUNT (AUTO) 6.5 K/uL (4.8-10.8)
[2017-03-13 06:15] LABS: PROTHROMBIN TIME 25.1 secs (10.8-13.4)
[2017-03-13 06:16] LABS: CARBON DIOXIDE 32.6 mmol/L (21-32); CREATININE 1.4 mg/dL (0.7-1.3); POTASSIUM 4.6 mmol/L (3.5-5.1)
[2017-03-13] MEDS: BLOOD GLUCOSE MONITORING 1 DEV DEV FS SCH ×4 (06:42→20:12)
--- NOTE | 2017-03-13 07:40 | NUR ---
RECEIVED REPORT FROM NUCLEAR FUEL ENRICHMENT TECHNICIAN RN. PATIENT IS LAYING IN BED ASLEEP BUT EASY TO AROUSE BY NAME. RESPIRATORY IS EVEN AND UNLABORED. NO OTHER SIGNS AND SYMPTOMS OF DISTRESS NOTED AT THIS TIME. HAS NS INFUSING TO LEFT FOREARM 20G AT 10ML/HR. SITE IS CLEAN, DRY, INTACT AND PATENT. BED IS IN LOWEST POSITION, SIDERAILS UP X2, CALL LIGHT PLACED WITHIN REACH. WILL CONTINUE TO MONITOR.
--- NOTE | 2017-03-13 07:43 | NUR ---
ENDORSED PT TO AM NURSE FOR CONTINUITY OF CARE. PT IS IN STABLE CONDITION
[2017-03-13 08:00] VITALS: BP 137/79
[2017-03-13] MEDS: FLUOCINONIDE 0.05% CRM 60 GM TUBE TP SCH (09:00)
[2017-03-13] MEDS: FUROSEMIDE 40 MG TAB PO SCH ×2 (09:09→20:11)
[2017-03-13] MEDS: LISINOPRIL 10 MG TAB PO SCH (09:09)
[2017-03-13] MEDS: CARVEDILOL 3.125 MG TAB PO SCH ×2 (09:11→20:11)
[2017-03-13] MEDS: ASCORBIC ACID 500 MG TAB PO SCH (09:11)
[2017-03-13] MEDS: LACTOBACILLUS RHAMNOSUS GG 1 EACH CAP PO SCH (09:11)
[2017-03-13] MEDS: ALLOPURINOL 100 MG TAB PO SCH (09:11)
[2017-03-13] MEDS: KETOROLAC 30 MG/ML VIAL IM/IVP SCH ×3 (11:41→23:28)
[2017-03-13] MEDS: INSULIN LISPRO SLIDING SCALE 100 UNITS/ML VIAL SUBQ PRN ×2 (11:53→21:38)
[2017-03-13] MEDS: NACL 0.9% 1,000 ML IV SCH (14:00)
--- NOTE | 2017-03-13 14:23 | NUR ---
WALKED WITH PATIENT TO NURSES STATION, HE AMBULATED WITH A FRONT WHEEL WALKER. PATIENT TOLERATED WELL.
[2017-03-13 16:00] VITALS: BP 134/86
[2017-03-13] MEDS ORDERED: WARFARIN 5 MG TAB ONE (17:21)
[2017-03-13] MEDS: WARFARIN 1 MG, WARFARIN 5 MG PO SCH ×2 (17:27)
--- NOTE | 2017-03-13 19:20 | NUR ---
ENDORSED PATIENT TO CHEESE BLENDER NURSE FOR CONTINUITY OF CARE. PATIENT IS STABLE.
[2017-03-13 20:00] VITALS: BP 129/89
--- NOTE | 2017-03-13 22:30 | NUR ---
Patient's Plan of Care was discussed and reviewed with INSTRUMENT PANEL ASSEMBLER: JOE CLEMENTE
--- NOTE | 2017-03-13 23:26 | NUR ---
PATIENT IS CURRENTLY RESTING IN BED WATCHING TV.
[2017-03-13] MEDS: HYDROcodone/APAP 5/325 MG 1 TAB TAB PO PRN (23:38)
[2017-03-13 23:57] VITALS: BP 125/73
--- NOTE | 2017-03-14 00:02 | NUR ---
PATIENT IS CURRENTLY RESTING IN BED WATCHING TV.
--- NOTE | 2017-03-14 02:35 | NUR ---
PATIENT IS CURRENTLY SLEEPING IN BED NO DISTRESS NO PAIN OR DISCOMFORT.WILL CONTINUE TO MONITOR.
--- NOTE | 2017-03-14 04:35 | NUR ---
PATIENT SLEEPING WILL CONTINUE TO MONITOR CALL LIGHT WITHIN REACH.
[2017-03-14] MEDS: AMPICILLIN/SULBACTAM 3 GM in NACL 0.9% 100 ML IV SCH ×3 (05:19→17:20)
[2017-03-14] MEDS: KETOROLAC 30 MG/ML VIAL IM/IVP SCH ×3 (05:19→17:06)
--- NOTE | 2017-03-14 05:32 | NUR ---
PATIENT IS ASLEEP IN BED NEEDS MET WILL CONTINUE TO MONITOR.CALL LIGHT WITHIN REACH.
[2017-03-14 06:45] LABS: BASOPHILS # (AUTO) 0.1 K/uL (0.00-0.22); EOSINOPHILS # (AUTO) 0.2 K/uL (0-0.4); EOSINOPHILS % (AUTO) 3.8 % (0.0-4.0); HEMOGLOBIN 13.1 g/dL (12.0-18.0); LYMPHOCYTES # (AUTO) 1.2 K/uL (2.0-11.5); LYMPHOCYTES % (AUTO) 19.3 % (20.5-51.1); MEAN CORPUSCULAR HEMOGLOBIN 28 pg (27-31); MEAN CORPUSCULAR HGB CONC 33 g/dL (33-37); MEAN CORPUSCULAR VOLUME 86 fL (80-94); MONOCYTES # (AUTO) 0.5 K/uL (0.8-1.0); MONOCYTES % (AUTO) 8.6 % (1.7-9.3); NEUTROPHILS # (AUTO) 4.3 K/uL (1.8-7.7); NEUTROPHILS % (AUTO) 66.3 % (42.2-75.2); PLATELET COUNT (AUTO) 200 K/uL (140-450); RED BLOOD CELL COUNT(AUTO) 4.65 MIL/uL (4.20-6.10); RED CELL DISTRIBUTION WIDTH 18.1 % (11.6-13.7)
[2017-03-14 06:48] LABS: ANION GAP 9.2 (8-16); CARBON DIOXIDE 30.1 mmol/L (21-32); CREATININE 1.5 mg/dL (0.7-1.3); POTASSIUM 4.3 mmol/L (3.5-5.1)
[2017-03-14] MEDS: BLOOD GLUCOSE MONITORING 1 DEV DEV FS SCH ×4 (07:09→20:10)
--- NOTE | 2017-03-14 07:11 | NUR ---
PATIENT STABLE RESTING IN BED SLEEPING NEEDS MET IVF INFUSING AT TKO NO INFILTRATION NOTED.CALL LIGHT WITHIN REACH.
--- NOTE | 2017-03-14 07:40 | NUR ---
PATIENT IS AWAKE, ALERT AND ORIENTED X4. RESPIRATORY IS EVEN AND UNLABORED, NO SIGNS AND SYMPTOMS OF ACUTE DISTRESS NOTED AT THIS TIME. DISCUSSED PLAN OF CARE WITH PATIENT, HE VERBALIZED UNDERSTANDING. IV IN RIGHT FOREARM 20G, INFUSING NS AT 10ML/HR. SITE IS CLEAN, DRY AND INTACT. BED IN LOWEST POSITION, SIDERAILS UP X2, CALL LIGHT PLACED WITHIN REACH. WILL CONTINUE TO MONITOR.
[2017-03-14 07:49] LABS: WHITE BLOOD COUNT (AUTO) 6.3 K/uL (4.8-10.8)
[2017-03-14 08:00] VITALS: BP 136/91
[2017-03-14] MEDS: LACTOBACILLUS RHAMNOSUS GG 1 EACH CAP PO SCH (09:00)
[2017-03-14] MEDS: FLUOCINONIDE 0.05% CRM 60 GM TUBE TP SCH (09:00)
[2017-03-14] MEDS: FUROSEMIDE 40 MG TAB PO SCH ×2 (09:43→20:06)
[2017-03-14] MEDS: CARVEDILOL 3.125 MG TAB PO SCH ×2 (09:43→20:06)
[2017-03-14] MEDS: ASCORBIC ACID 500 MG TAB PO SCH (09:43)
[2017-03-14] MEDS: LISINOPRIL 10 MG TAB PO SCH (09:47)
[2017-03-14] MEDS: ALLOPURINOL 100 MG TAB PO SCH (09:48)
[2017-03-14] MEDS: NACL 0.9% 1,000 ML IV SCH (09:48)
--- NOTE | 2017-03-14 11:40 | NUR ---
PATIENT REQUESTED A TUNA SANDWICH.
--- NOTE | 2017-03-14 12:01 | NUR ---
PATIENTS BS IS 160 WILL COVER WITH INSULIN.
[2017-03-14] MEDS: INSULIN LISPRO SLIDING SCALE 100 UNITS/ML VIAL SUBQ PRN ×2 (12:55→17:20)
--- NOTE | 2017-03-14 15:27 | NUR ---
WALKED AROUND THE UNIT WITH THE PATIENT. HE TOLERATED AMBULATING WELL. ONLY WANTED TO WALK TO THE END OF THE HALLWAY AND BACK. WILL CONTINUE TO MONITOR.
[2017-03-14 16:00] VITALS: BP 131/80
[2017-03-14] MEDS ORDERED: WARFARIN 5 MG TAB PO SCH (17:00)
--- NOTE | 2017-03-14 17:05 | NUR ---
PATIENT REQUESTING RANCH DRESSING. INFORMED HIM THAT THE KITCHEN IS ALL OUT OF RANCH DRESSING.
--- NOTE | 2017-03-14 17:55 | NUR ---
PATIENT REQUESTING TO HAVE 3 JUICE BOXES. BROUGHT HIM ONE AND LET HIM KNOW THAT I WAS CONCERNED ABOUT HIS BLOOD SUGAR GETTING TOO HIGH. RESPONDED WITH LETTING HIM WORRY ABOUT HIS OWN BLOOD SUGAR.
--- NOTE | 2017-03-14 19:05 | NUR ---
PATIENT IS CURRENTLY AWAKE ALERT ORIENTED RESTING IN BED AT THIS TIME HAS VISITORS AT THIS TIME WITH HIM PATIENT IS SMILING AND SOCIALIZING.NEEDS MET.IVF INFUSING WELL IV SITE PATENT.CALL LIGHT WITHIN REACH.
--- NOTE | 2017-03-14 19:05 | NUR ---
ENDORSED PATIENT TO CLINICAL REVIEWER NURSE FOR CONTINUITY OF CARE. PATIENT IS STABLE.
--- NOTE | 2017-03-14 19:06 | NUR ---
Patient's Plan of Care was discussed and reviewed with RICE FARMWORKER: JOE CLEMENTE
[2017-03-14 20:00] VITALS: BP 144/84
--- NOTE | 2017-03-14 20:49 | NUR ---
PATIENT IS BEING ASSISTED TO CLEAN HIMSELF AND SHAVE HIMSELF WITH THE STANDBY ASSISTANCE OF RONALD SABA.PATIENT IS CALM AND COOPERATIVE NEEDS MET.
--- NOTE | 2017-03-14 23:03 | NUR ---
PATIENT IS RESTING IN BED SCD'S APPLIED TO BOTH LOWER EXTREMITIES I ASKED THE PATIENT IS HE IS IN PAIN PATIENT DENIES PAIN.WILL CONTINUE TO MONITOR.PATIENT CURRENTLY WATCHING TV.
[2017-03-15] MEDS: AMPICILLIN/SULBACTAM 3 GM in NACL 0.9% 100 ML IV SCH ×3 (00:04→12:02)
[2017-03-15] MEDS: KETOROLAC 30 MG/ML VIAL IM/IVP SCH ×3 (00:04→12:02)
[2017-03-15 00:17] VITALS: BP 152/93
--- NOTE | 2017-03-15 00:20 | NUR ---
PATIENT WATCHING TV AT THIS TIME SINGING HAPPY REMAINS CALM AND COOPERATIVE.
[2017-03-15] MEDS: LORazepam 1 MG TAB PO PRN (00:25)
--- NOTE | 2017-03-15 02:30 | NUR ---
PATIENT ASSISTED TO WALK IN THE HALLWAY WITH FRONT WHEEL WALKER WITH THE STANBY ASSISTANCE OF RONALD SABA.PATIENT TOLERATING ACTIVITY WELL.
--- NOTE | 2017-03-15 04:10 | NUR ---
PATIENT IS CURRENTLY RESTING IN BED SLEEPING IN NO DISTRESS WILL CONTINUE TO MONITOR.
[2017-03-15] MEDS: BLOOD GLUCOSE MONITORING 1 DEV DEV FS SCH ×2 (06:04→11:30)
--- NOTE | 2017-03-15 06:05 | NUR ---
PATIENT STABLE TORADOL IV NOT ADMINISTERED PATIENT NOT IN PAIN PATIENT IS ASLEEP AT THIS TIME.
[2017-03-15 06:09] LABS: BASOPHILS # (AUTO) 0.1 K/uL (0.00-0.22); BASOPHILS % (AUTO) 1.8 % (0.0-2.0); EOSINOPHILS # (AUTO) 0.2 K/uL (0-0.4); EOSINOPHILS % (AUTO) 2.4 % (0.0-4.0); HEMATOCRIT 39.8 % (36-52); HEMOGLOBIN 13.2 g/dL (12.0-18.0); LYMPHOCYTES # (AUTO) 1.3 K/uL (2.0-11.5); LYMPHOCYTES % (AUTO) 15.6 % (20.5-51.1); MEAN CORPUSCULAR HEMOGLOBIN 29 pg (27-31); MEAN CORPUSCULAR HGB CONC 33 g/dL (33-37); MEAN CORPUSCULAR VOLUME 86 fL (80-94); MONOCYTES # (AUTO) 0.6 K/uL (0.8-1.0); MONOCYTES % (AUTO) 7.7 % (1.7-9.3); NEUTROPHILS # (AUTO) 5.8 K/uL (1.8-7.7); NEUTROPHILS % (AUTO) 72.5 % (42.2-75.2); PLATELET COUNT (AUTO) 216 K/uL (140-450); RED BLOOD CELL COUNT(AUTO) 4.61 MIL/uL (4.20-6.10); RED CELL DISTRIBUTION WIDTH 18.8 % (11.6-13.7)
[2017-03-15 06:22] LABS: PROTHROMBIN TIME 32.6 secs (10.8-13.4)
[2017-03-15 06:24] LABS: MAGNESIUM 2.4 mg/dL (1.8-2.4); PHOSPHORUS 4.3 mg/dL (2.5-4.9)
[2017-03-15 06:29] LABS: ANION GAP 8.5 (8-16); CARBON DIOXIDE 30.2 mmol/L (21-32); CREATININE 1.7 mg/dL (0.7-1.3); POTASSIUM 4.7 mmol/L (3.5-5.1)
--- NOTE | 2017-03-15 07:28 | NUR ---
PATIENT IS CURRENTLY STABLE SLEEPING REPORT ENDORSED TO ABEL PEARL HE WILL RESUME CARE OF THE PATIENT.
--- NOTE | 2017-03-15 07:29 | NUR ---
RECEIVED REPORT FROM CYBER SYSTEMS OPERATIONS SPECIALIST NURSE. PATIENT IS LYING IN BED SLEEPING COMFORTABLY. IN STABLE CONDITION. RESPIRATIONS EVEN, UNLABORED, ON ROOM AIR. IV INTACT, PATENT AND INFUSING. WILL CONTINUE TO MONITOR.
--- NOTE | 2017-03-15 07:55 | NUR ---
PATIENT SITTING IN BED WITH BREAKFAST TRAY IN FRONT. NO DISTRESS NOTED. DENIES ANY PAIN AT THIS TIME. AAOX4, RLE CELLULITIS BANDAGE DRESSING INTACT. BLE +2 PITTING EDEMA NOTED, RLE SKIN COLOR IS RED WITH INFLAMMATION. SKIN WARM TO TOUCH, COLOR APPROPRIATE TO ETHNICITY. IV IS INTACT, PATENT, AND INFUSING. PATIENT IS AMBULATORY WITH A WALKER, ABLE TO AMBULATE TO BATHROOM AND BACK TO BED WITH A WALKER. REVIEWED PLAN OF CARE WITH PATIENT. PATIENT VERBALIZED UNDERSTANDING. SAFETY MEASURES IN PLACE, FALL PRECAUTIONS IN PLACE, CALL LIGHT WITHIN REACH. WILL CONTINUE TO MONITOR.
[2017-03-15 08:00] VITALS: BP 128/85
--- NOTE | 2017-03-15 10:00 | NUR ---
PATIENT SITTING IN BED WATCHING TV. NO DISTRESS NOTED. DENIES ANY PAIN AT THIS TIME. MEDICATIONS DUE GIVEN. IV PATENT, RUNNING, AND INTACT. SAFETY MEASURES IN PLACE, CALL LIGHT WITHIN REACH. WILL CONTINUE TO MONITOR.
[2017-03-15] MEDS: ALBUTEROL SULFATE/IPRATROPIU 3 ML SOL IH PRN (10:28)
--- NOTE | 2017-03-15 10:30 | NUR ---
DR. HARDY AND FILLER SHREDDER MACHINE, BETHANY AT BEDSIDE SPEAKING WITH PATIENT REGARDING DISCHARGE PLAN. POSSIBLE DISCHARGE TODAY. WILL CONTINUE TO MONITOR.
[2017-03-15] MEDS ORDERED: AMOX-1000 PO ×2 (10:41→14:35)
[2017-03-15] MEDS: LISINOPRIL 10 MG TAB PO SCH (10:50)
[2017-03-15] MEDS: ASCORBIC ACID 500 MG TAB PO SCH (10:50)
[2017-03-15] MEDS: LACTOBACILLUS RHAMNOSUS GG 1 EACH CAP PO SCH (10:50)
[2017-03-15] MEDS: FUROSEMIDE 40 MG TAB PO SCH (10:51)
[2017-03-15] MEDS: CARVEDILOL 3.125 MG TAB PO SCH (10:51)
[2017-03-15] MEDS: ALLOPURINOL 100 MG TAB PO SCH (10:53)
[2017-03-15] MEDS: FLUOCINONIDE 0.05% CRM 60 GM TUBE TP SCH (10:53)
--- NOTE | 2017-03-15 12:04 | NUR ---
LATE ENTRY FOR 03/12 1715 PER AIDE AT [facility] SHE DID NOT RECEIVE A CALL BACK FROM [employer]. TODAY 03/15 AT 1040 MET WITH PT AND INFORMED HIM THAT PER PHYSICIAN PT CAN BE DISCHARGED ON PO ABX. INFORMED PT THAT THE ONLY SNF WILLING TO ACCEPT HIM STILL HAS NOT HEARD FROM [facility]. PT SEEMED RESISTANT TO DISCHARGE AND STATED "IT'S GOING TO BE 102 DEGREES OUT THERE TODAY". DISCUSSED WITH PT IF HE WOULD BE WILLING TO CONSIDER A [facility] FACILITY BUT HE STATED NO HE USES HIS SSI MONIES FOR PAYING OTHER THINGS. PT STATED THAT HE WOULD RETURN TO HIS FRIENDS HOUSE BUT WOULD ALSO PURSUE POSSIBLY GETTING A HOTEL VOUCHER FROM [facility] LOC[facility] IN [place] AND ASKED FOR PHONE NUMBER TO THE [employer] WHICH WAS PROVIDED TO HIM.
--- NOTE | 2017-03-15 12:10 | NUR ---
PATIENT SITTING AT BEDSIDE WITH LUNCH TRAY IN FRONT. NO DISTRESS NOTED. COMPLAINTS OF PAIN ON RLE. WILL MEDICATE ORDERED. MEDICATIONS DUE GIVEN. PATIENT BEING DISCHARGED TO FRIEND'S HOME TODAY. SAFETY MEASURES IN PLACE, CALL LIGHT WITHIN REACH. WILL CONTINUE TO MONITOR.
[2017-03-15] MEDS: INSULIN LISPRO SLIDING SCALE 100 UNITS/ML VIAL SUBQ PRN (12:40)
--- NOTE | 2017-03-15 14:30 | NUR ---
PATIENT SITTING IN BED. NO DISTRESS NOTED. RESPIRATIONS EVEN, UNLABORED, ON ROOM AIR. PATIENT BEING DISCHARGED TO FRIEND'S HOME. DISCHARGE INSTRUCTIONS GIVEN, FOLLOW-UP INSTRUCTIONS AND MEDICATION PRESCRIPTIONS/INSTRUCTIONS GIVEN. ANSWERED ALL OF PATIENT'S QUESTIONS. PATIENT VERBALIZED COMPLETE UNDERSTANDING OF DISCHARGE INSTRUCTIONS. IV REMOVED WITH MINIMAL BLOOD AND LUMEN COMPLETELY INTACT. RLE EXTREMITY CELLULITIS AND LEFT FINGER ABRASIONS TAKEN. ID BANDS REMOVED, ALL OF PATIENT'S BELONGINGS WITH PATIENT IN BAGS. ABLE TO AMBULATE WITH STEADY GAIT UPON DISCHARGE. TAXI VOUCHER IN HAND FOR THE PATIENT. PATIENT AWAITING BRIM FLEXER TO COME TAKE HIM TO FRIENDS HOME.
[2017-03-15] MEDS ORDERED: LACT10CA1 PO (14:36)
[2017-03-15] MEDS ORDERED: DOCU-299 PO (14:36)
--- NOTE | 2017-03-15 15:00 | NUR ---
SHELLFISH MANAGER FOR PATIENT ARRIVED IN LOBBY. WHEELED PATIENT DOWN TO LOBBY AND PATIENT GOT INTO TAXI VIA AMBULATION WITH STEADY GAIT WITHOUT ASSISTANCE. PATIENT DISCHARGED TO FRIEND'S HOME VIA PUBLIC VEHICLE. PATIENT IN STABLE CONDITION UPON DISCHARGE.
== END 2017-03-15 15:00 | disposition home or self-care (01) | DRG 383 ==
LOC: MED 11:51 → MTU 14:05
PROVIDERS: ADMIT Family Medicine Sports Medicine; ATTEND Family Medicine Sports Medicine
DX: L03.115 Cellulitis of right lower limb (principal); N17.0 Acute kidney failure with tubular necrosis; I50.43 Acute on chronic combined systolic (congestive) and diastolic (congestive) heart failure; E43 Unspecified severe protein-calorie malnutrition; E11.22 Type 2 diabetes mellitus with diabetic chronic kidney disease; D68.59 Other primary thrombophilia; I42.0 Dilated cardiomyopathy; E11.65 Type 2 diabetes mellitus with hyperglycemia; I48.91 Unspecified atrial fibrillation; J44.9 Chronic obstructive pulmonary disease, unspecified; M10.9 Gout, unspecified; F19.20 Other psychoactive substance dependence, uncomplicated; E11.40 Type 2 diabetes mellitus with diabetic neuropathy, unspecified; E11.621 Type 2 diabetes mellitus with foot ulcer; L97.519 Non-pressure chronic ulcer of other part of right foot with unspecified severity; E11.622 Type 2 diabetes mellitus with other skin ulcer; L97.819 Non-pressure chronic ulcer of other part of right lower leg with unspecified severity; L30.9 Dermatitis, unspecified; B35.1 Tinea unguium; E87.1 Hypo-osmolality and hyponatremia; E66.9 Obesity, unspecified; K21.9 Gastro-esophageal reflux disease without esophagitis; B95.2 Enterococcus as the cause of diseases classified elsewhere; N18.3 Chronic kidney disease, stage 3 (moderate); I13.0 Hypertensive heart and chronic kidney disease with heart failure and stage 1 through stage 4 chronic kidney disease, or unspecified chronic kidney disease; Z88.8 Allergy status to other drugs, medicaments and biological substances; Z95.0 Presence of cardiac pacemaker; Z90.49 Acquired absence of other specified parts of digestive tract; Z86.718 Personal history of other venous thrombosis and embolism; Z79.01 Long term (current) use of anticoagulants; Z80.0 Family history of malignant neoplasm of digestive organs; Z82.5 Family history of asthma and other chronic lower respiratory diseases; Z83.3 Family history of diabetes mellitus; Z82.3 Family history of stroke; Z84.1 Family history of disorders of kidney and ureter; Z68.31 Body mass index [BMI] 31.0-31.9, adult; Z82.49 Family history of ischemic heart disease and other diseases of the circulatory system
CPT/HCPCS: 36415; 71010; 73590; 73630; 76536; 80048; 80053; 80305; 81001; 82550; 82553; 82948; 83036; 83605; 83735; 83880; 84100; 84436; 84439; 84443; 84479; 84484; 85025; 85610; 85730; 87040; 87070; 87075; 87081; 87086; 87186; 93005; 93970; 94640; 96361; 96365; 97110; 97116; 97530; 99285; J0295; J0696; J1644; J1815; J1885; J2270; J3490; J7030; J7060; J7620; Q0092

== ENCOUNTER 2017-04-13 06:17 | Inpatient (IN) | payer MEDICAID ==
[~2017-04-13] VITALS: Ht 170.2 cm; Wt 94.8 kg
[~2017-04-13 06:17] MED LIST changes: +AMOX-1000 PO; -ASPI81CT89 PO; -ATOR20TA40 PO; -CYCL5TAB PO; +DOCU-299 PO; -DOCU-300 PO; +LACT10CA1 PO; -LORA-476 PO; -NITR0.4T2 SL
[2017-04-13 06:20] VITALS: BP 147/91
--- NOTE | 2017-04-13 06:27 | NUR ---
TO ER BED 2 VIA MOTORIZED WHEELCHAIR
--- NOTE | 2017-04-13 06:27 | NUR ---
Gunjan quintero in ED - 04/13/17 at 0643 by MEDDM TO ER BED 3 VIA MOTORIZED WHEELCHAIR
--- NOTE | 2017-04-13 06:30 | NUR ---
PATIENT IS A 61 Y/O MALE WHO PRESENTS TO THE ED C/O SOB. PT STATES, "I HAVE BEEN COUGHING AND HAVING A HARD TIME BREATHING SINCE YESTERDAY." PT REPORTS 8/10 TIGHT STERNAL CHEST PAIN THAT RADIATES TO THE RUQ. PT DENIES CP, N/V/D. PT ON 2L NC, O2 SAT 100%. NOTED WHEEZING BILATERAL BASES. PT AAOX4, RR EVEN/UNLABORED, PATIENT UNABLE TO AMBULATE USED ELECTRIC WHEELCHAIR. PT REPOSITIONED FOR COMFORT, BED IN LOWEST POSITION. ER MD DR. SHEEHAN NOTIFIED. WILL CONTINUE TO MONITOR.
[2017-04-13] MEDS ORDERED: ALBUTEROL 0.083% 2.5 MG/3 ML NEBU INH ONE (06:45)
--- NOTE | 2017-04-13 07:00 | NUR ---
RT AT BEDSIDE.
--- NOTE | 2017-04-13 07:12 | NUR ---
Pt report given to DEBRA ROMAN. Transfer of care at this time.
--- NOTE | 2017-04-13 07:15 | NUR ---
DR SHEEHAN EVALUATING AAO PT ON [place] TX AT BEDSIDE
[2017-04-13 07:24] LABS: BASOPHILS # (AUTO) 0.2 K/uL (0.00-0.22); BASOPHILS % (AUTO) 2.8 % (0.0-2.0); EOSINOPHILS # (AUTO) 0.1 K/uL (0-0.4); EOSINOPHILS % (AUTO) 1.9 % (0.0-4.0); HEMATOCRIT 44.5 % (36-52); HEMOGLOBIN 14.6 g/dL (12.0-18.0); LYMPHOCYTES # (AUTO) 1.1 K/uL (2.0-11.5); LYMPHOCYTES % (AUTO) 14.1 % (20.5-51.1); MEAN CORPUSCULAR HEMOGLOBIN 28 pg (27-31); MEAN CORPUSCULAR HGB CONC 33 g/dL (33-37); MEAN CORPUSCULAR VOLUME 84 fL (80-94); MONOCYTES # (AUTO) 0.8 K/uL (0.8-1.0); MONOCYTES % (AUTO) 10.7 % (1.7-9.3); NEUTROPHILS # (AUTO) 5.4 K/uL (1.8-7.7); NEUTROPHILS % (AUTO) 70.5 % (42.2-75.2); PLATELET COUNT (AUTO) 168 K/uL (140-450); RED CELL DISTRIBUTION WIDTH 20.7 % (11.6-13.7); WHITE BLOOD COUNT (AUTO) 7.6 K/uL (4.8-10.8)
[2017-04-13] MEDS ORDERED: NACL 0.9% 1,000 ML IV ONE (07:35)
[2017-04-13 07:37] LABS: ALBUMIN 3.3 g/dL (3.4-5.0); ANION GAP 15.2 (8-16); CARBON DIOXIDE 24.7 mmol/L (21-32); CREATININE 1.5 mg/dL (0.7-1.3); POTASSIUM 4.9 mmol/L (3.5-5.1); TOTAL BILIRUBIN 2.7 mg/dL (0.0-1.0)
[2017-04-13 07:57] LABS: CREATINE KINASE MB 7.7 ng/mL (0-3.6)
[2017-04-13] MEDS ORDERED: ASPIRIN 81 MG TAB.CHEW PO ONE (08:05)
[2017-04-13] MEDS ORDERED: FUROSEMIDE 40 MG/4 ML VIAL IVP ONE (08:05)
[2017-04-13] MEDS ORDERED: NITROGLYCERIN 0.4 MG TAB SL PRN (08:35)
[2017-04-13] MEDS: NACL 0.9% 1,000 ML IV SCH (08:35)
[2017-04-13] MEDS ORDERED: ONDANSETRON 4 MG/2 ML VIAL IVP PRN (08:35)
[2017-04-13] MEDS ORDERED: ACETAMINOPHEN 325 MG TAB PO PRN (08:35)
--- NOTE | 2017-04-13 08:41 | NUR ---
RN UNAVAILABLE FOR REPORT AT THIS TIME
[2017-04-13] MEDS ORDERED: DEXTROSE 50% 50 ML SYR IVP PRN (08:55)
[2017-04-13] MEDS ORDERED: LISINOPRIL 5 MG TAB PO SCH (09:00)
[2017-04-13] MEDS ORDERED: DOCUSATE SODIUM 100 MG GELCAP PO SCH (09:00)
--- NOTE | 2017-04-13 09:15 | NUR ---
Patient will be admitted to care of DR LY. Admited to TELE. Will go to room 120B. Belongings list completed. Report to ABEL VARGAS.
[2017-04-13] MEDS ORDERED: LISINOPRIL 10 MG TAB PO SCH (09:31)
[2017-04-13] MEDS ORDERED: CARVEDILOL 3.125 MG TAB PO SCH (09:34)
[2017-04-13] MEDS ORDERED: ALLOPURINOL 100 MG TAB PO SCH (09:35)
[2017-04-13] MEDS ORDERED: FUROSEMIDE 40 MG TAB PO SCH (09:35)
--- NOTE | 2017-04-13 09:40 | NUR ---
ARRIVED ON THE UNIT W/ 2 ER NURSES. PT IS ALERT AND AWAKE. PT WALKED FROM GURNEY TO BED. INTRODUCED MYSELF AND UPDATED THE BOARD. ADMINISTERED TELE MONITOR, YELLOW SOCK, GOWN, ARM BAND AND YELLOW SIGN ON DOOR. VS WITHIN NORMAL RANGE. IV ON R FA 20G NS AT 20ML INFUSING. BLE REDNESS BUT INTACT. SKIN IS INTACT. PT BROUGHT WITH HIM HIS ELECTRIC WHEELCHAIR AND CANE. MRSA SCREENING DONE. WILL CONTINUE TO MONITOR PT.
[2017-04-13] MEDS ORDERED: ALBUTEROL SULFATE/IPRATROPIU 3 ML SOL IH PRN (10:00)
--- NOTE | 2017-04-13 10:36 | NUR ---
ADMINISTERED MORNING MEDS. TOLERATED WELL. WILL CONTINUE TO MONITOR PT.
--- NOTE | 2017-04-13 11:30 | NUR ---
BS LOW 79. GAVE PT SOME OJ AND CRACKERS. PT ASYMPTOMATIC. WILL CONTINUE TO MONITOR PT.
[2017-04-13 12:00] VITALS: BP 126/80
[2017-04-13] MEDS: BLOOD GLUCOSE MONITORING 1 DEV DEV FS SCH ×3 (12:18→21:16)
[2017-04-13] MEDS: ALBUTEROL SULFATE/IPRATROPIU 3 ML SOL IH SCH (13:00)
--- NOTE | 2017-04-13 13:24 | NUR ---
PT ATE LUNCH. RESTING COMFORTABLY. NO SIGNS OF DISTRESS. NO COMPLAINTS AT THIS TIME. WILL CONTINUE TO MONITOR PT.
[2017-04-13 14:07] LABS: CHOL/HDL RATIO 2.8 (1-4.5); FREE T4 (FREE THYROXINE) 1.03 ng/dL (0.76-1.46); MAGNESIUM 2.4 mg/dL (1.8-2.4); PHOSPHORUS 4.4 mg/dL (2.5-4.9); THYROID STIMULATING HORMONE 3.96 uIU/mL (0.34-3.74)
--- NOTE | 2017-04-13 14:59 | NUR ---
PATIENT HAS BEEN SCREENED AND CATEGORIZED MODERATE NUTRITION RISK. PATIENT WILL BE SEEN WITHIN 3-5 DAYS OF ADMISSION. 04/15/17-04/17/[address]
[2017-04-13 16:00] VITALS: BP_SYST 133; BP_SYST 98; BP_DIAS 51; BP_DIAS 68
[2017-04-13] MEDS ORDERED: WARFARIN 2 MG TAB PO SCH (17:00)
[2017-04-13] MEDS: WARFARIN 1 MG, WARFARIN 5 MG PO SCH ×2 (17:32)
[2017-04-13] MEDS: INSULIN LISPRO SLIDING SCALE 100 UNITS/ML VIAL SUBQ PRN (17:33)
--- NOTE | 2017-04-13 19:15 | NUR ---
ENDORSED PT TO THE NIGHTSHIFT NURSE AT BEDSIDE FOR CONTINUITY OF CARE. PT IS IN STABLE CONDITION.
--- NOTE | 2017-04-13 19:30 | NUR ---
RECEIVED REPORT FROM AM SHIFT RN. INITIAL ASSESSMENT COMPLETED. ATTACHED TO TELE MONITOR. IV ACCESS AT RIGHT FOREARM 20G, PATENT, INTACT INFUSING WELL. NO SIGNS OF DISTRESS, ABLE TO VERBALIZED UNDERSTANDING. BED IN LOW POSITION, CALL LIGHT WITHIN REACH. SAFETY MEASURE ENSURE. WILL CONTINUE TO MONITOR.
[2017-04-13 20:00] VITALS: BP 119/74
[2017-04-13] MEDS: ATORVASTATIN 20 MG TAB PO SCH (21:17)
[2017-04-13] MEDS: DOCUSATE SODIUM 100 MG GELCAP PO SCH (21:17)
[2017-04-13] MEDS: CARVEDILOL 3.125 MG TAB PO SCH (21:18)
[2017-04-13] MEDS: CLINDAMYCIN 600 MG in DEXTROSE 5% 50 ML IV SCH (21:20)
--- NOTE | 2017-04-13 23:00 | NUR ---
TRANSFER CARE TO ABEL VANN. REPORT GIVEN. PT ON STABLE CONDITION.
--- NOTE | 2017-04-13 23:15 | NUR ---
RECEIVED REPORT OF PT.HE IS IN STABLE CONDITION,NO RESP.DISTRESS NOTED.HR IS PACED.IVF IS IN PROGRESS.NO C/O PAIN NOW.
[2017-04-14] VITALS (7 sets, daily range): BP systolic 112–132; BP diastolic 69–82
[2017-04-14] MEDS ORDERED: ZOLPIDEM 5 MG TAB PO ONE (02:10)
--- NOTE | 2017-04-14 04:00 | NUR ---
SLEEPING.NO DISTRESS NOTED.CALL LIGHT WITHIN REACH.HR IS PACED.
[2017-04-14] MEDS: CLINDAMYCIN 600 MG in DEXTROSE 5% 50 ML IV SCH ×3 (04:38→21:13)
[2017-04-14 05:37] LABS: ANION GAP 11.5 (8-16); CARBON DIOXIDE 28.4 mmol/L (21-32); CREATININE 1.6 mg/dL (0.7-1.3); POTASSIUM 4.9 mmol/L (3.5-5.1)
[2017-04-14 05:55] LABS: MAGNESIUM 2.3 mg/dL (1.8-2.4)
[2017-04-14 05:56] LABS: PHOSPHORUS 3.8 mg/dL (2.5-4.9)
[2017-04-14 06:02] LABS: HEMATOCRIT 40.9 % (36-52); HEMOGLOBIN 13.1 g/dL (12.0-18.0); MEAN CORPUSCULAR HEMOGLOBIN 28 pg (27-31); MEAN CORPUSCULAR HGB CONC 32 g/dL (33-37); MEAN CORPUSCULAR VOLUME 87 fL (80-94); PLATELET COUNT (AUTO) 157 K/uL (140-450); RED BLOOD CELL COUNT(AUTO) 4.72 MIL/uL (4.20-6.10); RED CELL DISTRIBUTION WIDTH 21.9 % (11.6-13.7); WHITE BLOOD COUNT (AUTO) 7.3 K/uL (4.8-10.8)
[2017-04-14] MEDS: ALBUTEROL SULFATE/IPRATROPIU 3 ML SOL IH SCH ×3 (06:23→19:59)
[2017-04-14] MEDS ORDERED: INSULIN GLARGINE SUBQ SCH (06:30)
[2017-04-14] MEDS: ALBUTEROL SULFATE/IPRATROPIU 3 ML SOL IH PRN (06:44)
[2017-04-14 07:04] LABS: LYMPHOCYTES % (MANUAL) 15 % (20-46); MONOCYTES % (MANUAL) 6 % (5-12)
--- NOTE | 2017-04-14 07:30 | NUR ---
ASSUMED CONTINUITY OF CARE, NO SIGNS AND SYMPTOMS OF ACUTE DISTRESS NOTED. INITIAL ASSESSMENT DONE. KEEP COMFORTABLE ON BED. EXPLAINED DIAGNOSIS, PLAN OF CARE, PAIN MANAGEMENT TEACHING, USE OF CALL LIGHT/BED/TV/BATHROOM. VERBALIZED UNDERSTANDING. FALL PRECAUTION APPLIED. CALL LIGHT WITHIN REACH.
[2017-04-14] MEDS: BLOOD GLUCOSE MONITORING 1 DEV DEV FS SCH ×4 (07:47→21:25)
--- NOTE | 2017-04-14 07:47 | NUR ---
AROUND 0615 PT HAD C/O SOB.CALLED RT.VS STABLE.T=97.1,ME=70,RR=20,LZ=958/81,O2 SHS=006%.BREATHING TREATMENT GIVEN.NO SOB AT THIS TIME.MC=554.NO COVERAGE NEEDED.REPORT GIVEN TO AM NURSE.CONDITION IS STABLE NOW.
--- NOTE | 2017-04-14 07:50 | NUR ---
Patient's Plan of Care was discussed and reviewed with MARIA INES: ROSA Bobby LVN
[2017-04-14] MEDS: NACL 0.9% 1,000 ML IV SCH (08:35)
[2017-04-14] MEDS ORDERED: FUROSEMIDE 40 MG TAB PO SCH (09:00)
[2017-04-14] MEDS: CARVEDILOL 3.125 MG TAB PO SCH ×2 (09:00→21:15)
[2017-04-14] MEDS: DOCUSATE SODIUM 100 MG GELCAP PO SCH ×2 (09:00→21:13)
[2017-04-14] MEDS: LACTOBACILLUS RHAMNOSUS GG 1 EACH CAP PO SCH (09:01)
[2017-04-14] MEDS: ALLOPURINOL 100 MG TAB PO SCH (09:01)
[2017-04-14] MEDS: LISINOPRIL 10 MG TAB PO SCH (09:01)
[2017-04-14] MEDS: ASPIRIN 81 MG TAB.CHEW PO SCH (09:01)
[2017-04-14] MEDS: INSULIN DETEMIR 100 UNITS/ML 10 ML VIAL SUBQ SCH (09:08)
--- NOTE | 2017-04-14 09:15 | NUR ---
EXPLAINED ABOUT MD ORDER OF STRAIGHT CATH FOR COLLECTION OF URINE FOR UA AND UDS. PT. VERBALIZED UNDERSTANDING BUT REFUSED IN ANGRY TONE OF VOICE.
--- NOTE | 2017-04-14 09:32 | NUR ---
CM NOTE INITIAL REVIEW FAXED TO [facility] [phone] PH# [phone] AND TO [facility] [phone] KORI PH# [phone]
[2017-04-14] MEDS: INSULIN LISPRO SLIDING SCALE 100 UNITS/ML VIAL SUBQ PRN ×2 (11:38→22:17)
--- NOTE | 2017-04-14 11:40 | NUR ---
WENT TO BATHROOM WITHOUT ASSISTANCE. TOLERATED WELL. NO SOB, NOTED. REFUSED URINE SPECIMEN COLLECTION.
--- NOTE | 2017-04-14 13:03 | NUR ---
PT SLEEPING NO TX GIVEN AT THIS TIME NO SIGNS OF DISTRESS NOTED
--- NOTE | 2017-04-14 16:00 | NUR ---
VITALS SIGNS STABLE. NO C/O PAIN. WILL MONITOR.
[2017-04-14] MEDS: WARFARIN 1 MG, WARFARIN 5 MG PO SCH ×2 (17:20)
--- NOTE | 2017-04-14 19:22 | NUR ---
BEDSIDE REPORT GIVEN TO REKHA RODGERS. IVF INFUSING WELL. IN STABLE CONDITION.
--- NOTE | 2017-04-14 20:00 | NUR ---
RECEIVED ALERT,ORIENTED. AFEBRILE, NOT IN ACUTE DISTRESS. COMPLAINED OF BILATERAL LEG PAIN. PT.JUST FINISHED BREATHING TREATMENT. REFUSED OXYGEN AT THIS TIME. IV FLUID NS INFUSING AT 20 ML/HR VIA RIGHT FOREARM #20 IV LINE. SAO2=98% ON ROOM AIR. 100% PACING AT 70 ML/HR ON THE MONITOR. VS STABLE, WILL CONTINUE TO MONITOR. NEEDS ATTENDED.
[2017-04-14] MEDS: FUROSEMIDE 20 MG/2 ML VIAL IVP SCH (21:13)
[2017-04-14] MEDS: ATORVASTATIN 20 MG TAB PO SCH (21:14)
[2017-04-14] MEDS: HYDROcodone/APAP 7.5/325 MG 1 TAB PO PRN (21:15)
--- NOTE | 2017-04-14 21:15 | NUR ---
DUE MEDICATIONS GIVEN SCHEDULED.
--- NOTE | 2017-04-14 21:25 | NUR ---
NAQCYVRIK=[id number]. PT.GOT UPSET AND BECAME AGITATED. HE SAID HE WANTS ANOTHER NURSE TO TAKE CARE OF HIM. SIGN BUILDER KELLY NOTIFIED.
--- NOTE | 2017-04-14 22:00 | NUR ---
ENDORSED CARE TO JOEY ROMAN.
--- NOTE | 2017-04-14 22:19 | NUR ---
RECEIVED REPORT FROM RN, REKHA KILPATRICK. PER ABEL DA SILVA, DUE MEDICATIONS ALL GIVEN, EXCEPT HUMALOG 2UNITS, AND PATIENT BLOOD SUGAR IS 153. PATIENT RESTING IN BED, NO S/S OF DISTRESS NOTED, RESPIRATION EVEN AND UNLABORED, CALL LIGHT WITHIN REACH, SAFETY MEASURE ENSURED, WILL CONTINUE TO MONITOR.
[2017-04-14] MEDS ORDERED: LACTULOSE 20 GM/30 ML UDC PO SCH (23:55)
--- NOTE | 2017-04-15 00:40 | NUR ---
PATIENT ASKED FOR STOOL SOFTENER, MADE DR. JAFFE AWARE, RECEIVED ORDER OF LACTULOSE 20GM/30ML PO. ORDER NOTED AND CARRIED OUT.
--- NOTE | 2017-04-15 02:38 | NUR ---
PATIENT WALKED TO THE NURSE' STATION, YELLING," I DON'T LIKE THE YONY NEXT TO ME, I WANT ANOTHER ROOM." TRIED TO ASSIST THE PATIENT BACK TO HIS ROOM, PATIENT BECAME AGITATED AND SAID," I WON'T LEAVE UNTIL I HAVE ANOTHER ROOM." CHARGE NURSE MADE ADJUSTMENT, PATIENT SWITCHED TO ROOM 117.
[2017-04-15] MEDS ORDERED: LORazepam 1 MG TAB PO ONE (03:15)
[2017-04-15 04:00] VITALS: BP 121/71
[2017-04-15] MEDS: CLINDAMYCIN 600 MG in DEXTROSE 5% 50 ML IV SCH ×3 (04:34→21:15)
--- NOTE | 2017-04-15 04:37 | NUR ---
DUE MEDICATION GIVEN, PATIENT TOLERATED WELL. NO S/S OF DISTRESS NOTED, PATIENT IS RESTING IN BED AND WATCHING TV.
[2017-04-15 06:30] LABS: BASOPHILS # (AUTO) 0.2 K/uL (0.00-0.22); BASOPHILS % (AUTO) 3.7 % (0.0-2.0); EOSINOPHILS # (AUTO) 0.3 K/uL (0-0.4); EOSINOPHILS % (AUTO) 4.6 % (0.0-4.0); HEMATOCRIT 40.3 % (36-52); LYMPHOCYTES # (AUTO) 1.2 K/uL (2.0-11.5); LYMPHOCYTES % (AUTO) 19.8 % (20.5-51.1); MEAN CORPUSCULAR HEMOGLOBIN 28 pg (27-31); MEAN CORPUSCULAR HGB CONC 32 g/dL (33-37); MEAN CORPUSCULAR VOLUME 86 fL (80-94); MONOCYTES # (AUTO) 0.8 K/uL (0.8-1.0); MONOCYTES % (AUTO) 12.4 % (1.7-9.3); NEUTROPHILS # (AUTO) 3.6 K/uL (1.8-7.7); NEUTROPHILS % (AUTO) 59.5 % (42.2-75.2); PLATELET COUNT (AUTO) 172 K/uL (140-450); RED BLOOD CELL COUNT(AUTO) 4.67 MIL/uL (4.20-6.10); RED CELL DISTRIBUTION WIDTH 21.1 % (11.6-13.7); WHITE BLOOD COUNT (AUTO) 6.1 K/uL (4.8-10.8)
[2017-04-15] MEDS: BLOOD GLUCOSE MONITORING 1 DEV DEV FS SCH ×4 (06:46→21:06)
--- NOTE | 2017-04-15 06:54 | NUR ---
PATIENT IS SLEEPING, NO CHANGE IN CONDITION, RESPIRATION EVEN AND UNLABORED, CALL LIGHT WITHIN REACH, SAFETY MEASURE ENSURED, WILL CONTINUE TO MONITOR.
--- NOTE | 2017-04-15 07:11 | NUR ---
ASSUMED CONTINUITY OF CARE. NO SIGNS AND SYMPTOMS OF ACUTE DISTRESS NOTED. INITIAL ASSESSMENT DONE. HOB ELEVATED AND KEEP COMFORTABLE ON BED. EXPLAINED DIAGNOSIS, PLAN OF CARE, PAIN MANAGEMENT TEACHING, USE OF CALL LIGHT/BED/TV/BATHROOM. VERBALIZED UNDERSTANDING. FALL PRECAUTION APPLIED. CALL LIGHT WITHIN REACH.
[2017-04-15] MEDS: ALBUTEROL SULFATE/IPRATROPIU 3 ML SOL IH SCH ×3 (07:16→19:28)
--- NOTE | 2017-04-15 07:28 | NUR ---
ENDORSED PLAN OF CARE TO DAY RN SEMAJ, PATIENT RESTING IN BED, IN STABLE CONDITION. RESPIRATION EVEN AND UNLABORED.
[2017-04-15 07:36] LABS: ANION GAP 13.5 (8-16); CARBON DIOXIDE 27.3 mmol/L (21-32); CREATININE 1.5 mg/dL (0.7-1.3); POTASSIUM 4.8 mmol/L (3.5-5.1)
[2017-04-15 07:45] LABS: MAGNESIUM 2.3 mg/dL (1.8-2.4); PHOSPHORUS 4.8 mg/dL (2.5-4.9)
[2017-04-15 08:00] VITALS: BP 115/72
--- NOTE | 2017-04-15 08:00 | NUR ---
Patient's Plan of Care was discussed and reviewed with STENOGRAPHIC COURT REPORTER: ROSA
[2017-04-15] MEDS: DOCUSATE SODIUM 100 MG GELCAP PO SCH ×2 (08:30→21:16)
[2017-04-15] MEDS: LISINOPRIL 10 MG TAB PO SCH (08:30)
[2017-04-15] MEDS: LACTOBACILLUS RHAMNOSUS GG 1 EACH CAP PO SCH (08:31)
[2017-04-15] MEDS: ASPIRIN 81 MG TAB.CHEW PO SCH (08:31)
[2017-04-15] MEDS: CARVEDILOL 3.125 MG TAB PO SCH ×2 (08:32→21:17)
[2017-04-15] MEDS: ALLOPURINOL 100 MG TAB PO SCH (08:32)
[2017-04-15] MEDS: NACL 0.9% 1,000 ML IV SCH (08:35)
[2017-04-15] MEDS: INSULIN DETEMIR 100 UNITS/ML 10 ML VIAL SUBQ SCH (08:37)
[2017-04-15] MEDS: FUROSEMIDE 20 MG/2 ML VIAL IVP SCH ×2 (08:38→21:16)
--- NOTE | 2017-04-15 09:27 | NUR ---
DR. GUILLORY CAME, CHECK PT. CHART AND SEEN PT..
--- NOTE | 2017-04-15 10:14 | NUR ---
AMBULATES ON HALLWAY WITHOUT ASSISTANCE. TOLERATED WELL. HAD STEADY GAIT AND BALANCE. NO SOB, NOTED.
[2017-04-15] MEDS: INSULIN LISPRO SLIDING SCALE 100 UNITS/ML VIAL SUBQ PRN ×2 (11:43→21:13)
[2017-04-15 12:00] VITALS: BP 108/66
--- NOTE | 2017-04-15 12:55 | NUR ---
CHAPIN WALL WENT INSIDE PT. ROOM AND SPOKE TO PT..
--- NOTE | 2017-04-15 13:10 | NUR ---
PT IS ASLEEP. HHN TX NOT GIVEN. RN AWARE
[2017-04-15 16:00] VITALS: BP 117/77
--- NOTE | 2017-04-15 16:00 | NUR ---
VITALS SIGNS STABLE. NO C/O PAIN. WILL MONITOR.
[2017-04-15] MEDS ORDERED: WARFARIN 1 MG TAB PO SCH (17:00)
--- NOTE | 2017-04-15 19:13 | NUR ---
BEDSIDE REPORT GIVEN TO JOEY RODGERS. IN STABLE CONDITION.
--- NOTE | 2017-04-15 19:20 | NUR ---
RECEIVED REPORT FROM DAY SHIFT NURSE. PATIENT RESTING IN BED, NO S/S OF DISTRESS NOTED, RESPIRATION EVEN AND UNLABORED, CALL LIGHT WITHIN REACH, SAFETY MEASURE ENSURED, WILL CONTINUE TO MONITOR.
[2017-04-15 20:00] VITALS: BP 114/60
[2017-04-15] MEDS: ATORVASTATIN 20 MG TAB PO SCH (21:17)
--- NOTE | 2017-04-15 21:38 | NUR ---
DUE MEDICATION GIVEN, PATIENT TOLERATED WELL. NO S/S OF DISTRESS NOTED, RESPIRATION EVEN AND UNLABORED, CALL LIGHT WITHIN REACH, SAFETY MEASURE ENSURED, WILL CONTINUE TO MONITOR.
--- NOTE | 2017-04-15 22:50 | NUR ---
PATIENT SAID," I WANT TO BE DISCONNECTED FROM THE IV, I DON'T WANT THE IV." EDUCATED PATIENT THE IMPORTANCE OF HAVING IV FLUIDS, PATIENT STILL REFUSED AND SAID," IF YOU DON'T TAKE THAT OFF, I WILL DO IT MYSELF, TAKE THAT OFF ME NOW." IV FLUIDS DISCONNECTED AT THIS TIME.
[2017-04-16] VITALS: BP_SYST 110; BP_SYST 130; BP_DIAS 67; BP_DIAS 72
--- NOTE | 2017-04-16 00:43 | NUR ---
PATIENT STANDING IN FRONT OF THE NURSE'S STATION AND SAID," I WANT TO TAKE A SHOWER NOW." TRIED TO ASSISTED PATIENT BACK TO HIS ROOM. PATIENT REFUSED, AND YELLING, " I WANT TO TAKE A SHOWER NOW." MADE DR. JAFFE AWARE, RECEIVED ORDER " MAY SHOWER." INSTRUCTED APPRENTICE PLUMBER TO STAY WITH THE PATIENT WHEN HE IS IN SHOWER.
[2017-04-16] MEDS: ALBUTEROL SULFATE/IPRATROPIU 3 ML SOL IH SCH ×4 (01:26→19:29)
[2017-04-16] MEDS: ALBUTEROL SULFATE/IPRATROPIU 3 ML SOL IH PRN (01:27)
--- NOTE | 2017-04-16 02:10 | NUR ---
PATIENT ASLEEP IN BED, RESPIRATION EVEN AND UNLABORED, CALL LIGHT WITHIN REACH, SAFETY MEASURE ENSURED, WILL CONTINUE TO MONITOR.
[2017-04-16 04:00] VITALS: BP 119/71
[2017-04-16] MEDS: CLINDAMYCIN 600 MG in DEXTROSE 5% 50 ML IV SCH ×3 (04:02→21:08)
--- NOTE | 2017-04-16 04:06 | NUR ---
PATIENT WAS SLEEPING, EASY TO AROUSE. VITAL SIGNS STABLE. CALL LIGHT WITHIN REACH, SAFETY MEASURE ENSURED, WILL CONTINUE TO MONITOR.
[2017-04-16] MEDS: HYDROcodone/APAP 7.5/325 MG 1 TAB PO PRN ×2 (04:31→23:45)
--- NOTE | 2017-04-16 04:35 | NUR ---
PATIENT CAME TO THE NURSE'S STATION, STATED," I WANT NORCO, I IN PAIN ABOUT 5/10." ASSISTED PATIENT BACK TO HIS ROOM. ADMINISTERED NORCO ORDERED. CALL LIGHT WITHIN REACH, SAFETY MEASURE ENSURED, WILL CONTINUE TO MONITOR.
[2017-04-16] MEDS: BLOOD GLUCOSE MONITORING 1 DEV DEV FS SCH ×4 (06:35→20:55)
[2017-04-16 06:47] LABS: BASOPHILS # (AUTO) 0.2 K/uL (0.00-0.22); BASOPHILS % (AUTO) 3.1 % (0.0-2.0); EOSINOPHILS # (AUTO) 0.4 K/uL (0-0.4); EOSINOPHILS % (AUTO) 5.6 % (0.0-4.0); HEMATOCRIT 40.6 % (36-52); HEMOGLOBIN 13.3 g/dL (12.0-18.0); LYMPHOCYTES # (AUTO) 1.1 K/uL (2.0-11.5); LYMPHOCYTES % (AUTO) 16.9 % (20.5-51.1); MEAN CORPUSCULAR HEMOGLOBIN 28 pg (27-31); MEAN CORPUSCULAR HGB CONC 33 g/dL (33-37); MEAN CORPUSCULAR VOLUME 85 fL (80-94); MONOCYTES # (AUTO) 0.8 K/uL (0.8-1.0); MONOCYTES % (AUTO) 12.6 % (1.7-9.3); NEUTROPHILS # (AUTO) 4.2 K/uL (1.8-7.7); NEUTROPHILS % (AUTO) 61.8 % (42.2-75.2); PLATELET COUNT (AUTO) 176 K/uL (140-450); RED BLOOD CELL COUNT(AUTO) 4.78 MIL/uL (4.20-6.10); RED CELL DISTRIBUTION WIDTH 20.7 % (11.6-13.7); WHITE BLOOD COUNT (AUTO) 6.7 K/uL (4.8-10.8)
[2017-04-16 07:09] LABS: MAGNESIUM 2.3 mg/dL (1.8-2.4); PHOSPHORUS 4.5 mg/dL (2.5-4.9)
[2017-04-16 07:13] LABS: ANION GAP 11.1 (8-16); CARBON DIOXIDE 26.3 mmol/L (21-32); CREATININE 1.6 mg/dL (0.7-1.3); POTASSIUM 5.4 mmol/L (3.5-5.1)
--- NOTE | 2017-04-16 07:31 | NUR ---
ENDORSED PLAN OF CARE TO DAY RN. PATIENT IS IN STABLE CONDITION. NO S/S OF DISTRESS NOTED.
--- NOTE | 2017-04-16 07:32 | NUR ---
RECEIVED REPORT FROM CLIENT APPLICATION SUPPORT SPECIALIST NURSE JOEY AT BEDSIDE FOR CONTINUITY OF CARE. PT IS AWAKE AND ORIENTED. INTRODUCED SELF AND UPDATED BOARD. PT GOT UP OUT OF BED AND PULLED IV TUBING OUT. REINFORCED IV SITE AND CHANGED DRESSING. IV SITE INTACT. PT WAS CLEANED AND LINENS CHANGED BY ENGRAVER TIRE MOLD. NO SIGNS OF DISTRESS. WILL CONTINUE TO MONITOR.
[2017-04-16 08:00] VITALS: BP 127/71
[2017-04-16] MEDS: DOCUSATE SODIUM 100 MG GELCAP PO SCH ×2 (09:00→21:00)
[2017-04-16] MEDS: ASPIRIN 81 MG TAB.CHEW PO SCH (09:17)
--- NOTE | 2017-04-16 09:17 | NUR ---
ADMINISTERED SCHEDULED MEDS. PT REFUSED COLACE. STATED HE ALREADY HAD A BM YESTERDAY. NON-ADMIN COLACE. PT TOLERATED ADMINISTERED MEDS WELL. IV IS INFUSING AT RIGHT FA 20G NS @20ML/HR. FLUSHED WITH 10ML NS. SITE INTACT. PT DENIES PAIN. NO COMPLAINTS AT THIS TIME. WILL CONTINUE TO MONITOR.
[2017-04-16] MEDS: ALLOPURINOL 100 MG TAB PO SCH (09:18)
[2017-04-16] MEDS: CARVEDILOL 3.125 MG TAB PO SCH ×2 (09:18→20:53)
[2017-04-16] MEDS: LACTOBACILLUS RHAMNOSUS GG 1 EACH CAP PO SCH (09:18)
[2017-04-16] MEDS: NACL 0.9% 1,000 ML IV SCH (09:19)
[2017-04-16] MEDS: FUROSEMIDE 20 MG/2 ML VIAL IVP SCH ×2 (09:19→20:55)
[2017-04-16] MEDS: LISINOPRIL 10 MG TAB PO SCH (09:19)
[2017-04-16] MEDS: INSULIN DETEMIR 100 UNITS/ML 10 ML VIAL SUBQ SCH (09:20)
--- NOTE | 2017-04-16 11:25 | NUR ---
PT SLEEPING IN BED RIGHT NOW. NO SIGNS OF DISTRESS. BED IN LOW POSITION, CALL LIGHT WITHIN REACH. WILL CONTINUE TO MONITOR.
[2017-04-16 12:00] VITALS: BP 129/48
[2017-04-16] MEDS: INSULIN LISPRO SLIDING SCALE 100 UNITS/ML VIAL SUBQ PRN ×2 (12:41→17:38)
[2017-04-16] MEDS ORDERED: SODIUM POLYSTYRENE 15 GM/60 ML UDBTL PO SCH (13:37)
--- NOTE | 2017-04-16 15:15 | NUR ---
PT REFUSED KAYEXALATE. STATED HE DID NOT NEED MED BECAUSE HE DOES NOT WANT TO GO TO THE BATHROOM A LOT. NON-ADMIN MED. PT GOT UP OUT OF ROOM AND WALKED TO NURSING STATING REQUESTING THAT HE GET RANCH DRESSING WITH EVERY MEAL. NO OTHER COMPLAINTS AT THIS TIME. PT AMBULATED WITH STEADY GAIT. WILL CONTINUE TO MONITOR.
[2017-04-16 16:00] VITALS: BP 121/71
--- NOTE | 2017-04-16 19:28 | NUR ---
ENDORSED PT TO CREEL CLERK NURSE AT BEDSIDE FOR CONTINUITY OF CARE. PT WITH RT RIGHT NOW. IN STABLE CONDITION.
--- NOTE | 2017-04-16 19:29 | NUR ---
RECEIVED BEDSIDE REPORT FROM DAY SHIFT NURSE ODILIA RN, PT STABLE, NO DISTRESS NOTED, AAOX4, IV TO THE R FA RUNNING NS @20 ML/HR, INFUSING WELL, REPORTED HAVING TOLERABLE PAIN OF 4/10 AT THIS TIME, PT AMBULATES TO THE NURSING STATION AND BACK TO BED, LEFT RESTING, CALL LIGHT WITHIN REACH, INITIAL ASSESSMENT DONE, ALL SAFETY PRECAUTION MET.
[2017-04-16 20:00] VITALS: BP 130/72
[2017-04-16] MEDS: ATORVASTATIN 20 MG TAB PO SCH (20:53)
--- NOTE | 2017-04-16 23:45 | NUR ---
PT C/O OF PAIN ON BLE 5, PAIN MEDICATION GIVEN, PT TOLERATED WELL, WILL CONTINUE TO MONITOR.
[2017-04-17] VITALS: BP 128/74
--- NOTE | 2017-04-17 01:10 | NUR ---
PT SHOWERED, TOLERATED WELL, WALKED BACK TO BED, NO DISTRESS NOTED, CALL LIGHT WITHIN REACH.
[2017-04-17] MEDS: ALBUTEROL SULFATE/IPRATROPIU 3 ML SOL IH PRN (02:36)
[2017-04-17] MEDS: CLINDAMYCIN 600 MG in DEXTROSE 5% 50 ML IV SCH (05:31)
[2017-04-17] MEDS: BLOOD GLUCOSE MONITORING 1 DEV DEV FS SCH ×2 (06:31→11:30)
[2017-04-17] MEDS: ALBUTEROL SULFATE/IPRATROPIU 3 ML SOL IH SCH (07:00)
--- NOTE | 2017-04-17 07:10 | NUR ---
ENDORSED PT TO DAY SHIFT NURSE JOSÉ MIGEUL RN, PT STABLE, SLEEPING, NO DISTRESS NOTED, CALL LIGHT WITHIN REACH.
--- NOTE | 2017-04-17 07:20 | NUR ---
RECEIVED REPORT FROM PROGRAMS ASSISTANT NURSE. PT IS AWAKE AND ORIENTED. INTRODUCED SELF AND UPDATED BOARD. IV NOTED ON THE RIGHT FA 20G, INFUSING WELL, NO SWELLING OR INFILTRATION NOTED. NO S/S OF DISTRESS NOTED. WILL CONTINUE TO MONITOR.
[2017-04-17 07:48] LABS: BASOPHILS # (AUTO) 0.3 K/uL (0.00-0.22); BASOPHILS % (AUTO) 3.4 % (0.0-2.0); EOSINOPHILS # (AUTO) 0.3 K/uL (0-0.4); EOSINOPHILS % (AUTO) 4.1 % (0.0-4.0); HEMATOCRIT 40.7 % (36-52); HEMOGLOBIN 13.2 g/dL (12.0-18.0); LYMPHOCYTES # (AUTO) 0.8 K/uL (2.0-11.5); LYMPHOCYTES % (AUTO) 10.9 % (20.5-51.1); MEAN CORPUSCULAR HEMOGLOBIN 28 pg (27-31); MEAN CORPUSCULAR HGB CONC 32 g/dL (33-37); MEAN CORPUSCULAR VOLUME 86 fL (80-94); MONOCYTES # (AUTO) 0.8 K/uL (0.8-1.0); MONOCYTES % (AUTO) 10.8 % (1.7-9.3); NEUTROPHILS # (AUTO) 5.5 K/uL (1.8-7.7); NEUTROPHILS % (AUTO) 70.8 % (42.2-75.2); PLATELET COUNT (AUTO) 180 K/uL (140-450); RED BLOOD CELL COUNT(AUTO) 4.75 MIL/uL (4.20-6.10); WHITE BLOOD COUNT (AUTO) 7.7 K/uL (4.8-10.8)
[2017-04-17 08:00] VITALS: BP 129/71
[2017-04-17 08:01] LABS: PROTHROMBIN TIME 25.8 secs (10.8-13.4)
[2017-04-17 08:21] LABS: ANION GAP 11.7 (8-16); CARBON DIOXIDE 26.9 mmol/L (21-32); CREATININE 1.4 mg/dL (0.7-1.3); POTASSIUM 4.6 mmol/L (3.5-5.1)
[2017-04-17 08:26] LABS: MAGNESIUM 2.2 mg/dL (1.8-2.4); PHOSPHORUS 4.1 mg/dL (2.5-4.9)
[2017-04-17] MEDS: NACL 0.9% 1,000 ML IV SCH (08:35)
[2017-04-17] MEDS: CARVEDILOL 3.125 MG TAB PO SCH (08:53)
[2017-04-17] MEDS: ASPIRIN 81 MG TAB.CHEW PO SCH (08:53)
[2017-04-17] MEDS: ALLOPURINOL 100 MG TAB PO SCH (08:54)
[2017-04-17] MEDS: FUROSEMIDE 20 MG/2 ML VIAL IVP SCH (08:54)
[2017-04-17] MEDS: DOCUSATE SODIUM 100 MG GELCAP PO SCH (09:00)
--- NOTE | 2017-04-17 09:00 | NUR ---
PT BUMPED HIS LEFT FOOT, SMALL TOE HAS BEEN BLEEDING. BLEEDING STOPPED, CLEANED WITH ANTISEPTIC SWAB, PUT ON BANDAGE AND NEW YELLOW SOCKS. PT TOLERATED WELL.
[2017-04-17] MEDS: LACTOBACILLUS RHAMNOSUS GG 1 EACH CAP PO SCH (09:01)
[2017-04-17] MEDS: INSULIN DETEMIR 100 UNITS/ML 10 ML VIAL SUBQ SCH (09:11)
--- NOTE | 2017-04-17 10:24 | NUR ---
04/17/17 RD INITIAL ASSESSMENT COMPLETED PLEASE REFER TO NUTRITION ASSESSMENT UNDER CARE ACTIVITY FOR ESTIMATED NUTRITIONAL NEEDS. RD RECOMMENDATIONS: 1- RECOMMEND 60G CCHO 2G NA DIET 2- FOLLOW UP 3-5 DAYS; MODERATE RISK. BOSSMAN VELÁZQUEZ MBA, RD
--- NOTE | 2017-04-17 10:55 | NUR ---
PT HAS BEEN SEEN BY DR. PASTRANA SITTING ON BEDSIDE CHATTING WITH DR. GONZALEZ S/S OF ACUTE DISTRESS.
[2017-04-17] MEDS ORDERED: CLIN300C2 PO (11:38)
[2017-04-17] MEDS ORDERED: SPIR50TA PO (11:52)
--- NOTE | 2017-04-17 12:30 | NUR ---
DISCHARGE INSTRUCTIONS AND MEDICATION TEACHING GIVEN. PT VERBALIZED UNDERSTANDING. IV CATH REMOVED, TIP INTACT, PRESSURE APPLIED. BLOOD GLUCOSE CHECKED, 111. BUS PASS PROVIDED. PT LEFT IN STABLE CONDITION AND WITH ALL HIS BELONGINGS.
[2017-04-17] MEDS ORDERED: WARFARIN 1 MG TAB PO SCH ×2 (17:00)
[2017-04-17] MEDS ORDERED: WARFARIN 2 MG TAB PO SCH (17:00)
== END 2017-04-17 12:30 | disposition home or self-care (01) | DRG 383 ==
LOC: MED 06:17 → MTU 08:35
PROVIDERS: ADMIT Family Medicine; ATTEND Family Medicine
DX: L03.115 Cellulitis of right lower limb (principal); J96.01 Acute respiratory failure with hypoxia; N17.0 Acute kidney failure with tubular necrosis; I50.43 Acute on chronic combined systolic (congestive) and diastolic (congestive) heart failure; D68.59 Other primary thrombophilia; E11.22 Type 2 diabetes mellitus with diabetic chronic kidney disease; I42.9 Cardiomyopathy, unspecified; E86.0 Dehydration; I48.2 Chronic atrial fibrillation; I13.0 Hypertensive heart and chronic kidney disease with heart failure and stage 1 through stage 4 chronic kidney disease, or unspecified chronic kidney disease; E11.51 Type 2 diabetes mellitus with diabetic peripheral angiopathy without gangrene; E11.65 Type 2 diabetes mellitus with hyperglycemia; E02 Subclinical iodine-deficiency hypothyroidism; J44.1 Chronic obstructive pulmonary disease with (acute) exacerbation; I25.10 Atherosclerotic heart disease of native coronary artery without angina pectoris; M10.9 Gout, unspecified; N18.9 Chronic kidney disease, unspecified; F15.11 Other stimulant abuse, in remission; E87.5 Hyperkalemia; K21.9 Gastro-esophageal reflux disease without esophagitis; Z96.659 Presence of unspecified artificial knee joint; R79.89 Other specified abnormal findings of blood chemistry; F19.20 Other psychoactive substance dependence, uncomplicated; Z79.01 Long term (current) use of anticoagulants; Z88.8 Allergy status to other drugs, medicaments and biological substances; Z95.0 Presence of cardiac pacemaker; Z86.718 Personal history of other venous thrombosis and embolism; Z90.49 Acquired absence of other specified parts of digestive tract; Z82.5 Family history of asthma and other chronic lower respiratory diseases; Z80.0 Family history of malignant neoplasm of digestive organs; Z82.49 Family history of ischemic heart disease and other diseases of the circulatory system; Z82.3 Family history of stroke; Z84.1 Family history of disorders of kidney and ureter; Z71.51 Drug abuse counseling and surveillance of drug abuser; Z79.899 Other long term (current) drug therapy
CPT/HCPCS: 36415; 36600; 71010; 71020; 80048; 80053; 82150; 82550; 82553; 82803; 82948; 83036; 83605; 83690; 83735; 83880; 84100; 84439; 84443; 84484; 85025; 85610; 87040; 87081; 93005; 93970; 94640; 96361; 96374; 99285; J1815; J1940; J3490; J7030; J7060; J7613; J7620; Q0092

== ENCOUNTER 2017-04-21 01:00 | Inpatient (IN) | payer MEDICAID ==
[~2017-04-21] VITALS: Ht 180.3 cm; Wt 89.8 kg
[~2017-04-21 01:00] MED LIST changes: -AMOX-1000 PO; +CLIN300C2 PO; -LACT10CA1 PO; +SPIR50TA PO
[2017-04-21 01:06] VITALS: BP 132/74
--- NOTE | 2017-04-21 01:22 | NUR ---
PT TAKEN TO BED 11
--- NOTE | 2017-04-21 01:24 | NUR ---
Dr. Marie evaluating patient at bedside.
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
[2017-04-21] MEDS ORDERED: FUROSEMIDE 20 MG/2 ML VIAL IVP ONE (01:35)
[2017-04-21] MEDS ORDERED: IPRATROPIUM 0.02% 0.5 MG/2.5 ML NEBU INH ONE (01:35)
[2017-04-21] MEDS ORDERED: ALBUTEROL 0.083% 2.5 MG/3 ML NEBU INH ONE (01:35)
--- NOTE | 2017-04-21 01:51 | NUR ---
X-Ray at bedside.
--- NOTE | 2017-04-21 02:00 | NUR ---
Respiratory Therapist at bedside for respiratory intervention.
[2017-04-21 02:01] LABS: HEMOGLOBIN 14.1 g/dL (12.0-18.0); MEAN CORPUSCULAR HEMOGLOBIN 27 pg (27-31); MEAN CORPUSCULAR HGB CONC 32 g/dL (33-37); MEAN CORPUSCULAR VOLUME 86 fL (80-94); PLATELET COUNT (AUTO) 211 K/uL (140-450); RED BLOOD CELL COUNT(AUTO) 5.14 MIL/uL (4.20-6.10); RED CELL DISTRIBUTION WIDTH 20.7 % (11.6-13.7); WHITE BLOOD COUNT (AUTO) 6.6 K/uL (4.8-10.8)
[2017-04-21 02:02] LABS: ANION GAP 11.9 (8-16); CARBON DIOXIDE 30.4 mmol/L (21-32); CREATININE 1.6 mg/dL (0.7-1.3); POTASSIUM 4.3 mmol/L (3.5-5.1)
[2017-04-21 02:03] LABS: EOSINOPHILS % (MANUAL) 4 % (0-4); LYMPHOCYTES % (MANUAL) 14 % (20-46); MONOCYTES % (MANUAL) 11 % (5-12)
[2017-04-21 02:10] LABS: ALBUMIN 3.2 g/dL (3.4-5.0); TOTAL BILIRUBIN 1.9 mg/dL (0.0-1.0)
[2017-04-21 02:15] LABS: PROTHROMBIN TIME 13.1 secs (10.8-13.4)
[2017-04-21] MEDS: NACL 0.9% 1,000 ML IV SCH (02:43)
[2017-04-21] MEDS ORDERED: ACETAMINOPHEN 325 MG TAB PO PRN (02:45)
[2017-04-21] MEDS ORDERED: HYDROcodone/APAP 7.5/325 MG 1 TAB PO PRN (02:45)
[2017-04-21] MEDS ORDERED: ONDANSETRON 4 MG/2 ML VIAL IVP PRN (02:45)
[2017-04-21] MEDS ORDERED: DEXTROSE 50% 50 ML SYR IVP PRN (02:50)
[2017-04-21] MEDS ORDERED: NITROGLYCERIN 0.4 MG TAB SL PRN (02:50)
[2017-04-21] MEDS ORDERED: CARV3.12 PO (02:59)
[2017-04-21] MEDS ORDERED: NAPR500T1 PO (02:59)
[2017-04-21 03:25] LABS: CHOL/HDL RATIO 2.5 (1-4.5); FREE T4 (FREE THYROXINE) 0.95 ng/dL (0.76-1.46); MAGNESIUM 2.2 mg/dL (1.8-2.4); PHOSPHORUS 4.8 mg/dL (2.5-4.9); THYROID STIMULATING HORMONE 3.38 uIU/mL (0.34-3.74)
--- NOTE | 2017-04-21 03:25 | NUR ---
RECEIVED PT FROM ER VIA ZULEIKA. AAOX4. NO DISTRESS NOTED. DISCUSSED PLAN OF CARE, PT VERBALIZED UNDERSTANDING. IV TO LEFT FA #20G, PATENT AND INTACT. ORIENTED PT TO ROOM. PT HAS REDNESS TO RIGHT LOWER EXT. CALL LIGHT WITHIN REACH. WILL CONTINUE TO MONITOR.
--- NOTE | 2017-04-21 03:25 | NUR ---
Patient will be admitted to [facility] [place]. Admited to TELE. Will go to room 112A. Belongings list completed. Report to DANIEL ROMAN.
[2017-04-21 03:30] VITALS: BP 118/65
[2017-04-21] MEDS: INSULIN DETEMIR 100 UNITS/ML 10 ML VIAL SUBQ SCH ×2 (03:40→06:32)
--- NOTE | 2017-04-21 04:00 | NUR ---
CLARIFIED LEVEMIR INSULIN ORDER TO DR. JAFFE. STATED TO GIVE LEVEMIR INSULIN AT 0630 AND DO NOT GIVE LEVEMIR AT 0340.
--- NOTE | 2017-04-21 05:00 | NUR ---
PT RESTING IN BED. PT REFUSED SCD'S.
[2017-04-21] MEDS: BLOOD GLUCOSE MONITORING 1 DEV DEV FS SCH ×4 (06:29→20:53)
[2017-04-21] MEDS: INSULIN LISPRO SLIDING SCALE 100 UNITS/ML VIAL SUBQ PRN ×2 (06:30→18:21)
[2017-04-21] MEDS ORDERED: CLINDAMYCIN 600 MG/4 ML VIAL ONE (06:49)
[2017-04-21] MEDS ORDERED: CLINDAMYCIN 600 MG in DEXTROSE 5% 50 ML IV SCH (07:00)
--- NOTE | 2017-04-21 07:15 | NUR ---
ENDORSED TO DAY SHIFT NURSE. PT IN STABLE CONDITION.
--- NOTE | 2017-04-21 07:16 | NUR ---
RECEIVED REPORT FROM NIGHT NURSE AT PT BEDSIDE. PATIENT RESTING IN BED. DENIES SOB, DISTRESS. INTERMITTENT COUGHING NO SPUTUM. IV SITE PATENT AND INTACT. DENIES CHEST PAIN. REFUSES SCDS, EXPLAINED TO PATIENT USE AND BENEFITS , CONTINUED TO REFUSE. BED IN LOWEST POSITION. CALL LIGHT WITHIN REACH. WILL CONTINUE TO MONITOR.
[2017-04-21 08:00] VITALS: BP 117/64
[2017-04-21] MEDS: ALBUTEROL SULFATE/IPRATROPIU 3 ML SOL IH SCH ×3 (08:01→19:05)
[2017-04-21] MEDS: LISINOPRIL 10 MG TAB PO SCH (08:47)
[2017-04-21] MEDS: DOCUSATE SODIUM 100 MG GELCAP PO SCH ×2 (08:47→20:55)
[2017-04-21] MEDS: ALLOPURINOL 100 MG TAB PO SCH (08:47)
[2017-04-21] MEDS: SPIRONOLACTONE 50 MG TAB PO SCH (08:48)
[2017-04-21] MEDS: FUROSEMIDE 40 MG/4 ML VIAL IVP SCH (08:48)
[2017-04-21] MEDS: CARVEDILOL 3.125 MG TAB PO SCH ×2 (08:48→20:55)
[2017-04-21] MEDS: PANTOPRAZOLE 40 MG INJ VIAL IVP SCH (08:48)
[2017-04-21] MEDS: ASPIRIN 81 MG TAB.CHEW PO SCH (08:48)
[2017-04-21] MEDS ORDERED: LACTOBACILLUS RHAMNOSUS GG 1 EACH CAP PO SCH (09:00)
--- NOTE | 2017-04-21 09:11 | NUR ---
PATIENT HAS BEEN SCREENED AND CATEGORIZED MODERATE NUTRITION RISK. PATIENT WILL BE SEEN WITHIN 3-5 DAYS OF ADMISSION. 04/23/17-04/25/[address]
--- NOTE | 2017-04-21 10:47 | NUR ---
PATIENT SLEEPING. ON ROOM AIR. NO S/S OF ACUTE DISTRESS NOTED. AMBULATORY TO BATHROOM WITHOUT ASSIST.
--- NOTE | 2017-04-21 11:33 | NUR ---
CM NOTE INITIAL REVIEW FAXED TO [facility] [phone] PH# [phone] AND TO [facility] [phone] LAYTON SHEIKH PH# [phone]
[2017-04-21 12:00] VITALS: BP 122/70
[2017-04-21] MEDS: CLINDAMYCIN 600 MG in DEXTROSE 5% 50 ML IV SCH ×2 (12:55→20:54)
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
--- NOTE | 2017-04-21 13:58 | NUR ---
PATIENT SITTING UP IN BED. INTERMITTENT COUGH, NO SPUTUM COUGHED UP. PATIENT TOLERATED LUNCH. AWAKE AND ALERT. DENIES DISCOMFORT. NO S/S OF ACUTE DISTRESS NOTED.
[2017-04-21 16:00] VITALS: BP 103/64
--- NOTE | 2017-04-21 16:20 | NUR ---
PATIENT TRANSFERRED TO ROOM 111B. PATIENT AMBULATORY. NO S/S OF ACUTE DISTRESS.
[2017-04-21] MEDS ORDERED: WARFARIN 1 MG TAB PO SCH (17:00)
--- NOTE | 2017-04-21 17:10 | NUR ---
PATIENT SLEEPING IN BED. EASILY AWAKENS. NO S/S OF ACUTE DISTRESS. ROOM AIR. DENIES CHEST PAIN.
[2017-04-21] MEDS: LACTOBACILLUS RHAMNOSUS GG 1 EACH CAP PO SCH (18:07)
--- NOTE | 2017-04-21 19:18 | NUR ---
SBAR REPORT GIVEN TO ABEL RAMOS AT PT BEDSIDE. NO S/S OF ACUTE DISTRESS. TOLERATED DINNER WELL. ON ROOM AIR.
--- NOTE | 2017-04-21 19:20 | NUR ---
RECEIVED REPORT FROM AM NURSE. PT RESTING IN BED, AOX4, AMBULATES INDEPENDENTLY, ABLE TO VERBALIZE NEEDS. PT DENIES CHEST PAIN, SOB OR S/S OF ACUTE DISTRESS. CONDITION STABLE, SPO2 95% AT O2 2L NC, RR 18 EVEN AND UNLABORED, HR 70. CLEARANCE CUTTER IN PLACE. PACEMAKER NOTED AT LEFT UPPER CHEST. ABD SOFT, LARGE, ROUND AND NONTENDER. R LE CELLULITIS NOTED, HYDROMETEOROLOGICAL TECHNICIAN. REDNESS NOTED ON BILAT FINGERS AND TOES. MULTIPLE DRY SCABS NOTED. IV ACCESS ASYMPTOMATIC, PATENT AND INTACT. IVF TKO AT 10ML/HR. DISCUSSED AND REVIEWED PLAN OF CARE WITH PT. PT VERBALIZED UNDERSTANDING. ALL NEEDS MET. SAFETY MEASURES ENSURED. CALL LIGHT WITHIN REACH. WILL CONTINUE TO MONITOR.
[2017-04-21 20:00] VITALS: BP 109/64
[2017-04-21] MEDS: ATORVASTATIN 20 MG TAB PO SCH (20:54)
--- NOTE | 2017-04-21 20:59 | NUR ---
BLOOD SUGAR 147, NO INSULIN COVERAGE NEEDED. EVENING SNACK PROVIDED. PT REFUSED COLACE PO. ADMINISTERED REMAINING DUE MEDS WITH EDUCATION. PT VERBALIZED UNDERSTANDING, TOLERATED MEDS WELL. ALL NEEDS MET. IVPB INFUSING WELL. SAFETY MEASURES ENSURED. CALL LIGHT WITHIN REACH. WILL CONTINUE TO MONITOR.
--- NOTE | 2017-04-21 22:38 | NUR ---
CALLED DR JAFFE, MADE AWARE THAT PT WANTED TO SHOWER, RECEIVED ORDERS THAT IT IS OK TO SHOWER. ASSISTED PT TO SHOWER, ABLE TO SHOWER INDEPENDENTLY. PT IS NOW BACK TO BED, NO S/S OF ACUTE DISTRESS, PLACED BACK ON CARDIAC MONITORING, IVF INFUSING WELL.
--- NOTE | 2017-04-21 23:45 | NUR ---
PT SLEEPING COMFORTABLY, AROUSABLE TO NAME, NO S/S OF ACUTE DISTRESS. SPO2 94% AT ROOM AIR, RR 20 EVEN AND UNLABORED, HR 70. ALL NEEDS MET. IVF INFUSING WELL. SAFETY MEASURES ENSURED. CALL LIGHT WITHIN REACH. WILL CONTINUE TO MONITOR.
[2017-04-22] VITALS: BP 106/45
[2017-04-22] MEDS ORDERED: LORazepam 1 MG TAB PO SCH (00:55)
--- NOTE | 2017-04-22 01:20 | NUR ---
CALLED DR JAFFE, PT C/O IRRITABILITY AND AGITATION, PT REQUESTING FOR ATIVAN, RECEIVED ORDER FOR ATIVAN 1MG PO ONCE. ADMINISTERED ATIVAN 1MG PO AT THIS TIME WITH EDUCATION. PT VERBALIZED UNDERSTANDING, TOLERATED MED WELL. ALSO MADE AWARE THAT US VENOUS BLE WAS NOT DONE IN THE AM, DISCUSSED THAT PT'S LAST US VENOUS BLE ON 04/13/17 WAS NEGATIVE FOR DVT, STATED THAT IT STILL NEEDS TO BE DONE DUE TO PT'S WORSENING LE CELLULITIS/REDNESS. CALLED RADIOLOGY, MADE TECH AWARE, TECH STATED THAT US DOES NOT GET HERE UNTIL 0630 BUT WILL LEAVE A NOTE TO HAVE US VENOUS BLE DONE.
[2017-04-22] MEDS: ALBUTEROL SULFATE/IPRATROPIU 3 ML SOL IH PRN ×3 (01:51→23:44)
[2017-04-22] MEDS: NACL 0.9% 1,000 ML IV SCH (02:43)
[2017-04-22 04:00] VITALS: BP 109/61
[2017-04-22] MEDS: CLINDAMYCIN 600 MG in DEXTROSE 5% 50 ML IV SCH ×3 (04:32→21:41)
--- NOTE | 2017-04-22 04:34 | NUR ---
PT SLEEPING COMFORTABLE, AROUSABLE TO NAME, ADMINISTERED DUE MED CLEOCIN IVPB ORDERED, PT STATED "OK." CONDITION STABLE, SPO2 95% AT ROOM AIR, RR 22 EVEN AND UNLABORED, INTERMITTENT NONPRODUCTIVE COUGH NOTED. ALL NEEDS MET. IVPB INFUSING WELL. SAFETY MEASURES ENSURED. CALL LIGHT WITHIN REACH. WILL CONTINUE TO MONITOR.
[2017-04-22 06:27] LABS: HEMATOCRIT 41.8 % (36-52); HEMOGLOBIN 13.3 g/dL (12.0-18.0); MEAN CORPUSCULAR HEMOGLOBIN 27 pg (27-31); MEAN CORPUSCULAR HGB CONC 32 g/dL (33-37); MEAN CORPUSCULAR VOLUME 86 fL (80-94); PLATELET COUNT (AUTO) 194 K/uL (140-450); RED BLOOD CELL COUNT(AUTO) 4.85 MIL/uL (4.20-6.10); WHITE BLOOD COUNT (AUTO) 5.8 K/uL (4.8-10.8)
[2017-04-22 06:31] LABS: ANION GAP 9.1 (8-16); CARBON DIOXIDE 29.3 mmol/L (21-32); CREATININE 1.7 mg/dL (0.7-1.3); POTASSIUM 4.4 mmol/L (3.5-5.1)
[2017-04-22] MEDS: INSULIN DETEMIR 100 UNITS/ML 10 ML VIAL SUBQ SCH (06:43)
[2017-04-22] MEDS: BLOOD GLUCOSE MONITORING 1 DEV DEV FS SCH ×4 (06:44→21:34)
--- NOTE | 2017-04-22 06:46 | NUR ---
BLOOD GLUCOSE 116, NO HUMALOG INSULIN COVERAGE NEEDED. NO INSULIN LEVEMIR IN THE UNIT, CALLED HEARING AIDE TECHNICIAN, RECEIVED INSULIN LEVEMIR FROM HEARING AIDE TECHNICIAN, ADMINISTERED INSULIN LEVEMIR 25UNITS SUBCUTANEOUS ORDERED WITH EDUCATION. PT VERBALIZED UNDERSTANDING, TOLERATED WELL. ALL NEEDS MET. SAFETY MEASURES ENSURED. CALL LIGHT WITHIN REACH. WILL CONTINUE TO MONITOR.
[2017-04-22 06:48] LABS: PROTHROMBIN TIME 14.4 secs (10.8-13.4)
[2017-04-22 07:16] LABS: EOSINOPHILS % (MANUAL) 2 % (0-4); LYMPHOCYTES % (MANUAL) 20 % (20-46); MONOCYTES % (MANUAL) 11 % (5-12)
[2017-04-22 07:18] LABS: MAGNESIUM 2.2 mg/dL (1.8-2.4); PHOSPHORUS 4.2 mg/dL (2.5-4.9)
--- NOTE | 2017-04-22 07:20 | NUR ---
RECEIVED REPORT FROM SALES ADVISORY MANAGER NURSE RACHEL AT BEDSIDE FOR CONTINUITY OF CARE. PT IS SLEEPING IN BED RIGHT NOW WITH VISIBLE RESPIRATIONS. NO SIGNS OF DISTRESS. UPDATED BOARD. RESIDENTS CAME IN AND MADE ROUNDS ON PT. IV IS INFUSING AT LEFT FA 20G NS AT 10ML/HR. BED IN LOW POSITION, WHEELS LOCKED AND CALL LIGHT WITHIN REACH. WILL CONTINUE TO MONITOR.
[2017-04-22 08:00] VITALS: BP 107/66
[2017-04-22] MEDS: ALBUTEROL SULFATE/IPRATROPIU 3 ML SOL IH SCH ×3 (08:02→19:18)
--- NOTE | 2017-04-22 08:59 | NUR ---
CM NOTE CONCURRENT REVIEW FAXED TO [facility] [phone] PH# [phone] AND TO [facility] [phone] LAYTON SHEIKH PH# [phone]
[2017-04-22] MEDS: SPIRONOLACTONE 50 MG TAB PO SCH (09:00)
[2017-04-22] MEDS: LISINOPRIL 10 MG TAB PO SCH (09:00)
[2017-04-22] MEDS: ALLOPURINOL 100 MG TAB PO SCH (09:03)
[2017-04-22] MEDS: PANTOPRAZOLE 40 MG INJ VIAL IVP SCH (09:03)
[2017-04-22] MEDS: ASPIRIN 81 MG TAB.CHEW PO SCH (09:04)
[2017-04-22] MEDS: CARVEDILOL 3.125 MG TAB PO SCH ×2 (09:04→21:42)
[2017-04-22] MEDS: DOCUSATE SODIUM 100 MG GELCAP PO SCH ×2 (09:05→21:00)
[2017-04-22] MEDS: LACTOBACILLUS RHAMNOSUS GG 1 EACH CAP PO SCH ×3 (09:05→16:49)
[2017-04-22] MEDS: FUROSEMIDE 40 MG/4 ML VIAL IVP SCH (09:14)
--- NOTE | 2017-04-22 09:17 | NUR ---
ADMINISTERED SCHEDULED MEDS. HELD BP MEDS DUE TO BP OF 107/66. PT TOLERATED ADMINISTERED MEDS WELL. SITTING UP IN BED RIGHT NOW EATING BREAKFAST AND WATCHING TV. NO SIGNS OF DISTRESS. PT DENIES PAIN. IV IS INFUSING AT LEFT FA 20G NS AT 10ML/HR. FLUSHED SITE WITH 10ML NS. BED IN LOW POSITION. WHEELS LOCKED AND CALL LIGHT WITHIN REACH. WILL CONTINUE TO MONITOR.
[2017-04-22] MEDS: INSULIN LISPRO SLIDING SCALE 100 UNITS/ML VIAL SUBQ PRN (11:49)
--- NOTE | 2017-04-22 11:52 | NUR ---
CHECKED PT'S BLD GLUCOSE 216. ADMINISTERED 4UNITS INSULIN SUBQ TO LEFT UPPER ARM. PT TOLERATED WELL. PT IS SLEEPING IN BED RIGHT NOW WITH HOB ELEVATED. NO SIGNS OF RESPIRATORY DISTRESS. DENIES PAIN. WILL CONTINUE TO MONITOR.
[2017-04-22 12:00] VITALS: BP 109/69
--- NOTE | 2017-04-22 15:30 | NUR ---
CHECKED PT'S O2 SAT 99% ON ROOM AIR. AMBULATED WITH PT DOWN THE MARTINEZ. STEADY GAIT. PT HAD MILD SOB. RETURNED BACK TO ROOM. O2 SAT 89% POST AMBULATION. PT TOOK A DEEP BREATH AND O2 SAT WAS 99% ON ROOM AIR. NO SOB OR RESPIRATORY DISTRESS NOTED. VS: BP 123/71, HR 70, TEMP 97.8, RR 22, O2 SAT 99% ON RA. REPORTED TO DR. DUVALL.
[2017-04-22 16:00] VITALS: BP 123/71
[2017-04-22] MEDS ORDERED: WARFARIN 5 MG, WARFARIN 1 MG PO SCH ×2 (17:00)
--- NOTE | 2017-04-22 19:22 | NUR ---
ENDORSED PT TO TRANSFER AGENT NURSE RODRIGO AT BEDSIDE FOR CONTINUITY OF CARE. RT CAME IN ROOM FOR BREATHING TX. PT IN STABLE CONDITION.
--- NOTE | 2017-04-22 19:23 | NUR ---
RECEIVED BEDSIDE REPORT FROM DAY SHIFT NURSE ODILIA ROMAN, PT STABLE, NO DISTRESS NOTED, IV TO THE L AC 2 Addendum: 04/22/17 at 2305 by Rachel Norman RN IV TO THE L FA 22G, SL, PT REFUSED IV FLUIDS, PT SLEEPING, EASY TO AROUSE, REPORTING HAVING NO PAIN AT THIS MOMENT, CALL LIGHT WITHIN REACH, WILL CONTINUE TO MONITOR.
[2017-04-22 20:00] VITALS: BP 121/68
[2017-04-22] MEDS: guaiFENesin 600 MG TABER PO SCH (21:42)
[2017-04-22] MEDS: ATORVASTATIN 20 MG TAB PO SCH (21:42)
--- NOTE | 2017-04-22 22:58 | NUR ---
PT REQUESTED TO GO TO SHOWER, PT OFF TELE MONITOR, DR NOTIFIED. WILL CONTINUE TO MONITOR.
--- NOTE | 2017-04-22 23:50 | NUR ---
PT BACK TO BED FROM SHOWER, PT STABLE, NO DISTRESS NOTED, TELE MONITOR REATTACHED TO PT.
[2017-04-23] MEDS ORDERED: LORazepam 1 MG TAB PO PRN (00:35)
[2017-04-23 00:52] VITALS: BP 113/64
--- NOTE | 2017-04-23 00:58 | NUR ---
PT REQUESTED ATIVAN, STATED UNABLE TO SLEEP, NOTIFY DR. ALANNAH DR. ORDERED ATIVAN, MEDICATION GIVEN PER DR ORDER, PT TOLERATED WELL, NO DISTRESS NOTED, WILL CONTINUE TO MONITOR.
[2017-04-23] MEDS ORDERED: NEOMYCIN/POLYMYXIN/BACITRACIN OPTH OINT 3.5 GM TUBE OP SCH (01:00)
[2017-04-23] MEDS: NACL 0.9% 1,000 ML IV SCH (02:43)
[2017-04-23 04:00] VITALS: BP 121/71
--- NOTE | 2017-04-23 04:20 | NUR ---
PT AMBULATES IN THE MARTINEZ WAY, NO DISTRESS NOTED, WILL CONTINUE TO MONITOR.
[2017-04-23] MEDS: CLINDAMYCIN 600 MG in DEXTROSE 5% 50 ML IV SCH (04:58)
[2017-04-23] MEDS: BLOOD GLUCOSE MONITORING 1 DEV DEV FS SCH (05:46)
[2017-04-23 05:47] LABS: BASOPHILS # (AUTO) 0.2 K/uL (0.00-0.22); EOSINOPHILS # (AUTO) 0.4 K/uL (0-0.4); EOSINOPHILS % (AUTO) 5.7 % (0.0-4.0); HEMATOCRIT 40.5 % (36-52); HEMOGLOBIN 13.2 g/dL (12.0-18.0); LYMPHOCYTES # (AUTO) 1.3 K/uL (2.0-11.5); LYMPHOCYTES % (AUTO) 21.1 % (20.5-51.1); MEAN CORPUSCULAR HEMOGLOBIN 28 pg (27-31); MEAN CORPUSCULAR HGB CONC 33 g/dL (33-37); MEAN CORPUSCULAR VOLUME 86 fL (80-94); MONOCYTES # (AUTO) 0.8 K/uL (0.8-1.0); MONOCYTES % (AUTO) 12.8 % (1.7-9.3); NEUTROPHILS # (AUTO) 3.6 K/uL (1.8-7.7); NEUTROPHILS % (AUTO) 57.4 % (42.2-75.2); PLATELET COUNT (AUTO) 197 K/uL (140-450); RED BLOOD CELL COUNT(AUTO) 4.72 MIL/uL (4.20-6.10); RED CELL DISTRIBUTION WIDTH 21.3 % (11.6-13.7); WHITE BLOOD COUNT (AUTO) 6.4 K/uL (4.8-10.8)
[2017-04-23 06:10] LABS: ANION GAP 7.9 (8-16); CARBON DIOXIDE 30.4 mmol/L (21-32); CREATININE 1.5 mg/dL (0.7-1.3); POTASSIUM 4.3 mmol/L (3.5-5.1)
[2017-04-23 06:12] LABS: MAGNESIUM 2.3 mg/dL (1.8-2.4); PHOSPHORUS 3.8 mg/dL (2.5-4.9)
[2017-04-23 06:23] LABS: PROTHROMBIN TIME 16.4 secs (10.8-13.4)
[2017-04-23] MEDS: INSULIN DETEMIR 100 UNITS/ML 10 ML VIAL SUBQ SCH (06:27)
[2017-04-23] MEDS: ALBUTEROL SULFATE/IPRATROPIU 3 ML SOL IH SCH ×2 (06:41→13:00)
--- NOTE | 2017-04-23 07:13 | NUR ---
GAVE BEDSIDE REPORT TO DAY SHIFT NURSE ODILIA ROMAN, ENDORSED PLAN OF CARE, PT RESTING, NO DISTRESS NOTED.
--- NOTE | 2017-04-23 07:14 | NUR ---
RECEIVED REPORT FROM SUPERVISOR DOCK NURSE RODRIGO AT BEDSIDE FOR CONTINUITY OF CARE. PT IN STABLE CONDITION.
[2017-04-23 08:00] VITALS: BP 139/71
[2017-04-23] MEDS ORDERED: GUAI-646 PO (08:01)
--- NOTE | 2017-04-23 08:27 | NUR ---
CM NOTE CONCURRENT REVIEW FAXED TO [facility] [phone] ATTN: ELIER PH# [phone] [facility] [phone] LAYTON SHEIKH PH# [phone]
[2017-04-23] MEDS: guaiFENesin 600 MG TABER PO SCH (08:54)
[2017-04-23] MEDS: FUROSEMIDE 40 MG/4 ML VIAL IVP SCH (08:54)
[2017-04-23] MEDS: PANTOPRAZOLE 40 MG INJ VIAL IVP SCH (08:54)
[2017-04-23] MEDS: CARVEDILOL 3.125 MG TAB PO SCH (08:55)
[2017-04-23] MEDS: SPIRONOLACTONE 50 MG TAB PO SCH (08:55)
[2017-04-23] MEDS: LACTOBACILLUS RHAMNOSUS GG 1 EACH CAP PO SCH (08:55)
[2017-04-23] MEDS: LISINOPRIL 10 MG TAB PO SCH (08:55)
[2017-04-23] MEDS: DOCUSATE SODIUM 100 MG GELCAP PO SCH (08:56)
[2017-04-23] MEDS: ASPIRIN 81 MG TAB.CHEW PO SCH (08:56)
[2017-04-23] MEDS: ALLOPURINOL 100 MG TAB PO SCH (08:56)
--- NOTE | 2017-04-23 09:20 | NUR ---
ADMINISTERED SCHEDULED MEDS. PT REFUSED CULTURELLE, LASIX, PROTONIX, AND MUCINEX. GAVE PT REASON FOR MEDICATIONS. PT STILL REFUSED MEDS. TOLERATED OTHER ADMINISTRATED MEDS WELL. PT IS SLEEPING IN BED RIGHT NOW. NO SIGNS OF DISTRESS. CALL LIGHT WITHIN REACH. WILL CONTINUE TO MONITOR.
--- NOTE | 2017-04-23 12:00 | NUR ---
PT AWARE OF D/C TODAY. DR. HURTADO AND MATT SPOKE WITH PT ABOUT FOLLOW UP AND PLAN. PT YELLED AT STAFF. MATT CALMED PT DOWN. REMOVED IV FROM LEFT FA 20G. IV CATHETER TIP INTACT. APPLIED DRESSING AND PRESSURE TO SITE. NO BLEEDING NOTED. REMOVED TELE MONITOR. PT REFUSED TO LET ME REMOVE ID BAND. PT REQUESTED TO EAT LUNCH TRAY FIRST THEN HE WILL CHANGE IN HIS CLOTHES. DELIVERED LUNCH TRAY FOR PT TO EAT BEFORE D/C.
[2017-04-23] MEDS ORDERED: BUDE1AER IH (12:07)
[2017-04-23] MEDS ORDERED: PRED5TAB7 PO (12:07)
[2017-04-23] MEDS ORDERED: PRED20TA5 PO (12:07)
[2017-04-23] MEDS ORDERED: PRED10TA5 PO (12:07)
--- NOTE | 2017-04-23 13:15 | NUR ---
PT D/C'D TO GO HOME. PT SIGNED D/C FORMS AND GIVEN INSTRUCTIONS. PT STILL REFUSED TO HAVE ID BAND REMOVED. TAXI CAB ARRIVED. PT LEFT UNIT VIA WHEELCHAIR ACCOMPANIED BY AIRCRAFT DISPATCHER. LEFT IN STABLE CONDITION.
--- NOTE | 2017-04-23 13:30 | NUR ---
1200 MET WITH PT REGARDING DISCHARGE PLAN. PER PT HIS FRIEND IN [place] WHO HAD ALLOWED HIM TO STAY HAD SOLD THE HOUSE AND MOVED AND AT THIS TIME HE IS STAYING IN HIS STORAGE UNIT AT [facility] STORAGE AT [facility] IN [place]. PT REQUESTED A TAXI VOUCHER HIS ELECTRIC W/C IS AT THE STORAGE UNIT AND PT HAS DIFFICULTY WALKING FAR. TAXI VOUCHER PROVIDED. DISCUSSED WITH PT IF HE HAS EVERYTHING HE NEEDS TO MINIMIZE HIS RE-HOSPITALIZATIONS. HE STATED THAT HE NOW HAS ALL THE MEDICATIONS THAT HE NEEDS. STATED THAT HE WILL FOLLOW UP WITH DR. LAWRENCE LORA HIS PCP AND HAS GONE TO A CLINIC IN [place] PER DR LORA'S RECOMMENDATION FOR PODIATRY CARE AND WILL MAYBE RETURN THERE.
== END 2017-04-23 13:15 | disposition home or self-care (01) | DRG 194 ==
LOC: MED 01:00 → MTU 02:47
PROVIDERS: ADMIT Family Medicine; ATTEND Family Medicine
DX: I13.0 Hypertensive heart and chronic kidney disease with heart failure and stage 1 through stage 4 chronic kidney disease, or unspecified chronic kidney disease (principal); N17.0 Acute kidney failure with tubular necrosis; J96.01 Acute respiratory failure with hypoxia; E11.65 Type 2 diabetes mellitus with hyperglycemia; E44.1 Mild protein-calorie malnutrition; E11.22 Type 2 diabetes mellitus with diabetic chronic kidney disease; D68.59 Other primary thrombophilia; I50.43 Acute on chronic combined systolic (congestive) and diastolic (congestive) heart failure; J44.1 Chronic obstructive pulmonary disease with (acute) exacerbation; L03.115 Cellulitis of right lower limb; E02 Subclinical iodine-deficiency hypothyroidism; M10.9 Gout, unspecified; E66.3 Overweight; K21.9 Gastro-esophageal reflux disease without esophagitis; N18.9 Chronic kidney disease, unspecified; F15.10 Other stimulant abuse, uncomplicated; E05.90 Thyrotoxicosis, unspecified without thyrotoxic crisis or storm; I42.9 Cardiomyopathy, unspecified; I48.2 Chronic atrial fibrillation; L03.116 Cellulitis of left lower limb; K75.81 Nonalcoholic steatohepatitis (NASH); F19.20 Other psychoactive substance dependence, uncomplicated; Z80.0 Family history of malignant neoplasm of digestive organs; Z84.1 Family history of disorders of kidney and ureter; Z82.49 Family history of ischemic heart disease and other diseases of the circulatory system; Z83.3 Family history of diabetes mellitus; Z59.0 Homelessness; Z87.891 Personal history of nicotine dependence; Z90.49 Acquired absence of other specified parts of digestive tract; Z86.718 Personal history of other venous thrombosis and embolism; Z91.14 Patient's other noncompliance with medication regimen; Z79.4 Long term (current) use of insulin; Z79.01 Long term (current) use of anticoagulants; Z88.8 Allergy status to other drugs, medicaments and biological substances; Z68.27 Body mass index [BMI] 27.0-27.9, adult; Z95.0 Presence of cardiac pacemaker; Z82.5 Family history of asthma and other chronic lower respiratory diseases
CPT/HCPCS: 36415; 71010; 80048; 80053; 82140; 82150; 82948; 83690; 83735; 83880; 84100; 84439; 84443; 84484; 85025; 85610; 85730; 87081; 93005; 94640; 96374; 99285; C9113; J1815; J1940; J3490; J7030; J7060; J7613; J7620; J7644; Q0092

== ENCOUNTER 2017-04-24 04:02 | Emergency (ER) | payer MEDICAID ==
[~2017-04-24] VITALS: Ht 170.2 cm; Wt 95.0 kg
[~2017-04-24 04:02] MED LIST changes: +BUDE1AER IH; +CARV3.12 PO; -CARV3.122 PO; -DOCU-299 PO; +GUAI-646 PO; +NAPR500T1 PO; +PRED10TA5 PO; +PRED20TA5 PO; +PRED5TAB7 PO
[2017-04-24 04:07] VITALS: BP 139/71
--- NOTE | 2017-04-24 04:07 | NUR ---
PT TAKEN TO BED 12
--- NOTE | 2017-04-24 04:20 | NUR ---
Dr. Mcmanus evaluating patient at bedside.
--- NOTE | 2017-04-24 04:20 | NUR ---
Gunjan rodriguezsin in EDM - 04/24/17 at 0435 by SHOSHANA ; Amanda Euceda ([facility]); ; Noni Wyatt; Barbara Rg ([facility]); ; ; Sherry Spence ([facility]); ; Dr Massey ([facility] ; [email or web address]; [email or web address]
[2017-04-24] MEDS ORDERED: predniSONE 20 MG TAB PO ONE (04:25)
[2017-04-24] MEDS ORDERED: ALBUTEROL SULFATE/IPRATROPIU 3 ML SOL IH ONE (04:25)
--- NOTE | 2017-04-24 04:25 | NUR ---
61Y M BIB SELF C/O SOB X 3 DAYS. PT WAS JUST DISCHARGED FROM [facility] YESTERDAY AND STILL C/O SOB AND COUGH WHILE HE WAS HERE X 4 DAYS; PT STATES COUGH IS PRODUCTIVE BUT UNABLE TO PRODUCE ANY AT THE MOMENT; PT AAOX4; PT AMBULATED TO ER BED WITH STEADT GAIT; ER MD MADE AWARE
--- NOTE | 2017-04-24 04:31 | NUR ---
Respiratory Therapist at bedside for respiratory intervention. Patient tolerated TX WELL.
[2017-04-24] MEDS ORDERED: ALBUTEROL 0.083% 2.5 MG/3 ML NEBU INH ONE (05:20)
[2017-04-24 06:16] VITALS: BP 133/68
--- NOTE | 2017-04-24 06:17 | NUR ---
Patient discharged with v/s stable. Written and verbal after care instructions given and explained. Patient alert, oriented and verbalized understanding of instructions. Ambulatory with steady gait. All questions addressed prior to discharge. ID band removed. Patient advised to follow up with PMD. Rx of ADVAIR DISKUS 250MCG/ACTUATION HHN Q12HR given. Patient educated on indication of medication including possible reaction and side effects. Opportunity to ask questions provided and answered. Addendum: 04/24/17 at 0623 by ASHER VENTOLIN HFA 90MCG/ACTUATION HHN, MEDROL DOSEPAK 4MG
--- NOTE | 2017-04-24 06:18 | NUR ---
HOMELESS PATIENT WAIVER FORM SIGNED BY VICTORIANO RIVERA
== END 2017-04-24 06:17 | disposition home or self-care (01) ==
LOC: MED 04:02
DX: J44.1 Chronic obstructive pulmonary disease with (acute) exacerbation (principal); E11.9 Type 2 diabetes mellitus without complications; K21.9 Gastro-esophageal reflux disease without esophagitis; I10 Essential (primary) hypertension; I48.91 Unspecified atrial fibrillation; Z95.0 Presence of cardiac pacemaker; Z88.8 Allergy status to other drugs, medicaments and biological substances; Z79.4 Long term (current) use of insulin; Z79.899 Other long term (current) drug therapy
CPT/HCPCS: 82948; 93005; 94640; 99284; J7512; J7613; J7620

== ENCOUNTER 2017-06-01 02:15 | Inpatient (IN) | payer MEDICAID ==
[~2017-06-01] VITALS: Ht 180.3 cm; Wt 93.0 kg
[~2017-06-01 02:15] MED LIST changes: +NAPR-54 PO; -NAPR500T1 PO
[2017-06-01 02:16] VITALS: BP 148/84
--- NOTE | 2017-06-01 02:23 | NUR ---
TO BED 12, VIA W/C.
--- NOTE | 2017-06-01 02:45 | NUR ---
PATIENT PRESENTS TO ED WITH C/O COUGH/CONGESTION X DAYS, SOB PT DENIES N/V/D; AAOX4 WITH EVEN AND STEADY GAIT; LUNGS CLEAR BL; HR EVEN AND REGULAR; PATIENT STATES PAIN OF 9/10 AT THIS TIME; PATIENT POSITIONED FOR COMFORT; HOB ELEVATED; BEDRAILS UP X2; BED DOWN. ER MD MADE AWARE OF PT STATUS.
[2017-06-01] MEDS ORDERED: methylPREDNISolone SS 125 MG in WATER STERILE 2 ML IV ONE (02:50)
[2017-06-01] MEDS ORDERED: ALBUTEROL 0.083% 2.5 MG/3 ML NEBU INH ONE (03:01)
[2017-06-01] MEDS ORDERED: IPRATROPIUM 0.02% 0.5 MG/2.5 ML NEBU INH ONE (03:01)
--- NOTE | 2017-06-01 03:10 | NUR ---
PT REFUSED R.T. TREATMENT
[2017-06-01 03:11] LABS: BASOPHILS # (AUTO) 0.3 K/uL (0.00-0.22); BASOPHILS % (AUTO) 2.5 % (0.0-2.0); EOSINOPHILS # (AUTO) 0.2 K/uL (0-0.4); EOSINOPHILS % (AUTO) 1.8 % (0.0-4.0); HEMATOCRIT 45.3 % (36-52); HEMOGLOBIN 14.7 g/dL (12.0-18.0); MEAN CORPUSCULAR HEMOGLOBIN 28 pg (27-31); MEAN CORPUSCULAR HGB CONC 33 g/dL (33-37); MEAN CORPUSCULAR VOLUME 87 fL (80-94); MONOCYTES # (AUTO) 0.8 K/uL (0.8-1.0); MONOCYTES % (AUTO) 6.9 % (1.7-9.3); NEUTROPHILS # (AUTO) 9.7 K/uL (1.8-7.7); NEUTROPHILS % (AUTO) 80.5 % (42.2-75.2); PLATELET COUNT (AUTO) 252 K/uL (140-450); RED BLOOD CELL COUNT(AUTO) 5.24 MIL/uL (4.20-6.10)
[2017-06-01] MEDS: ALBUTEROL 0.083% 2.5 MG/3 ML NEBU INH ONE ×2 (03:11→04:35)
[2017-06-01] MEDS: IPRATROPIUM 0.02% 0.5 MG/2.5 ML NEBU INH ONE ×2 (03:11→04:35)
[2017-06-01 03:17] LABS: LYMPHOCYTES % (AUTO) 8.3 % (20.5-51.1)
--- NOTE | 2017-06-01 03:18 | NUR ---
PT YELLING AND SCREAMING AT CHARGE NURSE, REFUSING TREATMENT AT THIS TIME. PT WENT TO LOBBY.
[2017-06-01 03:19] LABS: CARBON DIOXIDE 31.3 mmol/L (21-32); CREATININE 1.4 mg/dL (0.7-1.3); POTASSIUM 4.3 mmol/L (3.5-5.1)
[2017-06-01 03:24] LABS: ALBUMIN 2.9 g/dL (3.4-5.0); TOTAL BILIRUBIN 0.8 mg/dL (0.0-1.0)
--- NOTE | 2017-06-01 03:59 | NUR ---
PT RETURNED TO BED FROM [facility]
--- NOTE | 2017-06-01 04:10 | NUR ---
CXR DONE AT BEDSIDE. PT ALLOWED.
--- NOTE | 2017-06-01 04:24 | NUR ---
RT RETURNED. PT ALLOWING TREATMENT AT THIS TIME.
[2017-06-01] MEDS ORDERED: ACETAMINOPHEN 325 MG TAB PO PRN (05:55)
[2017-06-01] MEDS ORDERED: DOCUSATE SODIUM 100 MG GELCAP PO PRN (05:55)
[2017-06-01] MEDS ORDERED: LORazepam 0.5 MG TAB PO PRN ×2 (05:55→19:45)
[2017-06-01] MEDS ORDERED: MORPHINE SULFATE 2 MG/ML SYR IVP PRN (05:55)
[2017-06-01] MEDS ORDERED: HYDROcodone/APAP 7.5/325 MG 1 TAB PO PRN (05:55)
[2017-06-01] MEDS ORDERED: ONDANSETRON 4 MG/2 ML VIAL IM/IVP PRN (05:55)
[2017-06-01] MEDS ORDERED: NACL 0.9% 1,000 ML IV SCH (05:55)
[2017-06-01] MEDS ORDERED: ZOLPIDEM 5 MG TAB PO PRN (05:55)
[2017-06-01] MEDS ORDERED: ALBUTEROL SULFATE/IPRATROPIU 3 ML SOL IH SCH ×2 (07:00→12:00)
--- NOTE | 2017-06-01 07:50 | NUR ---
RECEIVED PT FROM ER PER ZULEIKA. ASSISTER BY ER NURSE. PT ASLEEP. AROUSABLE TO VOICE. ALERT ORIENTED X4. NO SOB NOTED. DENIES ANY PAIN OR DISCOMFORT AT THIS TIME. PT AMBULATORY. REFUSED FALL RISK ARMBAND. BUT VERBALIZED HE FELL ONE TIME LONG TIME AGO. SAFETY PRECAUTION IN PLACE. CALL LIGHT WITHIN REACH.
[2017-06-01 08:00] VITALS: BP 131/83
--- NOTE | 2017-06-01 08:02 | NUR ---
TRANSPORTED TO FLOOR VIA GURNEY, BEDSIDE REPORT GIVEN TO MERRITT. PATIENT STABLE.
[2017-06-01 08:48] LABS: PROTHROMBIN TIME 11.8 secs (10.8-13.4)
--- NOTE | 2017-06-01 10:43 | NUR ---
PATIENT HAS BEEN SCREENED AND CATEGORIZED MODERATE NUTRITION RISK. PATIENT WILL BE SEEN WITHIN 3-5 DAYS OF ADMISSION. 06/03/17 - 06/05/[address]
[2017-06-01] MEDS ORDERED: HEPARIN PER PHARMACY MC PRN (10:55)
[2017-06-01] MEDS ORDERED: hePARIN / DEXT 5% PREMIX 250 ML IV SCH ×2 (10:55→12:00)
[2017-06-01] MEDS ORDERED: ALLOPURINOL 100 MG TAB PO SCH (11:00)
[2017-06-01] MEDS ORDERED: guaiFENesin DM 200/20 MG-10 ML 10 ML UDC PO PRN (11:00)
--- NOTE | 2017-06-01 11:42 | NUR ---
DR. CASSIDY MADE AWARE OF LATEST BLOOD SUGAR 469MG/DL AND CRITICAL VALUE TROPONIN.
[2017-06-01 12:00] VITALS: BP 146/77
[2017-06-01] MEDS ORDERED: ASPIRIN 81 MG TAB.CHEW PO SCH (12:00)
[2017-06-01] MEDS ORDERED: LACTOBACILLUS RHAMNOSUS GG 1 EACH CAP PO SCH (12:00)
[2017-06-01] MEDS ORDERED: INSULIN LISPRO 100 UNITS/ML VIAL SUBQ SCH ×2 (12:00→18:00)
[2017-06-01] MEDS: PIPER/TAZO 2.25GM/D5W PREMIX 50 ML IV SCH ×2 (12:08→20:10)
[2017-06-01] MEDS: LORATADINE 10 MG TAB PO SCH (12:09)
[2017-06-01] MEDS: BLOOD GLUCOSE MONITORING 1 DEV DEV FS SCH ×3 (12:20→21:53)
[2017-06-01] MEDS ORDERED: LACTULOSE 20 GM/30 ML UDC PO SCH ×2 (12:33→21:00)
[2017-06-01 12:58] LABS: MAGNESIUM 1.7 mg/dL (1.8-2.4); PHOSPHORUS 4.2 mg/dL (2.5-4.9)
[2017-06-01 12:59] LABS: CHOL/HDL RATIO 2.3 (1-4.5); FREE T4 (FREE THYROXINE) 1.15 ng/dL (0.76-1.46); THYROID STIMULATING HORMONE 6.6 uIU/mL (0.34-3.74)
[2017-06-01] MEDS: methylPREDNISolone SS 125 MG/2 ML VIAL IVP SCH ×2 (13:00→20:08)
--- NOTE | 2017-06-01 13:04 | NUR ---
CM NOTE INITIAL REVIEW FAXED TO [facility] [phone] PH# [phone] AND TO [facility] [phone] KORI PH# [phone]
--- NOTE | 2017-06-01 13:16 | NUR ---
DR. CASSIDY MADE AWARE OF LATEST BLOOD SUGAR OF 548MG/DL AND SAID TO RECHECK IN 1 HOUR. AND HOLD THE ORDERED SOLUMEDROL IVP FOR NOW UNTIL BLOOD SUGAR RECHECKED.
[2017-06-01] MEDS ORDERED: SPIRONOLACTONE 50 MG TAB PO SCH (13:19)
--- NOTE | 2017-06-01 14:18 | NUR ---
DR. CASSIDY MADE AWARE OF LATEST BLOOD SUGAR >600MG/DL WITH ORDERS MADE AND CARRIED OUT AND TO HOLD SOLUMEDROL FOR NOW.
[2017-06-01] MEDS ORDERED: INSULIN DETEMIR 100 UNITS/ML 10 ML VIAL SUBQ SCH ×2 (14:22→19:45)
--- NOTE | 2017-06-01 15:00 | NUR ---
URINE SPECIMEN HASN'T BEEN COLLECTED, PT REFUSED TO GIVE SAMPLE. EDUCATION WAS GIVEN REGARDING IMPORTANCE OF URINE TEST, PT VERBALIZE HE WILL GIVE SAMPLE ONCE HE HAS THE URGE TO URINATE AGAIN.
--- NOTE | 2017-06-01 15:20 | NUR ---
DR. CASSIDY MADE AWARE OF MAGNESIUM LEVEL 1.7.
[2017-06-01 16:00] VITALS: BP 131/73
[2017-06-01] MEDS ORDERED: MAGNESIUM OXIDE 400 MG TAB PO SCH (16:00)
--- NOTE | 2017-06-01 16:46 | NUR ---
DR. SENIOR MADE AWARE OF LATEST BLOOD SUGAR 484 MG/DL.
[2017-06-01] MEDS ORDERED: FUROSEMIDE 40 MG TAB PO SCH ×2 (17:00→21:00)
[2017-06-01] MEDS ORDERED: WARFARIN 5 MG TAB PO SCH (17:00)
[2017-06-01] MEDS ORDERED: FUROSEMIDE 40 MG/4 ML VIAL IVP SCH (17:22)
--- NOTE | 2017-06-01 17:35 | NUR ---
FOLLOWED UP WITH DR. SENIOR REGARDING ORDER FOR LATEST BLOOD SUGAR. TO PUT IN AN ORDER.
[2017-06-01] MEDS: WARFARIN 5 MG, WARFARIN 1 MG PO SCH ×2 (17:40)
--- NOTE | 2017-06-01 18:43 | NUR ---
PT KEPT CLEAN, DRY AND COMFORTABLE. PT HAS EPISODES OF BEING GROUCHY AND YELLING AT STAFF. NO SOB NOTED. DENIES ANY PAIN OR DISCOMFORT AT THIS TIME. NO SIGNS AND SYMPTOMS OF ACUTE DISTRESS NOTED. PT WITH GOOD APPETITE. AMBULATES GOING TO THE BATHROOM. WILL ENDORSE TO NEXT SHIFT. PT ON STABLE CONDITION. FOR CONTINUITY OF CARE.
--- NOTE | 2017-06-01 19:08 | NUR ---
RECEIVED REPORT FROM DAY SHIFT NURSE, PATIENT WAS SITTING UP IN BED EATING DINNER, VITAL SIGNS TAKEN STABLE, INFORMED PATIENT THAT HIS BLOOD SUGAR IS HIGH, WE NEED TO CLOSE MONITOR HIS BLOOD SUGAR, PATIENT BECAME AGITATED AND YELLING," I DON'T WANT THIS SHIT ANYMORE, I WANT TO SEE THE DOCTOR NOW, RIGHT NOW." INFORMED DR. HAYLEY MD SAW THE PATIENT AT BEDSIDE, PATIENT STARTED TO YELL AT THE DOCTOR, SECURITY CALLED IN, THEN DR. HARDY CAME TO ME ORDER ME TO GIVE NORCO FOR PAIN, LEVEMIR 5UNITS, AND ATIVAN 2MG, AND MD SAID," I WOULD PUT THESE ORDERS IN."
--- NOTE | 2017-06-01 19:09 | NUR ---
LATEST BLOOD SUGAR CHECKED WITH A RESULT OF 491MG/DL NEXT SHIFT MADE AWARE. WILL LET MD KNOW.
[2017-06-01] MEDS: BUDESONIDE 0.25 MG/2 ML NEBU INH SCH (19:55)
[2017-06-01 20:00] VITALS: BP 130/62
[2017-06-01] MEDS: CARVEDILOL 3.125 MG TAB PO SCH (20:07)
[2017-06-01 20:52] LABS: APPEARANCE,URINE CLEAR (CLEAR); COLOR,URINE STRAW (YELLOW); UGLUCOSE 3+ (NEGATIVE)
[2017-06-01 20:53] LABS: BILIRUBIN,URINE NEGATIVE (NEGATIVE); BLOOD, URINE NEGATIVE (NEGATIVE); LEUKOCYTE ESTERASE ,URINE NEGATIVE (NEGATIVE); NITRITE, URINE NEGATIVE (NEGATIVE)
[2017-06-01] MEDS ORDERED: CARVEDILOL 3.125 MG TAB PO SCH (21:00)
[2017-06-01 21:08] LABS: BARBITURATE, URINE NEG. ng/ml (NEG <=200); BENZODIAZEPINE, URINE NEG. ng/mL (NEG <=200); CANNABINOID, URINE NEG. ng/mL (NEG <=50); COCAINE, URINE NEG. ng/mL (NEG <=300); OPIATE, URINE NEG. ng/mL (NEG <=2000); PHENCYCLIDINE SCREEN,URINE NEG. ng/mL (NEG <=25)
--- NOTE | 2017-06-01 21:54 | NUR ---
BLOOD SUGAR 349, DR. HARDY IS AWARE, MD ORDER ME TO GIVE 15 UNITS OF HUMALOG
[2017-06-01] MEDS: INSULIN LISPRO SLIDING SCALE 100 UNITS/ML VIAL SUBQ PRN (21:56)
[2017-06-02] VITALS: BP 120/68
--- NOTE | 2017-06-02 03:00 | NUR ---
PATIENT ASKED FOR NORCO AND ATIVAN AND STATED," I WANT 1MG ATIVAN, NORCO 5/325. OTHERWISE, THE MEDICATIONS WERE TOO STRONG." INFORMED DR. HARDY AND MD SAID," I WILL CHANGE THE DOSE."
[2017-06-02] MEDS: HYDROcodone/APAP 5/325 MG 1 TAB TAB PO PRN (03:21)
[2017-06-02] MEDS: LORazepam 0.5 MG TAB PO PRN (03:21)
--- NOTE | 2017-06-02 03:41 | NUR ---
NORCO AND ATIVAN GIVEN ORDERED. PATIENT RESTING IN BED, NO S/S OF DISTRESS NOTED, RESPIRATION EVEN AND UNLABORED, CALL LIGHT WITHIN REACH, SAFETY MEASURE ENSURED, WILL CONTINUE TO MONITOR.
[2017-06-02] MEDS: BUDESONIDE 0.25 MG/2 ML NEBU INH SCH ×2 (07:30→20:28)
[2017-06-02] MEDS ORDERED: INSULIN DETEMIR 100 UNITS/ML 10 ML VIAL SUBQ SCH (08:30)
[2017-06-02] MEDS: ASPIRIN 81 MG TAB.CHEW PO SCH (09:00)
[2017-06-02] MEDS: CARVEDILOL 3.125 MG TAB PO SCH ×2 (09:00→20:40)
[2017-06-02] MEDS: LISINOPRIL 10 MG TAB PO SCH (09:00)
[2017-06-02] MEDS: LORATADINE 10 MG TAB PO SCH (09:00)
[2017-06-02] MEDS ORDERED: ALLOPURINOL 100 MG TAB PO SCH (09:00)
[2017-06-02] MEDS: SPIRONOLACTONE 50 MG TAB PO SCH (09:00)
[2017-06-02] MEDS: LACTOBACILLUS RHAMNOSUS GG 1 EACH CAP PO SCH (09:00)
[2017-06-02] MEDS: ALLOPURINOL 100 MG TAB PO SCH (09:00)
[2017-06-02] MEDS ORDERED: SPIRONOLACTONE 50 MG TAB PO SCH (09:00)
[2017-06-02] MEDS: FUROSEMIDE 40 MG/4 ML VIAL IVP SCH ×2 (09:00→17:00)
[2017-06-02 10:53] LABS: ANION GAP 9.7 (8-16); CARBON DIOXIDE 31.6 mmol/L (21-32); CREATININE 1.3 mg/dL (0.7-1.3); POTASSIUM 5.3 mmol/L (3.5-5.1)
[2017-06-02 10:54] LABS: MAGNESIUM 2.2 mg/dL (1.8-2.4); PHOSPHORUS 4.4 mg/dL (2.5-4.9)
[2017-06-02] MEDS: BLOOD GLUCOSE MONITORING 1 DEV DEV FS SCH ×3 (11:30→20:39)
[2017-06-02 12:00] VITALS: BP 122/74
[2017-06-02] MEDS: methylPREDNISolone SS 125 MG/2 ML VIAL IVP SCH ×3 (12:00→20:40)
[2017-06-02] MEDS ORDERED: INSULIN DETEMIR 100 UNITS/ML 10 ML VIAL SUBQ ONE (12:10)
--- NOTE | 2017-06-02 12:10 | NUR ---
PT REFUSED LEVEMIR 10 U X1. OFFERED 3X. EXPLAINED TO PT THE NEED FOR INSULIN ADMINISTRATION BUT PT STILL REFUSED. DR. CASSIDY MADE AWARE.
--- NOTE | 2017-06-02 12:11 | NUR ---
DR. CASSIDY MADE AWARE OF LATEST BLOOD SUGAR AT 11:30AM, 334MG/DL AND OK TO HOLD DUE SOLUMEDROL IVP FOR NOW DUE TO BLOOD SUGAR STILL HIGH.
[2017-06-02 12:23] LABS: T4 (THYROXINE) 6.5 ug/dL (4.5-12.0)
[2017-06-02] MEDS: INSULIN LISPRO SLIDING SCALE 100 UNITS/ML VIAL SUBQ PRN ×3 (12:24→20:47)
[2017-06-02] MEDS: PIPER/TAZO 2.25GM/D5W PREMIX 50 ML IV SCH ×2 (13:00→20:39)
[2017-06-02 13:36] LABS: HEMATOCRIT 42.7 % (36-52); MEAN CORPUSCULAR HEMOGLOBIN 29 pg (27-31); MEAN CORPUSCULAR VOLUME 87 fL (80-94); RED BLOOD CELL COUNT(AUTO) 4.89 MIL/uL (4.20-6.10); WHITE BLOOD COUNT (AUTO) 15.6 K/uL (4.8-10.8)
[2017-06-02 13:37] LABS: BASOPHILS # (AUTO) 0.3 K/uL (0.00-0.22); BASOPHILS % (AUTO) 1.8 % (0.0-2.0); EOSINOPHILS # (AUTO) 0.1 K/uL (0-0.4); EOSINOPHILS % (AUTO) 0.9 % (0.0-4.0); LYMPHOCYTES # (AUTO) 0.5 K/uL (2.0-11.5); LYMPHOCYTES % (AUTO) 3.1 % (20.5-51.1); MEAN CORPUSCULAR HGB CONC 33 g/dL (33-37); MONOCYTES # (AUTO) 0.1 K/uL (0.8-1.0); MONOCYTES % (AUTO) 0.5 % (1.7-9.3); NEUTROPHILS # (AUTO) 14.6 K/uL (1.8-7.7); NEUTROPHILS % (AUTO) 93.7 % (42.2-75.2); PLATELET COUNT (AUTO) 246 K/uL (140-450); RED CELL DISTRIBUTION WIDTH 19.5 % (11.6-13.7)
--- NOTE | 2017-06-02 14:37 | NUR ---
CM NOTE COMPUTER AND PHONE LINES WERE DOWN. WRITTEN CLINICAL UPDATE FAXED TO [facility] [phone] # [phone] AND TO [facility] [phone] KORI PH# [phone].
[2017-06-02 15:04] LABS: PROTHROMBIN TIME 11.5 secs (10.8-13.4)
[2017-06-02 16:00] VITALS: BP 131/68
[2017-06-02] MEDS ORDERED: WARFARIN 5 MG TAB ONE (16:38)
[2017-06-02] MEDS ORDERED: WARFARIN 1 MG TAB ONE (16:38)
[2017-06-02] MEDS: WARFARIN 5 MG, WARFARIN 1 MG PO SCH ×2 (16:49)
--- NOTE | 2017-06-02 17:52 | NUR ---
DR. SENIOR MADE AWARE OF LATEST POTASSIUM LEVEL OF PT, 5.3.
[2017-06-02] MEDS ORDERED: SODIUM POLYSTYRENE 15 GM/60 ML UDBTL ONE (18:13)
[2017-06-02] MEDS ORDERED: SODIUM POLYSTYRENE 15 GM/60 ML UDBTL PO SCH (18:20)
[2017-06-02] MEDS ORDERED: BUDESONIDE 0.25 MG/2 ML NEBU INH ONE (18:59)
[2017-06-02] MEDS ORDERED: ALBUTEROL SULFATE/IPRATROPIU 3 ML SOL IH ONE (18:59)
--- NOTE | 2017-06-02 19:35 | NUR ---
SEEN PT AWAKE, ALERT AND ORIENTED ASKING FOR CRACKERS. INITIAL ASSESSMENT DONE. VITAL SIGNS CHECKED. PT DENIES ANY PAIN AT THIS TIME. SAFETY ENSURED. CALL LIGHT W/IN REACH. WILL GIVE CRACKERS PER REQUEST.
--- NOTE | 2017-06-02 19:50 | NUR ---
PT KEPT CLEAN, DRY AND COMFORTABLE, NEEDS ATTENDED. NO SOB NOTED. EXPLAINED TO PT THE NEED TO COMPLY WITH INSULIN ORDER AND OTHER MEDICATIONS. PT REFUSED TO LISTEN. PT VERBALLY ABUSIVE. YELLS AT STAFF. DENIES ANY PAIN OR DISCOMFORT AT THIS TIME. ENDORSED TO NEXT SHIFT. PT ON STABLE CONDITION. FOR CONTINUITY OF CARE.
[2017-06-02 20:00] VITALS: BP 137/59
--- NOTE | 2017-06-02 20:20 | NUR ---
PT CALLED AND SEEN. PT STATES, " CAN I HAVE EITHER TUNA OR CHICKEN SANDWICH, AND ALSO CRACKERS AND CRANBERRY JUICE." WILL GIVE PER REQUEST. Addendum: 06/02/17 at 2229 by Kirstin Mayo RN NOTES FOR [id number]
[2017-06-02] MEDS ORDERED: CARVEDILOL 3.125 MG TAB ONE (20:28)
[2017-06-02] MEDS ORDERED: methylPREDNISolone SS 40 MG/ML VIAL ONE (20:28)
[2017-06-02] MEDS: ALBUTEROL SULFATE/IPRATROPIU 3 ML SOL IH PRN (20:29)
--- NOTE | 2017-06-02 20:40 | NUR ---
SEEN PT FINISHED W/ HIS BREATHING TREATMENT. BLOOD SUGAR CHECKED:292. WILL GIVE COVERAGE BUT PT STATES" I WANT 10UNITS OF HUMALOG, I TAKE IT AT HOME AND I'M FINE." " I HAVE BEEN TAKING IT FOR 2 YRS." EXPLAINED TO PT IT DEPENDS ON THE SLIDING SCALE. PT STATES, " I WON'T TAKE IT IF IT'S NOT 10UNITS." OTHER MEDS GIVEN W/ TEACHINGS. PT STATES, " I WANT TO SHOWER TONIGHT." INFORMED HIM WILL NOTIFY MD. PT STATES, " I WANT NORCO AND ATIVAN TOO." WILL MEDICATE ORDERED. PT DENIES ANY NEEDS AT THIS TIME.
[2017-06-02] MEDS ORDERED: LORazepam 1 MG TAB ONE (20:50)
[2017-06-02] MEDS ORDERED: HYDROcodone/APAP 5/325 MG 1 TAB TAB ONE (20:50)
--- NOTE | 2017-06-02 21:19 | NUR ---
SPOKE TO DR HARDY REGARDING PT WANTING TO SHOWER TONIGHT. HE SAID " I'LL PUT IN THE ORDER." SEEN PT SLEEPING AT THIS TIME.
--- NOTE | 2017-06-02 23:50 | NUR ---
PT CALLED AND WANTS TO TAKE SHOWER. SEEN ORDER OK TO SHOWER. VITAL SIGNS CHECKED. PT'S IV SITE WRAPPED. PT ASSISTED TO THE BATHROOM TO SHOWER.
[2017-06-03] VITALS: BP 123/65
--- NOTE | 2017-06-03 00:45 | NUR ---
PT DONE W/ SHOWER. ASSISTED PT BACK TO HIS ROOM. TELE MONITOR PUT BACK. LOTION APPLIED ON BILATERAL LEGS PER PT'S REQUEST. PT WANTS NORCO AND ATIVAN. WILL MEDICATE ORDERED. CALL LIGHT W/IN REACH. WILL CONTINUE TO MONITOR.
[2017-06-03] MEDS: HYDROcodone/APAP 5/325 MG 1 TAB TAB PO PRN (00:50)
[2017-06-03] MEDS: LORazepam 0.5 MG TAB PO PRN (00:51)
--- NOTE | 2017-06-03 02:45 | NUR ---
PT CALLED AND SEEN. PT ASKING FOR CRACKERS. WILL GIVE PER REQUEST. SAFETY ENSURED. CALL LIGHT W/IN REACH.
[2017-06-03 04:00] VITALS: BP 126/77
--- NOTE | 2017-06-03 05:00 | NUR ---
SEEN PT SLEEPING COMFORTABLY. WILL CONTINUE TO MONITOR.
--- NOTE | 2017-06-03 05:30 | NUR ---
AWAKEN PT. BLOOD SUGAR CHECKED: 277. INFORMED PT THAT HE WILL GET 6UNITS. PT STATES " NO, I NEED 8UNITS FOR THAT." MEDICATIONS GIVEN W/ TEACHINGS. PT ASKED FOR CRACKERS AND JELLO.
[2017-06-03] MEDS ORDERED: methylPREDNISolone SS 125 MG/2 ML VIAL ONE (05:32)
[2017-06-03] MEDS: methylPREDNISolone SS 125 MG/2 ML VIAL IVP SCH ×2 (05:34→12:05)
[2017-06-03] MEDS: PIPER/TAZO 2.25GM/D5W PREMIX 50 ML IV SCH ×2 (05:34→12:05)
[2017-06-03] MEDS: BLOOD GLUCOSE MONITORING 1 DEV DEV FS SCH ×2 (06:15→11:30)
[2017-06-03] MEDS: INSULIN LISPRO SLIDING SCALE 100 UNITS/ML VIAL SUBQ PRN ×2 (06:17→12:27)
[2017-06-03 06:52] LABS: BASOPHILS # (AUTO) 0.1 K/uL (0.00-0.22); BASOPHILS % (AUTO) 0.4 % (0.0-2.0); EOSINOPHILS % (AUTO) 0.1 % (0.0-4.0); HEMATOCRIT 43.9 % (36-52); HEMOGLOBIN 14.4 g/dL (12.0-18.0); LYMPHOCYTES # (AUTO) 0.5 K/uL (2.0-11.5); LYMPHOCYTES % (AUTO) 2.8 % (20.5-51.1); MEAN CORPUSCULAR HEMOGLOBIN 29 pg (27-31); MEAN CORPUSCULAR HGB CONC 33 g/dL (33-37); MEAN CORPUSCULAR VOLUME 87 fL (80-94); MONOCYTES # (AUTO) 0.2 K/uL (0.8-1.0); MONOCYTES % (AUTO) 1.2 % (1.7-9.3); NEUTROPHILS # (AUTO) 18.2 K/uL (1.8-7.7); NEUTROPHILS % (AUTO) 95.5 % (42.2-75.2); PLATELET COUNT (AUTO) 240 K/uL (140-450); RED BLOOD CELL COUNT(AUTO) 5.06 MIL/uL (4.20-6.10); RED CELL DISTRIBUTION WIDTH 19.9 % (11.6-13.7)
[2017-06-03 06:59] LABS: PROTHROMBIN TIME 14.1 secs (10.8-13.4)
--- NOTE | 2017-06-03 07:20 | NUR ---
REPORT RECEIVED FROM SECRETARY TO BOARD OF COMMISSIONERS NURSE VICTORIANO SANTOS UP IN BATHROOM WITH STEADY GAIT, RESP EVEN UNLABORED ON RA, SKIN WARM DRY COLOR WNL, PT DENIES PAIN, BUT STATES HE FEELS COLD, EXTRA BLANKET PROVIDED, NO OTHER NEEDS VOICED AT THIS TIME, INITIAL ASSESSMENT DONE, PLAN OF CARE DISCUSSED, IV SITE CLEAR, MOVES ALL EXT, CALL RUZI WITHIN REACH, SIDE RAILS UP, BED LOCKED IN LOW PSOTION, WILL CONTINUE TO MONITOR.
[2017-06-03 07:32] LABS: MAGNESIUM 2.2 mg/dL (1.8-2.4)
[2017-06-03 07:54] VITALS: BP 135/77
[2017-06-03 07:55] LABS: ANION GAP 8.8 (8-16); CREATININE 1.2 mg/dL (0.7-1.3); POTASSIUM 4.8 mmol/L (3.5-5.1)
[2017-06-03] MEDS ORDERED: SPIRONOLACTONE 25 MG TAB ONE (07:59)
[2017-06-03] MEDS ORDERED: FUROSEMIDE 40 MG/4 ML VIAL IVP ONE (07:59)
[2017-06-03] MEDS ORDERED: ASPIRIN 81 MG TAB.CHEW ONE (07:59)
[2017-06-03] MEDS ORDERED: LORATADINE 10 MG TAB ONE (08:00)
[2017-06-03] MEDS ORDERED: CARVEDILOL 3.125 MG TAB ONE (08:01)
[2017-06-03] MEDS ORDERED: LISINOPRIL 10 MG TAB ONE (08:01)
[2017-06-03] MEDS ORDERED: ALLOPURINOL 100 MG TAB ONE (08:01)
[2017-06-03] MEDS ORDERED: LACTOBACILLUS RHAMNOSUS GG 1 EACH CAP ONE (08:01)
[2017-06-03] MEDS: ALLOPURINOL 100 MG TAB PO SCH (08:09)
[2017-06-03] MEDS: LISINOPRIL 10 MG TAB PO SCH (08:10)
[2017-06-03] MEDS: FUROSEMIDE 40 MG/4 ML VIAL IVP SCH (08:10)
[2017-06-03] MEDS: SPIRONOLACTONE 50 MG TAB PO SCH (08:11)
[2017-06-03] MEDS: CARVEDILOL 3.125 MG TAB PO SCH (08:11)
[2017-06-03] MEDS: ASPIRIN 81 MG TAB.CHEW PO SCH (08:11)
[2017-06-03] MEDS: LACTOBACILLUS RHAMNOSUS GG 1 EACH CAP PO SCH (08:12)
[2017-06-03] MEDS: LORATADINE 10 MG TAB PO SCH (08:12)
[2017-06-03] MEDS ORDERED: INSULIN DETEMIR 100 UNITS/ML 10 ML VIAL SUBQ SCH (08:30)
--- NOTE | 2017-06-03 09:01 | NUR ---
PATIENT IRRITATED AND YELLING AT THIS TIME DR. MALGORZATA GALDAMEZ IN ROOM SCIENTIFIC PHOTOGRAPHER TO ATTEMPT HHN THERAPY AT A LATER TIME
[2017-06-03] MEDS ORDERED: guaiFENesin/CODEINE 100/10MG 5 ML UDC PO PRN (09:40)
--- NOTE | 2017-06-03 09:51 | NUR ---
PRN GUAIFENESIN DM GIVEN FOR COUGHS, PT SITTING UP TAKING ON THE PHONE IN NAD.
--- NOTE | 2017-06-03 10:10 | NUR ---
PT HAS PHONE NUMBER AND ADDRESS FOR [facility], [address] [place] [address], , PT DEMANDING WITH RAISED VOICE TO HAVE DOCTOR TRANSFER HIM TO [facility], DR GALDAMEZ TO BEDSIDE, PER DR GALDAMEZ, IV ANTIBIOTIC WILL BE DC'D, PT HAS NO NEED FOR JAIL SERVICE, PT IRRATE, SCREAMING, DOES NOT AGREE WITH PLAN, WANTS TO SPEAK TO THE BIOLOGY ADJUNCT INSTRUCTOR.
--- NOTE | 2017-06-03 10:28 | NUR ---
PRIYANKA/RN IN ROOM AT THIS TIME CONVERSING WITH PATIENT IN ORDER TO FIND OUT HIS COMPLAINTS GUEST RELATIONS MANAGER WILL ATTEMPT HHN THERAPY AT A LATER TIME
[2017-06-03] MEDS ORDERED: LEVO750T2 PO (10:32)
--- NOTE | 2017-06-03 10:48 | NUR ---
CM NOTE CONCURRENT REVIEW FAXED TO [facility] [phone] PH# [phone] AND TO [facility] [phone] KORI PH# [phone].
--- NOTE | 2017-06-03 11:15 | NUR ---
NURSING PILLOWCASE CUTTER, JOSE, AT BEDSIDE.
[2017-06-03 12:00] VITALS: BP 132/62
--- NOTE | 2017-06-03 12:17 | NUR ---
BEDSIDE GLUCOSE 477, DR SENIOR MADE AWARE
--- NOTE | 2017-06-03 12:27 | NUR ---
PER DR SENIOR, 10 UNITS OF INSULIN GIVEN AT HTIS TIME, PT SITTING UP EATING LUNCH, WILL DC HOME WHEN FINISHED.
--- NOTE | 2017-06-03 12:44 | NUR ---
AWAKE AND ALERT NO SOB NOTED PATIENT WITH LUNCH TRAY REFUSES HHN THERAPY AT THIS TIME PATIENT STATES "WANTS TO FINISH MEAL WILL ACCEPT [facility] THERAPY IN 5-10 MINUTES"
[2017-06-03] MEDS ORDERED: INSU-1343 SQ (12:51)
[2017-06-03] MEDS: BUDESONIDE 0.25 MG/2 ML NEBU INH SCH (12:55)
[2017-06-03] MEDS: ALBUTEROL SULFATE/IPRATROPIU 3 ML SOL IH PRN (12:55)
[2017-06-03 13:24] VITALS: BP 126/68
--- NOTE | 2017-06-03 13:25 | NUR ---
HR 48, BP 126/76, PT AWAKE ALERT, RESP EVEN UNLABORED, DR SENIOR MADE AWARE, EKG ORDERED, RT NOTIFIED.
--- NOTE | 2017-06-03 14:14 | NUR ---
PER DR GALDAMEZ, PT ASYMPTOMATIC WITH GOOD BP AT HR 48 PACED RHYTHM, OK TO DC HOME.
--- NOTE | 2017-06-03 15:45 | NUR ---
IV DC'D, CATH TIP INTACT, BLEEDING CONTROLLED, PT NEIL WELL, PT REFUSES TO SIGN DISCHARGE PAPERS, NURSING LABOR SPECIALIST TO BEDSIDE. Addendum: 06/03/17 at 1548 by Nasima Gandara RN DISCHARGE INSTRUCTION PACKET GIVEN AND EXPLAINED TO PT.
--- NOTE | 2017-06-03 16:10 | NUR ---
DR VIEIRA MADE AWARE OF FLUCTUATING HR FROM 48-70 AT PACED RHYTHM, OK TO DC HOME PER DR VIEIRA.
--- NOTE | 2017-06-03 16:45 | NUR ---
PT ESCORTED OUT OF ROOM IN WHEELCHAIR BY GAUGE CHECKER PRIYANKA, DISCHARGED NOW, TAXI CALLED WITH TAXI VOUCHER.
== END 2017-06-03 16:45 | disposition home or self-care (01) | DRG 469 ==
LOC: MED 02:15 → MTU 05:58 → MMU 07:50
PROVIDERS: ADMIT Family Medicine Sports Medicine; ATTEND Family Medicine Sports Medicine
DX: N17.0 Acute kidney failure with tubular necrosis (principal); J96.00 Acute respiratory failure, unspecified whether with hypoxia or hypercapnia; J69.0 Pneumonitis due to inhalation of food and vomit; I50.43 Acute on chronic combined systolic (congestive) and diastolic (congestive) heart failure; E44.0 Moderate protein-calorie malnutrition; D68.59 Other primary thrombophilia; K72.90 Hepatic failure, unspecified without coma; I42.9 Cardiomyopathy, unspecified; E11.22 Type 2 diabetes mellitus with diabetic chronic kidney disease; I48.2 Chronic atrial fibrillation; E11.65 Type 2 diabetes mellitus with hyperglycemia; M94.0 Chondrocostal junction syndrome [Tietze]; M10.9 Gout, unspecified; K21.9 Gastro-esophageal reflux disease without esophagitis; N18.9 Chronic kidney disease, unspecified; I13.0 Hypertensive heart and chronic kidney disease with heart failure and stage 1 through stage 4 chronic kidney disease, or unspecified chronic kidney disease; F19.20 Other psychoactive substance dependence, uncomplicated; E66.9 Obesity, unspecified; J44.1 Chronic obstructive pulmonary disease with (acute) exacerbation; F41.9 Anxiety disorder, unspecified; T38.0X5A Adverse effect of glucocorticoids and synthetic analogues, initial encounter; Z79.01 Long term (current) use of anticoagulants; Z79.4 Long term (current) use of insulin; Z88.8 Allergy status to other drugs, medicaments and biological substances; Z59.0 Homelessness; Z68.28 Body mass index [BMI] 28.0-28.9, adult; Z95.0 Presence of cardiac pacemaker; Z90.49 Acquired absence of other specified parts of digestive tract; Z86.718 Personal history of other venous thrombosis and embolism; Z82.5 Family history of asthma and other chronic lower respiratory diseases; Z80.0 Family history of malignant neoplasm of digestive organs; Z82.3 Family history of stroke; Z82.49 Family history of ischemic heart disease and other diseases of the circulatory system
CPT/HCPCS: 36415; 36600; 71045; 76705; 80048; 80053; 80305; 81003; 82140; 82150; 82803; 82948; 83036; 83690; 83735; 83880; 84100; 84436; 84439; 84443; 84479; 84484; 85025; 85610; 85730; 87040; 87081; 87086; 93005; 93970; 94640; 96372; 99285; G0482; J1815; J1940; J2543; J2920; J2930; J7030; J7613; J7620; J7626; J7644; Q0092

== ENCOUNTER 2017-10-04 14:29 | Inpatient (IN) | payer MEDICAID ==
[~2017-10-04] VITALS: Ht 170.2 cm; Wt 83.9 kg
[~2017-10-04 14:29] MED LIST changes: -ACET-8386 PO; -CLIN300C2 PO; +INSU-1343 SQ; +LEVO750T2 PO; -PRED10TA5 PO; -PRED20TA5 PO; -PRED5TAB7 PO
--- NOTE | 2017-10-04 14:36 | NUR ---
PT AMBULATED TO BED 11
[2017-10-04 14:43] VITALS: BP 146/85
--- NOTE | 2017-10-04 14:45 | NUR ---
PATIENT PRESENTS TO ED WITH C/O PRODUCTIVE COUGH GREEN PHLEGM X 2 WK WITH SOB . DENIES N/V/D; SKIN IS PINK/WARM/DRY; AAOX4 WITH EVEN AND STEADY GAIT; COARSE LUNG SOUNDS AND RONCHI NOTED UPON AUSCULATION. PT DENIES ANY FEVER, CP AT THIS TIME; PATIENT STATES PAIN OF 0/10 AT THIS TIME; VSS; PATIENT POSITIONED FOR COMFORT; HOB ELEVATED; BEDRAILS UP X2; BED DOWN. ER MD MADE AWARE OF PT STATUS.
[2017-10-04] MEDS ORDERED: ACET-2869 PO (14:54)
[2017-10-04] MEDS ORDERED: SIMV40TA1 PO (14:54)
[2017-10-04] MEDS ORDERED: GABA300C PO (14:54)
[2017-10-04] MEDS ORDERED: TRAM50TA1 PO (14:54)
[2017-10-04] MEDS ORDERED: ALBUTEROL 0.083% 2.5 MG/3 ML NEBU INH ONE (15:05)
[2017-10-04] MEDS ORDERED: IPRATROPIUM 0.02% 0.5 MG/2.5 ML NEBU INH ONE (15:05)
--- NOTE | 2017-10-04 15:20 | NUR ---
RT AT BEDSIDE
--- NOTE | 2017-10-04 15:20 | NUR ---
ADMITTING DX: SOB HX: COPD AWAKE AND ALERT RESPONSIE TO JUNIOR STAFF ACCOUNTANT VERBAL COMMANDS SKIN TONE PINK HFW POSITION EDUCATION PROVIDED TO PATIENT WITH ACKNOWLEDGEMENT ON HHN THERAPY AND RESPIRATORY DRUGS HHN THERAPY GIVEN AT THIS TIME ENCOURAGED FOR DEEP BREATHING DURING THERAPY SPONTANEOUS EXPECTORATION OF SMALL THICK YELLOW/GREEN SECRETIONS TOLERATED TEHRAPY WELL WIHTOUT INCIDENT
--- NOTE | 2017-10-04 15:28 | NUR ---
XRAY AT BEDSIDE
[2017-10-04 15:43] LABS: BASOPHILS % (AUTO) 0.3 % (0.0-2.0); HEMATOCRIT 51.6 % (36-52); HEMOGLOBIN 16.9 g/dL (12.0-18.0); LYMPHOCYTES # (AUTO) 1.4 K/uL (2.0-11.5); LYMPHOCYTES % (AUTO) 8.3 % (20.5-51.1); MEAN CORPUSCULAR HEMOGLOBIN 29 pg (27-31); MEAN CORPUSCULAR HGB CONC 33 g/dL (33-37); MEAN CORPUSCULAR VOLUME 88.3 fL (80-94); MONOCYTES # (AUTO) 0.9 K/uL (0.8-1.0); MONOCYTES % (AUTO) 5.2 % (1.7-9.3); NEUTROPHILS # (AUTO) 14.7 K/uL (1.8-7.7); NEUTROPHILS % (AUTO) 86.2 % (42.2-75.2); PLATELET COUNT (AUTO) 185 K/uL (140-450); RED BLOOD CELL COUNT(AUTO) 5.85 MIL/uL (4.20-6.10); RED CELL DISTRIBUTION WIDTH 17.2 % (11.6-13.7)
[2017-10-04 16:03] LABS: PROTHROMBIN TIME 12.9 secs (10.8-13.4)
[2017-10-04 16:08] LABS: ALBUMIN 3.3 g/dL (3.4-5.0); ANION GAP 14.8 (8-16); CREATININE 1.5 mg/dL (0.7-1.3); POTASSIUM 4.8 mmol/L (3.5-5.1); TOTAL BILIRUBIN 1.2 mg/dL (0.0-1.0)
[2017-10-04] MEDS ORDERED: FUROSEMIDE 20 MG/2 ML VIAL IVP ONE (16:30)
[2017-10-04] MEDS ORDERED: NITROGLYCERIN 2% 1 GM PKT TP ONE (16:30)
[2017-10-04] MEDS ORDERED: ACETAMINOPHEN 325 MG TAB PO PRN (17:15)
[2017-10-04] MEDS ORDERED: ONDANSETRON 4 MG/2 ML VIAL IVP PRN (17:15)
--- NOTE | 2017-10-04 17:45 | NUR ---
Patient will be admitted to care of DR ARENAS . Admited to [facility] . Will go to room 113. Belongings list completed. Report to ABEL ROBBINS.
--- NOTE | 2017-10-04 18:00 | NUR ---
PT ADMITTED TO TELE. BEDSIDE REPORT GIVEN BY ER NURSE ALEJANDRO. PT IS AAOX4. PT AMBULATORY. VS: TEMP 98.2, HR 75, RR 18, O2 SAT 95% ON RA. BP 116/66. PT WITH PRODUCTIVE COUGH. DENIES PAIN AT THIS TIME. NO SIGNS OF DISTRESS. MRSA SWAB DONE. PT VOIDED IN URINAL. PT REFUSED TO HAVE URINE COLLECTED FOR LAB. PLACED URINAL AT BEDSIDE TABLE. IV TO L FA 22G INTACT. BED IN LOW POSITION, WHEELS LOCKED, CALL LIGHT WITHIN REACH. WILL CONTINUE TO MONITOR.
[2017-10-04 18:09] LABS: FREE T4 (FREE THYROXINE) 1.14 ng/dL (0.76-1.46); MAGNESIUM 2.2 mg/dL (1.8-2.4); PHOSPHORUS 3.6 mg/dL (2.5-4.9); THYROID STIMULATING HORMONE 3.16 uIU/mL (0.34-3.74)
[2017-10-04] MEDS ORDERED: hePARIN / DEXT 5% PREMIX 250 ML IV SCH ×2 (18:25→18:50)
[2017-10-04] MEDS ORDERED: HEPARIN PER PHARMACY MC PRN (18:25)
[2017-10-04] MEDS ORDERED: DEXTROSE 50% 50 ML SYR IVP PRN (18:25)
[2017-10-04] MEDS ORDERED: traMADol 50 MG TAB PO PRN (18:30)
[2017-10-04] MEDS ORDERED: ALBUTEROL SULFATE INH PRN (18:30)
[2017-10-04] MEDS ORDERED: IPRATROPIUM INH PRN (18:30)
[2017-10-04] MEDS ORDERED: HYDROcodone/APAP 5/325 MG 1 TAB TAB PO PRN (18:30)
[2017-10-04] MEDS ORDERED: ALBUTEROL SULFATE/IPRATROPIU 3 ML SOL IH PRN (18:35)
--- NOTE | 2017-10-04 19:23 | NUR ---
ENDORSED PT TO INSTITUTIONAL CUSTODIAN NURSE JC AT BEDSIDE. PT IN STABLE CONDITION.
--- NOTE | 2017-10-04 19:24 | NUR ---
RECEIVED FROM AM RN IN BED SITTING UP ANSD WATCHING TV. RESPIRATORY THERAPIST INHERE FOR BREATHING TREATMENT. PT. A/O X 4. ROM X 4. CLEAR SPEECH. NO PAIN COMPLAINTS AT THIS TIME. ON TELEMETRY MONITORING . CARE PLANS FOR THE NIGHT DISCUSSED WITH HIM. CALL LIGHT WITH IN REACH AND DX. ACS AND HEART FAILURE.
[2017-10-04] MEDS ORDERED: ACETYLCYSTEINE 10% (100 MG/ML) 100 MG/ML VIAL INH SCH (19:25)
[2017-10-04] MEDS: ALBUTEROL SULFATE/IPRATROPIU 3 ML SOL IH SCH (19:31)
[2017-10-04 19:57] VITALS: BP 116/66
[2017-10-04] MEDS: CARVEDILOL 3.125 MG TAB PO SCH (20:10)
[2017-10-04] MEDS: GABAPENTIN 300 MG CAP PO SCH (20:10)
[2017-10-04] MEDS: SIMVASTATIN 40 MG TAB PO SCH (20:11)
[2017-10-04] MEDS: NACL 0.9% 1,000 ML IV SCH (20:12)
[2017-10-04] MEDS: DOCUSATE SODIUM 100 MG GELCAP PO SCH (20:12)
[2017-10-04] MEDS: BLOOD GLUCOSE MONITORING 1 DEV DEV FS SCH (20:13)
[2017-10-04] MEDS: INSULIN LANTUS 100 UNITS/ML 10 ML VIAL SUBQ SCH (20:22)
[2017-10-04] MEDS: INSULIN LISPRO SLIDING SCALE 100 UNITS/ML VIAL SUBQ PRN (20:24)
[2017-10-04] MEDS: LEVOFLOXACIN 500 MG/D5W PREMIX 100 ML IV SCH (20:39)
--- NOTE | 2017-10-04 20:59 | NUR ---
PT. WITH SUPERVISOR BRAKE REPAIR FOR LOWER EXTREMITIES BILATERAL. A/O X 4. DENIES PAIN AT THIS TIME.
--- NOTE | 2017-10-05 | NUR ---
PT. SLEEPING AT THIS TIME. WAKES UP EASILY. PT. TENDENCY TO SHOUT AND ORDER CARE GIVERS AROUND. ENCOURAGED TO CALM DOWN. NONE COMPLIANT WITH DIABETIC DIET. WANTS TO EAT AND CONTINUOUSLY EAT. GETS VERY UPSET IF NOT PROVIDED. EXPLAINED PROS AND CONS RE: DM DIET.
[2017-10-05 00:34] VITALS: BP 125/67
[2017-10-05] MEDS: ALBUTEROL SULFATE/IPRATROPIU 3 ML SOL IH SCH ×4 (00:54→19:20)
[2017-10-05] MEDS: ZOLPIDEM 5 MG TAB PO PRN (01:31)
[2017-10-05 04:11] LABS: BASOPHILS % (AUTO) 0.3 % (0.0-2.0); EOSINOPHILS % (AUTO) 0.2 % (0.0-4.0); HEMATOCRIT 47.5 % (36-52); HEMOGLOBIN 15.4 g/dL (12.0-18.0); LYMPHOCYTES # (AUTO) 1.2 K/uL (2.0-11.5); LYMPHOCYTES % (AUTO) 9.4 % (20.5-51.1); MEAN CORPUSCULAR HEMOGLOBIN 29 pg (27-31); MEAN CORPUSCULAR HGB CONC 33 g/dL (33-37); MEAN CORPUSCULAR VOLUME 88.7 fL (80-94); MONOCYTES # (AUTO) 0.9 K/uL (0.8-1.0); MONOCYTES % (AUTO) 7.6 % (1.7-9.3); NEUTROPHILS # (AUTO) 10.2 K/uL (1.8-7.7); NEUTROPHILS % (AUTO) 82.5 % (42.2-75.2); PLATELET COUNT (AUTO) 163 K/uL (140-450); RED BLOOD CELL COUNT(AUTO) 5.36 MIL/uL (4.20-6.10); RED CELL DISTRIBUTION WIDTH 17.1 % (11.6-13.7); WHITE BLOOD COUNT (AUTO) 12.4 K/uL (4.8-10.8)
[2017-10-05 04:52] VITALS: BP 122/93
--- NOTE | 2017-10-05 04:59 | NUR ---
PTT PER PHARMACY WITH 53.2 RESULT. NO CHANGES WILL BE DONE PER PROTOCOL.
[2017-10-05 05:04] LABS: ANION GAP 13.4 (8-16); CARBON DIOXIDE 26.3 mmol/L (21-32); CREATININE 1.5 mg/dL (0.7-1.3); POTASSIUM 4.7 mmol/L (3.5-5.1)
[2017-10-05 05:10] LABS: CHOL/HDL RATIO 2.5 (1-4.5); MAGNESIUM 2.1 mg/dL (1.8-2.4); PHOSPHORUS 3.9 mg/dL (2.5-4.9)
[2017-10-05] MEDS: BLOOD GLUCOSE MONITORING 1 DEV DEV FS SCH ×4 (05:42→20:07)
[2017-10-05] MEDS: INSULIN LISPRO SLIDING SCALE 100 UNITS/ML VIAL SUBQ PRN ×4 (05:48→20:31)
--- NOTE | 2017-10-05 05:48 | NUR ---
PT. SLEEPING. WOKE UP EASILY WHEN SUGAR PER FINGERSTICK SPECIMEN TAKEN. NO COMPLAINTS DONE. WENT BACK TO SLEEP.
--- NOTE | 2017-10-05 07:05 | NUR ---
RECEIVED PATIENT REPORT AT BEDSIDE. PATIENT ASLEEP BUT AROUSABLE. PATIENT ON ROOM AIR. NO SOB. NO S/S OF DISTRESS NOTED. PATIENT ON HEPARIN DRIP INFUSING AT 10ML/HR. PATIENT ON TELE MONITORING. BED LOWERED WITH CALL LIGHT WITHIN REACH. WILL CONTINUE TO MONITOR
--- NOTE | 2017-10-05 07:15 | NUR ---
PT. NO FURTHER COMPLAINTS THIS SHIFT. ALL NEEDS ATTENDED TO. ABLE TO VERBALIZE WELL. ENDORSED TO THE NEXT RN FOR CONTINUITY OF CARE.
[2017-10-05 08:00] VITALS: BP 134/84
[2017-10-05] MEDS: LISINOPRIL 10 MG TAB PO SCH (08:29)
[2017-10-05] MEDS: GABAPENTIN 300 MG CAP PO SCH ×2 (08:29→20:08)
[2017-10-05] MEDS: SPIRONOLACTONE 25 MG TAB PO SCH (08:30)
[2017-10-05] MEDS: DOCUSATE SODIUM 100 MG GELCAP PO SCH ×2 (08:30→20:29)
[2017-10-05] MEDS: CARVEDILOL 3.125 MG TAB PO SCH ×2 (08:30→20:08)
[2017-10-05] MEDS: FUROSEMIDE 40 MG TAB PO SCH ×2 (08:30→17:42)
[2017-10-05] MEDS: NAPROXEN 500 MG TAB PO SCH ×2 (08:30→17:42)
--- NOTE | 2017-10-05 08:30 | NUR ---
ADMINISTERED SCHEDULED MEDICATIONS. PATIENT TOLERATED WELL. PATIENT REPORTS OF DIFFICULTY BREATHING. PATIENT PLACED ON 2L O2. O2 SAT 99%. RT NOTIFIED. WILL CONTINUE TO MONITOR
[2017-10-05] MEDS: ALLOPURINOL 100 MG TAB PO SCH (08:31)
--- NOTE | 2017-10-05 08:50 | NUR ---
PATIENT HAS BEEN SCREENED AND CATEGORIZED MODERATE NUTRITION RISK. PATIENT WILL BE SEEN WITHIN 3-5 DAYS OF ADMISSION. 10/07/17 10/09/[address]
[2017-10-05] MEDS ORDERED: NON-FORMULARY ITEM (Warfarin Sodium* (Coumadin*) 6 MG) PO SCH (09:00)
--- NOTE | 2017-10-05 09:23 | NUR ---
PATIENT AWAKE, SITTING AT THE SIDE OF THE BED. NO S/S OF DISTRESS. ON 2L O2. 98% O2 SAT AT THIS TIME. WILL CONTINUE TO MONITOR
--- NOTE | 2017-10-05 10:35 | NUR ---
FAXED INITIAL REVIEW TO [facility] [phone] PHONE [phone] FAXED INITIAL REVIEW TO [facility] [phone] PHONE KORI [phone]
[2017-10-05 12:00] VITALS: BP 133/82
--- NOTE | 2017-10-05 13:00 | NUR ---
PATIENT WAS ANGRY WHEN HIS LUNCH TRAY DID NOT COME WITH RANCH DRESSING. EXPLAINED TO THE PATIENT THAT HE IS ON A CARDIAC DIET. PATIENT BECOME MORE AGITATED AND ASKED FOR SOME MORE SALTINE CRACKERS. NOTIFIED DR DUVALL. DR SPOKE TO THE PATIENT AND EXPLAINED TO THE PATIENT THE REPERCUSSIONS OF NOT ADHERING TO THE RECOMMENDED DIET. PATIENT VERBALIZED UNDERSTANDING BUT IS STILL ADAMANT ON GETTING HIS SALTINE CRACKERS AND RANCH DRESSING. CLERICAL OFFICE WORKER NOTIFIED WELL
[2017-10-05] MEDS: ACETYLCYSTEINE 10% (100 MG/ML) 100 MG/ML VIAL INH SCH ×2 (13:12→19:21)
--- NOTE | 2017-10-05 13:30 | NUR ---
HEPARIN DRIP DISCONTINUED
[2017-10-05 16:00] VITALS: BP 105/76
[2017-10-05] MEDS ORDERED: WARFARIN 5 MG, WARFARIN 1 MG PO SCH ×2 (17:00)
[2017-10-05] MEDS: LEVOFLOXACIN 500 MG/D5W PREMIX 100 ML IV SCH (18:03)
[2017-10-05] MEDS: NACL 0.9% 1,000 ML IV SCH (18:09)
--- NOTE | 2017-10-05 19:13 | NUR ---
PATIENT REPORT GIVEN AT BEDSIDE. PATIENT ENDORSED IN STABLE CONDITION
--- NOTE | 2017-10-05 19:14 | NUR ---
RECEIVED REPORT FROM DAY NURSE ALEJANDRO ROMAN. PT IN STABLE CONDITION. NO S/S OF DISTRESS NOTED. PT IS ON 2L O2 VIA N/C. PT AAOX4. IV TO R HAND AND R FA BOTH 22G, PATENT AND INTACT. RR EVEN/UNLABORED. SKIN IS WARM AND DRY TO TOUCH. INITIAL ASSESSMENT COMPLETED. PLAN OF CARE DISCUSSED WITH PT, VERBALIZED UNDERSTANDING. ALL SAFETY PRECAUTIONS MET, CALL LIGHT WITHIN REACH, WILL CONTINUE TO MONITOR
--- NOTE | 2017-10-05 19:20 | NUR ---
CALLED SECURITY FOR PT PER REQUEST. PT WANTS ITEMS OUT OF HIS CAR
[2017-10-05 20:00] VITALS: BP 117/78
[2017-10-05] MEDS: SIMVASTATIN 40 MG TAB PO SCH (20:13)
[2017-10-05] MEDS: INSULIN LANTUS 100 UNITS/ML 10 ML VIAL SUBQ SCH (20:30)
--- NOTE | 2017-10-05 21:00 | NUR ---
PT REQUESTING ICE CREAM AT THIS TIME. PT STATES, "I DON'T CARE IF ITS NOT ON THE FLOOR, CALL THE MOSQUITO SPRAYER NOW!"
--- NOTE | 2017-10-05 22:30 | NUR ---
PT REQUESTING MILK AND SANDWICH AT THIS TIME. PT HAS BEEN EDUCATED ABOUT HIS DIET AND PROS AND CONS OF FOLLOWING THE DIET. PT REFUSES TO FOLLOW DIET
[2017-10-06] VITALS: BP 110/65
--- NOTE | 2017-10-06 | NUR ---
PT REQUESTING MILK AND PILLOW CASE AT THIS TIME. PT STATES, "I'M GOING TO BUG THIS SHIT OUT OF YOU GUYS ALL NIGHT."
[2017-10-06] MEDS: ALBUTEROL SULFATE/IPRATROPIU 3 ML SOL IH SCH ×3 (01:36→13:36)
[2017-10-06] MEDS: ACETYLCYSTEINE 10% (100 MG/ML) 100 MG/ML VIAL INH SCH ×3 (01:37→13:36)
--- NOTE | 2017-10-06 02:30 | NUR ---
PT DEMANDING TO TAKE AMBIEN AT THIS TIME
[2017-10-06] MEDS: ZOLPIDEM 5 MG TAB PO PRN (02:40)
[2017-10-06 04:00] VITALS: BP 126/68
--- NOTE | 2017-10-06 04:30 | NUR ---
PT RESTING COMFORTABLY IN BED. NO S/S OF DISTRESS NOTED. RR EVEN/UNLABORED
[2017-10-06] MEDS: BLOOD GLUCOSE MONITORING 1 DEV DEV FS SCH ×2 (06:10→11:30)
[2017-10-06] MEDS: INSULIN LISPRO SLIDING SCALE 100 UNITS/ML VIAL SUBQ PRN ×2 (06:11→12:42)
[2017-10-06 06:45] LABS: BASOPHILS % (AUTO) 0.2 % (0.0-2.0); EOSINOPHILS # (AUTO) 0.1 K/uL (0-0.4); EOSINOPHILS % (AUTO) 1.3 % (0.0-4.0); HEMATOCRIT 47.3 % (36-52); HEMOGLOBIN 15.4 g/dL (12.0-18.0); LYMPHOCYTES # (AUTO) 1.4 K/uL (2.0-11.5); LYMPHOCYTES % (AUTO) 14.6 % (20.5-51.1); MEAN CORPUSCULAR HEMOGLOBIN 29 pg (27-31); MEAN CORPUSCULAR HGB CONC 33 g/dL (33-37); MEAN CORPUSCULAR VOLUME 88.8 fL (80-94); MONOCYTES # (AUTO) 0.7 K/uL (0.8-1.0); MONOCYTES % (AUTO) 7.6 % (1.7-9.3); NEUTROPHILS # (AUTO) 7.4 K/uL (1.8-7.7); NEUTROPHILS % (AUTO) 76.3 % (42.2-75.2); PLATELET COUNT (AUTO) 151 K/uL (140-450); RED BLOOD CELL COUNT(AUTO) 5.33 MIL/uL (4.20-6.10); RED CELL DISTRIBUTION WIDTH 16.7 % (11.6-13.7); WHITE BLOOD COUNT (AUTO) 9.6 K/uL (4.8-10.8)
[2017-10-06 06:52] LABS: ANION GAP 8.9 (8-16); CARBON DIOXIDE 31.4 mmol/L (21-32); CREATININE 1.6 mg/dL (0.7-1.3); POTASSIUM 4.3 mmol/L (3.5-5.1)
[2017-10-06 07:05] LABS: MAGNESIUM 2.2 mg/dL (1.8-2.4); PHOSPHORUS 4.1 mg/dL (2.5-4.9)
[2017-10-06 07:07] LABS: PROTHROMBIN TIME 11.3 secs (10.8-13.4)
--- NOTE | 2017-10-06 07:23 | NUR ---
REPORT GIVEN TO DAY NURSE ANGELICA RN FOR CONTINUITY OF CARE, PT IN STABLE CONDITION
--- NOTE | 2017-10-06 07:24 | NUR ---
RECEIVED REPORT FROM CRIME SCENE SPECIALIST NURSE. PATIENT LYING DOWN IN BED SLEEPING, AROUSABLE BY VOICE. NO DISTRESS NOTED. DENIES ANY PAIN AT THIS TIME. RESPIRATIONS EVEN, UNLABORED, ON ROOM AIR. AAOX4, CALM, COOPERATIVE, SKIN COLOR APPROPRIATE TO ETHNICITY, WARM TO TOUCH. SKIN IS INTACT. IV SITE INTACT, PATENT, AND ON SALINE LOCK. LUNGS CRACKLES ON B/L BASES. ABDOMEN SOFT, OBESE. REVIEWED PLAN OF CARE WITH PATIENT. PATIENT VERBALIZED UNDERSTANDING. SAFETY MEASURES IN PLACE, CALL LIGHT WITHIN REACH, FALL PREVENTIONS IN PLACE. WILL CONTINUE TO MONITOR.
[2017-10-06 08:00] VITALS: BP 112/75
[2017-10-06] MEDS: DOCUSATE SODIUM 100 MG GELCAP PO SCH (08:59)
[2017-10-06] MEDS: NAPROXEN 500 MG TAB PO SCH (09:00)
[2017-10-06] MEDS: ALLOPURINOL 100 MG TAB PO SCH (09:00)
[2017-10-06] MEDS: LISINOPRIL 10 MG TAB PO SCH (09:00)
[2017-10-06] MEDS: SPIRONOLACTONE 25 MG TAB PO SCH (09:00)
[2017-10-06] MEDS: GABAPENTIN 300 MG CAP PO SCH (09:00)
[2017-10-06] MEDS: CARVEDILOL 3.125 MG TAB PO SCH (09:00)
--- NOTE | 2017-10-06 09:07 | NUR ---
PATIENT SITTING AT BEDSIDE EATING BREAKFAST TRAY. NO DISTRESS NOTED. DENIES ANY PAIN. SCHEDULED MEDICATIONS DUE GIVEN. BLOOD PRESSURE MEDICATIONS WITHELD DUE TO DECREASED BP. SAFETY MEASURES IN PLACE, CALL LIGHT WITHIN REACH. WILL CONTINUE TO MONITOR.
--- NOTE | 2017-10-06 11:09 | NUR ---
PATIENT LYING DOWN IN BED SLEEPING, NO DISTRESS NOTED. DENIES ANY PAIN AT THIS TIME. SAFETY MEASURES IN PLACE, CALL LIGHT WITHIN REACH. WILL CONTINUE TO MONITOR.
[2017-10-06 12:00] VITALS: BP 125/80
--- NOTE | 2017-10-06 12:42 | NUR ---
PATIENT SITTING IN BED EATING LUNCH. NO DISTRESS NOTED. DENIES ANY PAIN. CONDITION UNCHANGED. SAFETY MEASURES IN PLACE, CALL LIGHT WITHIN REACH. WILL CONTINUE TO MONITOR.
--- NOTE | 2017-10-06 13:00 | NUR ---
PATIENT NOTIFIED OF BEING DISCHARGED LATER TODAY. PATIENT GOT AGITATED AND STARTED TO YELL, WANTS TO SPEAK TO ELECTROMECHANICAL EQUIPMENT ASSEMBLER, ANS WANTS BREATHING TREATMENT. RT CALLED FOR BREATHING TREATMENT AND ELECTROMECHANICAL EQUIPMENT ASSEMBLER CALLED. WILL CONTINUE TO MONITOR.
[2017-10-06] MEDS ORDERED: LACT10CA1 PO (13:14)
[2017-10-06] MEDS ORDERED: LEVO500T2 PO (13:14)
[2017-10-06] MEDS ORDERED: LANTUS SUBQ (13:14)
--- NOTE | 2017-10-06 13:44 | NUR ---
PT IS IN BED FRUSTRATED AND YELLING. DR AND RN AT BEDSIDE. HHN TX GIVEN. NO SOB OR DISTRESS NOTED.
--- NOTE | 2017-10-06 14:00 | NUR ---
PATIENT IN AGITATED MOOD. DR. POWERS AT BEDSIDE TALKING WITH PATIENT. WILL CONTINUE TO MONITOR.
--- NOTE | 2017-10-06 14:05 | NUR ---
FAXED CONCURRENT REVIEW TO [facility] [phone] PHONE [phone] FAXED CONCURRENT REVIEW TO [facility] [phone] PHONE KORI [phone]
--- NOTE | 2017-10-06 14:18 | NUR ---
1330 PER NURSE ANGELICA PT REQUESTED TO SPEAK WITH CM. ENTERED PT'S ROOM AND HE STATED "I ASKED TO TALK TO THE CHARGE NURSE NOT YOU" INFORMED PT RECEIVED A CALL FROM NURSE HE HAD REQUESTED TO SEE A CM AND PT STATED "ONE OF YOU WAS IN YESTERDAY AND DIDN'T DO ANYTHING". INFORMED PT THAT HE WAS BEING DISCHARGED AND HE STATED "I NEED TO GET TO THE LONGTERM BY 1430" AND I INFORMED HIM THAT THE LONGTERM TIME IS 1600 AND HE BECAME BELLIGERENT AND BEGAN YELLING AND CURSING AND TOLD THIS PROP SAWYER TO GET OUT OF HIS ROOM. REQUESTED THAT SECURITY BE CALLED TO PT'S ROOM.
--- NOTE | 2017-10-06 14:22 | NUR ---
DISCHARGE INSTRUCTIONS PROVIDED TO PATIENT IN PREFERRED LANGUAGE OF GRENADIAN, FOLLOW-UP VISITS WITH PCP, NEW/CHANGED MEDICATIONS REGIMEN, DIET REGIMEN, AND DISEASE PROCESS/MANAGEMENT OF CHF. ANSWERED ALL OF PATIENT'S QUESTIONS REGARDING DISCHARGE. ALL BELONGINGS WITH PATIENT. PATIENT GETTING DRESSED TO GET READY TO GO TO PRISON. IV SITE REMOVED WITH MINIMAL BLOOD AND LUMEN COMPLETELY INTACT. ID BANDS REMOVED. WILL CONTINUE TO MONITOR.
--- NOTE | 2017-10-06 14:50 | NUR ---
ALL BELONGINGS WITH PATIENT. ID BANDS REMOVED. ESCORTED PATIENT DOWN TO HIS PRIVATE VEHICLE IN ER VIA WHEELCHAIR. PATIENT DISCHARGED AT THIS TIME TO [facility] IN HIS OWN PRIVATE VEHICLE IN STABLE CONDITION.
== END 2017-10-06 14:50 | disposition home or self-care (01) | DRG 194 ==
LOC: MED 14:29 → MTU 17:21
PROVIDERS: ADMIT Student in an Organized Health Care Education/Training Program; ATTEND Student in an Organized Health Care Education/Training Program
DX: I11.0 Hypertensive heart disease with heart failure (principal); N17.0 Acute kidney failure with tubular necrosis; J96.00 Acute respiratory failure, unspecified whether with hypoxia or hypercapnia; I50.43 Acute on chronic combined systolic (congestive) and diastolic (congestive) heart failure; I24.9 Acute ischemic heart disease, unspecified; E11.65 Type 2 diabetes mellitus with hyperglycemia; M10.9 Gout, unspecified; E44.1 Mild protein-calorie malnutrition; J44.1 Chronic obstructive pulmonary disease with (acute) exacerbation; Z88.8 Allergy status to other drugs, medicaments and biological substances; I48.91 Unspecified atrial fibrillation; K21.9 Gastro-esophageal reflux disease without esophagitis; Z95.0 Presence of cardiac pacemaker; K75.9 Inflammatory liver disease, unspecified; D72.829 Elevated white blood cell count, unspecified; E11.42 Type 2 diabetes mellitus with diabetic polyneuropathy; Z68.29 Body mass index [BMI] 29.0-29.9, adult; Z86.718 Personal history of other venous thrombosis and embolism; I42.9 Cardiomyopathy, unspecified; F10.10 Alcohol abuse, uncomplicated; F19.10 Other psychoactive substance abuse, uncomplicated; Z90.49 Acquired absence of other specified parts of digestive tract; Z82.5 Family history of asthma and other chronic lower respiratory diseases; Z83.3 Family history of diabetes mellitus; Z82.49 Family history of ischemic heart disease and other diseases of the circulatory system; Z82.3 Family history of stroke; Z84.1 Family history of disorders of kidney and ureter; Z59.0 Homelessness; F43.9 Reaction to severe stress, unspecified; E83.51 Hypocalcemia; E66.3 Overweight; Z88.1 Allergy status to other antibiotic agents
CPT/HCPCS: 36415; 71045; 80048; 80053; 82150; 82948; 83036; 83605; 83690; 83735; 83880; 84100; 84439; 84443; 84484; 85025; 85610; 85730; 87040; 87070; 87081; 87205; 93005; 93925; 93970; 94640; 96374; 99291; J1644; J1815; J1940; J1956; J7030; J7613; J7620; J7644; Q0092

== ENCOUNTER 2017-11-01 15:37 | Inpatient (IN) | payer MEDICAID ==
[~2017-11-01] VITALS: Ht 170.2 cm; Wt 79.4 kg
[~2017-11-01 15:37] MED LIST changes: +ACET-2869 PO; -BUDE1AER IH; +GABA300C PO; -GUAI-646 PO; -INSU-1343 SQ; +LACT10CA1 PO; +LEVO500T2 PO; -LEVO750T2 PO; +SIMV40TA1 PO; +TRAM50TA1 PO
[2017-11-01 16:12] VITALS: BP 109/69
[2017-11-01] MEDS ORDERED: FUROSEMIDE 20 MG/2 ML VIAL IVP ONE (16:45)
[2017-11-01] MEDS ORDERED: NITROGLYCERIN 2% 1 GM PKT TP ONE (16:45)
[2017-11-01 17:14] LABS: BASOPHILS % (AUTO) 0.7 % (0.0-2.0); EOSINOPHILS # (AUTO) 0.1 K/uL (0-0.4); HEMATOCRIT 42.3 % (36-52); HEMOGLOBIN 13.7 g/dL (12.0-18.0); LYMPHOCYTES # (AUTO) 1.3 K/uL (2.0-11.5); LYMPHOCYTES % (AUTO) 20.6 % (20.5-51.1); MEAN CORPUSCULAR HEMOGLOBIN 28 pg (27-31); MEAN CORPUSCULAR HGB CONC 32 g/dL (33-37); MEAN CORPUSCULAR VOLUME 87.6 fL (80-94); MONOCYTES # (AUTO) 0.6 K/uL (0.8-1.0); MONOCYTES % (AUTO) 10.1 % (1.7-9.3); NEUTROPHILS # (AUTO) 4.2 K/uL (1.8-7.7); NEUTROPHILS % (AUTO) 66.6 % (42.2-75.2); PLATELET COUNT (AUTO) 224 K/uL (140-450); RED BLOOD CELL COUNT(AUTO) 4.84 MIL/uL (4.20-6.10); RED CELL DISTRIBUTION WIDTH 17.5 % (11.6-13.7); WHITE BLOOD COUNT (AUTO) 6.3 K/uL (4.8-10.8)
--- NOTE | 2017-11-01 17:35 | NUR ---
patient came in to the ER with complaints of chest tightness. patient was working outside in his yard and felt chest tightness. patient has a pacemaker in and has history of Afib. patient has had an cardiac abulation. lungs sounds are clear bilaterally. patient is alert and oriented xs 4. patient is wearing mena hoes knee high. patient refused medication lasix and nitro lub. patient is not diaphoretic and is not anxious. skin is normal color and no appearent edema. cap refill is 2.
[2017-11-01 17:38] LABS: CARBON DIOXIDE 29.5 mmol/L (21-32); CREATININE 1.5 mg/dL (0.7-1.3); POTASSIUM 4.5 mmol/L (3.5-5.1)
[2017-11-01 17:44] LABS: ALBUMIN 2.9 g/dL (3.4-5.0); TOTAL BILIRUBIN 0.7 mg/dL (0.0-1.0)
--- NOTE | 2017-11-01 18:00 | NUR ---
CRITICAL VALUE RECIEVD, TROP 0.083, DR TRAN INFORMED, NO ORDERS RECEIVED, PT ON MONITOR. DENIES ANY CHEST PAIN AT THIS TIME.
[2017-11-01 18:09] LABS: PROTHROMBIN TIME 12.2 secs (10.8-13.4)
[2017-11-01 18:18] LABS: APPEARANCE,URINE CLEAR (CLEAR); BILIRUBIN,URINE NEGATIVE (NEGATIVE); BLOOD, URINE NEGATIVE (NEGATIVE); LEUKOCYTE ESTERASE ,URINE NEGATIVE (NEGATIVE); NITRITE, URINE NEGATIVE (NEGATIVE); UGLUCOSE NEGATIVE (NEGATIVE)
[2017-11-01 18:19] LABS: COLOR,URINE STRAW (YELLOW)
--- NOTE | 2017-11-01 18:29 | NUR ---
PT DENIES ANY CHEST PAIN AT THIS TIME, NO SOB. RESP EVEN AND UNLABORED, VSS. SKIN W/D/I.
[2017-11-01] MEDS ORDERED: NACL 0.9% 1,000 ML IV SCH (18:47)
[2017-11-01] MEDS ORDERED: DOCUSATE SODIUM 100 MG GELCAP PO PRN (18:50)
[2017-11-01] MEDS ORDERED: HYDROcodone/APAP 7.5/325 MG 1 TAB PO PRN (18:50)
[2017-11-01] MEDS ORDERED: ACETAMINOPHEN 325 MG TAB PO PRN (18:50)
[2017-11-01] MEDS ORDERED: ZOLPIDEM 5 MG TAB PO PRN (18:50)
[2017-11-01] MEDS ORDERED: LORazepam 0.5 MG TAB PO PRN (18:50)
--- NOTE | 2017-11-01 19:06 | NUR ---
patient is sleeping and vitals are baseline.
--- NOTE | 2017-11-01 19:17 | NUR ---
report given to Micah RN BED IS GIVEN HOWEVER BED IS DIRTY IN [facility]. CHARGE NURSE CHESTER IS AWARE. CARE TRANSFERRED
--- NOTE | 2017-11-01 19:25 | NUR ---
RECEIVED A 62/Y/O MALE FROM [facility] [employer] WITH C/O OF CHEST PAIN, R/O ACS. PATIENT AAOX4, AMBULATORY, SKIN INTACT. ROUTINE ADMISSION CARE DONE AND CARRIED OUT ORDER. PERSONAL BELONGINGS ON PATIENT BEDSIDE. MRSA SWAB DONE. BED IN LOW POSITION. CALL LIGHT WITHIN REACH. PLAN OF CARE EXPLAINED TO PATIENT AND VERBALIZED UNDERSTANDING. ALL NEEDS ATTENDED.
--- NOTE | 2017-11-01 19:39 | NUR ---
Patient will be admitted to care of DR ESQUIVEL. Admited to TELE. Will go to room 112B. Belongings list completed. Report to ABEL CAMACHO AT BEDSIDE.
[2017-11-01 19:50] LABS: BARBITURATE, URINE NEG. ng/ml (NEG <=200); BENZODIAZEPINE, URINE NEG. ng/mL (NEG <=200); CANNABINOID, URINE NEG. ng/mL (NEG <=50); COCAINE, URINE NEG. ng/mL (NEG <=300); OPIATE, URINE NEG. ng/mL (NEG <=2000); PHENCYCLIDINE SCREEN,URINE NEG. ng/mL (NEG <=25)
[2017-11-01 20:20] LABS: CHOL/HDL RATIO 2.3 (1-4.5); FREE T4 (FREE THYROXINE) 0.82 ng/dL (0.76-1.46); PHOSPHORUS 3.8 mg/dL (2.5-4.9); THYROID STIMULATING HORMONE 1.56 uIU/mL (0.34-3.74)
[2017-11-01] MEDS ORDERED: HYDROcodone/APAP 5/325 MG 1 TAB TAB PO SCH (21:25)
[2017-11-01] MEDS ORDERED: DEXTROSE 50% 50 ML SYR IVP PRN (21:30)
--- NOTE | 2017-11-01 21:35 | NUR ---
SEEN PATIENT ASLEEP ON BED BUT EASILY AROUSABLE. NO COMPLAIN OF CHEST PAIN. CALL LIGHT WITHIN REACH. BED IN LOW POSITION. NO S/S OF DISTRESS NOTED AT THIS TIME. ALL NEEDS ATTENDED. WILL CONTINUE TO MONITOR.
--- NOTE | 2017-11-01 22:26 | NUR ---
NS IVF D/C BY DR. HARDY PER PATIENT REQUEST.
[2017-11-01 23:43] VITALS: BP 136/81
--- NOTE | 2017-11-02 02:02 | NUR ---
PATIENT ASLEEP ON BED IN COMFORTABLE POSITION. NO S/S OF DISTRESS NOTED. CALL LIGHT WITHIN REACH. WILL CONTINUE TO MONITOR.
[2017-11-02 04:00] VITALS: BP 136/81
--- NOTE | 2017-11-02 05:42 | NUR ---
SEEN PATIENT RESTING COMFORTABLY IN BED. BED IN LOW POSITION . CALL LIGHTS WITHIN REACH. NO COMPLAIN OF CHEST PAIN. NO S/S OF DISTRESS AT THIS TIME.
[2017-11-02] MEDS: INSULIN LISPRO SLIDING SCALE 100 UNITS/ML VIAL SUBQ PRN ×4 (06:05→20:30)
[2017-11-02] MEDS: BLOOD GLUCOSE MONITORING 1 DEV DEV FS SCH ×4 (06:06→20:25)
--- NOTE | 2017-11-02 07:05 | NUR ---
ENDORSED PATIENT TO AM SHIFT RN FOR CONTINUITY OF CARE. PATIENT IN STABLE CONDITION.
--- NOTE | 2017-11-02 07:06 | NUR ---
RECEIVED REPORT FROM CLEARANCE CENTER MANAGER NURSE. PATIENT LYING DOWN IN BED SLEEPING, AROUSABLE BY VOICE. NO DISTRESS NOTED. DENIES ANY PAIN AT THIS TIME. RESPIRATIONS EVEN, UNLABORED, ON ROOM AIR. AAOX4, CALM, COOPERATIVE, SKIN COLOR APPROPRIATE TO ETHNICITY, WARM TO TOUCH. SKIN IS INTACT. LUNGS CTA ON ALL LOBES. ABDOMEN SOFT, OBESE. IV SITE INTACT, PATENT, AND ON SALINE LOCK. REVIEWED PLAN OF CARE WITH PATIENT. PATIENT VERBALIZED UNDERSTANDING. SAFETY MEASURES IN PLACE, CALL LIGHT WITHIN REACH. WILL CONTINUE TO MONITOR.
[2017-11-02 07:28] LABS: BASOPHILS % (AUTO) 0.7 % (0.0-2.0); EOSINOPHILS # (AUTO) 0.1 K/uL (0-0.4); EOSINOPHILS % (AUTO) 1.8 % (0.0-4.0); HEMATOCRIT 40.7 % (36-52); HEMOGLOBIN 13.5 g/dL (12.0-18.0); LYMPHOCYTES # (AUTO) 1.3 K/uL (2.0-11.5); LYMPHOCYTES % (AUTO) 19.9 % (20.5-51.1); MEAN CORPUSCULAR HEMOGLOBIN 29 pg (27-31); MEAN CORPUSCULAR HGB CONC 33 g/dL (33-37); MEAN CORPUSCULAR VOLUME 87.5 fL (80-94); MONOCYTES # (AUTO) 0.7 K/uL (0.8-1.0); MONOCYTES % (AUTO) 10.4 % (1.7-9.3); NEUTROPHILS # (AUTO) 4.2 K/uL (1.8-7.7); NEUTROPHILS % (AUTO) 67.2 % (42.2-75.2); PLATELET COUNT (AUTO) 218 K/uL (140-450); RED BLOOD CELL COUNT(AUTO) 4.65 MIL/uL (4.20-6.10); RED CELL DISTRIBUTION WIDTH 17.4 % (11.6-13.7); WHITE BLOOD COUNT (AUTO) 6.3 K/uL (4.8-10.8)
[2017-11-02 07:48] LABS: ANION GAP 13.4 (8-16); CARBON DIOXIDE 24.7 mmol/L (21-32); CREATININE 1.3 mg/dL (0.7-1.3); POTASSIUM 4.1 mmol/L (3.5-5.1)
[2017-11-02 07:56] LABS: MAGNESIUM 1.9 mg/dL (1.8-2.4); PHOSPHORUS 4.3 mg/dL (2.5-4.9)
[2017-11-02 08:00] VITALS: BP 116/69
[2017-11-02 08:28] LABS: T4 (THYROXINE) 5.2 ug/dL (4.5-12.0)
--- NOTE | 2017-11-02 08:58 | NUR ---
PATIENT HAS BEEN SCREENED AND CATEGORIZED MODERATE NUTRITION RISK. PATIENT WILL BE SEEN WITHIN 3-5 DAYS OF ADMISSION. 11/04/17 11/06/[address]
[2017-11-02] MEDS ORDERED: FUROSEMIDE 40 MG/4 ML VIAL IVP SCH (09:00)
[2017-11-02] MEDS ORDERED: LISINOPRIL 10 MG TAB PO SCH (09:00)
[2017-11-02] MEDS ORDERED: SPIRONOLACTONE 50 MG TAB PO SCH (09:00)
[2017-11-02] MEDS: CARVEDILOL 3.125 MG TAB PO SCH ×2 (09:05→20:36)
[2017-11-02] MEDS: GABAPENTIN 300 MG CAP PO SCH ×2 (09:05→20:37)
[2017-11-02] MEDS: ALLOPURINOL 100 MG TAB PO SCH (09:08)
--- NOTE | 2017-11-02 09:14 | NUR ---
PATIENT SITTING IN BED AND WATCHING TV. NO DISTRESS NOTED. DENIES ANY PAIN AT THIS TIME. SCHEDULED MEDICATIONS DUE GIVEN. SAFETY MEASURES IN PLACE, CALL LIGHT WITHIN REACH. WILL CONTINUE TO MONITOR.
--- NOTE | 2017-11-02 10:55 | NUR ---
PATIENT LYING DOWN IN BED WATCHING TV. NO DISTRESS NOTED. DENIES ANY PAIN. CONDITION UNCHANGED. WILL CONTINUE TO MONITOR.
[2017-11-02 11:57] VITALS: BP 115/64
--- NOTE | 2017-11-02 12:12 | NUR ---
[facility]IE[facility] JUST GO TO [facility] [phone] PHONE KORI [phone]
--- NOTE | 2017-11-02 13:51 | NUR ---
PATIENT LYING IN BED SLEEPING, AROUSABLE BY VOICE. NO DISTRESS NOTED. DENIES ANY PAIN. CONDITION UNCHANGED. SAFETY MEASURES IN PLACE, CALL LIGHT WITHIN REACH. WILL CONTINUE TO MONITOR.
[2017-11-02 16:00] VITALS: BP 120/72
--- NOTE | 2017-11-02 16:27 | NUR ---
P.T. NOTES P.T. LOLITA COMPLETED; NURSING TO AMBU PATIENT ADLIB Addendum: 11/02/17 at 1628 by Dang Downing PT Amended: Links added.
[2017-11-02] MEDS ORDERED: WARFARIN 5 MG, WARFARIN 1 MG PO SCH ×2 (17:00)
--- NOTE | 2017-11-02 17:17 | NUR ---
PATIENT LYING DOWN IN BED SLEEPING, AROUSABLE BY VOICE. NO DISTRESS NOTED. DENIES ANY PAIN. SCHEDULED MEDICATIONS DUE GIVEN. SAFETY MEASURES IN PLACE, CALL LIGHT WITHIN REACH. WILL CONTINUE TO MONITOR.
--- NOTE | 2017-11-02 18:30 | NUR ---
PATIENT SITTING IN BED WATCHING TV. NO DISTRESS NOTED. DENIES ANY PAIN. CONDITION UNCHANGED. WILL CONTINUE TO MONITOR.
--- NOTE | 2017-11-02 19:25 | NUR ---
RECEIVED PT FROM AM NURSE, PT AWAKE ALERT AND ORIENTED X4, NO C/O PAIN OR RESPIRATORY DISTRESS.
--- NOTE | 2017-11-02 19:25 | NUR ---
GAVE REPORT TO PUBLIC RELATIONS SPECIALIST NURSE FOR CONTINUITY OF CARE. PATIENT IN STABLE CONDITION.
[2017-11-02] MEDS ORDERED: SIMVASTATIN 40 MG TAB PO SCH (21:00)
[2017-11-02] MEDS ORDERED: INSULIN LANTUS 100 UNITS/ML 10 ML VIAL SUBQ SCH (21:00)
--- NOTE | 2017-11-02 21:25 | NUR ---
BS DONE 164 COVERED WITH HUMALOG 2 UNITS, SNACKS GIVEN.
[2017-11-03] VITALS: BP 123/44
--- NOTE | 2017-11-03 | NUR ---
AWAKEN BRIFLY FOR V/S, NO COMPLAINTS.
--- NOTE | 2017-11-03 01:00 | NUR ---
AWAKE REQUESTED FOR BACK PAIN AND ATIVAN. MEDICATED WITH NORCO.
--- NOTE | 2017-11-03 02:00 | NUR ---
PT SLEEPING NO SIGN OF DISTRESS.
[2017-11-03 03:55] VITALS: BP 116/71
[2017-11-03] MEDS: BLOOD GLUCOSE MONITORING 1 DEV DEV FS SCH (06:34)
[2017-11-03 07:10] LABS: BASOPHILS # (AUTO) 0.1 K/uL (0.00-0.22); EOSINOPHILS # (AUTO) 0.1 K/uL (0-0.4); EOSINOPHILS % (AUTO) 1.7 % (0.0-4.0); HEMATOCRIT 44.6 % (36-52); HEMOGLOBIN 14.7 g/dL (12.0-18.0); LYMPHOCYTES # (AUTO) 1.5 K/uL (2.0-11.5); MEAN CORPUSCULAR HEMOGLOBIN 29 pg (27-31); MEAN CORPUSCULAR HGB CONC 33 g/dL (33-37); MEAN CORPUSCULAR VOLUME 88.1 fL (80-94); MONOCYTES # (AUTO) 0.6 K/uL (0.8-1.0); MONOCYTES % (AUTO) 8.2 % (1.7-9.3); NEUTROPHILS # (AUTO) 4.7 K/uL (1.8-7.7); NEUTROPHILS % (AUTO) 67.1 % (42.2-75.2); PLATELET COUNT (AUTO) 208 K/uL (140-450); RED BLOOD CELL COUNT(AUTO) 5.06 MIL/uL (4.20-6.10); RED CELL DISTRIBUTION WIDTH 17.6 % (11.6-13.7)
[2017-11-03 07:29] LABS: ANION GAP 13.3 (8-16); CARBON DIOXIDE 26.5 mmol/L (21-32); CREATININE 1.3 mg/dL (0.7-1.3); POTASSIUM 4.8 mmol/L (3.5-5.1)
[2017-11-03 07:33] LABS: MAGNESIUM 2.1 mg/dL (1.8-2.4); PHOSPHORUS 4.1 mg/dL (2.5-4.9)
[2017-11-03 08:00] VITALS: BP 133/80
[2017-11-03] MEDS ORDERED: SPIRONOLACTONE 25 MG TAB PO SCH (09:00)
[2017-11-03] MEDS ORDERED: DOCU-299 PO (10:17)
[2017-11-03] MEDS: ALLOPURINOL 100 MG TAB PO SCH (10:33)
[2017-11-03] MEDS: CARVEDILOL 3.125 MG TAB PO SCH (10:34)
[2017-11-03] MEDS: GABAPENTIN 300 MG CAP PO SCH (10:35)
[2017-11-03 12:29] LABS: PROTHROMBIN TIME 12.9 secs (10.8-13.4)
--- NOTE | 2017-11-03 12:45 | NUR ---
PT D/C'D. GAVE INSTRUCTIONS, FORMS, FOLLOW UP APPOINTMENT, LABS, AND RX. PT VERBALIZED UNDERSTANDING AND SIGNED FORMS. D/C IV TO R HAND 20G.IV CATHETER TIP INTACT APPLIED DRESSING AND PRESSURE TO SITE. NO BLEEDING NOTED. REMOVED TELE MONITOR AND ID BAND. PT LEFT WITH ALL PERSONAL BELONGINGS. LEFT UNIT VIA WHEELCHAIR. PT GOT IN HIS OWN CAR. LEFT IN STABLE CONDITION.
--- NOTE | 2017-11-03 14:26 | NUR ---
1837 CLINICAL DOCUMENTATION AND DISCHARGE SUMMARY FAXED TO KORI TRAYLOR AT [facility] [phone] AND PHONE [phone].
[2017-11-03] MEDS ORDERED: WARFARIN 5 MG, WARFARIN 1 MG PO SCH ×2 (17:00)
[2017-11-03] MEDS ORDERED: WARFARIN 5 MG TAB PO SCH (17:00)
== END 2017-11-03 12:30 | disposition home or self-care (01) | DRG 812 ==
LOC: MED 15:37 → MTU 18:48
PROVIDERS: ADMIT General Practice; ATTEND General Practice
DX: T43.621A Poisoning by amphetamines, accidental (unintentional), initial encounter (principal); N17.0 Acute kidney failure with tubular necrosis; I50.43 Acute on chronic combined systolic (congestive) and diastolic (congestive) heart failure; E44.0 Moderate protein-calorie malnutrition; D68.59 Other primary thrombophilia; E11.40 Type 2 diabetes mellitus with diabetic neuropathy, unspecified; I48.91 Unspecified atrial fibrillation; E11.65 Type 2 diabetes mellitus with hyperglycemia; J44.9 Chronic obstructive pulmonary disease, unspecified; F15.90 Other stimulant use, unspecified, uncomplicated; K21.9 Gastro-esophageal reflux disease without esophagitis; I11.0 Hypertensive heart disease with heart failure; M10.9 Gout, unspecified; E66.9 Obesity, unspecified; R07.9 Chest pain, unspecified; R74.0 Nonspecific elevation of levels of transaminase and lactic acid dehydrogenase [LDH]; Z95.0 Presence of cardiac pacemaker; Z88.8 Allergy status to other drugs, medicaments and biological substances; Z79.01 Long term (current) use of anticoagulants; Z79.899 Other long term (current) drug therapy; Z86.718 Personal history of other venous thrombosis and embolism; Z90.49 Acquired absence of other specified parts of digestive tract; Z83.3 Family history of diabetes mellitus; Z82.3 Family history of stroke; Z82.49 Family history of ischemic heart disease and other diseases of the circulatory system; Z84.89 Family history of other specified conditions; Z59.0 Homelessness; Z79.4 Long term (current) use of insulin; Y92.89 Other specified places as the place of occurrence of the external cause; Z88.1 Allergy status to other antibiotic agents
CPT/HCPCS: 36415; 71045; 80048; 80053; 80305; 81003; 82150; 82948; 83036; 83690; 83735; 83880; 84100; 84436; 84439; 84443; 84479; 84484; 85025; 85610; 85730; 87081; 93005; 97535; 99285; J1815; J1940; J7030; Q0092

== ENCOUNTER 2018-02-01 00:14 | Inpatient (IN) | payer MEDICAID ==
[~2018-02-01] VITALS: Ht 180.3 cm; Wt 90.7 kg
[~2018-02-01 00:14] MED LIST changes: +DOCU-299 PO; -LACT10CA1 PO; -LEVO500T2 PO
[2018-02-01 00:28] VITALS: BP 127/47
--- NOTE | 2018-02-01 00:33 | NUR ---
PT AMBULATED TO LOBBY WITH VSS. WALKER ASSISTED.
--- NOTE | 2018-02-01 02:38 | NUR ---
PT AMBULATED TO BED 2
--- NOTE | 2018-02-01 02:40 | NUR ---
62 Y/O M PRESENTS TO ED W/C/O "I HAVE CELLULITIS ON MY LOWER LEGS, IT HURTS AND ITCHES." REDNESS AND RAISED RED BUMPS NOTED TO BILAT LOWER LEGS. PT DENIES N/V/D; SKIN IS PINK/WARM/DRY; AAOX4, PERRL, WITH EVEN AND STEADY GAIT; LUNGS CLEAR BL, BREATHING UNLABORED; HR EVEN AND REGULAR, BL PERIPHERAL PULSES PRESENT; BS ACTIVE X4, NO TENDERNESS TO PALPATION, NO HEPATOSPLENOMEGALLY PALPATED, RESONANT TO PERCUSSION; PT DENIES ANY FEVER, CP, SOB, OR COUGH AT THIS TIME; PT STATES 7/10 PAIN AT THIS TIME; VSS; PATIENT POSITIONED FOR COMFORT; HOB ELEVATED; BEDRAILS UP X2; BED DOWN.ER MADE AWARE
[2018-02-01] MEDS ORDERED: ASPIRIN 325 MG TAB PO ONE (02:45)
[2018-02-01 03:34] LABS: BASOPHILS # (AUTO) 0.1 K/uL (0.00-0.22); BASOPHILS % (AUTO) 0.9 % (0.0-2.0); EOSINOPHILS # (AUTO) 0.3 K/uL (0-0.4); EOSINOPHILS % (AUTO) 3.7 % (0.0-4.0); HEMOGLOBIN 13.9 g/dL (12.0-18.0); LYMPHOCYTES # (AUTO) 1.2 K/uL (2.0-11.5); LYMPHOCYTES % (AUTO) 14.6 % (20.5-51.1); MEAN CORPUSCULAR HEMOGLOBIN 30 pg (27-31); MEAN CORPUSCULAR HGB CONC 33 g/dL (33-37); MONOCYTES # (AUTO) 0.8 K/uL (0.8-1.0); MONOCYTES % (AUTO) 10.1 % (1.7-9.3); NEUTROPHILS # (AUTO) 5.6 K/uL (1.8-7.7); NEUTROPHILS % (AUTO) 70.7 % (42.2-75.2); PLATELET COUNT (AUTO) 186 K/uL (140-450); RED BLOOD CELL COUNT(AUTO) 4.57 MIL/uL (4.20-6.10); RED CELL DISTRIBUTION WIDTH 17.9 % (11.6-13.7); WHITE BLOOD COUNT (AUTO) 7.9 K/uL (4.8-10.8)
--- NOTE | 2018-02-01 03:42 | NUR ---
PT REFUSING TO GIVE URINE AT THIS TIME. DR. MCNEAL MADE AWARE
[2018-02-01 03:54] LABS: PROTHROMBIN TIME 13.7 secs (10.8-13.4)
[2018-02-01 03:56] LABS: ALBUMIN 3.6 g/dL (3.4-5.0); ANION GAP 11.7 (8-16); CARBON DIOXIDE 26.2 mmol/L (21-32); POTASSIUM 3.9 mmol/L (3.5-5.1); TOTAL BILIRUBIN 1.4 mg/dL (0.0-1.0)
[2018-02-01 03:58] LABS: CREATININE 1.7 mg/dL (0.7-1.3)
[2018-02-01 04:34] LABS: CREATINE KINASE MB 10.6 ng/mL (0-3.6)
--- NOTE | 2018-02-01 04:41 | NUR ---
PT RESTING IN BED COMFORTABLY. NO S/S OF DISTRESS NOTED
--- NOTE | 2018-02-01 05:22 | NUR ---
PT RESTING IN BED. NAD NOTED AT THIS TIME
--- NOTE | 2018-02-01 05:27 | NUR ---
SPOKE WITH AWS SOLUTION ARCHITECT CAMILLE REGARDING PT BEING ADMITTED. SHE STATED OKAY TO ADMIT
[2018-02-01] MEDS: NACL 0.9% 1,000 ML IV SCH ×2 (05:42→19:22)
[2018-02-01] MEDS ORDERED: traMADol 50 MG TAB PO PRN (05:45)
[2018-02-01] MEDS ORDERED: INSULIN LISPRO SLIDING SCALE 100 UNITS/ML VIAL SUBQ PRN ×2 (05:45→09:05)
[2018-02-01] MEDS ORDERED: NITROGLYCERIN 0.4 MG TAB SL PRN (05:45)
[2018-02-01] MEDS ORDERED: DEXTROSE 50% 50 ML SYR IVP PRN ×2 (05:45→09:05)
[2018-02-01] MEDS ORDERED: ACETAMINOPHEN 325 MG TAB PO PRN (05:45)
[2018-02-01] MEDS ORDERED: ALBUTEROL SULFATE/IPRATROPIU 3 ML SOL IH PRN (05:45)
[2018-02-01] MEDS ORDERED: HYDROcodone/APAP 5/325 MG 1 TAB TAB PO SCH (05:45)
[2018-02-01] MEDS ORDERED: ONDANSETRON 4 MG/2 ML VIAL IM/IVP PRN (05:45)
[2018-02-01] MEDS ORDERED: DOCUSATE SODIUM 100 MG GELCAP PO PRN (05:45)
--- NOTE | 2018-02-01 05:45 | NUR ---
PT STILL REFUSING TO GIVE URINE AT THIS TIME. DR. MCNEAL STATED ITS OKAY
--- NOTE | 2018-02-01 06:13 | NUR ---
PT RESTING IN BED. RR EVEN/UNLABORED
--- NOTE | 2018-02-01 06:20 | NUR ---
Patient will be admitted to care of DR. ESQUIVEL. Admited to TELE. Will go to room 112B. Belongings list completed. Report to ANDRADE ROMAN.
[2018-02-01] MEDS: BLOOD GLUCOSE MONITORING 1 DEV DEV FS SCH ×4 (06:58→20:25)
--- NOTE | 2018-02-01 07:20 | NUR ---
RECEIVED REPORT FROM NIGHT RN. PT RESTING IN BED. AAOX4. NO S/S OF ACUTE DISTRESS. PT DENIES PAIN AT THIS TIME. IV SITE PATENT AND INTACT. CALL LIGHT WITHIN REACH. SAFETY MEASURES ENSURED. WILL CONTINUE TO MONITOR.
[2018-02-01] MEDS: SPIRONOLACTONE 25 MG TAB PO SCH (08:38)
[2018-02-01] MEDS: ASPIRIN 81 MG TAB.CHEW PO SCH (08:38)
[2018-02-01] MEDS: CARVEDILOL 3.125 MG TAB PO SCH ×2 (08:39→16:42)
[2018-02-01] MEDS: PANTOPRAZOLE 40 MG TABEC PO SCH (08:39)
[2018-02-01] MEDS: ALLOPURINOL 100 MG TAB PO SCH (08:39)
--- NOTE | 2018-02-01 08:39 | NUR ---
AM MEDS GIVEN WITH EDUCATION. PT TOLERATED WELL. WILL CONTINUE TO MONITOR.
[2018-02-01 08:49] LABS: CHOL/HDL RATIO 2.1 (1-4.5); MAGNESIUM 2.3 mg/dL (1.8-2.4); PHOSPHORUS 4.4 mg/dL (2.5-4.9); THYROID STIMULATING HORMONE 2.13 uIU/mL (0.34-3.74)
[2018-02-01] MEDS: LISINOPRIL 10 MG TAB PO SCH (08:52)
[2018-02-01] MEDS ORDERED: FUROSEMIDE 40 MG TAB PO SCH (09:00)
[2018-02-01] MEDS ORDERED: GABAPENTIN 300 MG CAP PO SCH (09:00)
[2018-02-01] MEDS ORDERED: NON-FORMULARY ITEM (Warfarin Sodium* (Coumadin*) 6 MG) PO SCH (09:00)
[2018-02-01 10:15] VITALS: BP 113/68
[2018-02-01] MEDS ORDERED: BLOOD GLUCOSE MONITORING 1 DEV DEV FS SCH (11:30)
[2018-02-01] MEDS: GABAPENTIN 300 MG CAP PO SCH ×2 (12:49→16:42)
--- NOTE | 2018-02-01 13:10 | NUR ---
CM NOTE INITIAL REVIEW FAXED TO [facility] [phone] PH# [phone] AND TO [facility] [phone] KORI PH# [phone]
[2018-02-01 15:57] VITALS: BP 106/69
--- NOTE | 2018-02-01 15:59 | NUR ---
Pt sleeping, arousable to verbal stimuli. No s/s of acute distress. Assisted Pt to and from bathroom for toileting. Call light within reach, safety measures in place. Will continue to monitor.
[2018-02-01] MEDS: WARFARIN 1 MG, WARFARIN 5 MG PO SCH ×2 (16:46)
--- NOTE | 2018-02-01 18:24 | NUR ---
Pt awake a/o, comfortable sitting up in bed eating dinner. No s/s of acute distress. Call light within reach, safety measures in place. Will continue to monitor.
--- NOTE | 2018-02-01 19:16 | NUR ---
RECEIVED REPORT FROM DAY SHIFT NURSE AT PT BEDSIDE. PT IN STABLE CONDITION. PT ASLEEP BUT EASILY AROUSABLE. PT ON RA. IV ACCESS IN R AC 20G WITH IVF RUNNING PER MD ORDERS. IV IS PATENT AND INTACT. DISCOLORATION TO BLE NOTED. PT HAS NO C/O PAIN AT THIS TIME. BED IS LOCKED, LOW POSITION, WITH SIDE RAILS UP X2. CALL LIGHT IS WITHIN REACH. BOARD UPDATED. WILL CONTINUE TO MONITOR PT.
--- NOTE | 2018-02-01 19:16 | NUR ---
ENDORSED PLAN OF CARE TO NIGHT RN. PT STABLE.
[2018-02-01 20:00] VITALS: BP 114/69
[2018-02-01] MEDS: SIMVASTATIN 40 MG TAB PO SCH (20:28)
[2018-02-01] MEDS: INSULIN LANTUS 100 UNITS/ML 10 ML VIAL SUBQ SCH (20:32)
--- NOTE | 2018-02-01 20:32 | NUR ---
SCHEDULED MEDICATIONS ADMINISTERED. BS CHECKED, 168. COVERAGE GIVEN PER MD ORDERS. PT TOLERATED WELL. WILL CONTINUE TO MONITOR.
[2018-02-01] MEDS: HYDROcodone/APAP 5/325 MG 1 TAB TAB PO PRN (21:14)
--- NOTE | 2018-02-01 21:14 | NUR ---
PT C/O PAIN. NORCO GIVEN. WILL CONTINUE TO MONITOR.
[2018-02-02] VITALS: BP 100/68
--- NOTE | 2018-02-02 00:03 | NUR ---
PT ASLEEP IN BED. NO S/SX OF DISTRESS. WILL CONTINUE TO MONITOR PT.
--- NOTE | 2018-02-02 01:43 | NUR ---
PT REFUSING TO BE RECONNECTED TO IV PUMP. WILL CONTINUE TO MONITOR.
[2018-02-02 04:00] VITALS: BP 96/65
--- NOTE | 2018-02-02 04:06 | NUR ---
PT ASLEEP IN BED. NO SIGNS OF DISTRESS. WILL CONTINUE TO MONITOR.
--- NOTE | 2018-02-02 05:51 | NUR ---
BS CHECKED, 106. NO COVERAGE NEEDED PER MD ORDERS. ALL PT NEEDS ARE MET AT THIS TIME. WILL CONTINUE TO MONITOR.
[2018-02-02] MEDS: BLOOD GLUCOSE MONITORING 1 DEV DEV FS SCH ×4 (06:01→20:32)
--- NOTE | 2018-02-02 07:05 | NUR ---
ENDORSED PT TO DAY SHIFT NURSE FOR CONTINUITY OF CARE. PT IN STABLE CONDITION.
--- NOTE | 2018-02-02 07:06 | NUR ---
RECEIVED REPORT FROM ENDOSCOPIC TECHNICIAN NURSE. PATIENT LYING DOWN IN BED SLEEPING, AROUSABLE BY VOICE. NO DISTRESS NOTED. DENIES ANY PAIN AT THIS TIME. RESPIRATIONS EVEN, UNLABORED, ON ROOM AIR. AAO3, CALM, COOPERATIVE, SKIN COLOR APPROPRIATE TO ETHNICITY, WARM TO TOUCH. SKIN INTACT, HOWEVER, HAS B/L LE DISCOLORATION, AND B/L FEET ARE DRY. LUNGS CTA ON ALL LOBES. ABDOMEN SOFT, NON-DISTENDED. IV SITE INTACT, PATENT, AND ON SALINE LOCK PATIENT REFUSES IVF TO BE RUNNING. MD ALREADY AWARE. SAFETY MEASURES IN PLACE, CALL LIGHT WITHIN REACH. WILL CONTINUE TO MONITOR.
[2018-02-02 07:40] LABS: PROTHROMBIN TIME 18.2 secs (10.8-13.4)
[2018-02-02 07:50] LABS: ANION GAP 10.3 (8-16); CARBON DIOXIDE 30.5 mmol/L (21-32); CREATININE 1.4 mg/dL (0.7-1.3); POTASSIUM 4.8 mmol/L (3.5-5.1)
[2018-02-02 07:52] LABS: BASOPHILS % (AUTO) 0.5 % (0.0-2.0); EOSINOPHILS # (AUTO) 0.5 K/uL (0-0.4); EOSINOPHILS % (AUTO) 6.8 % (0.0-4.0); HEMATOCRIT 41.9 % (36-52); HEMOGLOBIN 13.7 g/dL (12.0-18.0); LYMPHOCYTES # (AUTO) 1.4 K/uL (2.0-11.5); LYMPHOCYTES % (AUTO) 19.3 % (20.5-51.1); MEAN CORPUSCULAR HEMOGLOBIN 30 pg (27-31); MEAN CORPUSCULAR HGB CONC 33 g/dL (33-37); MEAN CORPUSCULAR VOLUME 92.8 fL (80-94); MONOCYTES # (AUTO) 0.6 K/uL (0.8-1.0); MONOCYTES % (AUTO) 8.2 % (1.7-9.3); NEUTROPHILS # (AUTO) 4.7 K/uL (1.8-7.7); NEUTROPHILS % (AUTO) 65.2 % (42.2-75.2); PLATELET COUNT (AUTO) 192 K/uL (140-450); RED BLOOD CELL COUNT(AUTO) 4.51 MIL/uL (4.20-6.10); RED CELL DISTRIBUTION WIDTH 17.7 % (11.6-13.7); WHITE BLOOD COUNT (AUTO) 7.3 K/uL (4.8-10.8)
[2018-02-02 07:57] LABS: MAGNESIUM 2.1 mg/dL (1.8-2.4); PHOSPHORUS 4.4 mg/dL (2.5-4.9)
[2018-02-02 08:00] VITALS: BP 121/76
[2018-02-02] MEDS: PANTOPRAZOLE 40 MG TABEC PO SCH (08:47)
[2018-02-02] MEDS: GABAPENTIN 300 MG CAP PO SCH ×3 (08:47→17:37)
[2018-02-02] MEDS: ASPIRIN 81 MG TAB.CHEW PO SCH (08:47)
[2018-02-02] MEDS: ALLOPURINOL 100 MG TAB PO SCH (08:47)
[2018-02-02] MEDS: CARVEDILOL 3.125 MG TAB PO SCH ×2 (08:48→17:38)
[2018-02-02] MEDS: LISINOPRIL 10 MG TAB PO SCH (08:48)
[2018-02-02] MEDS: SPIRONOLACTONE 25 MG TAB PO SCH (08:49)
--- NOTE | 2018-02-02 08:51 | NUR ---
PATIENT SITTING IN BED WATCHING TV. NO DISTRESS NOTED. DENIES ANY PAIN. SCHEDULED MEDICATIONS DUE GIVEN. NOTIFIED PATIENT THAT WE NEED URINE SAMPLE AND PLACED URINAL AT BEDSIDE. PATIENT RESPONSE: "NO YOU DON'T NEED IT". WILL CONTINUE TO REINFORCE AND CONTINUE TO MONITOR.
--- NOTE | 2018-02-02 09:33 | NUR ---
CM NOTE CONCURRENT REVIEW FAXED TO [facility] [phone] PH# [phone] AND TO [facility] [phone] KORI PH# [phone]
[2018-02-02] MEDS: HYDROCORTISONE 1% CRM 30 GM TUBE TP SCH ×2 (10:33→20:38)
[2018-02-02 12:00] VITALS: BP 119/68
--- NOTE | 2018-02-02 12:25 | NUR ---
PATIENT SITTING IN BED WITH LUNCH TRAY IN FRONT. NO DISTRESS NOTED. DENIES ANY PAIN SCHEDULED MEDICATIONS DUE GIVEN. SAFETY MEASURES IN PLACE, CALL LIGHT WITHIN REACH. WILL CONTINUE TO MONITOR.
--- NOTE | 2018-02-02 14:00 | NUR ---
PATIENT SITTING IN BED WATCHING TV. REINFORCED THE NEED FOR URINE SAMPLE. PATIENT CONTINUES TO REFUSE SAYING "YOU GUYS DON'T NEED IT". NOTIFIED MD. WILL CONTINUE TO MONITOR.
[2018-02-02 16:00] VITALS: BP 119/69
--- NOTE | 2018-02-02 16:30 | NUR ---
PATIENT LYING DOWN IN BED SLEEPING, NO DISTRESS NOTED. CONDITION UNCHANGED. WILL CONTINUE TO MONITOR.
[2018-02-02] MEDS: WARFARIN 1 MG, WARFARIN 5 MG PO SCH ×2 (17:34)
--- NOTE | 2018-02-02 19:00 | NUR ---
PATIENT CONTINUES TO REFUSE IVF. WILL CONTINUE TO MONITOR.
[2018-02-02] MEDS: NACL 0.9% 1,000 ML IV SCH (19:22)
--- NOTE | 2018-02-02 19:30 | NUR ---
RECEIVED REPORT FROM DAY SHIFT NURSE AT PT BEDSIDE. PT IN STABLE CONDITION. PT IS A/O X4. IV ACCESS IN R AC 20G, PATENT AND INTACT. PT IS CURRENTLY REFUSING IVF. PT HAS DISCOLORATION TO BLE. BED IS LOCKED, LOW POSITION WITH SIDE RAILS UP X2. BOARD UPDATED. CALL LIGHT IS WITHIN REACH.
--- NOTE | 2018-02-02 19:30 | NUR ---
GAVE REPORT TO FLYING INSTRUCTOR NURSE FOR CONTINUITY OF CARE. PATIENT IN STABLE CONDITION.
[2018-02-02 20:00] VITALS: BP 117/75
[2018-02-02] MEDS: SIMVASTATIN 40 MG TAB PO SCH (20:37)
[2018-02-02] MEDS: HYDROcodone/APAP 5/325 MG 1 TAB TAB PO PRN (20:38)
--- NOTE | 2018-02-02 20:38 | NUR ---
SCHEDULED MEDICATIONS ADMINISTERED. PT C/O PAIN NORCO GIVEN. BS CHECKED, 123. NO COVERAGE NEEDED PER ORDERS. PT TOLERATED WELL. WILL CONTINUE TO MONITOR.
[2018-02-02] MEDS: INSULIN LANTUS 100 UNITS/ML 10 ML VIAL SUBQ SCH (20:41)
--- NOTE | 2018-02-02 21:34 | NUR ---
SPOKE WITH PT ABOUT ORDERED UA. PT IS REFUSING TO GIVE URINE SAMPLE. WILL CONTINUE TO MONITOR.
--- NOTE | 2018-02-02 23:12 | NUR ---
PT IS ASLEEP IN BED. NO S/SX OF DISTRESS. WILL CONTINUE TO MONITOR.
[2018-02-03] VITALS: BP 110/69
--- NOTE | 2018-02-03 01:36 | NUR ---
PT WOKE UP. ASKING FOR ATIVAN. NO ATIVAN ORDERED. SPOKE WITH MD. MD DOES NOT WANT TO GIVE ATIVAN AT THIS TIME. WENT BACK TO SPEAK WITH PT. PT ASLEEP.
--- NOTE | 2018-02-03 03:44 | NUR ---
PT ASLEEP IN BED. NO SIGNS OF DISTRESS. WILL CONTINUE TO MONITOR.
[2018-02-03 04:00] VITALS: BP 129/76
--- NOTE | 2018-02-03 04:40 | NUR ---
TALKED TO DR. FALCON REGARDING PT AGITATED, KEEPS CALLING EVERY 5 MINUTES, YELLING, AND COMPLAINING THAT HE WANTS ATIVAN, STATED UNDERSTANDING, WILL FOLLOW UP WITH DR. GAVIRIA AND CONTINUE WITH ORDERS.
[2018-02-03] MEDS ORDERED: LORazepam 2 MG/ML VIAL IM/IVP ONE (05:00)
--- NOTE | 2018-02-03 05:01 | NUR ---
NEW IV STARTED IN R FA 22G. PT GIVEN ATIVAN D/T AGITATION. WILL CONTINUE TO MONITOR.
[2018-02-03] MEDS: BLOOD GLUCOSE MONITORING 1 DEV DEV FS SCH ×2 (05:48→11:30)
--- NOTE | 2018-02-03 06:04 | NUR ---
BS CHECKED 58. PER ORDERS D50 GIVEN. PT TOLERATED WELL. NO SIGNS OF DISTRESS. PT AWAKE IN BED. WILL RECHECK BS.
--- NOTE | 2018-02-03 06:27 | NUR ---
BS CHECKED, 132. WILL CONTINUE TO MONITOR PT.
--- NOTE | 2018-02-03 07:06 | NUR ---
RECEIVED REPORT FROM NIGHTSHIFT NURSE AT BEDSIDE. PATIENT IS ASLEEP AT THIS TIME BUT AROUSABLE TO NAME. PATIENT IS SALINE LOCK. PER REPORT, PATIENT HAS BEEN REFUSING FLUIDS. PATIENT HAS AN IV NOTED ON HIS RIGHT FOREARM 20G. NO DISTRESS NOTED AT THIS TIME. NO SIGNS OF PAIN. DISCOLORATION NOTED ON BILATERAL LEGS. UPDATED BOARD IN PATIENT'S ROOM. LOWERED BED TO LOWEST SETTING. WILL CONTINUE TO MONITOR PATIENT.
[2018-02-03 07:09] LABS: BASOPHILS % (AUTO) 0.4 % (0.0-2.0); EOSINOPHILS # (AUTO) 0.5 K/uL (0-0.4); EOSINOPHILS % (AUTO) 8.4 % (0.0-4.0); HEMATOCRIT 42.4 % (36-52); HEMOGLOBIN 13.9 g/dL (12.0-18.0); LYMPHOCYTES # (AUTO) 1.3 K/uL (2.0-11.5); LYMPHOCYTES % (AUTO) 19.9 % (20.5-51.1); MEAN CORPUSCULAR HEMOGLOBIN 31 pg (27-31); MEAN CORPUSCULAR HGB CONC 33 g/dL (33-37); MEAN CORPUSCULAR VOLUME 93.1 fL (80-94); MONOCYTES # (AUTO) 0.5 K/uL (0.8-1.0); MONOCYTES % (AUTO) 7.9 % (1.7-9.3); NEUTROPHILS # (AUTO) 4.1 K/uL (1.8-7.7); NEUTROPHILS % (AUTO) 63.4 % (42.2-75.2); PLATELET COUNT (AUTO) 192 K/uL (140-450); RED BLOOD CELL COUNT(AUTO) 4.56 MIL/uL (4.20-6.10); RED CELL DISTRIBUTION WIDTH 17.9 % (11.6-13.7); WHITE BLOOD COUNT (AUTO) 6.4 K/uL (4.8-10.8)
--- NOTE | 2018-02-03 07:29 | NUR ---
ENDORSED PT TO DAY SHIFT NURSE FOR CONTINUITY OF CARE. PT IN STABLE CONDITION.
[2018-02-03 07:54] LABS: ANION GAP 10.6 (8-16); CARBON DIOXIDE 30.2 mmol/L (21-32); CREATININE 1.4 mg/dL (0.7-1.3); POTASSIUM 4.8 mmol/L (3.5-5.1)
[2018-02-03 08:00] VITALS: BP 126/77
[2018-02-03] MEDS: ASPIRIN 81 MG TAB.CHEW PO SCH (08:20)
[2018-02-03] MEDS: GABAPENTIN 300 MG CAP PO SCH (08:20)
[2018-02-03] MEDS: ALLOPURINOL 100 MG TAB PO SCH (08:20)
[2018-02-03] MEDS: CARVEDILOL 3.125 MG TAB PO SCH (08:21)
[2018-02-03] MEDS: PANTOPRAZOLE 40 MG TABEC PO SCH (08:21)
[2018-02-03] MEDS: LISINOPRIL 10 MG TAB PO SCH (08:21)
[2018-02-03] MEDS: SPIRONOLACTONE 25 MG TAB PO SCH (08:21)
[2018-02-03] MEDS: HYDROCORTISONE 1% CRM 30 GM TUBE TP SCH (08:29)
--- NOTE | 2018-02-03 08:29 | NUR ---
PATIENT TOOK ALL MEDICATIONS. SAT UP PATIENT TO EAT BREAKFAST IN BED. PATIENT IS IN STABLE CONDITION.
[2018-02-03] MEDS ORDERED: HYD1C TP (09:53)
[2018-02-03] MEDS ORDERED: ASPI81CT95 PO (09:53)
--- NOTE | 2018-02-03 10:03 | NUR ---
CM NOTE CONCURRENT REVIEW FAXED TO [facility] [phone] PH# [phone] AND TO [facility] [phone] KORI PH# [phone]
--- NOTE | 2018-02-03 10:50 | NUR ---
INFORMED PATIENT OF DISCHARGE ORDER. PATIENT WANTS TO SHOWER FIRST. OFFERED TO HELP GET PATIENT READY TO SHOWER. PATIENT STARTS YELLING AND SAYS, "I WANT TO GO BACK TO SLEEP. I WILL SHOWER LATER ON". PATIENT APPEARS AGITATED AT THIS TIME. WILL FOLLOW UP WITH PATIENT AND DISCHARGE.
--- NOTE | 2018-02-03 11:05 | NUR ---
CM NOTE PER GENI MCFADDEN (COVERING FOR LAYTON SHEIKH) PH# [phone], THE PATIENT IS A PATIENT OF DR. BRANDI LORA. FOLLOW UP APPOINTMENT WITH DR. BRANDI LORA WAS SET UP FOR FEB 07, 2018, 2PM AT THE CLINIC [place] [address] [place] [address] PH# [phone]. PATIENT MADE AWARE. SPOKE WITH PATIENT BEDSIDE AND EMPHASIZED TO HIM THE IMPORTANCE OF FOLLOWING UP WITH HIS PHYSICIAN. PATIENT VERBALIZED UNDERSTANDING AND STATED HE WILL COME TO SEE THE DOCTOR ON HIS APPOINTMENT DATE. Addendum: 02/03/18 at 1113 by Ronit Deluca CM EM TRAVIS
--- NOTE | 2018-02-03 11:29 | NUR ---
PATIENT IS SHOWERING. INSTRUCTED PATIENT TO SIT DOWN WHILE SHOWERING. BY PATIENT'S SIDE AT THIS TIME.
[2018-02-03] MEDS: HYDROcodone/APAP 5/325 MG 1 TAB TAB PO PRN (11:46)
[2018-02-03 12:00] VITALS: BP 130/74
--- NOTE | 2018-02-03 12:50 | NUR ---
PATIENT SIGNED DISCHARGED INSTRUCTIONS. PATIENT REFUSED RESOURCE PACKET. DISCONTINUED PATIENT'S IV LINE WITH CATHETER STILL INTACT. CUT OFF PATIENT'S WRIST BANDS. PATIENT AWARE OF ALL PRESCRIPTIONS AND SCHEDULED APPOINTMENTS. PATIENT GATHERED ALL BELONGINGS. PATIENT LEFT VIA WHEELCHAIR IN STABLE CONDITION.
== END 2018-02-03 12:50 | disposition home or self-care (01) | DRG 812 ==
LOC: MED 00:14 → MTU 06:01
PROVIDERS: ADMIT General Practice; ATTEND General Practice
DX: T43.621A Poisoning by amphetamines, accidental (unintentional), initial encounter (principal); N17.0 Acute kidney failure with tubular necrosis; I50.43 Acute on chronic combined systolic (congestive) and diastolic (congestive) heart failure; D68.59 Other primary thrombophilia; E11.40 Type 2 diabetes mellitus with diabetic neuropathy, unspecified; E11.65 Type 2 diabetes mellitus with hyperglycemia; E11.69 Type 2 diabetes mellitus with other specified complication; M62.82 Rhabdomyolysis; I48.91 Unspecified atrial fibrillation; I11.0 Hypertensive heart disease with heart failure; K76.0 Fatty (change of) liver, not elsewhere classified; I42.0 Dilated cardiomyopathy; F15.90 Other stimulant use, unspecified, uncomplicated; K21.9 Gastro-esophageal reflux disease without esophagitis; J44.9 Chronic obstructive pulmonary disease, unspecified; E80.6 Other disorders of bilirubin metabolism; M10.9 Gout, unspecified; Z86.73 Personal history of transient ischemic attack (TIA), and cerebral infarction without residual deficits; Z88.8 Allergy status to other drugs, medicaments and biological substances; Z95.0 Presence of cardiac pacemaker; Z79.4 Long term (current) use of insulin; Z79.1 Long term (current) use of non-steroidal anti-inflammatories (NSAID); Z79.899 Other long term (current) drug therapy; Z90.49 Acquired absence of other specified parts of digestive tract; Z86.718 Personal history of other venous thrombosis and embolism; Z83.3 Family history of diabetes mellitus; Z80.0 Family history of malignant neoplasm of digestive organs; Z82.3 Family history of stroke; Z82.49 Family history of ischemic heart disease and other diseases of the circulatory system; Z82.5 Family history of asthma and other chronic lower respiratory diseases; Y92.89 Other specified places as the place of occurrence of the external cause; Z79.01 Long term (current) use of anticoagulants
CPT/HCPCS: 36415; 71045; 80048; 80053; 82150; 82550; 82553; 82948; 83036; 83690; 83735; 83880; 84100; 84443; 84484; 85025; 85610; 85730; 87081; 93005; 99285; G0482; J1815; J2060; J7030; J7620; Q0092

== ENCOUNTER 2018-02-13 21:59 | Emergency (ER) | payer MEDICAID ==
[~2018-02-13] VITALS: Ht 177.8 cm; Wt 95.3 kg
[~2018-02-13 21:59] MED LIST changes: +ASPI81CT95 PO; +HYD1C TP; -NAPR-54 PO
[2018-02-13 22:00] VITALS: BP 118/62
--- NOTE | 2018-02-13 22:06 | NUR ---
Gunjan quintero in [facility] - 02/13/18 at 2206 by SHOSHANA PT TAKEN TO BED 2
--- NOTE | 2018-02-13 22:06 | NUR ---
PT AMBULATED WITHOUT ASSISTANCE TO BED 2
--- NOTE | 2018-02-13 22:07 | NUR ---
CAME IN WITH C/O ITCHINESS ALL OVER HIS BODY FOR 4 DAYS
[2018-02-13 23:45] VITALS: BP 125/78
== END 2018-02-13 23:45 | disposition home or self-care (01) ==
LOC: MED 21:59
DX: I87.2 Venous insufficiency (chronic) (peripheral) (principal); J44.9 Chronic obstructive pulmonary disease, unspecified; E11.9 Type 2 diabetes mellitus without complications; K21.9 Gastro-esophageal reflux disease without esophagitis; I10 Essential (primary) hypertension; Z88.8 Allergy status to other drugs, medicaments and biological substances; Z79.899 Other long term (current) drug therapy; Z79.82 Long term (current) use of aspirin; Z79.4 Long term (current) use of insulin
CPT/HCPCS: 99283

== ENCOUNTER 2018-04-17 03:07 | Emergency (ER) | payer MEDICAID ==
[~2018-04-17] VITALS: Ht 180.3 cm; Wt 94.8 kg
[~2018-04-17 03:07] MED LIST changes: -ACET-2869 PO; +HYDR-5122 PO
--- NOTE | 2018-04-17 03:20 | NUR ---
PT AMBULATED TO BED 12 WITH VSS
[2018-04-17 03:22] VITALS: BP_SYST 142; BP_SYST 192; BP_DIAS 72
--- NOTE | 2018-04-17 03:22 | NUR ---
PT PRESENTS TO ED WITH C/O LEFT PROXIMAL, POSTERIOR, FOREARM, CELLULITIS WITH 0.5CM ULCERATION WITH GREEN DRAINAGE X1 WEEK. 9/10 PAIN. PT PLACED INTO BED, PENDING MD MCHUGH.
--- NOTE | 2018-04-17 03:25 | NUR ---
ER MD DR BHARDWAJ AT BEDSIDE
[2018-04-17] MEDS ORDERED: NACL 0.9% 1,000 ML IV SCH (03:27)
[2018-04-17] MEDS ORDERED: MORPHINE SULFATE 4 MG/ML SYR IVP ONE (03:30)
[2018-04-17] MEDS ORDERED: CEPHALEXIN 500 MG CAP PO ONE (03:30)
[2018-04-17] MEDS ORDERED: MORPHINE SULFATE 2 MG/ML SYR ONE (03:40)
[2018-04-17] MEDS ORDERED: BACITRACIN OINT 500 UNITS/GM PKT TP ONE (03:43)
[2018-04-17 04:19] LABS: BASOPHILS % (AUTO) 0.3 % (0.0-2.0); EOSINOPHILS # (AUTO) 0.2 K/uL (0-0.4); EOSINOPHILS % (AUTO) 2.3 % (0.0-4.0); HEMATOCRIT 41.5 % (36-52); HEMOGLOBIN 13.3 g/dL (12.0-18.0); LYMPHOCYTES # (AUTO) 1.2 K/uL (2.0-11.5); LYMPHOCYTES % (AUTO) 16.1 % (20.5-51.1); MEAN CORPUSCULAR HEMOGLOBIN 29 pg (27-31); MEAN CORPUSCULAR HGB CONC 32 g/dL (33-37); MEAN CORPUSCULAR VOLUME 90.4 fL (80-94); MONOCYTES # (AUTO) 0.5 K/uL (0.8-1.0); MONOCYTES % (AUTO) 6.6 % (1.7-9.3); NEUTROPHILS # (AUTO) 5.3 K/uL (1.8-7.7); NEUTROPHILS % (AUTO) 74.7 % (42.2-75.2); PLATELET COUNT (AUTO) 210 K/uL (140-450); RED BLOOD CELL COUNT(AUTO) 4.59 MIL/uL (4.20-6.10); WHITE BLOOD COUNT (AUTO) 7.1 K/uL (4.8-10.8)
--- NOTE | 2018-04-17 04:30 | NUR ---
PT WOUND COVERED WITH NON ADHERENT GAUZE AND WRAPPED WITH COFLEX TAPE AFTER BACITRACIN APPLIED. +CSM
[2018-04-17 04:31] LABS: CARBON DIOXIDE 28.3 mmol/L (21-32); POTASSIUM 4.3 mmol/L (3.5-5.1)
[2018-04-17 04:32] LABS: CREATININE 1.6 mg/dL (0.7-1.3)
[2018-04-17 05:02] VITALS: BP 142/72
--- NOTE | 2018-04-17 05:03 | NUR ---
Patient discharged with v/s stable. Written and verbal after care instructions given and explained. Patient alert, oriented and verbalized understanding of instructions. Ambulatory with steady gait. All questions addressed prior to discharge. ID band removed. Patient advised to follow up with PMD. Rx of BACTRIM, NORCO,KEFLEX given. Patient educated on indication of medication including possible reaction and side effects. Opportunity to ask questions provided and answered.
== END 2018-04-17 05:02 | disposition home or self-care (01) ==
LOC: MED 03:07
DX: S51.002A Unspecified open wound of left elbow, initial encounter (principal); L03.114 Cellulitis of left upper limb; E86.0 Dehydration; N17.9 Acute kidney failure, unspecified; J44.9 Chronic obstructive pulmonary disease, unspecified; K21.9 Gastro-esophageal reflux disease without esophagitis; I10 Essential (primary) hypertension; Z59.0 Homelessness; Z79.1 Long term (current) use of non-steroidal anti-inflammatories (NSAID); Z79.4 Long term (current) use of insulin; Z79.82 Long term (current) use of aspirin; Z79.899 Other long term (current) drug therapy; Z88.8 Allergy status to other drugs, medicaments and biological substances; X58.XXXA Exposure to other specified factors, initial encounter; Y93.89 Activity, other specified; Y92.89 Other specified places as the place of occurrence of the external cause; Y99.8 Other external cause status
CPT/HCPCS: 36415; 80053; 83605; 85025; 87040; 96361; 96374; 99283; J2270; J7030

== ENCOUNTER 2018-05-28 19:14 | Inpatient (IN) | payer MEDICAID ==
[~2018-05-28] VITALS: Ht 180.3 cm; Wt 99.8 kg
[2018-05-28 19:27] VITALS: BP 151/87
--- NOTE | 2018-05-28 19:30 | NUR ---
PT WHEELCHAIRED TO BED 1
[2018-05-28] MEDS ORDERED: INSU100I15 SQ (19:36)
[2018-05-28] MEDS ORDERED: LORA-476 PO ×2 (19:36→22:39)
[2018-05-28] MEDS ORDERED: CEPH250C16 PO (19:46)
[2018-05-28] MEDS ORDERED: COLC0.6C PO (19:46)
[2018-05-28] MEDS ORDERED: CLIN75CA2 PO (19:46)
[2018-05-28] MEDS ORDERED: SULF-58 PO (19:46)
[2018-05-28] MEDS ORDERED: IBUP-2213 PO ×2 (19:46→22:39)
--- NOTE | 2018-05-28 19:56 | NUR ---
62/M PRESENTS TO ED, C/O REPORTED SOB, X4 DAYS. PT WAS RECENTLY DISCHARGED LAST NIGHT AT [facility]. PT ARRIVES AOX4, GCS 15, SPO2 98% ON RA, RR 17 EVEN AND UNLABORED. PT REPORTS CHEST TIGHTNESS, RADIATING TO L SHOULDER. PT DENIES FEVER, COUGH, N/V. LUNG SOUNDS CLEAR BL. BS ACTIVE X4, ABD SOFT ROUND NONTENDER. CELLULITIS NOTED ON L ABD FROM PAST "INSULIN INJECTION" AND MILD BRUISING ON R ABD. PLACED ON MONITOR. ER MD AT BEDSIDE. HX A.FIB, PACEMAKER, DM, HTN,GERD
--- NOTE | 2018-05-28 20:36 | NUR ---
PT LAYING IN BED, RR EVEN AND UNLABORED. VSS. PT REPORTS FEELING ANXIOUS, REQUESTING ATIVAN, AND 8/10 INTERMITTENT CHEST TIGHTNESS. ER MD MADE AWARE.
[2018-05-28 20:41] LABS: BASOPHILS # (AUTO) 0.1 K/uL (0.00-0.22); BASOPHILS % (AUTO) 0.9 % (0.0-2.0); EOSINOPHILS # (AUTO) 0.2 K/uL (0-0.4); EOSINOPHILS % (AUTO) 2.2 % (0.0-4.0); HEMATOCRIT 40.6 % (36-52); HEMOGLOBIN 12.7 g/dL (12.0-18.0); LYMPHOCYTES # (AUTO) 1.1 K/uL (2.0-11.5); LYMPHOCYTES % (AUTO) 15.2 % (20.5-51.1); MEAN CORPUSCULAR HEMOGLOBIN 27 pg (27-31); MEAN CORPUSCULAR HGB CONC 31 g/dL (33-37); MEAN CORPUSCULAR VOLUME 86.5 fL (80-94); MONOCYTES # (AUTO) 0.7 K/uL (0.8-1.0); MONOCYTES % (AUTO) 9.1 % (1.7-9.3); NEUTROPHILS # (AUTO) 5.5 K/uL (1.8-7.7); NEUTROPHILS % (AUTO) 72.6 % (42.2-75.2); PLATELET COUNT (AUTO) 203 K/uL (140-450); RED CELL DISTRIBUTION WIDTH 18.2 % (11.6-13.7); WHITE BLOOD COUNT (AUTO) 7.5 K/uL (4.8-10.8)
--- NOTE | 2018-05-28 20:45 | NUR ---
PT REQUESTING PAIN MEDICATION. ER MD MADE AWARE.
[2018-05-28 20:54] LABS: ALBUMIN 3.1 g/dL (3.4-5.0); ANION GAP 15.3 (8-16); CARBON DIOXIDE 23.3 mmol/L (21-32); CREATININE 1.7 mg/dL (0.7-1.3); TOTAL BILIRUBIN 1.9 mg/dL (0.0-1.0)
[2018-05-28 20:57] LABS: POTASSIUM 5.6 mmol/L (3.5-5.1)
[2018-05-28] MEDS ORDERED: ASPIRIN 325 MG TAB PO ONE (21:00)
[2018-05-28] MEDS ORDERED: LORazepam 1 MG TAB PO ONE (21:00)
[2018-05-28] MEDS ORDERED: SODIUM POLYSTYRENE 15 GM/60 ML UDBTL PO ONE (21:00)
[2018-05-28 21:02] LABS: CREATINE KINASE MB 16.5 ng/mL (0-3.6)
[2018-05-28] MEDS ORDERED: SODIUM POLYSTYRENE 15 GM/60 ML UDBTL ONE (21:21)
[2018-05-28] MEDS ORDERED: FUROSEMIDE 20 MG/2 ML VIAL IVP ONE (21:25)
--- NOTE | 2018-05-28 21:45 | NUR ---
Patient will be admitted to care of DR. ESQUIVEL. Admited to TELE. Will go to room 116. Belongings list completed. Report to ABEL GUERRA
[2018-05-28 22:05] VITALS: BP 136/82
--- NOTE | 2018-05-28 22:05 | NUR ---
REPORT RECEIVED FROM ED NURSE AT BEDSIDE. PT IN STABLE CONDITION. AAOX4. INTRODUCED SELF TO PT. BOARD UPDATED. NO COMPLAINTS OF PAIN. NO SOB. AFEBRILE. IV SITE L AC 20G RUNNING NS@50ML/HR PATENT AND INTACT. SKIN WARM, DRY, AND INTACT BUT HAS CELLULITIS ON THE ABD. BED LOCKED IN LOW POSITION. CALL RUIZ WITHIN REACH. SAFETY PRECAUTIONS IN PLACE.
[2018-05-28] MEDS ORDERED: IBUPROFEN 600 MG TAB PO PRN (22:20)
[2018-05-28] MEDS ORDERED: ACETAMINOPHEN 325 MG TAB PO PRN (22:20)
[2018-05-28] MEDS ORDERED: LORazepam 1 MG TAB PO PRN (22:20)
[2018-05-28] MEDS ORDERED: DEXTROSE 50% 50 ML SYR IVP PRN (22:20)
[2018-05-28] MEDS ORDERED: ONDANSETRON 4 MG/2 ML VIAL IVP PRN (22:20)
[2018-05-28] MEDS ORDERED: HYDR-5122 PO (22:39)
[2018-05-28] MEDS ORDERED: SPIR25TA PO (22:39)
[2018-05-28] MEDS ORDERED: GABA300C PO (22:39)
[2018-05-28] MEDS ORDERED: LISI10TA11 PO (22:39)
[2018-05-28] MEDS ORDERED: FURO-570 PO (22:39)
[2018-05-28] MEDS ORDERED: SIMV40TA1 PO (22:39)
[2018-05-28] MEDS ORDERED: CARV3.12 PO (22:39)
[2018-05-28] MEDS ORDERED: WARF4TAB PO (22:39)
[2018-05-28] MEDS ORDERED: ALLO100T21 PO (22:39)
[2018-05-28] MEDS ORDERED: ALBUTEROL SULFATE/IPRATROPIU 3 ML SOL IH PRN (23:15)
[2018-05-28 23:30] LABS: PROTHROMBIN TIME 13.7 secs (10.8-13.4)
[2018-05-28] MEDS: NACL 0.9% 1,000 ML IV SCH (23:30)
[2018-05-28 23:32] LABS: MAGNESIUM 2.5 mg/dL (1.8-2.4); PHOSPHORUS 4.9 mg/dL (2.5-4.9); THYROID STIMULATING HORMONE 3.65 uIU/mL (0.34-3.74)
[2018-05-29] VITALS: BP 141/85
[2018-05-29] MEDS ORDERED: FUROSEMIDE 100 MG/10 ML VIAL IV SCH
[2018-05-29] MEDS ORDERED: CLINDAMYCIN 600 MG/4 ML VIAL ONE ×2 (00:05→05:33)
[2018-05-29] MEDS: CLINDAMYCIN 600 MG in DEXTROSE 5% 50 ML IV SCH ×2 (00:10→05:38)
--- NOTE | 2018-05-29 00:10 | NUR ---
CLEOCIN HUNG AND RUNNING. LASIX GIVEN IVP. PT TOLERATED WELL.
[2018-05-29] MEDS: HYDROcodone/APAP 5/325 MG 1 TAB TAB PO PRN (00:22)
--- NOTE | 2018-05-29 00:22 | NUR ---
NORCO GIVEN FOR 7/10 PAIN.
--- NOTE | 2018-05-29 02:00 | NUR ---
PT LAYING IN BED WATCHING TV. NO S/S OF DISTRESS NOTED. WILL CONTINUE TO MONITOR.
--- NOTE | 2018-05-29 03:15 | NUR ---
PT REFUSED FLUIDS. PT SAID HE WILL PULL IV OUT IF THE FLUIDS STAY RUNNING.
[2018-05-29 04:00] VITALS: BP 140/88
--- NOTE | 2018-05-29 05:30 | NUR ---
PT COMPLAINS OF PAIN ON THE ANKLE. MD NOTIFIED.
--- NOTE | 2018-05-29 05:38 | NUR ---
CLEOCIN HUNG AND RUNNING. PT TOLERATED WELL. BS 151.
--- NOTE | 2018-05-29 05:45 | NUR ---
ELEVATED TROPONIN CALLED IN FROM LAB. 0.074H. DR. HURTADO MADE AWARE. NO CHANGES IN ORDERS.
--- NOTE | 2018-05-29 06:14 | NUR ---
PATIENT HAS BEEN SCREENED AND CATEGORIZED MODERATE NUTRITION RISK. PATIENT WILL BE SEEN WITHIN 3-5 DAYS OF ADMISSION. 05/30/18-06/01/18 LUIS ARTIS MS, RDN
[2018-05-29] MEDS: BLOOD GLUCOSE MONITORING 1 DEV DEV FS SCH ×4 (06:27→21:50)
[2018-05-29] MEDS: INSULIN LISPRO SLIDING SCALE 100 UNITS/ML VIAL SUBQ PRN ×3 (06:30→21:49)
--- NOTE | 2018-05-29 06:30 | NUR ---
2 UNITS OF HUMALOG GIVEN. PT TOLERATED WELL.
[2018-05-29 06:53] LABS: BASOPHILS # (AUTO) 0.1 K/uL (0.00-0.22); BASOPHILS % (AUTO) 1.1 % (0.0-2.0); EOSINOPHILS # (AUTO) 0.1 K/uL (0-0.4); HEMATOCRIT 40.3 % (36-52); HEMOGLOBIN 12.6 g/dL (12.0-18.0); LYMPHOCYTES # (AUTO) 1.3 K/uL (2.0-11.5); LYMPHOCYTES % (AUTO) 22.4 % (20.5-51.1); MEAN CORPUSCULAR HEMOGLOBIN 27 pg (27-31); MEAN CORPUSCULAR HGB CONC 31 g/dL (33-37); MEAN CORPUSCULAR VOLUME 86.1 fL (80-94); MONOCYTES # (AUTO) 0.6 K/uL (0.8-1.0); MONOCYTES % (AUTO) 10.5 % (1.7-9.3); NEUTROPHILS # (AUTO) 3.8 K/uL (1.8-7.7); PLATELET COUNT (AUTO) 207 K/uL (140-450); RED BLOOD CELL COUNT(AUTO) 4.68 MIL/uL (4.20-6.10); RED CELL DISTRIBUTION WIDTH 18.2 % (11.6-13.7); WHITE BLOOD COUNT (AUTO) 5.9 K/uL (4.8-10.8)
--- NOTE | 2018-05-29 07:10 | NUR ---
RECEIVED REPORT FROM PN ABEL GUERRA; PT STABLE, AAOX4. INTRODUCED SELF AND OTHER ABEL VALDEZ TO PT. BOARD UPDATED. NO COMPLAINTS OF PAIN. NO SOB. AFEBRILE. IV SITE L AC 20G RUNNING NS AT 50ML/HR PATENT AND INTACT, NO S/SX OF SWELLING OR INFECTION NOTED. SKIN WARM, DRY, AND INTACT; HAS CELLULITIS ON THE ABD. BED LOCKED IN LOW POSITION. CALL RUIZ WITHIN REACH. SAFETY PRECAUTIONS IN PLACE. WILL CONTINUE TO MONITOR
--- NOTE | 2018-05-29 07:15 | NUR ---
REPORT GIVEN TO AM NURSE AT BEDSIDE. PT IN STABLE CONDITION.
[2018-05-29 07:23] LABS: ANION GAP 10.9 (8-16); CARBON DIOXIDE 27.9 mmol/L (21-32); CREATININE 1.8 mg/dL (0.7-1.3); POTASSIUM 4.8 mmol/L (3.5-5.1)
[2018-05-29 07:32] LABS: CHOL/HDL RATIO 2.6 (1-4.5); MAGNESIUM 2.1 mg/dL (1.8-2.4); PHOSPHORUS 4.8 mg/dL (2.5-4.9)
--- NOTE | 2018-05-29 07:58 | NUR ---
DR. LOPEZ ASSESSED CELLULITIS ON ABDOMEN AND RIGHT BOTTOM ANKLE. MD WILL PUT IN ORDERS.
[2018-05-29 08:00] VITALS: BP 104/78
[2018-05-29] MEDS: SPIRONOLACTONE 25 MG TAB PO SCH (08:28)
[2018-05-29] MEDS: GABAPENTIN 300 MG CAP PO SCH ×3 (08:28→17:28)
[2018-05-29] MEDS: ECOTRIN 81 MG TABEC PO SCH (08:29)
[2018-05-29] MEDS: LACTOBACILLUS RHAMNOSUS GG 1 EACH CAP PO SCH (08:29)
[2018-05-29] MEDS: ALLOPURINOL 100 MG TAB PO SCH (08:29)
[2018-05-29] MEDS: DOCUSATE SODIUM 100 MG GELCAP PO SCH ×2 (08:33→21:00)
[2018-05-29] MEDS: LISINOPRIL 10 MG TAB PO SCH (08:34)
[2018-05-29] MEDS: CARVEDILOL 3.125 MG TAB PO SCH ×2 (08:34→21:44)
--- NOTE | 2018-05-29 08:34 | NUR ---
PATIENT EATING BREAKFAST, GAVE DUE MEDS. PATIENT IS REFUSING TO DO UA AT THIS TIME, BUT AGREED TO HAVE STOOL SAMPLE COLLECTED.
--- NOTE | 2018-05-29 08:35 | NUR ---
PT. IS REFUSING IV FLUIDS. WILL CONTINUE TO MONITOR
[2018-05-29] MEDS ORDERED: INFLUENZA VIRUS VACCINE QUAD 0.5 ML SYR IMVAC PRN (09:00)
[2018-05-29] MEDS ORDERED: LISINOPRIL 10 MG TAB PO SCH (09:00)
[2018-05-29] MEDS ORDERED: GABAPENTIN 300 MG CAP PO SCH ×2 (09:00)
[2018-05-29] MEDS ORDERED: ALLOPURINOL 100 MG TAB PO SCH (09:00)
[2018-05-29] MEDS ORDERED: CARVEDILOL 3.125 MG TAB PO SCH (09:00)
--- NOTE | 2018-05-29 10:19 | NUR ---
HEARD PT YELLING, WENT TO PT'S ROOM, SAW PT TALKING TO INFORMATICS SPEC, ASKING FOR MORE JUICE. ASKED PT IF HE FEELS OK. PT C/O CHEST PAIN, 8/10, NON RADIATING. VITALS 129/69, HR 69. PLACED PT ON 3L NC, O2 SAT 95%. NOTIFIED DR LOPEZ.
--- NOTE | 2018-05-29 10:25 | NUR ---
CALLED PHARMACY TO VERIFY ORDER. ALSO TRIED OVERRIDES THE MED FROM [facility], BUT ONLY OPTION IS THE NITRO OINTMENT. MADE CHARGE NURSE AWARE.
[2018-05-29] MEDS: NITROGLYCERIN 0.4 MG TAB SL PRN ×2 (10:35→10:44)
--- NOTE | 2018-05-29 10:35 | NUR ---
PT HAD NITRO, SITTING AT THE EDGE OF BED, C/O CALL LIGHT DOES NOT WORK. HOWEVER, CALL LIGHT WAS TESTED, AND WORKED FINE. PT STILL ARGUING ABOUT CALL LIGHT AND STAFFS NOT RESPONDING FAST ENOUGH. EXPLAINED TO PT THE CALL LIGHT IS WORKING, AND THE SIMPLEX OPERATOR AND NURSING STAFFS HAVE ATTENDED TO HIS CALL LIGHT BHARGAVI.
--- NOTE | 2018-05-29 10:43 | NUR ---
REASSESSED PT'S CHEST PAIN. PT STATED IT'S BETTER, ASKED THE NUMBER SCALE, PT SAID 8. 2ND NITRO IS GIVEN.
--- NOTE | 2018-05-29 10:50 | NUR ---
REASSESSED CHEST PAIN, PT SAID PAIN LEVEL REDUCED 6. ASKED PT IF HE WANTS THE 3RD NITRO. PT SAID NO. ASKED PT IF HE NEEDS TYLENOL FOR HEADACHE. PT SAID HE WANTS BABY TYLENOL. CLARIFIED WITH PT WHAT KIND BABY TYLENOL HE WANTS, PT SAID THE 81 MG. IT SEEMS PT IS CONFUSED WITH BABY ASPIRIN. EXPLAINED TO PT, BABY ASPIRIN IS A BLOOD THINNER, WE WILL GIVE HIM TYLENOL FOR THE HEADACHE. PT GOT MAD AND STARTED CUSSING. REFUSED TO TAKE TYLENOL. CHECKED TELE MONITOR, ON PACED RHYTHM. CHARGE NURSE, DR LOPEZ, SECURITY HAVE TALKED TO THE PT. PT STILL YELLING, COMPLAINING, AND CUSSING. PT AGREED THAT IF THE SECURITY LEAVE THE ROOM, HE WILL STOP YELLING.
--- NOTE | 2018-05-29 11:40 | NUR ---
PT DENIES CHEST PAIN AT THIS TIME. BP 118/74, 99% ON ROOM AIR, HR 69. Addendum: 05/29/18 at 1148 by Ajit Arenas RN PT ALSO DENIES TO HEADACHE
[2018-05-29 11:46] VITALS: BP 118/74
[2018-05-29] MEDS: CLINDAMYCIN PHOS 600MG/D5W PM 50 ML IV SCH ×2 (12:23→17:30)
--- NOTE | 2018-05-29 12:51 | NUR ---
PT REFUSED K PAD TO THE LEG AT THIS TIME. LEFT K PAD MACHINE IN PT'S ROOM.
[2018-05-29 16:00] VITALS: BP 131/95
--- NOTE | 2018-05-29 16:00 | NUR ---
PT WANTS TO SHAVE, GOT ELECTRIC RAZOR FROM ICU. PT SHAVED HIS ONEILL. HOWEVER, PT TOOK HIS MANUAL RAZOR TO SHOWER ROOM, TOLD PT THAT HE IS ON WARFARIN, MANUAL RAZOR IS NOT RECOMMENDED. PT VERBALIZED UNDERSTANDING WITH A CONTEMPT.
--- NOTE | 2018-05-29 16:30 | NUR ---
PT HAD SHOWER. RETURNED TO BED SAFELY. NO S/S OF ACUTE DISTRESS AT THIS TIME.
[2018-05-29] MEDS ORDERED: WARFARIN 1 MG TAB PO SCH (17:00)
--- NOTE | 2018-05-29 17:45 | NUR ---
PT EATING DINNER BY HIMSELF. NO ASSISTANCE NEEDED AT THIS TIME.
[2018-05-29] MEDS: NACL 0.9% 1,000 ML IV SCH (18:17)
--- NOTE | 2018-05-29 19:15 | NUR ---
ENDORSED TO PM SHIFT ABEL ZAFAR. PATIENT ASLEEP, EYES CLOSED, VISIBLE CHEST RISE AND FALL NOTED. VITALS WNL. WILL CONTINUE TO MONITOR
--- NOTE | 2018-05-29 19:16 | NUR ---
RECEIVED REPORT FROM DAYSHIFT NURSE AT BEDSIDE FOR CONTINUITY OF CARE. PT AAOX4. PT IV NOTED LAC 20G NS 10. NO SOB NO S/S OF DISTRESS ON RA. BED LOWERED CALL LIGHT WITHIN REACH WILL CONTINUE TO MONITOR.
[2018-05-29] MEDS ORDERED: INSULIN LANTUS 100 UNITS/ML 10 ML VIAL SUBQ SCH (21:00)
[2018-05-29] MEDS ORDERED: SIMVASTATIN 40 MG TAB PO SCH ×2 (21:00)
[2018-05-30] MEDS: CLINDAMYCIN PHOS 600MG/D5W PM 50 ML IV SCH ×2 (00:37→06:25)
[2018-05-30] MEDS: HYDROcodone/APAP 5/325 MG 1 TAB TAB PO PRN (01:09)
[2018-05-30 01:35] VITALS: BP 135/87
[2018-05-30] MEDS: BLOOD GLUCOSE MONITORING 1 DEV DEV FS SCH (06:30)
--- NOTE | 2018-05-30 07:10 | NUR ---
ENDORSED REPORT TO DAYSHIFT NURSE AT BEDSIDE FOR CONTINUITY OF CARE.
--- NOTE | 2018-05-30 07:11 | NUR ---
RECEIVED REPORT FROM HAT BLOCKER NURSE. PT IN STABLE CONDITION. RESPIRATIONS EVEN AND UNLABORED. IV INTACT AND PATENT. SAFETY MEASURES IN PLACE. BED IN LOW POSITION. CALL LIGHT AT BEDSIDE. WILL CONTINUE TO MONITOR.
[2018-05-30 07:15] LABS: BASOPHILS % (AUTO) 0.6 % (0.0-2.0); EOSINOPHILS # (AUTO) 0.1 K/uL (0-0.4); EOSINOPHILS % (AUTO) 2.5 % (0.0-4.0); HEMATOCRIT 38.4 % (36-52); HEMOGLOBIN 12.1 g/dL (12.0-18.0); LYMPHOCYTES # (AUTO) 1.1 K/uL (2.0-11.5); LYMPHOCYTES % (AUTO) 21.2 % (20.5-51.1); MEAN CORPUSCULAR HEMOGLOBIN 27 pg (27-31); MEAN CORPUSCULAR HGB CONC 32 g/dL (33-37); MEAN CORPUSCULAR VOLUME 85.8 fL (80-94); MONOCYTES # (AUTO) 0.6 K/uL (0.8-1.0); MONOCYTES % (AUTO) 11.3 % (1.7-9.3); NEUTROPHILS # (AUTO) 3.3 K/uL (1.8-7.7); NEUTROPHILS % (AUTO) 64.4 % (42.2-75.2); PLATELET COUNT (AUTO) 189 K/uL (140-450); RED BLOOD CELL COUNT(AUTO) 4.48 MIL/uL (4.20-6.10); RED CELL DISTRIBUTION WIDTH 18.4 % (11.6-13.7); WHITE BLOOD COUNT (AUTO) 5.2 K/uL (4.8-10.8)
[2018-05-30 07:32] LABS: ANION GAP 12.6 (8-16); CARBON DIOXIDE 25.1 mmol/L (21-32); CREATININE 1.7 mg/dL (0.7-1.3); POTASSIUM 4.7 mmol/L (3.5-5.1)
[2018-05-30 07:36] LABS: PROTHROMBIN TIME 13.3 secs (10.8-13.4)
[2018-05-30 08:00] VITALS: BP 127/88
[2018-05-30] MEDS ORDERED: CLIN300C2 PO (08:58)
--- NOTE | 2018-05-30 09:00 | NUR ---
GAVE ORDERED DUE MEDICATIONS. PT TOLERATED WELL. WILL CONTINUE TO MONITOR.
[2018-05-30] MEDS: DOCUSATE SODIUM 100 MG GELCAP PO SCH (09:33)
[2018-05-30] MEDS: LACTOBACILLUS RHAMNOSUS GG 1 EACH CAP PO SCH (09:34)
[2018-05-30] MEDS: GABAPENTIN 300 MG CAP PO SCH (09:34)
[2018-05-30] MEDS: ECOTRIN 81 MG TABEC PO SCH (09:34)
[2018-05-30] MEDS: LISINOPRIL 10 MG TAB PO SCH (09:35)
[2018-05-30] MEDS: SPIRONOLACTONE 25 MG TAB PO SCH (09:35)
[2018-05-30] MEDS: ALLOPURINOL 100 MG TAB PO SCH (09:36)
[2018-05-30] MEDS: CARVEDILOL 3.125 MG TAB PO SCH (09:36)
--- NOTE | 2018-05-30 11:45 | NUR ---
PT BECAME AGITATED WHEN HE FOUND OUT HE WOULD BE DISCHARGED. SECURITY WAS CALLED. PT BEGAN TO CALM DOWN.
--- NOTE | 2018-05-30 12:30 | NUR ---
DISCHARGE INSTRUCTIONS WERE GIVEN, PT VERBALIZED UNDERSTANDING OF INSTRUCTIONS. IV REMOVED, LUMEN INTACT. PT REFUSED TO SIGN SOME OF THE DISCHARGE PAPERWORK, BECAME AGITATED AT THIS TIME ABOUT MISSING MEDICATIONS. MEDICATIONS WERE FOUND IN PT DRAWER AND WAS GIVEN TO PT AT THIS TIME. PT HAD ALL BELONGINGS AT THIS TIME. PT WAS WHEELED IN WHEELCHAIR TO LOBBY THEN TO ER LOBBY AREA PER PT REQUEST. PT DISCHARGED IN STABLE CONDITION.
== END 2018-05-30 12:30 | disposition home or self-care (01) | DRG 190 ==
LOC: MED 19:14 → MTU 21:20
PROVIDERS: ADMIT General Practice; ATTEND General Practice
DX: I21.A1 Myocardial infarction type 2 (principal); J96.00 Acute respiratory failure, unspecified whether with hypoxia or hypercapnia; N17.0 Acute kidney failure with tubular necrosis; I50.43 Acute on chronic combined systolic (congestive) and diastolic (congestive) heart failure; E11.40 Type 2 diabetes mellitus with diabetic neuropathy, unspecified; I49.5 Sick sinus syndrome; E11.51 Type 2 diabetes mellitus with diabetic peripheral angiopathy without gangrene; E44.1 Mild protein-calorie malnutrition; I42.9 Cardiomyopathy, unspecified; I11.0 Hypertensive heart disease with heart failure; E87.5 Hyperkalemia; L03.311 Cellulitis of abdominal wall; E11.65 Type 2 diabetes mellitus with hyperglycemia; J44.9 Chronic obstructive pulmonary disease, unspecified; M10.9 Gout, unspecified; I48.91 Unspecified atrial fibrillation; K21.9 Gastro-esophageal reflux disease without esophagitis; Z96.653 Presence of artificial knee joint, bilateral; E83.41 Hypermagnesemia; K76.0 Fatty (change of) liver, not elsewhere classified; Z86.73 Personal history of transient ischemic attack (TIA), and cerebral infarction without residual deficits; Z68.30 Body mass index [BMI] 30.0-30.9, adult; Z79.01 Long term (current) use of anticoagulants; Z88.8 Allergy status to other drugs, medicaments and biological substances; Z79.2 Long term (current) use of antibiotics; Z79.82 Long term (current) use of aspirin; Z79.4 Long term (current) use of insulin; Z79.899 Other long term (current) drug therapy; Z95.0 Presence of cardiac pacemaker; Z59.0 Homelessness; Z83.3 Family history of diabetes mellitus; Z82.3 Family history of stroke; Z82.49 Family history of ischemic heart disease and other diseases of the circulatory system; Z90.49 Acquired absence of other specified parts of digestive tract; Z80.0 Family history of malignant neoplasm of digestive organs
CPT/HCPCS: 36415; 36600; 71045; 76536; 80048; 80053; 82550; 82553; 82803; 82948; 83036; 83735; 83880; 84100; 84443; 84484; 85025; 85610; 85730; 87040; 87081; 93005; 93925; 93970; 96374; 99285; J1815; J1940; J3490; J7030; J7060; J7620; Q0092

== ENCOUNTER 2018-07-09 08:26 | Inpatient (IN) | payer MEDICAID ==
[~2018-07-09] VITALS: Ht 180.3 cm; Wt 89.8 kg
[~2018-07-09 08:26] MED LIST changes: +CLIN300C2 PO; -DOCU-299 PO; -FURO-570 PO; -HYD1C TP; -HYDR-5122 PO; +INSU100I15 SQ; +SPIR25TA PO; -SPIR50TA PO; -TRAM50TA1 PO; +WARF4TAB PO; -WARF6TAB PO
[2018-07-09 08:30] VITALS: BP 138/98
--- NOTE | 2018-07-09 08:43 | NUR ---
62Y/M C/O INCREASED FATIGUE "NODDING OFF" FREQUENTLY; STATING, FEELS TIRED ALL THE TIME X 2 WKS. PT HAS NO FACIAL ASYMMETRY, MOVING ALL EXTREMITIES AT THIS TIME, EQUAL VICE PRESIDENT TALENT MANAGEMENT. PT DENIES RECENT INJURY, DENIES ETOH/DRUG USE. PT L[facility] 2300H[facility] AND AWOK[facility] 0500 HRS. PT IS AAOX4, VSS AT THIS TIME, BED DOWN, BEDRAIL UP X 1, ER MD AWARE AND NOTIFIED OF PT STATUS. HX: CVA (6 MONTHS AGO), DM, A-FIB RX: LISINOPRIL, ??
--- NOTE | 2018-07-09 09:01 | NUR ---
Patient being evaluated by physician at bedside.
[2018-07-09] MEDS ORDERED: NACL 0.9% 1,000 ML IV ONE (09:05)
--- NOTE | 2018-07-09 09:09 | NUR ---
ekg being done
--- NOTE | 2018-07-09 09:12 | NUR ---
lab at bedside
[2018-07-09 09:20] LABS: BASOPHILS % (AUTO) 0.9 % (0.0-2.0); EOSINOPHILS # (AUTO) 0.2 K/uL (0-0.4); EOSINOPHILS % (AUTO) 4.7 % (0.0-4.0); HEMOGLOBIN 12.1 g/dL (12.0-18.0); LYMPHOCYTES % (AUTO) 19.2 % (20.5-51.1); MEAN CORPUSCULAR HEMOGLOBIN 25 pg (27-31); MEAN CORPUSCULAR HGB CONC 31 g/dL (33-37); MEAN CORPUSCULAR VOLUME 80.5 fL (80-94); MONOCYTES # (AUTO) 0.5 K/uL (0.8-1.0); MONOCYTES % (AUTO) 9.4 % (1.7-9.3); NEUTROPHILS # (AUTO) 3.3 K/uL (1.8-7.7); NEUTROPHILS % (AUTO) 65.8 % (42.2-75.2); PLATELET COUNT (AUTO) 184 K/uL (140-450); RED BLOOD CELL COUNT(AUTO) 4.85 MIL/uL (4.20-6.10); RED CELL DISTRIBUTION WIDTH 19.6 % (11.6-13.7)
[2018-07-09 09:39] LABS: PROTHROMBIN TIME 22.2 secs (10.8-13.4)
[2018-07-09 09:46] LABS: ANION GAP 12.3 (8-16); CARBON DIOXIDE 26.1 mmol/L (21-32); CREATININE 1.5 mg/dL (0.7-1.3); POTASSIUM 4.4 mmol/L (3.5-5.1)
[2018-07-09 09:47] LABS: TOTAL BILIRUBIN 1.1 mg/dL (0.0-1.0)
--- NOTE | 2018-07-09 09:50 | NUR ---
rad at bedside
--- NOTE | 2018-07-09 10:15 | NUR ---
Patient appears to be resting comfortably in bed. Vital Signs within normal limits. Respirations even and unlabored.
[2018-07-09] MEDS ORDERED: ONDANSETRON 4 MG/2 ML VIAL IM/IVP PRN (10:35)
[2018-07-09] MEDS ORDERED: DOCUSATE SODIUM 100 MG GELCAP PO PRN (10:35)
[2018-07-09] MEDS ORDERED: ACETAMINOPHEN 325 MG TAB PO PRN (10:35)
--- NOTE | 2018-07-09 10:56 | NUR ---
Patient will be admitted to care of . Admited to TELE. Will go to room 115-A. Belongings list completed. Report to ABEL VALDEZ.
--- NOTE | 2018-07-09 10:58 | NUR ---
PT TAKEN TO TELE FLOOR BY RN KELLY AND EMT JAMES
[2018-07-09 11:09] LABS: CHOL/HDL RATIO 1.9 (1-4.5); FREE T4 (FREE THYROXINE) 0.81 ng/dL (0.76-1.46); MAGNESIUM 2.2 mg/dL (1.8-2.4); PHOSPHORUS 4.4 mg/dL (2.5-4.9); THYROID STIMULATING HORMONE 3.18 uIU/mL (0.34-3.74)
[2018-07-09 11:10] VITALS: BP 133/82
--- NOTE | 2018-07-09 11:10 | NUR ---
RECEIVED PT FROM ER NURSE, KELLY. PT AMB TO HIS BED. PT IS AAOX4, NO S/S OF DISTRESS NOTED ON ROOM AIR. PT C/O GEN WEAKNESS AND BEING SLEEPY LATELY. DX ACS. TROP 0.097. PT HAS PACEMAKER, ON TELE MONITORING, PACED RHYTHM. VITALS TAKEN. MRSA SWAB DONE. ORIENTED PT TO ROOM. FALL PRECAUTIONS INITIATED. CALL LIGHT WITHIN REACH. BED IN LOWEST POSITION. Addendum: 07/09/18 at 1944 by Ajit Arenas RN PT DENIES ANY PAIN OR CHEST DISCOMFORT. DENIES N/V.
--- NOTE | 2018-07-09 11:30 | NUR ---
RIGHT TOE OPEN BLISTER NOTED. REMOVED OLD DRESSING WHICH WAS DONE BY PT AT HOME. CLEANED WITH NS, PATTED DRY, COVERED WITH CLEAN GAUZE. NOTIFIED DR FONTENOT.
[2018-07-09] MEDS: NACL 0.9% 1,000 ML IV SCH (11:32)
--- NOTE | 2018-07-09 13:00 | NUR ---
PT HAD LUNCH, NO S/S OF ACUTE DISTRESS. ACCORDING TO PT, HE JUST WENT TO [facility], [address]. Addendum: 07/09/18 at 1944 by Ajit Arenas RN DENIED DIARRHEA.
[2018-07-09] MEDS ORDERED: NEOMYCIN/POLYMYXIN/BACITRACIN 0.9 GM/1 PKT TP SCH (15:00)
[2018-07-09] MEDS ORDERED: NITROGLYCERIN 0.4 MG TAB SL PRN (15:25)
[2018-07-09] MEDS ORDERED: MECLIZINE 25 MG TAB PO PRN (15:25)
[2018-07-09] MEDS ORDERED: DEXTROSE 50% 50 ML SYR IVP PRN (15:30)
--- NOTE | 2018-07-09 15:36 | NUR ---
went to pt's room woke pt up to explain that wanted abg done and pt said not now, pt was in no distress at this time, notified and rn fredis will endorse to fast food shift lead to get abg
[2018-07-09 16:00] VITALS: BP 140/84
--- NOTE | 2018-07-09 16:00 | NUR ---
PT REFUSED ABG AT THIS TIME, WILL ASK V BELT MOLD ASSEMBLER AND CURER NURSE TO FOLLOW UP.
--- NOTE | 2018-07-09 16:20 | NUR ---
[employer] Paste Mixer Operator Notes: I attempted to meet with Patient to do a screen. Patient was not cooperative during meeting he was rude and stated " I dont wan to talk to you or answer any of your questions" These bond underwriter agreed and dismiss self from Patient's room.
[2018-07-09] MEDS: BLOOD GLUCOSE MONITORING 1 DEV DEV FS SCH ×2 (16:32→21:13)
[2018-07-09] MEDS: WARFARIN 1 MG TAB PO SCH (16:33)
--- NOTE | 2018-07-09 17:05 | NUR ---
PT ASKED WHAT MEDICATIONS HE HAS FOR THE DAY. PRINTED OUT PT'S MED LIST AND GAVE TO PT. PT YELLING IT'S TOO SMALL FOR HIM TO READ IT. ASK PT IF HE WANTS TO GO OVER THEM ONE BY ONE AND I CAN WRITE THEM BIGGER. HE STARTED YELLING AND COMPLAINING. CHARGE NURSE AND SECURITY CAME. PT CALMS DOWN A LITTLE. I REPRINTED ANOTHER LIST, ENLARGED THE FONT. WENT OVER EACH MEDS WITH PT. PT ASKING WHY HE DIDN'T GET ANYTHING IN THE MORNING. EXPLAINED TO PT THAT HE CAME TO THE FLOOR AROUND 1120AM. VITALS WERE STABLE. DR MAURER SAW HIM IN THE AFTERNOON. PUT IN MEDICATION FOR TONIGHT. PT STILL YELLING AND COMPLAINING ABOUT HE DID NOT GET MEDICATION IN THE MORNING, AND YELLING AT ME NOT LISTENING TO HIM. TOLD PT WILL LET CHARGE NURSE TALK TO HIM. LEFT THE ROOM.
--- NOTE | 2018-07-09 17:50 | NUR ---
HELPED PT WITH DINNER. STANDBY ASSISTANCE PROVIDED. NO S/S OF ACUTE RESPIRATORY DISTRESS NOTED REFUSED CAROTID US AT THIS TIME BECAUSE HE IS GOING TO EAT.
--- NOTE | 2018-07-09 18:05 | NUR ---
PT REFUSED ORTHOSTATIC BLOOD PRESSURE CHECK. EXPLAINED TO PT ABOUT ORTHOSTATIC BP. PT STILL REFUSING.
--- NOTE | 2018-07-09 19:30 | NUR ---
ENDORSED PT TO BUTCHER SCULLION RN. PT IN STABLE CONDITION.
[2018-07-09 20:00] VITALS: BP 137/75
--- NOTE | 2018-07-09 20:00 | NUR ---
PT SITTING UP IN BED TALKING ON THE PHONE NO S/S OF PAIN OR DISTRESS NOTED, VITAL SIGNS FOLLOWS T 98.2 P 56 R 18 B/P 137/75 02 95% WITH ROOM AIR. PT ASKED NURSE ABOUT HIS MEDICATION LIST OF RECONCILED HOME MEDICATION. HE ASKED IF I HAD RECEIVED THE LIST OF MEDS FROM PREVIOUS DAY NURSE JOSÉ MIGUEL. PRIMARY NURSE SAID THAT THE LIST IS IN THE COMPUTER AND I WILL LOOK IT OVER WHEN I HAVE A MINUTE. PT WAS UPSET AND COULDNT UNDERSTAND WHY HE WAS UNABLE TO GET ALL HIS MEDICATIONS EARLIER, DURING THE DAY, THAT HE TAKES AT HOME. PRIMARY NURSE EXPLAINED THAT HE WAS ADMITTED AT 11 AND THAT ALL HIS MEDICATIONS HAD NOT CLEARED FROM PHARMACY,BUT THEY ARE ORDERED FOR TOMORROW AM. PT REQUESTING HIS ATIVAN AT THIS TIME. PRIMARY NURSE SAID THAT SHE WILL SPEAK WITH RESIDENT DOCTOR CONCERNING ATIVAN BECAUSE IT IS NOT CURRENTLY IN HIS MAR. PT SAID THAT HE TAKES THIS MEDICATION AT HOME. PRIMARY NURSE VERBALIZED UNDERSTANDING AND REITERATED THAT SHE WILL NEED TO SPEAK WITH PRIMARY MD REGARDING THIS ORDER.
--- NOTE | 2018-07-09 20:20 | NUR ---
SPOKE WITH DR. BURTON CONCEDING PT REQUEST. DR. BURTON DECLINED TO GIVEN PT THE ATIVAN AT THIS TIME, BUT TO MONITOR PT BEHAVIOR AND IF PATIENT APPEARS TRULY AGITATED THAT SHE CAN ORDER THE MEDIATION AT THAT TIME.
[2018-07-09] MEDS: INSULIN LANTUS 100 UNITS/ML 10 ML VIAL SUBQ SCH (21:00)
--- NOTE | 2018-07-09 21:10 | NUR ---
PT MADE AWARE THAT DR. BURTON IS NOT GOING TO ORDER ATIVAN AT THIS TIME, HE BECAME AGITATED AND SAID THAT HE TAKES THAT MEDICATION AT HOME. THE PT ASKED ABOUT THE OTHER MEDICATIONS, AND ASKED ABOUT LASIX. PT MADE AWARE THAT THERE IS NO LASIX ORDER PER SAY BUT AN ORDER FOR ALDACTONE, WHICH WAS EXPLAINED TO HIM ESSENTIALLY WORKS A DIURETIC. PT STARTED TO ARGUE THAT IT IS NOT THE SAME THING HE TAKES AT HOME. WILL SPEAK TO MICHEAL LOWERY CONCERNING REQUESTED HOME MEDICATIONS.
[2018-07-09] MEDS: INSULIN LISPRO SLIDING SCALE 100 UNITS/ML VIAL SUBQ PRN (21:15)
[2018-07-09] MEDS: GABAPENTIN 300 MG CAP PO SCH (21:20)
[2018-07-09] MEDS: SIMVASTATIN 40 MG TAB PO SCH (21:20)
[2018-07-09] MEDS: CARVEDILOL 3.125 MG TAB PO SCH (21:20)
--- NOTE | 2018-07-09 21:30 | NUR ---
DR. BURTON SAID GENTRY SHE WILL ORDER THER ALDACTONE FOR NOW AND WILL ORDER A PO/PRN ATIVAN. CHARGE NURSE DAVID GAVE PT A SANDWICH HE REQUESTED. PRIMARY NURSE BROUGHT ANOTHER NIGHTSHIFT NURSE, MARI A WITNESS . PRIMARY NURSE EMPLANED THAT DR. BURTON DID CHOOSE TO ORDER ALDACTONE AND NOT LASIX AT THIS TIME. PT OFFERED DUE MEDICATION OF ALDACTONE AND A PRN ATIVAN. PT HAD ALREADY TAKEN OTHER DUE MEDICATIONS . BUT WHEN ASKED IF PT WILL TAKE OR DECLINE THE MEDICATION, PT CONTINUED TO COMPLAIN THAT STAFF DOESNT LISTEN TO HIM. ONCE AGAIN PRIMARY NURSE ASKED IF PT WOULD TAKE OR DECLINE MEDICATION. PRIMARY NURSE ASKED PT TO CONFIRM THAT INDEED HE DIDN'T WANT THE MEDICATION., BUT HE SAID , I NEVER SAID THAT. PT STARTED TO BECAME AGITATED AND AGAIN REPEATED THAT NO ONE WILL LISTEN TO HIM AND THAT HE SHOULD HAVE THE MEDICATION HE WAS MISSING FROM AM SHIFT. AT THIS POINT PT IS YELLING, SO POONAM DELAROSA WAS CALLED. 2 SECUITY GUARDS ARRIVE AND SPEAK WITH PATEINT. DR. BURTON CAME IN TO PT ROOM TO EXPLAIN THAT LASIX WAS NOT BEING GIVEN BECAUSE IT IS TOO TAXING FOR HIS KIDNEY HIS KIDNEYS. PRIMARY NURSE LEFT TO VARUN LANTUS FROM ER. WHEN SHE CAME BACK, SECURITY, AND WITNESS RN MARI WAS AT DOOR WAY WAITING TO WITNESS MEDICATION ADMINISTRATION. PT REQESTED ONLY 24 UNITS OF HIS ORDERED LANTUS NOT 25 THE ORDERED UNIT. MICHEAL LOWERY MADE AWARE. PT DID TAKE THE ALDACTONE, THE ATIVAN AND THE ORDERED LANTUS.
[2018-07-09] MEDS ORDERED: SPIRONOLACTONE 25 MG TAB PO SCH (22:00)
[2018-07-09] MEDS: LORazepam 0.5 MG TAB PO PRN (22:34)
[2018-07-10] VITALS: BP 121/67
--- NOTE | 2018-07-10 | NUR ---
PT SLEEPING SOUNDLY NO S/S OF PAIN OR DISTRESS NOTED V/S FOLLOWS T 97.7 P 70 R 18 B/P 121/67 02 97% ON R/A. N/S RUNNING AT 60ML/HR. ALL FALLS PRECAUTIONS IN PLACE.
[2018-07-10] MEDS: NACL 0.9% 1,000 ML IV SCH (02:03)
[2018-07-10 04:00] VITALS: BP 105/81
--- NOTE | 2018-07-10 04:00 | NUR ---
PT AWAKE AND SITTING UP IN LOW BED. PT IS C/O THAT HE WANTS HIS IV SITE DISCONNECTED. PT IV SITE DISCONNECTED UPON REQUEST. PT BECAME AGITATED WHEN HE SAW SECURITY AT THE DOORWAY AND SAID WHY ARE THEY HERE. PRIMARY NURSE SAID THAT THEY MUST BE HERE DUE TO YOUR UNSTABLE BEHAVIOR, FOR OUR SAFETY. PT THEN SAID THAT HE WANTED TO TALK TO LIBERAL ARTS DEAN, HE PRESSED THE CALL LIGHT AND NURSING STAFF ASKED WHAT HE WANTS , PRIMARY NURSE SAID THAT HE DOESNT WANT SECURITY AT DOOR WAY, BUT PT SAID NO I DONT WANT YOU HERE. KATHY MATHURGREENHOUSE SUPERINTENDENT CAME IN AND HE EXPRESSED HIS DISPLEASURE ABOUT HIS PRIMARY NURSE. SAYING IN DONT WANT HER HERE. PRIMARY NURSE SAID I AM ALMOST DONE THE VITAL SIGNS MACHINE IS WAITING TO DISPLAY THE RESULTS OF V/S. PRIMARY NURSE LEFT AFTER V/S COMPLETED. LAST V/S T 97.0 P 72 R 18 B/P 105/81 02 97%.
[2018-07-10 05:47] LABS: BASOPHILS % (AUTO) 0.8 % (0.0-2.0); EOSINOPHILS # (AUTO) 0.2 K/uL (0-0.4); EOSINOPHILS % (AUTO) 4.4 % (0.0-4.0); HEMATOCRIT 39.8 % (36-52); HEMOGLOBIN 12.3 g/dL (12.0-18.0); LYMPHOCYTES % (AUTO) 20.7 % (20.5-51.1); MEAN CORPUSCULAR HEMOGLOBIN 25 pg (27-31); MEAN CORPUSCULAR HGB CONC 31 g/dL (33-37); MEAN CORPUSCULAR VOLUME 80.8 fL (80-94); MONOCYTES # (AUTO) 0.5 K/uL (0.8-1.0); MONOCYTES % (AUTO) 9.7 % (1.7-9.3); NEUTROPHILS # (AUTO) 3.1 K/uL (1.8-7.7); NEUTROPHILS % (AUTO) 64.4 % (42.2-75.2); PLATELET COUNT (AUTO) 185 K/uL (140-450); RED BLOOD CELL COUNT(AUTO) 4.92 MIL/uL (4.20-6.10); RED CELL DISTRIBUTION WIDTH 19.7 % (11.6-13.7); WHITE BLOOD COUNT (AUTO) 4.9 K/uL (4.8-10.8)
[2018-07-10] MEDS: INSULIN LISPRO SLIDING SCALE 100 UNITS/ML VIAL SUBQ PRN ×2 (05:59→17:18)
[2018-07-10] MEDS: BLOOD GLUCOSE MONITORING 1 DEV DEV FS SCH ×4 (06:00→20:44)
[2018-07-10 06:27] LABS: ANION GAP 12.6 (8-16); CARBON DIOXIDE 24.7 mmol/L (21-32); CREATININE 1.3 mg/dL (0.7-1.3); POTASSIUM 4.3 mmol/L (3.5-5.1)
--- NOTE | 2018-07-10 07:14 | NUR ---
ENDORSED TO ANAYELI RN DAYSHIFT NURSE FOR CONTINUITY OF CARE, PT HAS A CRITICAL LAB.. TROPONIN LEVEL OF 0.102 ENDORSED TO DAY CARE. RESIDENT MD UNDER PRIMARY DR. ESQUIVEL AWARE OF CRITICAL LAB.
--- NOTE | 2018-07-10 07:50 | NUR ---
PATIENT WAS AWAKE, ALERT. RESPIRATION EVEN, UNLABOR ON ROOM AIR. SKIN DRY AND WARM. IV PATENT AND INTACT. DENIED PAIN, SOB AT THIS TIME. PLAN OF CARE WAS DISCUSSED WITH PATIENT. BED AT LOW POSITION, SIDE RAILS UP. CALL LIGHT WITHIN REACH.
[2018-07-10 08:00] VITALS: BP 129/79
[2018-07-10 08:09] LABS: T4 (THYROXINE) 4.6 ug/dL (4.5-12.0)
[2018-07-10 08:17] LABS: PROTHROMBIN TIME 21.9 secs (10.8-13.4)
[2018-07-10] MEDS: GABAPENTIN 300 MG CAP PO SCH ×2 (08:59→20:40)
[2018-07-10] MEDS: ALLOPURINOL 100 MG TAB PO SCH (08:59)
[2018-07-10] MEDS: CARVEDILOL 3.125 MG TAB PO SCH ×2 (09:00→20:40)
[2018-07-10] MEDS: FAMOTIDINE 20 MG TAB PO SCH (09:00)
[2018-07-10] MEDS: ECOTRIN 81 MG TABEC PO SCH (09:00)
[2018-07-10] MEDS: SPIRONOLACTONE 25 MG TAB PO SCH (09:00)
[2018-07-10] MEDS: LISINOPRIL 10 MG TAB PO SCH (09:02)
[2018-07-10] MEDS ORDERED: FURO-570 PO (09:09)
--- NOTE | 2018-07-10 09:16 | NUR ---
PATIENT WAS EXPLAINED ABOUT THE INDICATIONS AND SIDE EFFECTS OF ALL MEDICATIONS. PATIENT VERBALIZED UNDERSTANDING AND REFUSED TO TAKE ASPIRIN AND PEPCID. MEDS WERE HELD PER PATIENT REQUEST. PATIENT WAS MADE RODAS OF LASIX IS NOT CURRENTLY PRESCRIBED. PATIENT DEMANDS TO TALK TO THE MD ABOUT MEDICATIONS AND IMAGE RESULTS, WILL NOTIFY MD.
[2018-07-10] MEDS: HYDROcodone/APAP 7.5/325 MG 1 TAB PO PRN ×2 (10:13→23:04)
--- NOTE | 2018-07-10 10:22 | NUR ---
PATIENT COMPLAINED OF LEFT SHOULDER PAIN 5/10, PAIN MED WAS GIVEN PER ORDER
--- NOTE | 2018-07-10 11:00 | NUR ---
NEW DRESSING WAS PUT ON THE BLISTER ON THE TOE. NO DRAINING WAS SEEN. PATIENT TOLERATED WELL.
[2018-07-10 12:00] VITALS: BP 112/69
--- NOTE | 2018-07-10 12:00 | NUR ---
PATIENT WAS AWAKE, ALERT, SITTING ON THE BED COMFORTABLY. RESPIRATION EVEN, UNLABOR ON ROOM AIR. DENIED PAIN AT THIS TIME. NO DISTRESS NOTED AT THIS TIME.
[2018-07-10] MEDS ORDERED: FUROSEMIDE 20 MG TAB PO SCH (12:10)
--- NOTE | 2018-07-10 13:30 | NUR ---
PATIENT WAS SLEEPING COMFORTABLY. RESPIRATION EVEN, UNLABOR ON ROOM AIR. MED WAS GIVEN PER ORDER. NO DISTRESS NOTED AT THIS TIME
--- NOTE | 2018-07-10 15:50 | NUR ---
PATIENT WAS ESCORTED OUT TO PARKING LOT TO CLOSE HIS CAR WINDOW IN WHEELCHAIR BY NURSING AND SECURITY STAFF. PATIENT WAS ESCORTED BACK IN HIS ROOM. VS WAS STABLE. NO DISTRESS NOTED
[2018-07-10 16:00] VITALS: BP 137/86
[2018-07-10] MEDS: WARFARIN 1 MG TAB PO SCH (17:18)
--- NOTE | 2018-07-10 18:10 | NUR ---
PATIENT WAS AWAKE, ALERT. RESPIRATION EVEN, UNLABOR ON ROOM AIR. NO DISTRESS NOTED AT THIS TIME
--- NOTE | 2018-07-10 19:23 | NUR ---
ENDORSEMENT GIVEN TO GROCERY TEAM MEMBER NURSE. PATIENT IS STABLE AT THIS TIME
--- NOTE | 2018-07-10 19:24 | NUR ---
RECEIVED REPORT FROM ABEL GUADALUPE FOR CONTINUITY OF CARE. PT A/OX4 ON ROOM AIR. PT IS ABLE TO MAKE NEEDS KNOWN, ABLE TO FOLLOW COMMANDS. PT AMBULATES WITH STEADY GAIT, SKIN IS NON-INTACT. SEE WOUND ASSESSMENT. PT HAS A 22G IV TO RIGHT FOREARM, ASYMPTOMATIC AND INTACT. VITAL SIGNS WITHIN NORMAL LIMITS. PT STABLE, DENIES HAVING ANY PAIN, NO SIGNS OF DISTRESS NOTED AT THIS TIME. PT POSITIONED FOR COMFORT. BED IN LOWEST POSITION, BED ALARM ON. WILL CONTINUE TO MONITOR.
[2018-07-10 20:00] VITALS: BP 120/76
[2018-07-10] MEDS: SIMVASTATIN 40 MG TAB PO SCH (20:41)
[2018-07-10] MEDS: INSULIN LANTUS 100 UNITS/ML 10 ML VIAL SUBQ SCH (20:44)
--- NOTE | 2018-07-10 20:52 | NUR ---
ADMINISTERED SCHEDULED MEDICATIONS, PT TOLERATED WELL.
--- NOTE | 2018-07-10 21:16 | NUR ---
WRAPPED IV SITE AND PREPARED PT FOR SHOWER. PT WILL NOT SHOWER AND CALL ME WHEN READY TO GO BACK TO BED.
--- NOTE | 2018-07-10 22:11 | NUR ---
PT IS BACK IN BED, MONITOR BACK ON HIM. PT STABLE, NO SIGNS OF DISTRESS NOTED. WILL CONTINUE TO MONITOR.
--- NOTE | 2018-07-10 23:05 | NUR ---
PT C/O PAIN TO RIGHT SHOULDER. ADMINISTERED NORCO ORDERED, PT TOLERATED WELL.
[2018-07-10] MEDS ORDERED: INFLUENZA VIRUS VACCINE QUAD 0.5 ML SYR IMVAC PRN (23:55)
[2018-07-11] VITALS: BP 118/65
--- NOTE | 2018-07-11 | NUR ---
VITAL SIGNS WITHIN NORMAL LIMITS. PT STABLE, DENIES HAVING ANY PAIN, NO SIGNS OF DISTRESS NOTED AT THIS TIME. PT POSITIONED FOR COMFORT. BED IN LOWEST POSITION, BED ALARM ON. WILL CONTINUE TO MONITOR.
[2018-07-11] MEDS: LORazepam 0.5 MG TAB PO PRN (03:27)
--- NOTE | 2018-07-11 03:30 | NUR ---
PT C/O ANXIETY AND ASKS FOR ATIVAN. MEDICATED WITH ATIVAN AND PT TOLERATED WELL.
[2018-07-11 04:00] VITALS: BP 125/81
[2018-07-11 06:18] LABS: EOSINOPHILS # (AUTO) 0.1 K/uL (0-0.4); EOSINOPHILS % (AUTO) 1.8 % (0.0-4.0); HEMOGLOBIN 12.2 g/dL (12.0-18.0); LYMPHOCYTES # (AUTO) 1.6 K/uL (2.0-11.5); LYMPHOCYTES % (AUTO) 33.7 % (20.5-51.1); MEAN CORPUSCULAR HEMOGLOBIN 25 pg (27-31); MEAN CORPUSCULAR HGB CONC 31 g/dL (33-37); MEAN CORPUSCULAR VOLUME 80.6 fL (80-94); MONOCYTES # (AUTO) 0.5 K/uL (0.8-1.0); MONOCYTES % (AUTO) 10.7 % (1.7-9.3); NEUTROPHILS # (AUTO) 2.6 K/uL (1.8-7.7); NEUTROPHILS % (AUTO) 53.8 % (42.2-75.2); PLATELET COUNT (AUTO) 186 K/uL (140-450); RED BLOOD CELL COUNT(AUTO) 4.84 MIL/uL (4.20-6.10); WHITE BLOOD COUNT (AUTO) 4.8 K/uL (4.8-10.8)
[2018-07-11] MEDS: BLOOD GLUCOSE MONITORING 1 DEV DEV FS SCH (06:32)
[2018-07-11 06:38] LABS: PROTHROMBIN TIME 19.3 secs (10.8-13.4)
[2018-07-11 06:40] LABS: ANION GAP 10.3 (8-16); CARBON DIOXIDE 27.6 mmol/L (21-32); CREATININE 1.4 mg/dL (0.7-1.3); POTASSIUM 4.9 mmol/L (3.5-5.1)
--- NOTE | 2018-07-11 07:15 | NUR ---
RECEIVED PT REPORT FROM GRINDER OPERATOR NURSE AT BEDSIDE. PT IS ASLEEP, NO S/S OF ACUTE DISTRESS NOTED. PT IS ON ROOM AIR, SKIN INTACT EXCEPT FOR A BLISTER ON HIS R BIG TOE. IV SITE NOTED ON THE RFA, 22 G, SALINE LOCKED. BED IN LOW POSITION, CALL LIGHT WITHIN REACH. WILL CONTINUE TO MONITOR PT.
--- NOTE | 2018-07-11 07:32 | NUR ---
ENDORSED PT TO DAY SHIFT ABEL DHILLON FOR CONTINUITY OF CARE. PT IN STABLE CONDITION. Addendum: 07/11/18 at 0732 by Daksha Snow RN ENDORSED TO ABEL RICHTER, NOT ABEL DHILLON.
[2018-07-11 08:00] VITALS: BP 117/74
--- NOTE | 2018-07-11 08:27 | NUR ---
PATIENT HAS BEEN SCREENED AND CATEGORIZED MODERATE NUTRITION RISK. PATIENT WILL BE SEEN WITHIN 3-5 DAYS OF ADMISSION. 07/12/18JACQUELINE ORTEZ RD
[2018-07-11] MEDS: GABAPENTIN 300 MG CAP PO SCH (08:29)
[2018-07-11] MEDS: ECOTRIN 81 MG TABEC PO SCH (08:29)
[2018-07-11] MEDS: SPIRONOLACTONE 25 MG TAB PO SCH (08:30)
[2018-07-11] MEDS: LISINOPRIL 10 MG TAB PO SCH (08:31)
[2018-07-11] MEDS: CARVEDILOL 3.125 MG TAB PO SCH (08:31)
[2018-07-11] MEDS: FAMOTIDINE 20 MG TAB PO SCH (08:32)
[2018-07-11] MEDS: ALLOPURINOL 100 MG TAB PO SCH (08:32)
[2018-07-11] MEDS ORDERED: FUROSEMIDE 20 MG TAB PO SCH (09:00)
--- NOTE | 2018-07-11 09:10 | NUR ---
PT ATE ALL HIS BREAKFAST, NO S/S OF ACUTE DISTRESS NOTED. NEW BANDAID APPLIED TO BLISTER ON R FOOT TOE. CALL LIGHT IS WITHIN REACH. WILL CONTINUE TO MONITOR.
[2018-07-11] MEDS ORDERED: SPIR25TA PO (10:04)
[2018-07-11] MEDS ORDERED: HYDROcodone/APAP 5/325 MG 1 TAB TAB PO SCH (10:06)
[2018-07-11] MEDS ORDERED: INFLUENZA VIRUS VACCINE QUAD 0.5 ML SYR IMVAC PRN (10:40)
--- NOTE | 2018-07-11 11:15 | NUR ---
FLU VACCINE ADMINISTERED.
--- NOTE | 2018-07-11 11:49 | NUR ---
PT HAS DC'D. DC INSTRUCTIONS GIVEN, PT VERBALIZED UNDERSTANDING OF DC INSTRUCTIONS. SIGNATURES OBTAINED. FLU VACCINE GIVEN UPON DISCHARGE. IV SITE AND WRIST BANDS REMOVED. PT LEFT IN STABLE CONDITION WITH ALL HIS BELONGINGS.
== END 2018-07-11 11:50 | disposition home or self-care (01) | DRG 190 ==
LOC: MED 08:26 → MTU 10:33
PROVIDERS: ADMIT General Practice; ATTEND General Practice
DX: I21.A1 Myocardial infarction type 2 (principal); N17.0 Acute kidney failure with tubular necrosis; G90.8 Other disorders of autonomic nervous system; E11.40 Type 2 diabetes mellitus with diabetic neuropathy, unspecified; E11.51 Type 2 diabetes mellitus with diabetic peripheral angiopathy without gangrene; E44.0 Moderate protein-calorie malnutrition; I48.91 Unspecified atrial fibrillation; K21.9 Gastro-esophageal reflux disease without esophagitis; F15.10 Other stimulant abuse, uncomplicated; I65.23 Occlusion and stenosis of bilateral carotid arteries; E80.6 Other disorders of bilirubin metabolism; I50.42 Chronic combined systolic (congestive) and diastolic (congestive) heart failure; E11.9 Type 2 diabetes mellitus without complications; J44.9 Chronic obstructive pulmonary disease, unspecified; Z68.27 Body mass index [BMI] 27.0-27.9, adult; Z88.8 Allergy status to other drugs, medicaments and biological substances; Z95.0 Presence of cardiac pacemaker; Z86.73 Personal history of transient ischemic attack (TIA), and cerebral infarction without residual deficits; Z83.6 Family history of other diseases of the respiratory system; Z80.0 Family history of malignant neoplasm of digestive organs; Z82.49 Family history of ischemic heart disease and other diseases of the circulatory system; Z84.1 Family history of disorders of kidney and ureter; Z59.0 Homelessness; Z23 Encounter for immunization; S90.821A Blister (nonthermal), right foot, initial encounter
CPT/HCPCS: 36415; 70450; 71045; 80048; 80053; 82140; 82150; 82948; 83036; 83690; 83735; 83880; 84100; 84436; 84439; 84443; 84479; 84484; 85025; 85610; 85730; 87081; 93005; 93880; 93970; 96365; 97161-GP; 99285; J1815; J7030; Q0092

== ENCOUNTER 2018-09-26 02:46 | Inpatient (IN) | payer MEDICAID, MEDICARE ==
[~2018-09-26] VITALS: Ht 180.3 cm; Wt 96.2 kg
[~2018-09-26 02:46] MED LIST changes: -CLIN300C2 PO; +FURO-570 PO
[2018-09-26 02:50] VITALS: BP 111/61
--- NOTE | 2018-09-26 02:50 | NUR ---
to bed # 09 ambulatory
--- NOTE | 2018-09-26 02:57 | NUR ---
Gunjan quintero in [facility] - 09/26/18 at 0257 by SHOSHANA PT TAKEN TO BED 9
--- NOTE | 2018-09-26 03:00 | NUR ---
BIB SELF REPORTS SOB X 2 DAYS. +8/10 THROAT PAIN DUE TO PRODUCTIVE COUGH. HOARSE VOICE, STATES THAT IS NORMAL, SPEAKING IN FULL SENTENCES. LABORED DEEP BREATHING. SPO2 100% ON MONITOR. STATES HE IS CURRENTLY STAYING IN HIS CAR. HX: CHF; AFIB; DM; PACEMAKER; CVA
--- NOTE | 2018-09-26 03:11 | NUR ---
Dr. Urrutia evaluating patient at bedside.
[2018-09-26] MEDS ORDERED: NACL 0.9% 500 ML IV ONE (03:15)
[2018-09-26 03:42] LABS: BASOPHILS # (AUTO) 0.1 K/uL (0.00-0.22); BASOPHILS % (AUTO) 1.5 % (0.0-2.0); EOSINOPHILS # (AUTO) 0.2 K/uL (0-0.4); EOSINOPHILS % (AUTO) 3.3 % (0.0-4.0); LYMPHOCYTES # (AUTO) 1.2 K/uL (2.0-11.5); LYMPHOCYTES % (AUTO) 20.7 % (20.5-51.1); MEAN CORPUSCULAR HEMOGLOBIN 26 pg (27-31); MEAN CORPUSCULAR HGB CONC 33 g/dL (33-37); MEAN CORPUSCULAR VOLUME 80.3 fL (80-94); MONOCYTES # (AUTO) 0.6 K/uL (0.8-1.0); MONOCYTES % (AUTO) 10.3 % (1.7-9.3); NEUTROPHILS # (AUTO) 3.6 K/uL (1.8-7.7); NEUTROPHILS % (AUTO) 64.2 % (42.2-75.2); PLATELET COUNT (AUTO) 192 K/uL (140-450); RED BLOOD CELL COUNT(AUTO) 4.99 MIL/uL (4.20-6.10); RED CELL DISTRIBUTION WIDTH 24.7 % (11.6-13.7); WHITE BLOOD COUNT (AUTO) 5.7 K/uL (4.8-10.8)
[2018-09-26 03:47] LABS: ANION GAP 10.9 (8-16); CARBON DIOXIDE 28.3 mmol/L (21-32); CREATININE 2.2 mg/dL (0.7-1.3); POTASSIUM 4.2 mmol/L (3.5-5.1)
[2018-09-26 03:52] LABS: ALBUMIN 2.9 g/dL (3.4-5.0); TOTAL BILIRUBIN 1.6 mg/dL (0.0-1.0)
--- NOTE | 2018-09-26 04:38 | NUR ---
PATIENT REPOSITIONED FOR COMFORT. NO NEW NEEDS STATED AT THIS TIME. VSS ON MONITOR.
--- NOTE | 2018-09-26 05:54 | NUR ---
PATIENT GIVEN CUP OF ICE.
[2018-09-26] MEDS ORDERED: ACETAMINOPHEN 325 MG TAB PO PRN (05:55)
[2018-09-26] MEDS ORDERED: DOCUSATE SODIUM 100 MG GELCAP PO PRN (05:55)
[2018-09-26] MEDS ORDERED: HYDROcodone/APAP 7.5/325 MG 1 TAB PO PRN (05:55)
[2018-09-26] MEDS ORDERED: ONDANSETRON 4 MG/2 ML VIAL IM/IVP PRN (05:55)
--- NOTE | 2018-09-26 06:00 | NUR ---
PATIENT SPO2 DROPPING TO 89%. DR BHARDWAJ MADE AWARE. PATIENT PLACED ON 2L NC PER DR BHARDWAJ ORDERS. SPO2 IMPROVED TO 95%
[2018-09-26 06:18] LABS: PROTHROMBIN TIME 12.4 secs (10.8-13.4)
[2018-09-26 06:31] LABS: CHOL/HDL RATIO 2.8 (1-4.5); FREE T4 (FREE THYROXINE) 1.02 ng/dL (0.76-1.46); MAGNESIUM 2.4 mg/dL (1.8-2.4); PHOSPHORUS 4.7 mg/dL (2.5-4.9); THYROID STIMULATING HORMONE 3.93 uIU/mL (0.34-3.74)
[2018-09-26] MEDS ORDERED: NITROGLYCERIN 0.4 MG TAB SL PRN (06:35)
--- NOTE | 2018-09-26 06:43 | NUR ---
PATIENT ADMITTED TO TELE UNIT UNDER THE CARE OF DR ESQUIVEL. PATIENT STABLE ON MONITOR DURING TRANSFER TO ROOM 112-B. REPORT GIVEN TO RN. BELONGINGS WITH PATIENT.
--- NOTE | 2018-09-26 07:20 | NUR ---
RECEIVED REPORT FROM DRILLING MANAGER NURSE. PATIENT IS SLEEPING, EASILY AROUSABLE. RESPIRATIONS ARE EVEN AND UNLABORED ON 2L NC, WITH NO SIGNS OF DISTRESS. IV IS INTACT, PATENT, AND INFUSING IVF. DENIES ANY PAIN AT THIS TIME. PLAN OF CARE HAS BEEN REVIEWED WITH PATIENT. PATIENT VERBALIZED UNDERSTANDING. SAFETY MEASURES IN PLACE, BED IS IN THE LOWEST POSITION, SIDE RAILS X2, CALL LIGHT WITHIN REACH. WILL CONTINUE TO MONITOR.
[2018-09-26 08:00] VITALS: BP 133/84
--- NOTE | 2018-09-26 08:52 | NUR ---
PATIENT HAS BEEN SCREENED AND CATEGORIZED MODERATE NUTRITION RISK. PATIENT WILL BE SEEN WITHIN 3-5 DAYS OF ADMISSION. 09/28/18JACQU[address] ORTE[address]
[2018-09-26] MEDS ORDERED: LISINOPRIL 5 MG TAB PO SCH (09:00)
--- NOTE | 2018-09-26 09:10 | NUR ---
ADMINISTERED SCHEDULED MEDICATIONS. PATIENT DENIES PAIN AT THIS TIME. WILL CONTINUE TO MONITOR.
[2018-09-26] MEDS: ASPIRIN 81 MG TAB.CHEW PO SCH (09:11)
[2018-09-26] MEDS: NACL 0.9% 1,000 ML IV SCH (09:11)
[2018-09-26 12:00] VITALS: BP 129/78
--- NOTE | 2018-09-26 12:21 | NUR ---
PATIENT SLEEPING, EASILY AROUSABLE. DENIES PAIN. WILL CONTINUE TO MONITOR.
[2018-09-26] MEDS ORDERED: INSULIN LISPRO SLIDING SCALE 100 UNITS/ML VIAL SUBQ PRN (13:00)
[2018-09-26] MEDS ORDERED: DEXTROSE 50% 50 ML SYR IVP PRN ×3 (13:00)
--- NOTE | 2018-09-26 15:00 | NUR ---
PATIENT REFUSED IVF. PATIENT ALSO REFUSED TO USE URINAL FOR URINALYSIS. WILL CONTINUE TO MONITOR.
[2018-09-26 16:00] VITALS: BP 122/77
[2018-09-26] MEDS ORDERED: BLOOD GLUCOSE MONITORING 1 DEV DEV FS SCH (16:30)
[2018-09-26] MEDS: FUROSEMIDE 40 MG/4 ML VIAL IVP SCH (16:46)
[2018-09-26] MEDS: BLOOD GLUCOSE MONITORING 1 DEV DEV FS SCH ×2 (17:00→20:46)
--- NOTE | 2018-09-26 17:06 | NUR ---
PATIENT SLEEPING, EASILY AROUSABLE. SCHEDULED MEDICATIONS GIVEN. WILL CONTINUE TO MONITOR.
[2018-09-26] MEDS: WARFARIN 1 MG TAB PO SCH (17:12)
--- NOTE | 2018-09-26 19:24 | NUR ---
GAVE ENDORSEMENT TO WAREHOUSE OPERATIONS ASSOCIATE NURSE FOR CONTINUITY OF CARE. PATIENT IS STABLE.
--- NOTE | 2018-09-26 19:25 | NUR ---
RECEIVED REPORT FROM AM NURSEANGELICA. PT SITTING UP IN BED, AWAKE, ALERT AND ORIENTED X 4. TELEMETRY PT, ELECTRODES IN PLACE. RT FA [address] S/L[address] PT KEPT NPO FOR ULTRASOUND OF ABD. PLAN OF CARE DISCUSSED WITH PT. PT VERBALIZED UNDERSTANDING. BED IN LOW POSITION, CALL LIGHT WITH IN REACH. WILL CONTINUE TO MONITOR.
[2018-09-26 20:00] VITALS: BP 125/80
--- NOTE | 2018-09-26 20:30 | NUR ---
US ABDOMEN DONE AT BEDSIDE. WILL FOLLOW UP RESULT.
--- NOTE | 2018-09-26 20:45 | NUR ---
PT HAS SOME SANDWICH PT REQUESTED,ALSO WITH SOME JUICE AND PUDDING.
[2018-09-26] MEDS ORDERED: ATORVASTATIN 20 MG TAB PO SCH (21:00)
[2018-09-26] MEDS: CARVEDILOL 3.125 MG TAB PO SCH (21:02)
[2018-09-26] MEDS: SIMVASTATIN 40 MG TAB PO SCH (21:02)
[2018-09-26] MEDS: INSULIN LANTUS 100 UNITS/ML 10 ML VIAL SUBQ SCH (21:06)
--- NOTE | 2018-09-26 22:18 | NUR ---
NOTIFIED DR. JAFFE REGARDING PT 3RD TROPONIN RESULT OF 0.094. NO NEW ORDER MADE.
--- NOTE | 2018-09-26 22:27 | NUR ---
TRIED TO COLLECT URINE SPECIMEN ON PT. PT SAID WE CAN'T COLLECT ANY. ASKED HIM WHY AND HE JUST STARTING TO BE SO RUDE. URINE CONTAINER AT BEDSIDE.
[2018-09-26] MEDS ORDERED: ESCITALOPRAM 20 MG TAB PO SCH (23:00)
[2018-09-27] VITALS: BP 113/74
--- NOTE | 2018-09-27 01:00 | NUR ---
PT MIS IN BED S TILL AWAKE BUT NO C/O ANY DISCOMFORT NOTED.
[2018-09-27] MEDS: LORazepam 1 MG TAB PO PRN (02:47)
--- NOTE | 2018-09-27 02:47 | NUR ---
PT STILL AWAKE, ANXIOUS. ATIVAN 1 MG PO GIVEN.
[2018-09-27 04:05] VITALS: BP 130/75
[2018-09-27] MEDS: NACL 0.9% 1,000 ML IV SCH (05:55)
[2018-09-27] MEDS: BLOOD GLUCOSE MONITORING 1 DEV DEV FS SCH ×4 (06:08→21:23)
[2018-09-27 06:14] LABS: T4 (THYROXINE) 4.8 ug/dL (4.5-12.0)
--- NOTE | 2018-09-27 07:20 | NUR ---
ENDORSED PT TO AM NURSEANGELICA. PT SLEEPING IN STABLE CONDITION.
--- NOTE | 2018-09-27 07:21 | NUR ---
RECEIVED REPORT FROM ENVIRONMENT ARTIST NURSE. PATIENT LYING DOWN IN BED SLEEPING, AROUSABLE BY VOICE. NO DISTRESS NOTED. RESPIRATIONS EVEN, UNLABORED, ON ROOM AIR. AAOX3, CALM, COOPERATIVE, SKIN COLOR APPROPRIATE TO ETHNICITY, WARM TO TOUCH. SKIN IS INTACT. IV SITE INTACT, PATENT, AND ON SALINE LOCK AT THIS TIME DUE TO PATIENT REFUSING IVF. REVIEWED PLAN OF CARE WITH PATIENT. PATIENT VERBALIZED UNDERSTANDING. SAFETY MEASURES IN PLACE, CALL LIGHT WITHIN REACH. WILL CONTINUE TO MONITOR.
[2018-09-27 08:00] VITALS: BP 132/84
[2018-09-27 08:09] LABS: BASOPHILS % (AUTO) 0.8 % (0.0-2.0); EOSINOPHILS # (AUTO) 0.3 K/uL (0-0.4); EOSINOPHILS % (AUTO) 6.3 % (0.0-4.0); HEMATOCRIT 40.2 % (36-52); HEMOGLOBIN 12.9 g/dL (12.0-18.0); LYMPHOCYTES % (AUTO) 21.4 % (20.5-51.1); MEAN CORPUSCULAR HEMOGLOBIN 26 pg (27-31); MEAN CORPUSCULAR HGB CONC 32 g/dL (33-37); MEAN CORPUSCULAR VOLUME 81.3 fL (80-94); MONOCYTES # (AUTO) 0.5 K/uL (0.8-1.0); MONOCYTES % (AUTO) 10.7 % (1.7-9.3); NEUTROPHILS # (AUTO) 2.9 K/uL (1.8-7.7); NEUTROPHILS % (AUTO) 60.8 % (42.2-75.2); PLATELET COUNT (AUTO) 177 K/uL (140-450); RED BLOOD CELL COUNT(AUTO) 4.95 MIL/uL (4.20-6.10); WHITE BLOOD COUNT (AUTO) 4.8 K/uL (4.8-10.8)
[2018-09-27] MEDS ORDERED: ASPIRIN 81 MG TAB.CHEW PO SCH (09:00)
[2018-09-27] MEDS ORDERED: NON-FORMULARY ITEM (Warfarin Sodium* (Coumadin*) 1 TAB) PO SCH (09:00)
[2018-09-27 09:13] LABS: PROTHROMBIN TIME 12.7 secs (10.8-13.4)
[2018-09-27 09:32] LABS: ANION GAP 11.5 (8-16); CREATININE 1.4 mg/dL (0.7-1.3); POTASSIUM 4.5 mmol/L (3.5-5.1)
[2018-09-27] MEDS: CARVEDILOL 3.125 MG TAB PO SCH ×2 (09:36→21:24)
[2018-09-27] MEDS: ASPIRIN 81 MG TAB.CHEW PO SCH (09:36)
[2018-09-27] MEDS: ALLOPURINOL 100 MG TAB PO SCH (09:36)
[2018-09-27] MEDS: FUROSEMIDE 40 MG/4 ML VIAL IVP SCH ×2 (09:37→17:22)
[2018-09-27] MEDS: LISINOPRIL 10 MG TAB PO SCH (09:37)
[2018-09-27] MEDS: SPIRONOLACTONE 50 MG TAB PO SCH (09:37)
--- NOTE | 2018-09-27 09:41 | NUR ---
PATIENT SITTING IN BED EATING HIS BREAKFAST. NO DISTRESS NOTED. DENIES ANY PAIN. SCHEDULED MEDICATIONS DUE GIVEN. WILL CONTINUE TO MONITOR.
[2018-09-27 10:32] LABS: MAGNESIUM 1.9 mg/dL (1.8-2.4)
[2018-09-27 12:00] VITALS: BP 114/74
--- NOTE | 2018-09-27 12:55 | NUR ---
PATIENT SITTING DOWN IN BED WATCHING TV. NO DISTRESS NOTED. DENIES ANY PAIN. SCHEDULED MEDICATIONS DUE GIVEN. WILL CONTINUE TO MONITOR.
--- NOTE | 2018-09-27 15:00 | NUR ---
PATIENT LYING DOWN IN BED SLEEPING, AROUSABLE BY VOICE. NO DISTRESS NOTED. DENIES ANY PAIN. WILL CONTINUE TO MONITOR.
[2018-09-27 16:00] VITALS: BP 130/71
[2018-09-27] MEDS: WARFARIN 1 MG TAB PO SCH (17:21)
[2018-09-27] MEDS: ESCITALOPRAM 20 MG TAB PO SCH (17:22)
--- NOTE | 2018-09-27 17:26 | NUR ---
PATIENT SITTING IN BED WATCHING TV. NO DISTRESS NOTED. DENIES ANY PAIN. SCHEDULED MEDICATIONS DUE GIVEN. WILL CONTINUE TO MONITOR.
--- NOTE | 2018-09-27 19:15 | NUR ---
GAVE REPORT TO SUPERVISOR PIPE MANUFACTURE NURSE FOR CONTINUITY OF CARE. PATIENT IN STABLE CONDITION.
--- NOTE | 2018-09-27 19:41 | NUR ---
RECEIVED BEDSIDE REPORT FROM DAY SHIFT RN. PATIENT STABLE AND SITTING UP IN BED, AWAKE AND ALERT, NO SIGNS OF DISTRESS ON RA. SAFETY PRECAUTIONS IN PLACE AND CALL LIGHT IN REACH.
[2018-09-27 20:00] VITALS: BP 121/77
--- NOTE | 2018-09-27 20:45 | NUR ---
PATIENT IS REFUSING TO BE CONNECTED TO IV FLUID. HE WILL ALLOW FOR GLUCOSE MONITORING AND INSULIN IF NEEDED, IV SITE IS FLUSHING WELL, BUT PATIENT IS REFUSING FLUIDS AT THIS TIME.
--- NOTE | 2018-09-27 21:23 | NUR ---
ADMINISTERED SCHEDULED MEDICATIONS. PATIENT TOLERATED WELL. PATIENT IS REFUSING TO GIVE URINE SAMPLE.
[2018-09-27] MEDS: GABAPENTIN 300 MG CAP PO SCH (21:24)
[2018-09-27] MEDS: SIMVASTATIN 40 MG TAB PO SCH (21:24)
[2018-09-27] MEDS: INSULIN LANTUS 100 UNITS/ML 10 ML VIAL SUBQ SCH (21:31)
--- NOTE | 2018-09-27 22:55 | NUR ---
PATIENT IS REQUESTING TO SHOWER. WILL ASSIST PATIENT. PATIENT IS REFUSING TO GIVE URINE SAMPLE.
--- NOTE | 2018-09-27 23:20 | NUR ---
ASSISTED PATIENT BACK TO BED, REPLACED TELE MONITOR. IV SITE REMAINED DRY AND FLUSHING WELL. CALL LIGHT IN REACH. WILL CONTINUE TO MONITOR.
[2018-09-28] VITALS: BP 126/45
[2018-09-28] MEDS ORDERED: SIMETHICONE 80 MG TAB.CHEW PO SCH (00:30)
[2018-09-28] MEDS: LORazepam 1 MG TAB PO PRN (01:29)
--- NOTE | 2018-09-28 01:30 | NUR ---
PATIENT RESTLESS, ADMINISTERED PRN ATIVAN. WILL CONTINUE TO MONITOR.
--- NOTE | 2018-09-28 01:45 | NUR ---
PATIENT IS STILL REFUSING IV FLUIDS.
--- NOTE | 2018-09-28 03:33 | NUR ---
PATIENT RESTING COMFORTABLY, NO SIGNS OF DISTRESS ON RA.
[2018-09-28 04:27] VITALS: BP 122/48
--- NOTE | 2018-09-28 05:30 | NUR ---
PATIENT SLEEPING, NO SIGNS OF DISTRESS ON RA, CALL LIGHT IN REACH. WILL CONTINUE TO MONITOR.
[2018-09-28] MEDS: NACL 0.9% 1,000 ML IV SCH (05:55)
--- NOTE | 2018-09-28 07:19 | NUR ---
RECEIVED REPORT FROM REDYE HAND NURSE. PATIENT LYING DOWN IN BED SLEEPING, AROUSABLE BY VOICE. NO DISTRESS NOTED. RESPIRATIONS EVEN, UNLABORED, ON ROOM AIR. AAOX3, SKIN COLOR APPROPRIATE TO ETHNICITY, WARM TO TOUCH. SKIN IS INTACT. IV SITE INTACT, PATENT, AND ON SALINE LOCK AT THIS TIME DUE TO PATIENT REFUSING IVF. REVIEWED PLAN OF CARE WITH PATIENT. PATIENT VERBALIZED UNDERSTANDING BUT WILL NEED REINFORCEMENT. SAFETY MEASURES IN PLACE, CALL LIGHT WITHIN REACH. WILL CONTINUE TO MONITOR
--- NOTE | 2018-09-28 07:20 | NUR ---
ENDORSED PATIENT TO DAY SHIFT FOR CONTINUITY OF CARE. IN STABLE CONDITION.
[2018-09-28] MEDS: BLOOD GLUCOSE MONITORING 1 DEV DEV FS SCH ×3 (07:30→16:30)
[2018-09-28 07:55] LABS: BASOPHILS % (AUTO) 0.9 % (0.0-2.0); EOSINOPHILS # (AUTO) 0.3 K/uL (0-0.4); EOSINOPHILS % (AUTO) 5.3 % (0.0-4.0); HEMATOCRIT 42.9 % (36-52); HEMOGLOBIN 13.6 g/dL (12.0-18.0); LYMPHOCYTES % (AUTO) 19.1 % (20.5-51.1); MEAN CORPUSCULAR HEMOGLOBIN 26 pg (27-31); MEAN CORPUSCULAR HGB CONC 32 g/dL (33-37); MONOCYTES # (AUTO) 0.6 K/uL (0.8-1.0); MONOCYTES % (AUTO) 10.4 % (1.7-9.3); NEUTROPHILS # (AUTO) 3.4 K/uL (1.8-7.7); NEUTROPHILS % (AUTO) 64.3 % (42.2-75.2); PLATELET COUNT (AUTO) 202 K/uL (140-450); RED BLOOD CELL COUNT(AUTO) 5.24 MIL/uL (4.20-6.10); RED CELL DISTRIBUTION WIDTH 24.2 % (11.6-13.7); WHITE BLOOD COUNT (AUTO) 5.3 K/uL (4.8-10.8)
[2018-09-28 08:00] VITALS: BP 127/74
[2018-09-28 08:30] LABS: ANION GAP 9.3 (8-16); CARBON DIOXIDE 28.6 mmol/L (21-32); CREATININE 1.3 mg/dL (0.7-1.3); POTASSIUM 4.9 mmol/L (3.5-5.1)
[2018-09-28 08:40] LABS: PHOSPHORUS 3.4 mg/dL (2.5-4.9)
[2018-09-28] MEDS: GABAPENTIN 300 MG CAP PO SCH (09:33)
[2018-09-28] MEDS: ALLOPURINOL 100 MG TAB PO SCH (09:33)
[2018-09-28] MEDS: ASPIRIN 81 MG TAB.CHEW PO SCH (09:34)
[2018-09-28] MEDS: LISINOPRIL 10 MG TAB PO SCH (09:34)
[2018-09-28] MEDS: CARVEDILOL 3.125 MG TAB PO SCH (09:34)
[2018-09-28] MEDS: SPIRONOLACTONE 50 MG TAB PO SCH (09:34)
--- NOTE | 2018-09-28 09:38 | NUR ---
ADMINISTERED MORNING MEDS TO PT. PT TOLERATED THEM WELL. ALL PT NEEDS CURRENTLY MET. WILL CONTINUE TO ROUND FREQUENTLY ON PT.
[2018-09-28 09:45] LABS: PROTHROMBIN TIME 12.8 secs (10.8-13.4)
--- NOTE | 2018-09-28 10:47 | NUR ---
NOTIFIED PT OF D/C BUT HE STATES HE WANTS TO WAIT UNTIL DINNER. WILL D/C PT AFTER DINNER. ALL OTHER NEEDS MET. NO SIGNS OF PAIN OR SOB AT THIS TIME. BED IN LOW POSITION, CALL LIGHT WITHIN REACH.
[2018-09-28 12:00] VITALS: BP 108/69
--- NOTE | 2018-09-28 13:24 | NUR ---
PT SLEEPING IN BED. NO SIGNS OF PAIN OR DISTRESS NOTED. WILL CONTINUE TO ROUND FREQUENTLY ON PT.
--- NOTE | 2018-09-28 15:47 | NUR ---
PT RESTING IN BED WATCHING TV. NO PAIN OR DISTRESS REPORTED. WILL CONTINUE TO ROUND FREQUENTLY ON PT.
[2018-09-28 16:00] VITALS: BP 127/80
[2018-09-28] MEDS ORDERED: WARFARIN 5 MG TAB PO SCH (17:00)
[2018-09-28] MEDS: ESCITALOPRAM 20 MG TAB PO SCH (17:50)
--- NOTE | 2018-09-28 18:16 | NUR ---
PT IS REFUSING TO GO HOME. ALSO REFUSING TO SIGN PAPERWORK AND HAVE IV REMOVED. HE IS STATING THAT HE WANTS TO STAY UNTIL MORNING. NOTIFIED.
--- NOTE | 2018-09-28 18:34 | NUR ---
PT IS BEING VERBALLY ABUSIVE AT THIS TIME. SECURITY CALLED TO ASSIST WITH PT DISCHARGE.
--- NOTE | 2018-09-28 18:47 | NUR ---
PT TELLING ME TO GET OUT OF HIS FACE. I REMOVED SELF FROM PT ROOM FOR SAFETY PURPOSES. WILL LET PT CALM DOWN AND TRY AGAIN.
--- NOTE | 2018-09-28 18:57 | NUR ---
PT DISCHARGED WITH ASSISTANCE FROM SECURITY AND CHARGE NURSE. PT D/C HOME FOR SELF CARE. PT REFUSED TO SIGN DISCHARGE PAPERWORK. PT IV WAS REMOVED WITH TIP INTACT. WRIST BANDS REMOVED AND PLACED IN SHRED BIN. PT TELE BOX REMOVED. PT TOOK ALL PERSONAL BELONGINGS WITH HIM INCLUDING WALKER. RESOURCE PACKET WAS GIVEN TO PT. PT ALSO REFUSED TO SIGN ACKNOWLEDGEMENT OF RECEIVING RESOURCE PACKAGE. FOOD ORDERED FOR PT TO TAKE UPON D/C BUT PT DID NOT WAIT FOR IT TO ARRIVE. PT LEFT IN STABLE CONDITION ACCOMPANIED BY SECURITY.
== END 2018-09-28 18:57 | disposition home or self-care (01) | DRG 190 ==
LOC: MED 02:46 → MTU 05:58
PROVIDERS: ADMIT General Practice; ATTEND General Practice
DX: I21.A1 Myocardial infarction type 2 (principal); N17.0 Acute kidney failure with tubular necrosis; E43 Unspecified severe protein-calorie malnutrition; I50.43 Acute on chronic combined systolic (congestive) and diastolic (congestive) heart failure; D68.59 Other primary thrombophilia; E11.22 Type 2 diabetes mellitus with diabetic chronic kidney disease; E11.65 Type 2 diabetes mellitus with hyperglycemia; I48.91 Unspecified atrial fibrillation; J44.9 Chronic obstructive pulmonary disease, unspecified; K21.9 Gastro-esophageal reflux disease without esophagitis; M94.0 Chondrocostal junction syndrome [Tietze]; I25.10 Atherosclerotic heart disease of native coronary artery without angina pectoris; N18.9 Chronic kidney disease, unspecified; I13.0 Hypertensive heart and chronic kidney disease with heart failure and stage 1 through stage 4 chronic kidney disease, or unspecified chronic kidney disease; F15.10 Other stimulant abuse, uncomplicated; E78.5 Hyperlipidemia, unspecified; E03.9 Hypothyroidism, unspecified; M10.9 Gout, unspecified; R06.03 Acute respiratory distress; R74.0 Nonspecific elevation of levels of transaminase and lactic acid dehydrogenase [LDH]; F10.10 Alcohol abuse, uncomplicated; Y90.9 Presence of alcohol in blood, level not specified; Z68.28 Body mass index [BMI] 28.0-28.9, adult; Z59.0 Homelessness; Z88.8 Allergy status to other drugs, medicaments and biological substances; Z95.0 Presence of cardiac pacemaker; Z82.5 Family history of asthma and other chronic lower respiratory diseases; Z83.3 Family history of diabetes mellitus; Z82.49 Family history of ischemic heart disease and other diseases of the circulatory system; Z82.3 Family history of stroke; Z84.1 Family history of disorders of kidney and ureter
CPT/HCPCS: 36415; 71045; 76705; 80048; 80053; 82150; 82948; 83036; 83690; 83735; 83880; 84100; 84436; 84439; 84443; 84479; 84484; 85025; 85610; 85730; 87081; 93005; 96360; 99285; J1644; J1815; J1940; J7030; Q0092

== ENCOUNTER 2018-12-05 05:38 | Emergency (ER) | payer MEDICARE, MEDICAID ==
[~2018-12-05] VITALS: Ht 180.3 cm; Wt 90.3 kg
[2018-12-05 05:41] VITALS: BP 144/90
--- NOTE | 2018-12-05 05:41 | NUR ---
TO BED #08 AMBULATORY
--- NOTE | 2018-12-05 06:00 | NUR ---
63/M PRESENTS TO ED, C/O EPISODE OF "COULDN'T TALK RIGHT" AND R SIDED AND R LEG WEAKNESS, YESTERDAY 5-6PM. PT AOX4, AMBULATORY, PERRLA PINPOINT, GCS 15, SPEECH CLEAR PER PT'S BASELINE, SKIN NORMAL WARM AND DRY, RR EVEN AND UNLABORED. REPORTS CHRONIC L SHOULDER PAIN. DENIES CP, SOB, HEADACHE, N/V. R SUPERVISOR SPECIAL EDUCATION STRENGTH WEAKNESS NOTED. HX A.FIB, PACEMAKER, DM, CVA (2018), HTN, GOUT, CHF (EF 15%) RX LISINOPRIL, INSULIN LANTUS AND HUMALOG, COUMADIN, ALLOPURINOL, LASIX, CARVEDILOL, SPIRONOLACTONE
--- NOTE | 2018-12-05 06:04 | NUR ---
Dr. Langston examining patient.
--- NOTE | 2018-12-05 06:29 | NUR ---
Patient to be transferred to [facility]. Is being transferred due to R/O CVA. Receiving facility has accepting physician and available space. ER physician has signed transfer form. Patient or responsible republican has agreed to transfer and signed form. Patient belongings inventoried and will be sent with patient. Copy of nursing notes, lab reports, EKG, Physicians Orders and X-rays to be sent with patient. Report called to DR. GOFF at receiving facility. [facility] has been called for transfer. ETA is WITHIN 10 MINS.
--- NOTE | 2018-12-05 06:38 | NUR ---
[facility] AT BEDSIDE
[2018-12-05 06:45] VITALS: BP 147/92
--- NOTE | 2018-12-05 06:45 | NUR ---
[facility] AT BEDSIDE FOR TRANSFER TO [facility] ER. VSS. CONDITION STABLE
== END 2018-12-05 06:45 | disposition short-term general hospital (02) ==
LOC: MED 05:38
DX: I63.9 Cerebral infarction, unspecified (principal); I48.91 Unspecified atrial fibrillation; I10 Essential (primary) hypertension; J44.9 Chronic obstructive pulmonary disease, unspecified; E11.9 Type 2 diabetes mellitus without complications; K21.9 Gastro-esophageal reflux disease without esophagitis; Z95.0 Presence of cardiac pacemaker; Z79.82 Long term (current) use of aspirin; Z79.4 Long term (current) use of insulin; Z79.899 Other long term (current) drug therapy; Z88.8 Allergy status to other drugs, medicaments and biological substances
CPT/HCPCS: 82948; 99285

== ENCOUNTER 2019-01-07 20:39 | Emergency (ER) | payer MEDICARE, MEDICAID ==
[~2019-01-07] VITALS: Ht 180.3 cm; Wt 97.1 kg
--- NOTE | 2019-01-07 20:45 | NUR ---
TO LOBBY A/W BED AMBULATORY
[2019-01-07 20:46] VITALS: BP 113/79
--- NOTE | 2019-01-07 22:00 | NUR ---
PT AMBULATED TO BED 03 ASSISTED BY PERSONAL WALKER.
--- NOTE | 2019-01-07 22:20 | NUR ---
PT CAME TO ER C/O OF SHORTNESS OF BREATH. PT AWAKE AND ALERT. PT REPOSITIONED IN HIGH FOWELERS POSITION. VSS. RESPIRATIONS EVEN AND UNLABORED. OXYGEN SATURATION 95% ON RA. PER PT HE ALSO C/O OF GAINING 14LBS OVER THE LAST WEEK AND A HALF. PT STATES HE TAKES LASIX, BUT IT IS NOT WORKING GOOD. MED HX: A.FIB, PACEMAKER, DM, COPD, AND HAD A STROKE IN 2018. SAFETY MEASURES IN PLACE. WAITING FOR ERMD TO EVALUATE PT.
--- NOTE | 2019-01-07 22:33 | NUR ---
RT AT BEDSIDE FOR ABG
--- NOTE | 2019-01-07 22:38 | NUR ---
LAB AT BEDSIDE
--- NOTE | 2019-01-07 22:40 | NUR ---
X RAY AT BEDSIDE
[2019-01-07 22:50] LABS: BASOPHILS % (AUTO) 0.6 % (0.0-2.0); EOSINOPHILS # (AUTO) 0.3 K/uL (0-0.4); EOSINOPHILS % (AUTO) 6.1 % (0.0-4.0); HEMOGLOBIN 12.8 g/dL (12.0-18.0); LYMPHOCYTES # (AUTO) 0.9 K/uL (2.0-11.5); LYMPHOCYTES % (AUTO) 16.5 % (20.5-51.1); MEAN CORPUSCULAR HEMOGLOBIN 28 pg (27-31); MEAN CORPUSCULAR HGB CONC 33 g/dL (33-37); MEAN CORPUSCULAR VOLUME 85.3 fL (80-94); MONOCYTES # (AUTO) 0.5 K/uL (0.8-1.0); MONOCYTES % (AUTO) 8.5 % (1.7-9.3); NEUTROPHILS # (AUTO) 3.8 K/uL (1.8-7.7); NEUTROPHILS % (AUTO) 68.3 % (42.2-75.2); PLATELET COUNT (AUTO) 149 K/uL (140-450); RED BLOOD CELL COUNT(AUTO) 4.57 MIL/uL (4.20-6.10); RED CELL DISTRIBUTION WIDTH 21.6 % (11.6-13.7); WHITE BLOOD COUNT (AUTO) 5.6 K/uL (4.8-10.8)
--- NOTE | 2019-01-07 22:57 | NUR ---
PT RESTING IN BED COMFORTABLY IN HIGH FOWLERS POSITION. VSS. WILL CONTINUE TO MONITOR.
[2019-01-07 23:09] LABS: ANION GAP 9.9 (8-16); CARBON DIOXIDE 29.4 mmol/L (21-32); CREATININE 2.1 mg/dL (0.7-1.3); POTASSIUM 4.3 mmol/L (3.5-5.1)
[2019-01-07 23:14] LABS: TOTAL BILIRUBIN 1.5 mg/dL (0.0-1.0)
[2019-01-07 23:20] LABS: PROTHROMBIN TIME 30.3 secs (10.8-13.4)
[2019-01-07] MEDS ORDERED: FUROSEMIDE 40 MG/4 ML VIAL IVP ONE (23:30)
--- NOTE | 2019-01-08 00:45 | NUR ---
pt ambulated with walker to restroom
[2019-01-08 01:04] VITALS: BP 128/79
--- NOTE | 2019-01-08 01:04 | NUR ---
Patient discharged with v/s stable. Written and verbal after care instructions given and explained. PT WAS GIVEN COPIES OF LABS PER REQUEST. Patient alert, oriented and verbalized understanding of instructions. Ambulatory with steady gait. PT ALSO HAS A WALKER THAT HE USES BUT WAS ABLE TO AMBULATE WITHOUT USING IT. All questions addressed prior to discharge. ID band removed. Patient advised to follow up with PMD. Patient educated on indication of medication including possible reaction and side effects. Opportunity to ask questions provided and answered.
== END 2019-01-08 01:04 | disposition home or self-care (01) ==
LOC: MED 20:39
DX: R06.02 Shortness of breath (principal); R60.0 Localized edema; I11.0 Hypertensive heart disease with heart failure; I50.9 Heart failure, unspecified; E11.9 Type 2 diabetes mellitus without complications; I48.91 Unspecified atrial fibrillation; Z79.01 Long term (current) use of anticoagulants; Z95.0 Presence of cardiac pacemaker; Z86.73 Personal history of transient ischemic attack (TIA), and cerebral infarction without residual deficits; Z79.82 Long term (current) use of aspirin; Z79.899 Other long term (current) drug therapy; Z79.4 Long term (current) use of insulin; Z88.8 Allergy status to other drugs, medicaments and biological substances
CPT/HCPCS: 36415; 36600; 71045; 80053; 82803; 83880; 85025; 85610; 85730; 93005; 96372; 99284; J1940; Q0092

== ENCOUNTER 2019-01-25 23:44 | Emergency (ER) | payer MEDICARE, MEDICAID ==
[~2019-01-25] VITALS: Ht 180.3 cm; Wt 92.5 kg
[2019-01-25 23:51] VITALS: BP 143/57
[2019-01-26] MEDS ORDERED: ASPIRIN 325 MG TAB PO ONE (00:10)
[2019-01-26 00:38] LABS: BASOPHILS # (AUTO) 0.1 K/uL (0.00-0.22); BASOPHILS % (AUTO) 0.9 % (0.0-2.0); EOSINOPHILS # (AUTO) 0.2 K/uL (0-0.4); HEMATOCRIT 39.4 % (36-52); HEMOGLOBIN 12.8 g/dL (12.0-18.0); LYMPHOCYTES # (AUTO) 0.8 K/uL (2.0-11.5); LYMPHOCYTES % (AUTO) 11.2 % (20.5-51.1); MEAN CORPUSCULAR HEMOGLOBIN 28 pg (27-31); MEAN CORPUSCULAR HGB CONC 33 g/dL (33-37); MEAN CORPUSCULAR VOLUME 85.9 fL (80-94); MONOCYTES # (AUTO) 0.6 K/uL (0.8-1.0); MONOCYTES % (AUTO) 8.2 % (1.7-9.3); NEUTROPHILS # (AUTO) 5.4 K/uL (1.8-7.7); NEUTROPHILS % (AUTO) 76.7 % (42.2-75.2); PLATELET COUNT (AUTO) 177 K/uL (140-450); RED BLOOD CELL COUNT(AUTO) 4.59 MIL/uL (4.20-6.10); RED CELL DISTRIBUTION WIDTH 21.3 % (11.6-13.7)
[2019-01-26 00:57] LABS: ANION GAP 10.9 (8-16); CARBON DIOXIDE 27.4 mmol/L (21-32); CREATININE 1.4 mg/dL (0.7-1.3); POTASSIUM 5.3 mmol/L (3.5-5.1)
[2019-01-26 01:04] LABS: TOTAL BILIRUBIN 1.5 mg/dL (0.0-1.0)
[2019-01-26] MEDS ORDERED: SODIUM POLYSTYRENE 15 GM/60 ML UDBTL PO ONE (01:05)
[2019-01-26] MEDS ORDERED: INSULIN REGULAR, HUMAN 100 UNIT/ML VIAL SUBQ ONE (01:05)
[2019-01-26] MEDS ORDERED: DEXTROSE 50% 50 ML SYR IVP ONE (01:05)
[2019-01-26] MEDS ORDERED: ALBUTEROL 0.083% 2.5 MG/3 ML NEBU INH ONE (01:05)
[2019-01-26] MEDS ORDERED: FUROSEMIDE 40 MG/4 ML VIAL IVP ONE (01:25)
[2019-01-26 07:17] VITALS: BP 132/77
== END 2019-01-26 07:18 | disposition short-term general hospital (02) ==
LOC: MED 23:44
DX: I13.0 Hypertensive heart and chronic kidney disease with heart failure and stage 1 through stage 4 chronic kidney disease, or unspecified chronic kidney disease (principal); I50.9 Heart failure, unspecified; N18.3 Chronic kidney disease, stage 3 (moderate); E11.22 Type 2 diabetes mellitus with diabetic chronic kidney disease; E87.5 Hyperkalemia; I21.4 Non-ST elevation (NSTEMI) myocardial infarction; F19.10 Other psychoactive substance abuse, uncomplicated; J44.9 Chronic obstructive pulmonary disease, unspecified; I48.91 Unspecified atrial fibrillation; K21.9 Gastro-esophageal reflux disease without esophagitis; Z86.73 Personal history of transient ischemic attack (TIA), and cerebral infarction without residual deficits; Z95.0 Presence of cardiac pacemaker; Z79.899 Other long term (current) drug therapy; Z79.01 Long term (current) use of anticoagulants; Z79.82 Long term (current) use of aspirin; Z79.4 Long term (current) use of insulin; Z79.51 Long term (current) use of inhaled steroids; Z88.8 Allergy status to other drugs, medicaments and biological substances
CPT/HCPCS: 36415; 71045; 80053; 83880; 84484; 85025; 93005; 94640; 96372; 96374; 96375; 99285; G0482; J1815; J1940; J7613; Q0092

== ENCOUNTER 2019-05-01 02:24 | Emergency (ER) | payer MEDICARE, MEDICAID ==
[~2019-05-01] VITALS: Ht 157.5 cm; Wt 89.8 kg
[2019-05-01 02:30] VITALS: BP 123/71
[2019-05-01 03:00] LABS: WHITE BLOOD COUNT (AUTO) 7.4 K/uL (4.8-10.8)
[2019-05-01 03:17] LABS: ALBUMIN 3.4 g/dL (3.4-5.0); ANION GAP 15.5 (8-16); BASOPHILS % (AUTO) 0.4 % (0.0-2.0); CARBON DIOXIDE 25.9 mmol/L (21-32); CREATININE 1.8 mg/dL (0.7-1.3); HEMATOCRIT 43.7 % (36-52); LYMPHOCYTES # (AUTO) 0.8 K/uL (2.0-11.5); LYMPHOCYTES % (AUTO) 10.9 % (20.5-51.1); MEAN CORPUSCULAR HEMOGLOBIN 29 pg (27-31); MEAN CORPUSCULAR HGB CONC 32 g/dL (33-37); MEAN CORPUSCULAR VOLUME 90.9 fL (80-94); MONOCYTES # (AUTO) 0.5 K/uL (0.8-1.0); MONOCYTES % (AUTO) 7.2 % (1.7-9.3); NEUTROPHILS % (AUTO) 81.5 % (42.2-75.2); PLATELET COUNT (AUTO) 152 K/uL (140-450); POTASSIUM 5.4 mmol/L (3.5-5.1); RED BLOOD CELL COUNT(AUTO) 4.81 MIL/uL (4.20-6.10); TOTAL BILIRUBIN 1.4 mg/dL (0.0-1.0)
[2019-05-01 03:22] LABS: RED CELL DISTRIBUTION WIDTH 21.7 % (11.6-13.7)
[2019-05-01] MEDS: NACL 0.9% 1,000 ML IV ONE (05:45)
[2019-05-01 07:34] VITALS: BP 137/85
== END 2019-05-01 07:34 | disposition home or self-care (01) ==
LOC: MED 02:24
DX: N17.9 Acute kidney failure, unspecified (principal); E87.5 Hyperkalemia; E86.0 Dehydration; J44.9 Chronic obstructive pulmonary disease, unspecified; I11.0 Hypertensive heart disease with heart failure; I50.9 Heart failure, unspecified; I48.91 Unspecified atrial fibrillation; E11.9 Type 2 diabetes mellitus without complications; K21.9 Gastro-esophageal reflux disease without esophagitis; Z95.0 Presence of cardiac pacemaker; Z88.8 Allergy status to other drugs, medicaments and biological substances; Z79.82 Long term (current) use of aspirin; Z79.899 Other long term (current) drug therapy; Z79.01 Long term (current) use of anticoagulants; Z86.73 Personal history of transient ischemic attack (TIA), and cerebral infarction without residual deficits
CPT/HCPCS: 36415; 71045; 80053; 84132; 84484; 85025; 99284; Q0092

== ENCOUNTER 2019-06-17 18:28 | Emergency (ER) | payer MEDICARE, MEDICAID ==
[~2019-06-17] VITALS: Ht 180.3 cm; Wt 92.5 kg
[2019-06-17 18:37] VITALS: BP 140/69
--- NOTE | 2019-06-17 20:00 | NUR ---
PT AMBULATED TO BED 8.
--- NOTE | 2019-06-17 20:05 | NUR ---
PT 63 Y/O MALE BIB SELF FOR C/O 10/31 R LEG PAIN D/T SKIN TEAR THAT HAPPENED X 4 DAYS AGO. NO REDNESS OR SWELLING NOTED. NO DRAINAGE OR DISCHARGE NOTED. PT AAO X 4 AND RESPONDS TO VERBAL STIMULI. PT RESPIRATIONS ARE EVEN AND UNLABORED. SKIN IS WARM AND DRY TO TOUCH. LUNG SOUNDS CLEAR A/P. PT DENIES SOB OR COUGH AT THIS TIME. AFEBRILE. PT DENIES N/V/D. BS: 314. PT ADMITS TO HAVING CVA X 1 YEAR AGO. NO PROBLEMS WITH SPEAKING OR AMBULATING NOTED. PT RESTING IN BED. BED LOCKED IN LOWEST POSITION. MEDHX: HTN, COPD, DM TYPE II, GERD, CHF, AFIB. CVA X 1 YEAR AGO. ALLERGIES: AMIODARONE, METOPROLOL.
--- NOTE | 2019-06-17 21:19 | NUR ---
DR ANDREA AT BEDSIDE.
--- NOTE | 2019-06-17 21:30 | NUR ---
PT O2SAT 90-92 ON RA. PT PLACED ON NC 2L/MIN. O2 SAT RETURNED TO 99%.
--- NOTE | 2019-06-17 21:42 | NUR ---
Dr. Ingram examining patient.
[2019-06-17 21:44] VITALS: BP 118/83
--- NOTE | 2019-06-17 21:44 | NUR ---
PT DISCHARGED WITHOUT PAPERWORK. PT REFUSED D/C PAPERS. EDUCATED PT REGARDING D/C INSTRUCTIONS AND MEDICATIONS. PT STABLE CONDITION.
== END 2019-06-17 21:44 | disposition home or self-care (01) ==
LOC: MED 18:28
DX: L03.115 Cellulitis of right lower limb (principal); H11.001 Unspecified pterygium of right eye; I87.8 Other specified disorders of veins; I11.0 Hypertensive heart disease with heart failure; I50.9 Heart failure, unspecified; I48.91 Unspecified atrial fibrillation; J44.9 Chronic obstructive pulmonary disease, unspecified; K21.9 Gastro-esophageal reflux disease without esophagitis; E11.9 Type 2 diabetes mellitus without complications; Z86.73 Personal history of transient ischemic attack (TIA), and cerebral infarction without residual deficits; Z95.0 Presence of cardiac pacemaker; Z87.448 Personal history of other diseases of urinary system; Z79.899 Other long term (current) drug therapy; Z79.01 Long term (current) use of anticoagulants; Z79.82 Long term (current) use of aspirin; Z79.4 Long term (current) use of insulin; Z79.51 Long term (current) use of inhaled steroids; Z88.8 Allergy status to other drugs, medicaments and biological substances
CPT/HCPCS: 82948; 99283

== ENCOUNTER 2019-07-31 18:15 | Emergency (ER) | payer MEDICARE, MEDICAID ==
[~2019-07-31] VITALS: Ht 175.3 cm; Wt 89.8 kg
[2019-07-31 18:23] VITALS: BP 135/66
--- NOTE | 2019-07-31 18:59 | NUR ---
PT AMBULATED TO BED 6.
--- NOTE | 2019-07-31 19:16 | NUR ---
63 Y/O MALE C/O LOWER RIGHT LEG PAIN/CALF/FOOT PAIN WITH PAIN 9/10 FOR 1 WEEK . pt has 2 wounds on his right calf that are open to air with minimal scabbing. pt unsure of how he go the cuts but has had them x 1 week. right lower leg/calf/foot are red/HOT/warm to the touch. RIGHT LOWER LEG SWELLING. VSS. DENIES N/V/D; AAOX4 WITH EVEN AND STEADY GAIT; PT DENIES ANY FEVER, CP, SOB, OR COUGH AT THIS TIME; PATIENT STATES PAIN OF 9/10 AT THIS TIME; BED LOW AND LOCKED WITH 1 SIDE RAIL UP, PT IN POSITION OF COMFORT. MEDICAL HX:DM/STROKE/NEUROPATHY/A-FIB/CHF ALLERGY: METROPOLOL,AMIODARONE
--- NOTE | 2019-07-31 20:00 | NUR ---
DR PINK AT BEDSIDE EXAMINING PT
[2019-07-31] MEDS ORDERED: KETOROLAC 30 MG/ML VIAL IVP ONE (20:10)
--- NOTE | 2019-07-31 20:16 | NUR ---
EMT PERFORMING EKG AT BEDSIDE.
[2019-07-31] MEDS ORDERED: ceFAZolin 1,000 MG VIAL ONE (20:18)
--- NOTE | 2019-07-31 20:20 | NUR ---
XRAY AT BEDSIDE.
[2019-07-31] MEDS ORDERED: IPRATROPIUM 0.02% 0.5 MG/2.5 ML NEBU INH ONE (20:25)
[2019-07-31] MEDS ORDERED: ALBUTEROL 0.083% 2.5 MG/3 ML NEBU INH ONE (20:25)
--- NOTE | 2019-07-31 21:00 | NUR ---
INFORMED PT I NEED A URINE SAMPLE AND PT IS REFUSING, INFORMED PT DOCTOR ORDERED A UA AND PT IS STILL HESITANT BUT IS GOING TO TRY.
--- NOTE | 2019-07-31 21:04 | NUR ---
RECIVED REPORT FROM CECIL ROMAN. CONTINUATION OF CARE.
--- NOTE | 2019-07-31 21:06 | NUR ---
Pt report given to ABEL GOLDSTEIN. Transfer of care at this time.
--- NOTE | 2019-07-31 21:10 | NUR ---
UA COLLECTED AT BEDSIDE VIA URINAL.
[2019-07-31 21:25] LABS: BASOPHILS # (AUTO) 0.1 K/uL (0.00-0.22); BASOPHILS % (AUTO) 1.1 % (0.0-2.0); EOSINOPHILS # (AUTO) 0.1 K/uL (0-0.4); EOSINOPHILS % (AUTO) 1.8 % (0.0-4.0); HEMATOCRIT 40.8 % (36-52); HEMOGLOBIN 13.2 g/dL (12.0-18.0); LYMPHOCYTES # (AUTO) 0.9 K/uL (2.0-11.5); LYMPHOCYTES % (AUTO) 13.6 % (20.5-51.1); MEAN CORPUSCULAR HEMOGLOBIN 30 pg (27-31); MEAN CORPUSCULAR HGB CONC 33 g/dL (33-37); MEAN CORPUSCULAR VOLUME 90.8 fL (80-94); MONOCYTES # (AUTO) 0.5 K/uL (0.8-1.0); MONOCYTES % (AUTO) 6.8 % (1.7-9.3); NEUTROPHILS # (AUTO) 5.3 K/uL (1.8-7.7); NEUTROPHILS % (AUTO) 76.7 % (42.2-75.2); PLATELET COUNT (AUTO) 154 K/uL (140-450); RED BLOOD CELL COUNT(AUTO) 4.49 MIL/uL (4.20-6.10); RED CELL DISTRIBUTION WIDTH 19.2 % (11.6-13.7); WHITE BLOOD COUNT (AUTO) 6.9 K/uL (4.8-10.8)
[2019-07-31 21:34] LABS: APPEARANCE,URINE CLEAR (CLEAR); BILIRUBIN,URINE NEGATIVE (NEGATIVE); BLOOD, URINE NEGATIVE (NEGATIVE); COLOR,URINE YELLOW (YELLOW); LEUKOCYTE ESTERASE ,URINE NEGATIVE (NEGATIVE); NITRITE, URINE NEGATIVE (NEGATIVE); UGLUCOSE 1+ (NEGATIVE)
[2019-07-31 21:35] LABS: ALBUMIN 2.9 g/dL (3.4-5.0); ANION GAP 14.6 (8-16); CARBON DIOXIDE 25.7 mmol/L (21-32); CREATININE 2.1 mg/dL (0.6-1.3); POTASSIUM 5.3 mmol/L (3.5-5.1); PROTHROMBIN TIME 20.6 secs (10.8-13.4); TOTAL BILIRUBIN 1.1 mg/dL (0.0-1.0)
--- NOTE | 2019-07-31 22:49 | NUR ---
DR ANDREA AT BEDSIDE.
--- NOTE | 2019-07-31 23:16 | NUR ---
Gunjan quintero in [facility] - 07/31/19 at 2318 by [email or web address] AT BEDSIDE.
--- NOTE | 2019-08-01 00:21 | NUR ---
PT RESTING IN BED WITH EYES OPEN AND SITTING UPRIGHT. PT RESPIRATIONS ARE EVEN AND UNLABORED. PT SPEAKING TO GIRLFRIEND AT BEDSIDE. PT ON MONITOR.
[2019-08-01] MEDS ORDERED: NACL 0.9% 500 ML IV ONE (01:30)
--- NOTE | 2019-08-01 01:32 | NUR ---
PT AMBULATED TO RESTROOM WITH STEADY GAIT.
--- NOTE | 2019-08-01 01:35 | NUR ---
PT AMBULATED FROM RESTROOM TO BED WITH STEADY GAIT. PT PLACED ON MONITOR.
--- NOTE | 2019-08-01 02:26 | NUR ---
PT RESTING IN BED EYES CLOSED. IVF NS 0.9% 500 ML RUNNING CONTINOUSLY. IV SITE IS PATENT. NO SWELLING, REDNESS, OR C/O PAIN AT THIS TIME. PT ON MONITOR. GIRLFRIEND AT BEDSIDE. BED LOCKED AND IN LOWEST POSITION.
--- NOTE | 2019-08-01 03:50 | NUR ---
LAB AT BEDSIDE.
[2019-08-01 04:10] LABS: ANION GAP 9.8 (8-16); CARBON DIOXIDE 30.3 mmol/L (21-32); CREATININE 2.2 mg/dL (0.6-1.3); POTASSIUM 5.1 mmol/L (3.5-5.1)
[2019-08-01] MEDS ORDERED: BACITRACIN OINT 500 UNITS/GM PKT TP ONE (04:35)
[2019-08-01 04:45] VITALS: BP 134/68
--- NOTE | 2019-08-01 04:45 | NUR ---
Patient discharged with v/s stable. Pt reufsed last set of viatals and insisted on leaving facility. Written and verbal after care instructions given and explained ny Dr Ingram. Dr Ingram asked patient to stay but patient refused. IV removed from left forearm. Patient alert, oriented and verbalized understanding of instructions. Ambulatory with steady gait. All questions addressed prior to discharge. ID band removed. Patient advised to follow up with PMD. Rx of Clindamycin and Bacitracin given. Patient educated on indication of medication including possible reaction and side effects. Opportunity to ask questions provided and answered.
== END 2019-08-01 04:45 | disposition home or self-care (01) ==
LOC: MED 18:15
DX: L03.115 Cellulitis of right lower limb (principal); J44.9 Chronic obstructive pulmonary disease, unspecified; I11.0 Hypertensive heart disease with heart failure; I50.9 Heart failure, unspecified; E11.9 Type 2 diabetes mellitus without complications; K21.9 Gastro-esophageal reflux disease without esophagitis; Z86.73 Personal history of transient ischemic attack (TIA), and cerebral infarction without residual deficits; Z90.49 Acquired absence of other specified parts of digestive tract; Z98.890 Other specified postprocedural states; Z95.0 Presence of cardiac pacemaker; Z79.4 Long term (current) use of insulin; Z79.899 Other long term (current) drug therapy; Z88.8 Allergy status to other drugs, medicaments and biological substances
CPT/HCPCS: 36415; 71045; 73590; 80048; 80053; 83605; 85025; 85610; 85730; 87040; 87086; 94640; 96365; 96375; 99284; J0690; J1885; J7030; J7613; J7644; Q0092